=== PATIENT | female | born 1955 | race Caucasian/White ===

== ENCOUNTER 2023-10-31 05:56 | Day surgery (SDC) | payer MEDICARE, SELFPAY ==
--- NOTE | 2023-10-31 | IMM_PTH ---
PATHOLOGY RESULTS PATIENT: RIKKI ACKERMAN [place] [facility] [id number] AGE/SX: 68/F ROOM: RE10/31/[address]: Dr. Digna Hammond MD : 1955 BED: DIS: 10/31/2023 SPEC #: [id number] RECD: 11/03/23 13:16 STATUS: HARSHA REQ #: [id number] KARLENE: 10/31/23 00:[address]: Digna Hammond DEPT: IMMUNOHISTOCHEMISTRY RECD BY: Catalina Chang ENTERED: 11/03/23 13:18 SP TYPE: IMMUNO OTHR DR: Dr. Toribio Moss MD Tissues: Skin of eyelid, NOS Procedures: CK5-6 (add) CK7 (add) KI-67 (add) Vimentin (add) Pankeratin (initial) MELAN-A (add) P40 (add) S-100 (add) PHYSICIAN & INSTITUTION [place] [phone] SPECIMEN INFORMATION: Tissue Source: B - Shave lesion right eye area Clinical Info: Lesions Specimen Number: [id number] CPT code: 48953, 21059 x7 METHODOLOGY: Deparaffinized sections of prefer/formalin-fixed tissue or PAP/DQ stained slides are incubated with monoclonal/polyclonal antibodies/oligonucleotide probes. Localization is made via biotin free immunoperoxidase method. Appropriate controls are performed and reacted as expected. Results on target cell population are indicated in the following table: RESULTS: ANTIBODY / CLONE RESULT Block B AE1-3 (AE1/AE3/PCK26) positive CK7 (OV-TL12/30) negative Vimentin (V9) negative Melan A (A103) negative S-100 (4C4.9) negative CK5-6 (D5 & 1684) positive P40 (BC28) positive Ki-67 (30-9) positive, low These tests were developed and their performance characteristics determined by [facility]. They may not have been cleared or approved by the [place]. Food and Drug Administration. The FDA has determined that such clearance or approval is not necessary. The above immunohistochemical/dualISH markers are ordered and reviewed by the Pathologist. INTERPRETATION: B. Skin lesion, right eye area, shave biopsy: Actinic change with moderate to severe squamous atypia. AM:lanie 11/04/2023
--- NOTE | 2023-10-31 | LES_PTH ---
PATHOLOGY RESULTS PATIENT: RIKKI ACKERMAN LOC: [facility] – [place] U#:[id number] AGE/SX: 68/F ROOM: RE10/31/[address]: Dr. Digna Hammond MD : 1955 BED: DIS: 10/31/2023 SPEC #: [id number] RECD: 10/31/23 08:48 STATUS: HARSHA REAndrew #: [id number] KARLENE: 10/31/23 00:[address]: Digna Hammond DEPT: SURGICAL PATHOLOGY RECD BY: Scott Zuniga ENTERED: 10/31/23 09:32 SP TYPE: Lesion OTHR DR: Dr. Toribio Moss MD Tissues: Skin of forehead Skin of eyelid, NOS Skin of face, NOS Skin of face, NOS Procedures: Surgery Specimen Level IV HEADER OPERATION: Shave lesion left cheek, nose, forehead, right eye area PRE-OP DIAGNOSIS: Lesions left cheek, nose, forehead, right eye area TISSUE SUBMITTED: A - Shave lesion forehead, B - Shave lesion right eye area, C - Shave lesion left cheek, D - Shave lesion nose MICROSCOPIC DIAGNOSIS A. Skin lesion of forehead, shave biopsy: Actinic change with moderate and focal severe squamous atypia, inflamed. Focal ulcer with eschar formation. Parakeratosis and solar elastosis. Fungal organisms consistent with tinea. B. Skin lesion, right eye area, shave biopsy: Actinic keratosis with moderate and focal severe squamous atypia, inflamed. Parakeratosis and solar elastosis. Fungal organisms consistent with tinea. See comment. C. Left cheek skin lesion, shave biopsy: Actinic keratosis with mild and focal moderate squamous atypia, inflamed. Parakeratosis and solar elastosis.. Fungal organisms consistent with tinea. D. Skin lesion of nose, shave biopsy: Acathotic squamoid lesion with mild and focal moderate squamous atypia. . Parakeratosis and solar elastosis. Fungal organisms consistent with tinea. AM:lanie 11/03/2023 COMMENT A-D. The lesions extend to the deep shaved, inked margins. Clinical correlation is necessary. B. Immunohistochemistry ([id number]) supports the above diagnosis. Case has been reviewed in consultation with Dr. Joseph who concurs with the above diagnosis. IDC:SJ MICROSCOPIC DESCRIPTION Slides are reviewed. GROSS DESCRIPTION A - Received in fixative is one container labeled with the patient's name and designated shave lesion forehead. The specimen consists of a shave biopsy of sewell-white skin measuring 0.8 x 0.7 x 0.1 cm. The specimen is inked, serially sectioned and submitted entirely in one cassette. Also present in the container is a minute fragment of sewell soft tissue measuring 0.6 x 0.1 x 0.1 cm. The entire specimen is submitted in cassette 2. B - Received in fixative is one container labeled with the patient's name and designated shave lesion right eye area. The specimen consists of an irregular, disrupted piece of sewell-white skin measuring 1.5 x 0.2 x 0.1 cm. The specimen is inked, serially sectioned and submitted entirely in one cassette. C - Received in fixative is one container labeled with the patient's name and designated shave lesion left cheek. The specimen consists of a shave biopsy of sewell-white skin measuring 0.8 x 0.6 x 0.1 cm. The specimen is inked, serially sectioned and submitted entirely in one cassette. D - Received in fixative is one container labeled with the patient's name and designated shave lesion nose. The specimen consists of a piece of sewell-white skin measuring 0.5 x 0.4 x 0.1 cm. The specimen is inked, bisected and submitted entirely in one cassette. / SJ:rg 10/31/23 TC:0 CPT: 99672 x4
--- OUTSIDE RECORDS SUMMARY | 2023-10-31 06:04 | XMS RPT_ITS | CCD ---
Author Name Unknown Address [address] [place] [address] Organization [facility] Care Team Providers Care Disability Examiner Name Role Phone MAXIMILIANO, EUN Unavailable Unavailable MAXIMILIANO, EUN Unavailable Unavailable MAXIMILIANO, EUN Unavailable Unavailable MAXIMILIANO, EUN Unavailable Unavailable MAXIMILIANO, EUN Unavailable Unavailable MAXIMILIANO, EUN Unavailable Unavailable MAXIMILIANO, EUN Unavailable Unavailable MAXIMILIANO, EUN Unavailable Unavailable MAXIMILIANO, EUN Unavailable Unavailable MAXIMILIANO, EUN Unavailable Unavailable MAXIMILIANO, EUN Unavailable Unavailable MAXIMILIANO, EUN Unavailable Unavailable MAXIMILIANO, EUN Unavailable Unavailable MAXIMILIANO, EUN Unavailable Unavailable MAXIMILIANO, EUN Unavailable Unavailable MAXIMILIANO, EUN Unavailable Unavailable MAXIMILIANO, EUN Unavailable Unavailable MAXIMILIANO, EUN Unavailable Unavailable MAXIMILIANO, EUN Unavailable Unavailable MAXIMILIANO, EUN Unavailable Unavailable MAXIMILIANO, EUN Unavailable Unavailable MAXIMILIANO, EUN Unavailable Unavailable MAXIMILIANO, EUN Unavailable Unavailable MAXIMILIANO, EUN Unavailable Unavailable MAXIMILIANO, EUN Unavailable Unavailable MAXIMILIANO, EUN Unavailable Unavailable MAXIMILIANO, EUN Unavailable Unavailable MAXIMILIANO, EUN Unavailable Unavailable MAXIMILIANO, EUN Unavailable Unavailable MAXIMILIANO, EUN Unavailable Unavailable MAXIMILIANO, EUN Unavailable Unavailable MAXIMILIANO, EUN Unavailable Unavailable MAXIMILIANO, EUN Unavailable Unavailable MAXIMILIANO, EUN Unavailable Unavailable Clari Moss Unavailable Clari Moss Primary Care Provider Clari Moss [facility] Primary Care Provider Clari Moss MD Primary Care Provider [phone] Clari Moss MD Primary Care Provider [phone] Clari Moss MD Primary Care Provider Clari Moss MD Primary Care Provider [phone] SELF, SELF Referring Unavailable CLARI MOSS Primary Care Unavailable JAN MURPHY Attending Unavailable CLARI MOSS Attending Unavailable CLARI MOSS Referring Unavailable CLARI MOSS Primary Care Unavailable CLARI MOSS Attending Unavailable CLARI MOSS Referring Unavailable CLARI MOSS Primary Care Unavailable CLARI MOSS Referring Unavailable CLARI MOSS Attending Unavailable CLARI MOSS Primary Care Unavailable CLARI MOSS Referring Unavailable CLARI MOSS Primary Care Unavailable MIR MELISSA Attending Unavailable CLARI MOSS Primary Care Unavailable ALFRED IBARRA Attending Unavailable ALFRED IBARRA Referring Unavailable CLARI MOSS Primary Care Unavailable ALFRED IBARRA Attending Unavailable ALFRED IBARRA Referring Unavailable CLARI MOSS Primary Care Unavailable AMALFRED BAILON Attending Unavailable TIM IBARRAMO Referring Unavailable CLARI MOSS Referring Unavailable CLARI MOSS Primary Care Unavailable UJDY, MIR Attending Unavailable CLARI MOSS Primary Care Unavailable ALFRED IBARRA Referring Unavailable TIM IBARRAMO Attending Unavailable CLARI MOSS Primary Care Unavailable CLARI MOSS Referring Unavailable CLARI MOSS Attending Unavailable CLARI MOSS Primary Care Unavailable MIR MELISSA Attending Unavailable MIR MELISSA Referring Unavailable CLARI MOSS Primary Care Unavailable MIR MELISSA Attending Unavailable MIR MELISSA Referring Unavailable MIR MELISSA Attending Unavailable CLARI MOSS Referring Unavailable CLARI MOSS Primary Care Unavailable CLARI MOSS Primary Care Unavailable GLADYS DAWSON Attending Unavailable GLADYS DAWSON Referring Unavailable MIR MELISSA Attending Unavailable CLARI MOSS Referring Unavailable CLARI MOSS Primary Care Unavailable CLARI MOSS Primary Care Unavailable CLARI MOSS Attending Unavailable SELF, SELF Referring Unavailable CLARI MOSS Primary Care Unavailable GLADYS DAWSON Attending Unavailable GLADYS DAWSON Referring Unavailable ALFRED IBARRA Attending Unavailable CLARI MOSS Referring Unavailable CLARI MOSS Primary Care Unavailable CLARI MOSS Referring Unavailable ALFRED IBARRA Attending Unavailable CLARI MOSS Primary Care Unavailable SELF, SELF Referring Unavailable CLARI MOSS Attending Unavailable CLARI MOSS Primary Care Unavailable MIR MELISSA Attending Unavailable CLARI MOSS Referring Unavailable CLARI MOSS Primary Care Unavailable CLARI MOSS Attending Unavailable CLARI MOSS Primary Care Unavailable SELF, SELF Referring Unavailable Allergies Allergy Classification Reported Allergen(s) Allergy Type Date of Onset Reaction(s) Facility Latex (6 sources) Latex Substance Allergy 01-20-2017 Rash [facility] Macrolides (antibiotic) (6 sources) Erythromycin Drug Allergy 01-20-2017 Nausea Only [facility] NSAIDs (6 sources) Ibuprofen Drug Allergy 01-20-2017 Nausea Only [facility] Opioid Agonists (6 sources) Codeine Drug Allergy 01-20-2017 Itching [facility] Penicillins (antibiotic) (6 sources) Penicillins Drug Allergy 01-20-2017 [facility] Povidone-Iodine (6 sources) P[facility]idone[facility]ine Drug [facility] codeine Drug Allergy 01-20-2017 Itching [facility] Work Phone: (20 sources) erythromycin Drug Allergy 01-20-2017 Nausea Only [facility] Work Phone: (20 sources) ibuprofen Drug Allergy 01-20-2017 Nausea Only [facility] Work Phone: (20 sources) Latex Propensity to adverse reactions to drug 01-20-2017 [facility] Work Phone: (20 sources) Penicillins Propensity to adverse reactions to drug 01-20-2017 [facility] Work Phone: (20 sources) p[facility] Work Phone: (10 sources) Latex Propensity to adverse reactions to drug 01-20-2017 [facility] (10 sources) Penicillins Propensity to adverse reactions to drug 01-20-2017 [facility] (10 sources) Povidone-Iodine Drug Allergy 01-20-2017 Itching [facility] Medications Current Medications Medication Drug Class(es) Dates Sig (Normalized) Sig (Original) [id number] 200 actuat albuterol 0.09 mg/actuat metered dose inhaler (20 sources) beta2-Adrenergic Agonist Start: 09-17-2023 Albuterol inhaler 2 puff Completed/Discontinued Medications Medication Drug Class(es) Dates Sig (Normalized) Sig (Original) acetaminophen 500 mg oral tablet (8 sources) Start: 08-08-2020 End: 10-17-2020 take 2 tablets by mouth every four hours as needed acetaminophen 325 MG tablet Take 2 tablets by mouth every 4 hours as needed for Mild Pain. 50 tablet 1 08/08/2020 10/17/2020 Discontinued Problems Active Problems Problem Classification Problem Date Documented Date Episodic/Chronic Asthma (20 sources) Reactive airway disease; Translations: [Unspecified asthma, uncomplicated] Onset: 08-06-2023 08-06-2023 Chronic Cataract (1 source) Nuclear senile cataract; Translations: [Nuclear senile cataract of both eyes] Chronic Diabetes mellitus with complications (20 sources) Diabetic cataract of bilateral eyes; Translations: [Type 2 diabetes mellitus with diabetic cataract] Onset: 03-12-2022 Chronic Diabetes mellitus without complication (20 sources) Diabetes mellitus; Translations: [Type 2 diabetes mellitus without complication] 01-20-2017 Chronic Disorders of lipid metabolism (20 sources) Hyperlipidemia; Translations: [Familial hypercholesterolemia] 01-20-2017 Chronic E Codes: Fall (1 source) Fall in home; Translations: [Unspecified fall, initial encounter] Episodic Glaucoma (7 sources) Ocular hypertension; Translations: [Ocular hypertension, bilateral] Onset: 04-23-2023 Chronic Immunizations and screening for infectious disease (3 sources) Viral screening status; Translations: [Encounter for screening for other viral diseases] Onset: 08-06-2023 08-06-2023 Episodic Nutritional deficiencies (5 sources) Vitamin D deficiency; Translations: [Vitamin D deficiency, unspecified] Onset: 08-06-2023 08-06-2023 Chronic Osteoarthritis (20 sources) Osteoarthritis; Translations: [Unspecified osteoarthritis, unspecified site] Onset: 07-17-2020 01-20-2017 Chronic Osteoarthritis (16 sources) Osteoarthritis of left hip joint; Translations: [Primary osteoarthritis of left hip] Onset: 07-17-2020 07-17-2020 Other and unspecified benign neoplasm (2 sources) Benign neoplasm of left choroid; 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] Other injuries and conditions due to external causes (1 source) Injury of right leg; Translations: [Unspecified injury of right lower leg, initial encounter] Episodic Other lower respiratory disease (7 sources) Interstitial lung disease; Translations: [Interstitial pulmonary disease, unspecified] Onset: 08-06-2023 08-06-2023 Chronic Other lower respiratory disease (4 sources) Interstitial pulmonary disease, unspecified; Translations: [Interstitial pulmonary disease, unspecified] Onset: 08-06-2023 Chronic Other lower respiratory disease (1 source) Cough; 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] Episodic Other lower respiratory disease (12 sources) Cough; Translations: [Subacute cough] Onset: 08-06-2023 06-02-2023 Episodic Other lower respiratory disease (2 sources) Wheezing; Translations: [Wheezing] Onset: 08-06-2023 08-06-2023 Episodic Other lower respiratory disease (2 sources) Lesion of lung; Translations: [Other disorders of lung] Onset: 08-06-2023 10-16-2023 Episodic Other lower respiratory disease (2 sources) Restrictive lung disease; Translations: [Other disorders of lung] Onset: 10-16-2023 10-16-2023 Episodic Other lower respiratory disease (2 sources) Other disorders of lung; Translations: [Other disorders of lung] Onset: 10-16-2023 Episodic Other lower respiratory disease (1 source) Wheezing; Translations: [Wheezing] Onset: 08-06-2023 Episodic Other non-epithelial cancer of skin (20 sources) Basal cell carcinoma of skin; Translations: [Basal cell carcinoma of skin, unspecified] 01-20-2017 Episodic Other non-traumatic joint disorders (7 sources) Hip pain; Translations: [Pain in left hip] Episodic Other non-traumatic joint disorders (1 source) Joint pain; Translations: [Pain in prosthetic joint, initial encounter] Episodic Other non-traumatic joint disorders (1 source) Pain in right hip joint; Translations: [Pain in right hip] Episodic Other nutritional; endocrine; and metabolic disorders (20 sources) Morbid obesity; Translations: [Morbid (severe) obesity due to excess calories] Onset: 08-25-2018 08-25-2018 Chronic Other nutritional; endocrine; and metabolic disorders (20 sources) Obese class II; Translations: [Obesity, unspecified] Onset: 08-08-2020 08-09-2020 Chronic Other nutritional; endocrine; and metabolic disorders (20 sources) Body mass index 40+ - severely obese; Translations: [Morbid (severe) obesity due to excess calories] Onset: 08-25-2018 08-25-2018 Chronic Other nutritional; endocrine; and metabolic disorders (11 sources) Obese class II; Translations: [Obesity, Class II, BMI 35-39.9] Onset: 08-08-2020 08-09-2020 Other screening for suspected conditions (not mental disorders or infectious disease) (6 sources) Breast neoplasm screening status; Translations: [Cancer cervix screening status] Episodic Other upper respiratory disease (20 sources) Allergic rhinitis; Translations: [Allergic rhinitis, unspecified] 01-20-2017 Chronic Residual codes; unclassified (8 sources) Obstructive sleep apnea syndrome; Translations: [Obstructive sleep apnea (adult) (pediatric)] Onset: 08-06-2023 08-06-2023 Chronic Residual codes; unclassified (2 sources) Obstructive sleep apnea (adult) (pediatric); Translations: [Obstructive sleep apnea (adult) (pediatric)] Onset: 08-06-2023 Chronic Residual codes; unclassified (2 sources) Postmenopausal state; Translations: [Asymptomatic menopausal state] Episodic Unclassified (1 source) Diabetic cataract of bilateral eyes; Translations: [Diabetic cataract of both eyes] Unclassified (4 sources) History of total replacement of left hip joint; Translations: [Hx of total hip arthroplasty, left] Unclassified (1 source) Patient encounter status; Translations: [Preop testing] Unclassified (2 sources) Subacute cough; Translations: [Subacute cough] Onset: 08-06-2023 Unclassified (1 source) Cough, unspecified; Translations: [Cough, unspecified] Onset: 10-28-2022 Unclassified (2 sources) Diabetic Retinal Exam; Translations: [Diabetic Retinal Exam] Onset: 08-05-2023 Unclassified (1 source) Post covid-19 condition, unspecified; Translations: [Post covid-19 condition, unspecified] Onset: 10-31-2022 Viral infection (2 sources) Herpes zoster without complication; Translations: [Zoster without complications] Episodic Viral infection (2 sources) COVID-19; Translations: [COVID-19] Onset: 08-11-2023 Past or Other Problems Problem Classification Problem Date Documented Date Episodic/Chronic Genitourinary symptoms and ill-defined conditions (1 source) Abnormal urine; Translations: [Urine abnormality] Episodic Other and unspecified benign neoplasm (20 sources) Nevus of choroid; 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] Onset: 07-27-2020 07-27-2020 Episodic Other and unspecified benign neoplasm (4 sources) Benign neoplasm of left choroid; 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] Onset: 04-23-2023 Episodic Other and unspecified benign neoplasm (15 sources) Nevus of choroid of left eye; 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] Onset: 07-27-2020 07-27-2020 Episodic Other and unspecified benign neoplasm (1 source) Benign neoplasm of left choroid; 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] Onset: 04-23-2023 Episodic Other connective tissue disease (20 sources) Disorder of hip; Translations: [Other symptoms and signs involving the musculoskeletal system] Onset: 01-07-2022 Episodic Other lower respiratory disease (2 sources) Chronic cough; Translations: [Chronic cough] Onset: 10-31-2022 Episodic Other non-traumatic joint disorders (2 sources) Pain in left hip; Translations: [Pain in left hip] Onset: 12-04-2017 Episodic Other upper respiratory infections (8 sources) Acute upper respiratory infection; Translations: [Acute upper respiratory infection, unspecified] Onset: 01-20-2023 Episodic Unclassified (2 sources) Subacute cough; Translations: [Subacute cough] Onset: 08-06-2023 Unclassified (1 source) Cough, unspecified; Translations: [Cough, unspecified] Onset: 10-28-2022 Unclassified (1 source) Post covid-19 condition, unspecified; Translations: [Post covid-19 condition, unspecified] Onset: 10-31-2022 Results Test Name Value Interpretation Reference Range Facil ity Vital Signs Date Time Vital Sign Value Performing Clinician Faci lity 10-16-2023 10:41-0500 Body height 162.6 cm Alfred Kumar MD Work Phone: [facility] 10-16-2023 10:41-0500 Body mass index (BMI) [Ratio] 54.65 kg/m2 Alfred Kumar MD Work Phone: [facility] 10-16-2023 10:41-0500 Body weight 144.43 kg Alfred Kumar MD Work Phone: [facility] 10-16-2023 10:41-0500 Diastolic blood pressure 90 mm[Hg] Alfred Kumar MD Work Phone: [facility] 10-16-2023 10:41-0500 Heart rate 101 /min Alfred Kumar MD Work Phone: [facility] 10-16-2023 10:41-0500 Respiratory rate 18 /min Alfred Kumar MD Work Phone: [facility] 10-16-2023 10:41-0500 SaO2% (BldA) [Mass fraction] 97 % Alfred Kumar MD Work Phone: [facility] 10-16-2023 10:41-0500 Systolic blood pressure 130 mm[Hg] Alfred Kumar MD Work Phone: [facility] 09-26-2023 14:23-0500 Body height 162.6 cm Mir Melissa MD Work Phone: [facility] 09-26-2023 14:23-0500 Body mass index (BMI) [Ratio] 54.86 kg/m2 Mir Melissa MD Work Phone: [facility] 09-26-2023 14:23-0500 Body weight 144.97 kg Mir Melissa MD Work Phone: [facility] 09-26-2023 14:23-0500 Diastolic blood pressure 90 mm[Hg] Mir Melissa MD Work Phone: [facility] 09-26-2023 14:23-0500 Heart rate 68 /min Mir Melissa MD Work Phone: [facility] 09-26-2023 14:23-0500 Respiratory rate 16 /min Mir Melissa MD Work Phone: [facility] 09-26-2023 14:23-0500 SaO2% (BldA) [Mass fraction] 96 % Mir Melissa MD Work Phone: [facility] 09-26-2023 14:23-0500 Systolic blood pressure 146 mm[Hg] Mir Melissa MD Work Phone: [facility] 08-06-2023 11:21-0400 Body height 162.6 cm Alfred Kumar MD Work Phone: [facility] 08-06-2023 11:21-0400 Body mass index (BMI) [Ratio] 54.09 kg/m2 Alfred Kumar MD Work Phone: [facility] 08-06-2023 11:21-0400 Body weight 142.93 kg Alfred Kumar MD Work Phone: [facility] 08-06-2023 11:21-0400 Diastolic blood pressure 86 mm[Hg] Alfred Kumar MD Work Phone: [facility] 08-06-2023 11:21-0400 Heart rate 90 /min Aflred Kumar MD Work Phone: [facility] 08-06-2023 11:21-0400 Respiratory rate 18 /min Alfred Kumar MD Work Phone: [facility] 08-06-2023 11:21-0400 SaO2% (BldA) [Mass fraction] 98 % Alfred Kumar MD Work Phone: [facility] 08-06-2023 11:21-0400 Systolic blood pressure 130 mm[Hg] Alfred Kumar MD Work Phone: [facility] [employer] [facility] 06-02-2023 11:31-0400 Body height 162.6 cm Clari Moss MD Work Phone: [facility] [employer] [facility] 06-02-2023 11:31-0400 Body mass index (BMI) [Ratio] 52.39 kg/m2 Clari Moss MD Work Phone: [facility] [employer] [facility] 06-02-2023 11:31-0400 Body temperature 96.91 [degF] Clari Moss MD Work Phone: [employer] [facility] 06-02-2023 11:31-0400 Body weight 138.44 kg Clari Moss MD Work Phone: [facility] [employer] [facility] 06-02-2023 11:31-0400 Diastolic blood pressure 78 mm[Hg] Clari Moss MD Work Phone: [employer] [facility] 06-02-2023 11:31-0400 Heart rate 108 /min Clari Moss MD Work Phone: [employer] [facility] 06-02-2023 11:31-0400 Respiratory rate 16 /min Clari Moss MD Work Phone: [employer] [facility] 06-02-2023 11:31-0400 SaO2% (BldA) [Mass fraction] 97 % Clari Moss MD Work Phone: [employer] [facility] 06-02-2023 11:31-0400 Systolic blood pressure 110 mm[Hg] Clari Moss MD Work Phone: [employer] [facility] 05-23-2023 09:43-0400 Body height 162.6 cm Jan Murphy CNP Work Phone: [employer] [facility] 05-23-2023 09:43-0400 Body mass index (BMI) [Ratio] 52.52 kg/m2 Jan Murphy CNP Work Phone: [employer] [facility] 05-23-2023 09:43-0400 Body temperature 97.2 [degF] Jan Murphy CNP Work Phone: [facility] 05-23-2023 09:43-0400 Body weight 138.8 kg Jan Murphy CNP Work Phone: [facility] 05-23-2023 09:43-0400 Diastolic blood pressure 70 mm[Hg] Jan Murphy CNP Work Phone: [facility] 05-23-2023 09:43-0400 Heart rate 103 /min Jan Murphy [employer] Work Phone: [facility] 05-23-2023 09:43-0400 Respiratory rate 18 /min Jan Murphy [employer] Work Phone: [facility] 05-23-2023 09:43-0400 SaO2% (BldA) [Mass fraction] 96 % Jan Murphy CNP Work Phone: [facility] 05-23-2023 09:43-0400 Systolic blood pressure 152 mm[Hg] Jan Murphy CNP Work Phone: [facility] 05-20-2023 09:28-0400 Body height 162.6 cm Mir Melissa MD Work Phone: [facility] [employer] [facility] 05-20-2023 09:28-0400 Body mass index (BMI) [Ratio] 52.7 kg/m2 Mir Melissa MD Work Phone: [facility] [employer] [facility] 05-20-2023 09:28-0400 Body weight 139.25 kg Mir Melissa MD Work Phone: [facility] 05-20-2023 09:28-0400 Diastolic blood pressure 72 mm[Hg] Mir Melissa MD Work Phone: [facility] [employer] [facility] 05-20-2023 09:28-0400 Heart rate 73 /min Mir Melissa MD Work Phone: [facility] [employer] [facility] 05-20-2023 09:28-0400 Respiratory rate 18 /min Mir Melissa MD Work Phone: [facility] 05-20-2023 09:28-0400 SaO2% (BldA) [Mass fraction] 97 % Mir Melissa MD Work Phone: [employer] 05-20-2023 09:28-0400 Systolic blood pressure 122 mm[Hg] Mir Melissa MD Work Phone: [employer] [facility] 01-20-2023 14:35-0400 Body height 162.6 cm Clari Moss MD Work Phone: [employer] [facility] 01-20-2023 14:35-0400 Body mass index (BMI) [Ratio] 49.09 kg/m2 Clari Moss MD Work Phone: [employer] [facility] 01-20-2023 14:35-0400 Body temperature 97.59 [degF] Clari Moss MD Work Phone: [employer] [facility] 01-20-2023 14:35-0400 Body weight 129.73 kg Clari Moss MD Work Phone: [employer] 01-20-2023 14:35-0400 Diastolic blood pressure 78 mm[Hg] Clari Moss MD Work Phone: [employer] 01-20-2023 14:35-0400 Heart rate 87 /min Clari Moss MD Work Phone: [employer] 01-20-2023 14:35-0400 Respiratory rate 20 /min Clari Moss MD Work Phone: [employer] [facility] 01-20-2023 14:35-0400 SaO2% (BldA) [Mass fraction] 98 % Clari Moss MD Work Phone: [employer] 01-20-2023 14:35-0400 Systolic blood pressure 148 mm[Hg] Clari Moss MD Work Phone: [employer] 12-03-2022 08:56-0500 Body height 162.6 cm Mir Melissa MD Work Phone: [employer] [facility] 12-03-2022 08:56-0500 Body mass index (BMI) [Ratio] 48.51 kg/m2 Mir Melissa MD Work Phone: [employer] 12-03-2022 08:56-0500 Body weight 128.19 kg Mir Melissa MD Work Phone: [employer] 12-03-2022 08:56-0500 Diastolic blood pressure 84 mm[Hg] Mir Melissa MD Work Phone: [employer] 12-03-2022 08:56-0500 Heart rate 100 /min Mir Melissa MD Work Phone: [employer] 12-03-2022 08:56-0500 Respiratory rate 16 /min Mir Melissa MD Work Phone: [employer] 12-03-2022 08:56-0500 Systolic blood pressure 116 mm[Hg] Mir Melissa MD Work Phone: [employer] 10-31-2022 15:45-0500 Body height 162.6 cm Clari Moss MD Work Phone: [employer] 10-31-2022 15:45-0500 Body mass index (BMI) [Ratio] 47.55 kg/m2 Clari Moss MD Work Phone: [employer] 10-31-2022 15:45-0500 Body temperature 98.29 [degF] Clari Moss MD Work Phone: [employer] 10-31-2022 15:45-0500 Body weight 125.65 kg Clari Moss MD Work Phone: [employer] 10-31-2022 15:45-0500 Diastolic blood pressure 78 mm[Hg] Clari Moss MD Work Phone: [employer] 10-31-2022 15:45-0500 Heart rate 100 /min Clari Moss MD Work Phone: [employer] 10-31-2022 15:45-0500 Respiratory rate 16 /min Clari Moss MD Work Phone: [employer] 10-31-2022 15:45-0500 SaO2% (BldA) [Mass fraction] 98 % Clrai Moss MD Work Phone: [employer] 10-31-2022 15:45-0500 Systolic blood pressure 128 mm[Hg] Clari Moss MD Work Phone: [employer] [facility] 10-16-2022 14:32-0500 Body height 162.6 cm Clari Moss MD Work Phone: [employer] [facility] 10-16-2022 14:32-0500 Body mass index (BMI) [Ratio] 46.69 kg/m2 Clari Moss MD Work Phone: [employer] [facility] 10-16-2022 14:32-0500 Body temperature 99.7 [degF] Clari Moss MD Work Phone: [employer] 10-16-2022 14:32-0500 Body weight 123.38 kg Clari Moss MD Work Phone: [employer] [facility] 10-16-2022 14:32-0500 Diastolic blood pressure 78 mm[Hg] Clari Moss MD Work Phone: [employer] [facility] 10-16-2022 14:32-0500 Heart rate 104 /min Clari Moss MD Work Phone: [employer] 10-16-2022 14:32-0500 Respiratory rate 16 /min Clari Moss MD Work Phone: [employer] [facility] 10-16-2022 14:32-0500 SaO2% (BldA) [Mass fraction] 97 % Clari Moss MD Work Phone: [employer] [facility] 10-16-2022 14:32-0500 Systolic blood pressure 142 mm[Hg] Clari Moss MD Work Phone: [employer] 07-05-2022 08:57-0400 Body height 162.6 cm Mir Melissa MD Work Phone: [employer] 07-05-2022 08:57-0400 Body mass index (BMI) [Ratio] 43.02 kg/m2 Mir Melissa MD Work Phone: [employer] 07-05-2022 08:57-0400 Body weight 113.67 kg Mir Melissa MD Work Phone: [employer] [facility] 07-05-2022 08:57-0400 Diastolic blood pressure 78 mm[Hg] Mir Melissa MD Work Phone: [employer] [facility] 07-05-2022 08:57-0400 Heart rate 94 /min Mir Melissa MD Work Phone: [employer] [facility] 07-05-2022 08:57-0400 Respiratory rate 16 /min Mir Melissa MD Work Phone: [employer] [facility] 07-05-2022 08:57-0400 Systolic blood pressure 124 mm[Hg] Mir Melissa MD Work Phone: [facility] [employer] [facility] 03-12-2022 11:25-0400 Body height 162.6 cm Mir Melissa MD Work Phone: [facility] [employer] [facility] 03-12-2022 11:25-0400 Body mass index (BMI) [Ratio] 41.57 kg/m2 Mir Melissa MD Work Phone: [employer] [facility] 03-12-2022 11:25-0400 Body weight 109.86 kg Mir Melissa MD Work Phone: [facility] [employer] [facility] 03-12-2022 11:25-0400 Diastolic blood pressure 91 mm[Hg] Mir Melissa MD Work Phone: [facility] [employer] [facility] 03-12-2022 11:25-0400 Heart rate 94 /min Mir Melissa MD Work Phone: [employer] [facility] 03-12-2022 11:25-0400 Respiratory rate 16 /min Mir Melissa MD Work Phone: [employer] [facility] 03-12-2022 11:25-0400 Systolic blood pressure 141 mm[Hg] Mir Melissa MD Work Phone: [facility] 02-12-2022 09:07-0400 Body height 162.6 cm Mir Melissa MD [facility] 02-12-2022 09:07-0400 Body mass index (BMI) [Ratio] 41.62 kg/m2 Mir Melissa MD Work Phone: [employer] 02-12-2022 09:07-0400 Body weight 110.04 kg Mir Melissa MD Work Phone: [employer] [facility] 02-12-2022 09:07-0400 Diastolic blood pressure 87 mm[Hg] Mir Melissa MD Work Phone: [employer] 02-12-2022 09:07-0400 Heart rate 80 /min Mir Melissa MD Work Phone: [employer] 02-12-2022 09:07-0400 Respiratory rate 17 /min Mir Melissa MD Work Phone: [employer] 02-12-2022 09:07-0400 Systolic blood pressure 141 mm[Hg] Mir Melissa MD Work Phone: [employer] 01-07-2022 14:38-0400 Body height 162.6 cm Clari Moss MD Work Phone: [employer] 01-07-2022 14:38-0400 Body mass index (BMI) [Ratio] 41.71 kg/m2 Clari Moss MD Work Phone: [employer] 01-07-2022 14:38-0400 Body temperature 99 [degF] Clari Moss MD Work Phone: [employer] 01-07-2022 14:38-0400 Body weight 110.22 kg Clari Moss MD Work Phone: [employer] 01-07-2022 14:38-0400 Diastolic blood pressure 68 mm[Hg] Clari Moss MD Work Phone: [employer] 01-07-2022 14:38-0400 Heart rate 88 /min Clari Moss MD Work Phone: [employer] [facility] 01-07-2022 14:38-0400 Respiratory rate 24 /min Clari Moss MD Work Phone: [employer] [facility] 01-07-2022 14:38-0400 SaO2% (BldA) [Mass fraction] 95 % Clari Moss MD Work Phone: [facility] [employer] [facility] 01-07-2022 14:38-0400 Systolic blood pressure 142 mm[Hg] Clari Moss MD Work Phone: [facility] 11-07-2021 08:56-0500 Body height 162.6 cm Ami Hay INVESTMENT PROFESSIONAL-BURLING AND JOINING SUPERVISOR Work Phone: [facility] 11-07-2021 08:56-0500 Body mass index (BMI) [Ratio] 41.2 kg/m2 Ami Hay INVESTMENT PROFESSIONAL-BURLING AND JOINING SUPERVISOR Work Phone: [facility] [employer] [facility] 11-07-2021 08:56-0500 Body weight 108.86 kg Ami Hay INVESTMENT PROFESSIONAL-BURLING AND JOINING SUPERVISOR Work Phone: [facility] [employer] [facility] 11-07-2021 08:56-0500 Diastolic blood pressure 78 mm[Hg] Ami Hay INVESTMENT PROFESSIONAL-BURLING AND JOINING SUPERVISOR Work Phone: [facility] [employer] [facility] 11-07-2021 08:56-0500 Systolic blood pressure 138 mm[Hg] Ami Hay INVESTMENT PROFESSIONAL-BURLING AND JOINING SUPERVISOR Work Phone: [facility] [employer] [facility] 05-15-2021 11:02-0400 Body height 162.6 cm Mir Melissa MD Work Phone: [facility] 05-15-2021 11:02-0400 Body mass index (BMI) [Ratio] 38.12 kg/m2 Mir Melissa MD Work Phone: [facility] [employer] [facility] 05-15-2021 11:02-0400 Body weight 100.79 kg Mir Melissa MD Work Phone: [employer] [facility] 05-15-2021 11:02-0400 Diastolic blood pressure 86 mm[Hg] Mir Melissa MD Work Phone: [facility] 05-15-2021 11:02-0400 Heart rate 90 /min Mir Melissa MD Work Phone: [facility] 05-15-2021 11:02-0400 Systolic blood pressure 166 mm[Hg] Mir Melissa MD Work Phone: [facility] [employer] [facility] 04-11-2021 16:26-0400 Diastolic blood pressure 63 mm[Hg] Clari Moss MD Work Phone: [employer] [facility] 04-11-2021 16:26-0400 Heart rate 97 /min Clari Moss MD Work Phone: [employer] [facility] 04-11-2021 16:26-0400 Respiratory rate 16 /min Clari Moss MD Work Phone: [employer] [facility] 04-11-2021 16:26-0400 SaO2% (BldA) [Mass fraction] 99 % Clari Moss MD Work Phone: [facility] [employer] [facility] 04-11-2021 16:26-0400 Systolic blood pressure 136 mm[Hg] Clari Moss MD Work Phone: [facility] [employer] [facility] 04-11-2021 14:59-0400 Body height 162.6 cm Clari Moss MD Work Phone: [employer] [facility] 04-11-2021 14:59-0400 Body mass index (BMI) [Ratio] 40.68 kg/m2 Clari Moss MD Work Phone: [employer] [facility] 04-11-2021 14:59-0400 Body weight 107.5 kg Clari Moss MD Work Phone: [facility] [employer] [facility] 04-11-2021 14:57-0400 Body temperature 97.9 [degF] Clari Moss MD Work Phone: [employer] [facility] 03-26-2021 15:49-0400 Body height 162.6 cm Clari Moss MD Work Phone: [employer] [facility] 03-26-2021 15:49-0400 Body mass index (BMI) [Ratio] 39.51 kg/m2 Clari Moss MD Work Phone: [employer] [facility] 03-26-2021 15:49-0400 Body temperature 97.39 [degF] Clari Moss MD Work Phone: [facility] 03-26-2021 15:49-0400 Body weight 104.42 kg Clari Moss MD Work Phone: [facility] 03-26-2021 15:49-0400 Diastolic blood pressure 68 mm[Hg] Clari Moss MD Work Phone: [facility] 03-26-2021 15:49-0400 Heart rate 100 /min Clari Moss MD Work Phone: [facility] 03-26-2021 15:49-0400 Respiratory rate 24 /min Clari Moss MD Work Phone: [facility] 03-26-2021 15:49-0400 SaO2% (BldA) [Mass fraction] 97 % Clari Moss MD Work Phone: [facility] 03-26-2021 15:49-0400 Systolic blood pressure 140 mm[Hg] Clari Moss MD Work Phone: [facility] 02-28-2021 14:37-0400 Body height 162.6 cm Sai Hylton MD Work Phone: [facility] 02-28-2021 14:37-0400 Body mass index (BMI) [Ratio] 40.89 kg/m2 Sai Hylton MD Work Phone: [facility] 02-28-2021 14:37-0400 Body temperature 97.7 [degF] Sai Hylton MD Work Phone: [facility] 02-28-2021 14:37-0400 Body weight 108.05 kg Sai Hylton MD Work Phone: [facility] 12-26-2020 08:13-0500 BMI (Body Mass Index) 40.18 kg/m2 [facility] 12-26-2020 08:13-0500 Body weight 106.23 kg [facility] 12-26-2020 08:13-0500 BP Diastolic 96 mm[Hg] [facility] 12-26-2020 08:13-0500 BP Systolic 164 mm[Hg] [facility] 12-26-2020 08:13-0500 Height 162.6 cm [facility] 12-26-2020 08:13-0500 Pulse (Heart Rate) 79 /min [facility] 11-22-2020 15:48-0500 BMI (Body Mass Index) 40.23 kg/m2 [facility] 11-22-2020 15:48-0500 Body Temperature 98.6 [degF] [facility] 11-22-2020 15:48-0500 Body weight 106.32 kg [facility] 11-22-2020 15:48-0500 Height 162.6 cm [facility] 10-18-2020 11:58-0500 BMI (Body Mass Index) 40.17 kg/m2 [facility] 10-18-2020 11:58-0500 Body Temperature 98.2 [degF] [facility] 10-18-2020 11:58-0500 Body weight 106.14 kg [facility] 10-18-2020 11:58-0500 Height 162.6 cm [facility] 10-17-2020 08:55-0500 BMI (Body Mass Index) 40.15 kg/m2 [facility] 10-17-2020 08:55-0500 Body Temperature 69.6 [degF] [facility] 10-17-2020 08:55-0500 Body weight 106.14 kg [facility] 10-17-2020 08:55-0500 BP Diastolic 78 mm[Hg] [facility] 10-17-2020 08:55-0500 BP Systolic 119 mm[Hg] [facility] 10-17-2020 08:55-0500 Height 162.6 cm [facility] 10-17-2020 08:55-0500 Pulse (Heart Rate) 95 /min [facility] 09-27-2020 10:30-0500 BMI (Body Mass Index) 42.23 kg/m2 [facility] 09-27-2020 10:30-0500 Body Temperature 97.11 [degF] [facility] 09-27-2020 10:30-0500 Body weight 111.58 kg [facility] 09-27-2020 10:30-0500 Height 162.6 cm [facility] 08-30-2020 11:39-0500 BMI (Body Mass Index) 42.23 kg/m2 [facility] 08-30-2020 11:39-0500 Body Temperature 97.5 [degF] [facility] 08-30-2020 11:39-0500 Body weight 111.58 kg [facility] 08-30-2020 11:39-0500 Height 162.6 cm [facility] 08-09-2020 16:11-0400 Body Temperature 98.91 [degF] [facility] 08-09-2020 16:11-0400 BP Diastolic 64 mm[Hg] [facility] 08-09-2020 16:11-0400 BP Systolic 125 mm[Hg] [facility] 08-09-2020 16:11-0400 Pulse (Heart Rate) 92 /min [facility] 08-09-2020 16:11-0400 Pulse Oximetry 95 % [facility] 08-09-2020 16:11-0400 Respiratory Rate 18 /min [facility] 08-08-2020 08:39-0400 BMI (Body Mass Index) 39.24 kg/m2 [facility] 08-08-2020 08:39-0400 Body weight 103.7 kg [facility] 08-08-2020 08:39-0400 Height 162.6 cm [facility] 07-17-2020 14:27-0400 BMI (Body Mass Index) 42.23 kg/m2 [facility] 07-17-2020 14:27-0400 Body Temperature 97.7 [degF] [facility] 07-17-2020 14:27-0400 Body weight 111.58 kg [facility] 07-17-2020 14:27-0400 BP Diastolic 64 mm[Hg] [facility] 07-17-2020 14:27-0400 BP Systolic 124 mm[Hg] [facility] 07-17-2020 14:27-0400 Height 162.6 cm [facility] 07-17-2020 14:27-0400 Pulse (Heart Rate) 76 /min [facility] 07-17-2020 14:27-0400 Pulse Oximetry 97 % [facility] 07-17-2020 14:27-0400 Respiratory Rate 16 /min [facility] 07-11-2020 08:43-0400 BMI (Body Mass Index) 41.76 kg/m2 [facility] 07-11-2020 08:43-0400 Body Temperature 98.29 [degF] [facility] 07-11-2020 08:43-0400 Body weight 110.41 kg [facility] 07-11-2020 08:43-0400 BP Diastolic 85 mm[Hg] [facility] 07-11-2020 08:43-0400 BP Systolic 149 mm[Hg] [facility] 07-11-2020 08:43-0400 Height 162.6 cm [facility] 07-11-2020 08:43-0400 Pulse (Heart Rate) 95 /min [facility] 06-27-2020 09:29-0400 BMI (Body Mass Index) 42.05 kg/m2 [facility] 06-27-2020 09:29-0400 Body Temperature 97.81 [degF] [facility] 06-27-2020 09:29-0400 Body weight 111.13 kg [facility] 06-27-2020 09:29-0400 BP Diastolic 72 mm[Hg] [facility] 06-27-2020 09:29-0400 BP Systolic 132 mm[Hg] [facility] 06-27-2020 09:29-0400 Height 162.6 cm [facility] 06-27-2020 09:29-0400 Pulse (Heart Rate) 92 /min [facility] 06-27-2020 09:29-0400 Pulse Oximetry 96 % [facility] 06-27-2020 09:29-0400 Respiratory Rate 16 /min Clari Moss [facility] 06-21-2020 16:41-0400 BMI (Body Mass Index) 42.4 kg/m2 [facility] 06-21-2020 16:41-0400 Body Temperature 97.3 [degF] [facility] 06-21-2020 16:41-0400 Body weight 112.04 kg [facility] 06-21-2020 16:41-0400 Height 162.6 cm [facility] 05-16-2020 08:37-0400 BMI (Body Mass Index) 45.35 kg/m2 [facility] 05-16-2020 08:37-0400 Body Temperature 97.81 [degF] [facility] 05-16-2020 08:37-0400 Body weight 119.84 kg [facility] 05-16-2020 08:37-0400 BP Diastolic 80 mm[Hg] [facility] 05-16-2020 08:37-0400 BP Systolic 125 mm[Hg] [facility] 05-16-2020 08:37-0400 Height 162.6 cm [facility] 05-16-2020 08:37-0400 Pulse (Heart Rate) 82 /min [facility] 05-10-2020 16:22-0400 BMI (Body Mass Index) 45.66 kg/m2 [facility] 05-10-2020 16:22-0400 Body Temperature 96.69 [degF] [facility] 05-10-2020 16:22-0400 Body weight 120.[address] [facility] 05-10-2020 16:22-[address] [facility] 04-04-2020 09:16-0400 BMI (Body Mass Index) 47.92 kg/m2 [facility] 04-04-2020 09:16-0400 Body Temperature 97.7 [degF] [facility] 04-04-2020 09:16-0400 Body weight 126.64 kg [facility] 04-04-2020 09:16-0400 BP Diastolic 87 mm[Hg] [facility] 04-04-2020 09:16-0400 BP Systolic 172 mm[Hg] [facility] 04-04-2020 09:16-0400 Height 162.6 cm [facility] 04-04-2020 09:16-0400 Pulse (Heart Rate) 92 /min [facility] 03-29-2020 10:20-0400 BMI (Body Mass Index) 47.55 kg/m2 [facility] 03-29-2020 10:20-0400 Body Temperature 97.7 [degF] [facility] 03-29-2020 10:20-0400 Body weight 125.[address] [facility] 03-29-2020 10:20-[address] [facility] 02-02-2020 10:18-0400 BMI (Body Mass Index) 46.55 kg/m2 [facility] 02-02-2020 10:18-0400 Body Temperature 96.01 [degF] [facility] 02-02-2020 10:18-0400 Body weight 123.[address] [facility] 02-02-2020 10:18-[address] [facility] 10-05-2019 09:34-0500 BMI (Body Mass Index) 46.69 kg/m2 [facility] 10-05-2019 09:34-0500 Body Temperature 97.7 [degF] [facility] 09:34-0500 Body [facility].38 [facility] 10-05-2019 09:34-0500 BP Diastolic 78 mm[Hg] Cl[facility] 10-05-2019 09:34-0500 BP Systolic 128 mm[Hg] Clari [facility] 10-05-2019 09:34-0500 Height 162.6 cm [facility] 10-05-2019 09:34-0500 Pulse (Heart Rate) 84 /min [facility] 10-05-2019 09:34-0500 Pulse Oximetry 97 % [facility] 10-05-2019 09:34-0500 Respiratory Rate 16 /min [facility] 09-12-2019 08:32-0500 BMI (Body Mass Index) 47.55 kg/m2 [facility] 09-12-2019 08:32-0500 Body Temperature 98.71 [degF] [facility]eta [facility] 09-12-2019 08:32-0500 Body weight 125.65 kg Queta [facility] 09-12-2019 08:32-0500 BP Diastolic 88 mm[Hg] [facility]-12-[facility] 08:32-0500 BP Systolic 169 mm[Hg] [facility] 09-12-2019 08:32-0500 Height 162.6 cm [facility] 09-12-2019 08:32-0500 Pulse (Heart Rate) 101 /min [facility] 09-12-2019 08:32-0500 Pulse Oximetry 95 % [facility] 09-12-2019 08:32-0500 Respiratory Rate 18 /min [facility] Encounter Date Encounter Type Care Provider Facility Start: 10-16-2023 ambulatory CLARI MOSS [facility] Start: 10-16-2023 End: 10-16-2023 Office outpatient visit 25 minutes Alfred Ibarra MD Work Phone: [facility] [place] Procedures Date Procedure Procedure Detail Performing Clinician Start: 09-26-2023 GENERAL PROCEDURE Mir Melissa MD Work Phone: Start: 09-17-2023 Pulmonary stress testing Alfred Ibarra MD Work Phone: Start: 09-17-2023 PFT COMPLETE Alfred Ibarra MD Work Phone: Start: 09-17-2023 Ct thorax w/o contra st material Alfred Ibarra MD Work Phone: Start: 06-02-2023 Radiologic exam ches t 2 views Clari Moss MD Work Phone: Start: 05-20-2023 Continuous glucose monitoring analysis i&r Mir Melissa MD Work Phone: Start: 04-23-2023 Computerized ophthal lizbeth imaging optic nerve Gladys Dawson OD Work Phone: Start: 12-03-2022 Continuous glucose monitoring analysis i&r Mir Melissa MD Work Phone: Start: 07-05-2022 Continuous glucose monitoring analysis i&r Mir Melissa MD Work Phone: Start: 04-09-2022 Fundus photography w/interpretation & report Gladys Dawson OD Work Phone: Start: 03-12-2022 Continuous glucose monitoring analysis i&r Mir Melissa MD Work Phone: Start: 11-15-2021 Dxa bone density eugenio dy 1/> sites axial skel Ami L Hay INVESTMENT PROFESSIONAL-BURLING AND JOINING SUPERVISOR Work Phone: Start: 11-07-2021 Blood occult peroxid ase actv qual feces 1 deter Ami L Hay INVESTMENT PROFESSIONAL-[employer]ING AND JOINING SUPERVISOR Work Phone: Start: 11-07-2021 PAP IG, RFX HPV ASCU Am i L Hay INVESTMENT PROFESSIONAL-[employer]URLING AND JOINING SUPERVISOR Work Phone: Start: 05-15-2021 Continuous glucose monitoring analysis i&r Mir Melissa MD Work Phone: Start: 04-11-2021 End: 04-11-2021 Radex ankle complete minimum 3 views Toshia Hernandez PA-C Work Phone: Start: 03-20-2021 Fundus photography w/interpretation & report Gladys Dawson OD Work Phone: Start: 08-09-2020 Gluc bld gluc mntr d ev cleared fda spec home use [employer] Work Phone: Start: 08-09-2020 Gluc bld gluc mntr d ev cleared fda spec home use [employer] Work Phone: Start: 08-09-2020 Gluc bld gluc mntr d ev cleared fda spec home use [employer] Work Phone: Start: 08-09-2020 Complete blood count with white cell differential, automated Thierno Gutierrez Work Phone: Start: 08-08-2020 Gluc bld gluc mntr d ev cleared fda spec home use Sai Hylton Partender Phone: Start: 08-08-2020 Gluc bld gluc mntr d ev cleared fda spec home use Sai Hylton Work Phone: Start: 08-08-2020 Pelvis X-ray Thierno Gutierrez Work Phone: Start: 08-08-2020 Gluc bld gluc mntr d ev cleared fda spec home use Sai Hylton Work Phone: Start: 08-08-2020 Glucose blood reagent strip Thierno Gutierrez Work Phone: Start: 08-08-2020 End: 08-08-2020 Arthrp acetblr/prox fem prostc agrft/algrft Sai Hylton Work Phone: Start: 08-08-2020 Blood group typing, RH phenotyping Sai Hylton Part[employer] Phone: Start: 08-08-2020 Cultyp nuc acid amp prb cult/isolate ea orgnism Thierno Gutierrez Work Phone: Start: 08-08-2020 NOVEL CORONAVIRUS LA B 1 - NASOPHARYNGEAL Thierno Brenda Work Phone: Start: 07-27-2020 Fundus photography Mayur Daswon Work Phone: Start: 07-13-2020 Culture bacterial quanttative colony count urine Melisa Cano Work Phone: Start: 07-11-2020 Glucose measurement by monitoring device Mir Melissa Work Phone: Start: 09-07-2019 [employer]us [employer] Mayur Dawson Work Phone: Start: 01-12-2019 OPHTHALMOLOGY DIAGNO STIC IMAGING (SCANNED) Gladys Dawson Work Phone: Plan of Treatment Date Care Activity Detail Author Start: 08-11-2024 Lipid panel LIPIDS [facility] Start: 08-10-2024 End: 08-10-2024 Patient encounter procedure 08/10/2024 10:00 AM EDT Office Visit [facility] [place] [address] [place] [address] Gladys Dawson W, OD [address] [place] [address] [facility] [place] Start: 08-05-2024 Glaucoma screening EYE EXAM [facility] Start: 05-16-2024 Lipid panel LIPIDS [facility] Start: 04-28-2024 End: 04-28-2024 Patient encounter procedure 04/28/2024 2:30 PM EDT Office Visit [facility] [place] [address] [place] [address] Gladys Dawson W, OD [address] [place] [address] [facility] [place] Start: 04-23-2024 Glaucoma screening EYE EXAM [facility] Start: 02-10-2024 Hemoglobin A1c measurement HBA1C TEST [facility] Start: 01-23-2024 End: 01-23-2024 Patient encounter procedure 01/23/2024 11:30 AM EDT Office Visit [address] [place] [address] Mir Melissa MD [address] [place] [address] [facility] Start: 01-22-2024 End: 01-22-2024 Patient encounter procedure 01/22/2024 8:40 AM EDT Office Visit [facility] [place] [address] [facility] [address] [place] [address] Alfred Roman MD [address] [place] [address] [facility] [place] Start: 12-10-2023 End: 09-26-2024 CBC,PLATELETS CBC,PLATELETS Lab Routine Type 1 diabetes mellitus with hyperglycemia Expected: 12/10/2023 (Approximate), Expires: 09/26/2024 [facility] Immunizations Immunization Date Immunization Notes Care Provider Fa cility 07-15-2022 influenza virus vaccine, unspecified formulation Gladys Dawson MILI Work Phone: [facility] 07-12-2021 influenza virus vaccine, unspecified formulation Mir Melissa MD Work Phone: [facility] 11-24-2020 SARS-COV-2 (COVID-19 ), Mrna, Lnp-s, Pf, 100 Mcg/ 0.5 Ml Dose MODERNA Mir Melissa [facility] 10-26-2020 SARS-COV-2 (COVID-19 ), Mrna, Lnp-s, Pf, 100 Mcg/ 0.5 Ml Dose [employer] 07-27-2019 influenza virus vaccine, unspecified formulation [facility] 08-03-2009 influenza, seasonal, injectable, preservative free [facility] 08-03-2009 novel [id number], preservative-free, injectable [facility] 08-03-2009 influenza virus vaccine, unspecified formulation Clari Moss [facility] Work Phone: 08-04-2007 influenza virus vaccine, whole virus [facility] 05-19-2007 tetanus toxoid, redu terence diphtheria toxoid, and acellular pertussis vaccine, adsorbed [facility] 08-05-2006 influenza virus vaccine, whole virus [facility] 08-25-2003 influenza virus vaccine, whole virus [facility] 08-12-2002 influenza virus vaccine, whole virus [facility] 08-28-2001 influenza virus vaccine, whole virus [facility] 09-17-2000 influenza virus vaccine, whole virus [facility] 08-20-1999 influenza virus vaccine, whole virus [facility] 08-18-1998 influenza virus vaccine, whole virus [facility] 08-22-1997 influenza virus vaccine, whole virus [facility] 09-02-1995 influenza virus vaccine, whole virus [facility] 07-05-1993 hepatitis B vaccine, adult dosage Alfred Kumar MD Work Phone: [facility] 07-05-1993 hepatitis B vaccine, pediatric or pediatric/adolescent dosage [facility] 11-29-1992 hepatitis B vaccine, adult dosage Alfred Kumar MD Work Phone: [facility] 11-29-1992 hepatitis B vaccine, pediatric or pediatric/adolescent dosage Clari [facility] 06-22-1992 hepatitis B vaccine, adult dosage Alfred Kumar MD Work Phone: [facility] 06-22-1992 hepatitis B vaccine, pediatric or pediatric/adolescent dosage Clari [facility] 05-16-1992 hepatitis B vaccine, adult dosage Alfred Kumar MD Work Phone: [facility] 05-16-1992 hepatitis B vaccine, pediatric or pediatric/adolescent dosage [facility] Payers Date Payer Category Payer Medicare [id number] 2022 Medicare [id number] 2021 Unknown [id number] 1.2.8 [id number] 2016 Unknown [id number] 1957 Unknown [id number] 2.16.8 40.1.150837.3.579.2.983 1957 Unknown [id number] 2.16.8 40.1.230092.3.579.2.983 1957 Unknown [id number] 2.16.8 40.1.985553.3.579.2.983 1957 Unknown [id number] 2.16.8 40.1.593739.3.579.2.983 1957 Unknown [id number] 2.16.8 40.1.859164.3.579.2.983 1957 Unknown [id number] 2.16.8 40.1.013643.3.579.2.983 1957 Unknown [id number] 2.16.8 40.1.342884.3.579.2.983 1957 Unknown [id number] 2.16.8 40.1.585174.3.579.2.983 1957 Unknown [id number] 2.16.8 40.1.828017.3.579.2.983 1957 Unknown [id number] 2.16.8 40.1.024731.3.579.2.983 1957 Unknown [id number] 2.16.8 40.1.637565.3.579.2.983 1957 Unknown [id number] 2.16.8 40.1.724303.3.579.2.983 1957 Unknown [id number] 2.16.8 40.1.681671.3.579.2.983 1957 Unknown [id number] 2.16.8 40.1.423019.3.579.2.983 1957 Unknown [id number] 2.16.8 40.1.130048.3.579.2.983 1957 Unknown [id number] 2.16.8 40.1.913405.3.579.2.983 1957 Unknown [id number] 2.16.8 40.1.601716.3.579.2.983 1957 Unknown [id number] 2.16.8 40.1.477573.3.579.2.983 1957 Unknown [id number] 2.16.8 40.1.112880.3.579.2.983 1957 Unknown [id number] 2.16.8 40.1.724944.3.579.2.983 1957 Unknown [id number] 2.16.8 40.1.535109.3.579.2.983 1957 Unknown [id number] 2.16.8 40.1.094224.3.579.2.983 1957 Unknown [id number] 2.16.8 40.1.247407.3.579.2.983 Social History Date Type Detail Facility Start: 08-25-2018 End: 12-03-2022 Tobacco smoking status NHIS Never smoker [facility] Work Phone: Start: 1955 Sex Assigned At Not on file [facility] Work Phone: Start: 09-14-2018 End: 10-16-2023 Alcohol intake Current non-drinker of alcohol (finding) [employer] Start: 03-29-2022 End: 04-08-2022 Exposure to SARS-CoV-2 (event) Not sure [employer] Start: 04-04-2020 End: 12-03-2022 Tobacco use and exposure Never used [employer] Start: 09-14-2018 End: 08-06-2023 Alcohol intake No [employer] Start: 02-12-2023 End: 08-06-2023 History of Social function [employer] Gender identity Identifies as fe male gender (finding) [employer] Medical Equipment Procedure Code Equipment Code Equipment Origin al Text Equipment Identifier Dates Accu-Chek Guide with testing once daily and prn, test strips(90 days) and lancets (90 days) and supplies. [id number] Start: 02-10-2019 End: 06-30-2019 Accu-Chek Guide with testing once daily and prn, test strips(90 days) and lancets (90 days) and supplies. [id number] Start: 06-30-2019 TESTING ONCE VITO LY AND NEEDED [id number] Start: 02-21-2020 TESTING ONCE VITO LY AND NEEDED [id number] Start: 04-17-2020 End: 09-29-2020 [place] Altrx Polyethlene Acetabular Liner Neutral 32mm Id 50mm Od [id number] Start: 08-08-2020 [place] Griptio n Acetabular Shell Sector [id number] Start: 08-08-2020 Femoral Stem Taper Actis Duofix Hip Prostesis Cementless [id number] Start: 08-08-2020 Biolox Delta Cer amic Femoral Head [id number] Start: 08-08-2020 Suture [place] Biocomposite Swivelock C Closed Eyelet With Fiberwire #2 [id number] Start: 08-08-2020 Artelon Tissue Reinforcement [id number] Start: 08-08-2020 Used to test blo od sugars 4 times daily [id number] Start: 09-29-2020 End: 07-05-2022 Used to test blo od sugars 4 times daily [id number] Start: 07-05-2022 Goals Date Patient Goal Desired Activity /State Personal health goal Clinical Notes 02-28-2021 to 10-16-2023 Alfred Kumar MD - 10/16/2023 10:40 AM ESTAbigail Marvin - 10/16/2023 10:40 AM ESTAssessment & Plan Note - Alfred Kumar MD - 10/16/2023 10:13 AM ESTPatient InstructionsAttachments Note Date & Type Note Facility 10-16-2023 History of Presen t illness Narrative Patient is a 68 y.o. female who came to be evaluated and managed for Cough Asthma and Cough . ICD-10-CM 1. Reactive airway disease without complication, unspecified asthma severity, unspecified whether persistent J45.909 2. 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 Restrictive lung disease J98.4 4. SHANI on CPAP G47.33 5. Subacute cough R05.2 6. Asthma, cough variant J45.991 Problem List Items Addressed This Visit Asthma, cough variant See under RAD SHANI on CPAP Given CPAP per Dr. Navarro yrs ago. Pulmonary scarring Chest radiograph w/ some increased lung markings; possible element of Interstitial lung disease ILD; likely mild focal postinflammatory scarring - 09/17/2023 CT chest without contrast reviewed: No acute lung findings. Mild, minimal bilateral, peripheral lung scarring BLL>LLL. No significant generalized lung scarring or inflammation (NO diffuse ILD, GGOs, pulmonary fibrosis UIP). Mild subtle central bronchial airway thickening or inflammation. Old Left rib fracture. - Need to do additional labs blood work for lung scarring; As Noted --- close follow-up CT Chest in 3 months to monitor scarring; 12/18/23 - 09/17/2023 PFT: - Spirometry - MILD RESTRICTION, FEV1/FVC 82%, FEV1 2.00L 83% predicted, FVC 2.44L 77% predicted - Significant increase/response to bronchodilator: NO response during this testing. - Lung Volume - MILD RESTRICTION (probably extra parenchymal cause; e.g., body habitus, etc.), TLC 3.47L 72% predicted, RV 0.98L 52% predicted. - Diffusing Capacity: MILDLY REDUCED DLCO 77% predicted, DL/VA 114% (which normalizes when adjusted for lung volume, suggesting extra parenchymal cause probably; e.g., body habitus, etc.). Results do not exclude asthma. - 09/30/2023 ILD LABS: COLEEN, SSA, SSB, SCL70, ANCAs, MPO, PR3, CCP, AUTUMN, CK - Negative, Normal - 09/30/2023 LABS: RF Positive, just slightly Increased. ; nonspecific. CCP Neg. - 09/30/2023 LABS: ESR, CRP - Normal. - monitor chest imaging, PFT, 6mwt prn, as indic - further evaluation, management pending results, clinical course. Reactive airway disease without complication - Primary - Nonsmoker; history of subacute cough several weeks, allergic rhinitis, as per records; was on albuterol inhaler, benzonatate, montelukast recently as per PCP, prev. - not on ACEI - not on GERD txs - 06/02/23 PCP ffup Notes Reviewed: subacute cough 3 weeks, moist cough; note of wheezing BLL on exam. CXR ordered - nonacute. Given albuterol, steroid Medrol, Tessalon perles. - may have element of RAD, cough-variant Asthma - 09/17/2023 PFT: - Spirometry - MILD RESTRICTION, FEV1/FVC 82%, FEV1 2.00L 83% predicted, FVC 2.44L 77% predicted - Significant increase/response to bronchodilator: NO response during this testing. - Lung Volume - MILD RESTRICTION (probably extra parenchymal cause; e.g., body habitus, etc.), TLC 3.47L 72% predicted, RV 0.98L 52% predicted. - Diffusing Capacity: MILDLY REDUCED DLCO 77% predicted, DL/VA 114% (which normalizes when adjusted for lung volume, suggesting extra parenchymal cause probably; e.g., body habitus, etc.). Results do not exclude asthma. - 08/11/2023 Alpha 1 Antitrypsin enzyme level 151 mg/dL Normal. - 08/11/2023 IgE antibody 45 Normal. - 08/11/2023 Mold, Mini-Panel Allergens (Allergy tests): Negative. - 08/11/2023 CBC Satisfactory, EOS 3% or 195 approx. - 08/11/2023 Vitamin D Normal. - Severity: mild - was not using, needing maint inhalers prev. Consider ICS/LABA, triple tx Trelegy or other inhaler regimen, if feasible; cont. albuterol as needed; use spacer - may also use duonebs; budesonide+formoterol nebs alternatively - patient benefits from nebulizer treatments - Inhaler technique teaching done/reviewed prev.; rinse mouth after inhaler use especially after inhaled steroids - Montelukast - consider Allergy testing, check Eosinophils, IgE prn, as indic; As Noted - Consider other controller meds, Biologics subsequently, if indicated - Avoid/control triggers; environmental control prn - control GERD as indicated - Smoking cessation reinforced: nonsmoker - advised OTC Calcium+Vit D, lifestyle recs for osteoporosis prevention, especially if on frequent or long-term systemic steroids (osteoporosis screening/management as per PCP prn, as indic) - monitor PFT, as indicated. - Consider Methacholine Challenge Test, if indicated - consider Peak Flow monitoring, Asthma Action Plan subseq., if necessary - ffup imaging as needed, Chest radiograph as indicated (CT Chest if indicated) - Pulmonary rehab program: as indic., if feasible; rec to stay active (PFT, LVEF may not qualify) - Influenza, pneumococcal, COVID19 vaccines recommended, updated Restrictive lung disease May develop RLD - mild RLD extra-parenchymal on PFT - monitor imaging, PFT as indic - rec wt loss, stay active (consider Bariatric clinic) - 09/17/2023 PFT: - Spirometry - MILD RESTRICTION, FEV1/FVC 82%, FEV1 2.00L 83% predicted, FVC 2.44L 77% predicted - Significant increase/response to bronchodilator: NO response during this testing. - Lung Volume - MILD RESTRICTION (probably extra parenchymal cause; e.g., body habitus, etc.), TLC 3.47L 72% predicted, RV 0.98L 52% predicted. - Diffusing Capacity: MILDLY REDUCED DLCO 77% predicted, DL/VA 114% (which normalizes when adjusted for lung volume, suggesting extra parenchymal cause probably; e.g., body habitus, etc.). Results do not exclude asthma. Subacute cough - Nonsmoker; history of subacute cough several weeks, allergic rhinitis, as per records; was on albuterol inhaler, benzonatate, montelukast recently as per PCP, prev. - post-viral cough? - not on ACEI - on GERD txs PPI - 06/02/23 PCP ffup Notes Reviewed: subacute cough 3 weeks, moist cough; note of wheezing BLL on exam. CXR ordered - nonacute. Given albuterol, steroid Medrol, Tessalon perles. - Subacute Cough as described - Upper Airway Cough Syndrome (UACS) aka postnasal drip? - GERD? - underlying lung disease: RAD, Cough-variant Asthma, - antitussives prn (e.g., OTC Dextromethorphan, Codeine, Benzonatate) - consider Gabapentin, Pregabalin later for refractory cough - UACS?: nasal steroids, antihistamines prn (Flonase, Nasocort, etc) - may try 1st generation antihistamines prn (e.g., chlorpheniramine, brompheniramine, clemastine; or combination antihistamine-decongestant brompheniramine-pseudoephedrine) may be more helpful in terms of cough/anticholinergic effect (but watch out for sedation and other side-effects) - consider Allergy testing; referral to [facility], ENT, as indicated - GERD: on PPI; lifestyle modifications (e.g., avoidance of reflux-inducing foods, very acidic beverages, don't lie down for 3 hours after meals, elevation of head of bed at least 3-4 inches) - NAEB: inhaled steroids HPI 10/16/23: not in ae, on albuterol prn.wt, CT Reviewed. 08/06/23 Background history - Nonsmoker; history of subacute cough several weeks, allergic rhinitis, as per records; was on albuterol inhaler, benzonatate, montelukast recently as per PCP, prev. - not on ACEI - not on GERD txs - 06/02/23 PCP ffup Notes Reviewed: subacute cough 3 weeks, moist cough; note of wheezing BLL on exam. CXR ordered - nonacute. Given albuterol, steroid Medrol, Tessalon perles. Current Outpatient Medications: Atorvastatin 10 MG tablet, Take 1 tablet by mouth daily., Disp: 90 tablet, Rfl: 1 benzonatate 100 MG capsule, Take 1 capsule by mouth 3 times daily as needed for Cough., Disp: 30 capsule, Rfl: 0 Blood Glucose Monitoring Suppl (ACCU-CHEK COMPACT CARE KIT) Kit, 1 kit by Unknown route daily., Disp: 1 kit, Rfl: 0 Cholecalciferol (VITAMIN D3 PO), Take 1 capsule by mouth daily., Disp: , Rfl: Dexcom G6 [employer] Device, For use with Dexcom G6 system. Use to check blood sugar four times daily, Disp: 1 Each, Rfl: 0 Dexcom G6 Sensor Misc, 1 Device by Unknown route every 10 days., Disp: 9 Each, Rfl: 1 Dexcom G6 Transmitter Misc, For use with Dexcom G6 system. Use to check blood sugar four times daily, Disp: 1 Each, Rfl: 1 DISABILITY PLACARD, Rx for handicap placard. Pt is unable to ambulate 200 yards without assistance. Disability is permanent, Disp: 1 Each, Rfl: 0 Glucagon (Baqsimi Two Pack) 3 MG/DOSE Powder, 1 spray by Nasal route as needed (severe hypoglycemia)., Disp: 2 Each, Rfl: 1 glucose blood test strips (Accu-Chek Guide) Strip strip, Used to test blood sugars 4 times daily, Disp: 300 strip, Rfl: 1 Insulin Aspart (NovoLOG) 100 UNIT/ML injection, For use of the insulin pump, use less than 150 units per day, Disp: 120 mL, Rfl: 3 metFORMIN-XR 500 MG Tab SR 24 HR, Take 2 tablets by mouth 2 times daily., Disp: 360 tablet, Rfl: 3 Multiple Vitamins-Minerals (MULTIVITAMIN ADULT PO), take by mouth daily.., Disp: , Rfl: [place]-3 Fatty Acids (FISH OIL) 1000 MG Cap, Take 1 capsule by mouth at bedtime., Disp: , Rfl: Semaglutide,0.25 or 0.5MG/DOS, (Ozempic, 0.25 or 0.5 MG/DOSE,) 2 MG/3ML Solution Pen-injector, Inject 0.5 mg under the skin once a week., Disp: 6 mL, Rfl: 3 SPACER FOR INHALER PRESCRIPTION, Use with inhaler as directed, Disp: 1 Each, Rfl: 0 Timolol maleate 0.5 % Solution ophthalmic solution, Place 1 drop in both eyes daily. Generic. 90 day supply., Disp: 10 mL, Rfl: 3 Albuterol 108 (90 Base) MCG/ACT Aero Soln inhaler, Inhale 2 puffs every 4 hours as needed for Wheezing., Disp: 18 g, Rfl: 3 Montelukast 10 MG tablet, Take 1 tablet by mouth daily., Disp: 30 tablet, Rfl: 0 promethazine-dextromethorphan 6.25-15 MG/5ML Syrup, Take 5 mL by mouth every 8 hours as needed for Cough., Disp: 240 mL, Rfl: 0 Past Medical History: Diagnosis Date Allergic rhinitis Arthritis Basal cell carcinoma back and face Cervical dysphagia 2006 Diabetes mellitus Type 2 Diabetic eye exam 09/14/2018 no retinopathy noted Hamstring tendonitis at origin 03/03/2018 Hyperlipidemia Left hip pain 09/2017 SHANI (obstructive sleep apnea) cpap Osteoarthritis Past Surgical History: Procedure Laterality Date ARTHROPLASTY HIP TOTAL Left 08/08/2020 Laterality: Left; Surgeon: Sai Hylton MD; Location: [facility] EXCISION SKIN LESION 06/15/2015 Right orthodox 1.5cm EXCISION SKIN LESION 06/15/2015 Forehead 2cm COLPOSCOPY 2007 LEEPS EXCISION SKIN LESION 2005 Basal Cell Carcinoma Left posterior shoulder LAPAROTOMY EXPLORATORY 1979 COLONOSCOPY DIAGNOSTIC Social History Tobacco Use Smoking status: Never Smokeless tobacco: Never Substance Use Topics Alcohol use: No Family History Problem Relation Age of Onset Diabetes Mother Arthritis - Osteo Mother Pacemaker Mother Arrhythmia Mother a-fib Dementia Mother Breast Cancer Mother Alzheimer's Mother Colorectal Polyps Father Diabetes Father Prostate Cancer Father Stroke Maternal Grandmother Cancer Paternal Grandfather stomch Allergies Allergen Reactions Codeine Itching Erythromycin Nausea Only Ibuprofen Nausea Only Latex Rash Penicillins Hives Povidone Iodine Itching Review of Systems Do you smoke?- NO Oxygen use __ NO __ patient is benefiting from oxygen use. Do you have a CPAP- YES [facility] company- [employer] Most recent CT - 09/17/23 Most recent PFT- 09/17/23 Has your breathing changed?- Worse more SOB Dyspnea upon exertion- YES Dyspnea at rest- NO Cough- productive- NO Have you had the Covid 19 vaccine- YES Do you need a Medication refill? Pt presents for review of Cough, Asthma Pt has NO maintenance inhaler Pt has rescue inhaler- Albuterol Patient presents for 8 week follow up and review of CT, 6MWT, PFT. Patient has no Maint inhaler Vitals: 10/16/23 1041 BP: 130/90 Pulse: 101 Resp: 18 SpO2: 97% Weight: (!) 144.4 kg (318 lb 6.4 oz) Height: 1.626 m (5' 4 ) Vital Signs Reviewed as noted. Physical Exam Vitals and nursing note reviewed. Constitutional: General: She is not in acute distress. HENT: Head: Normocephalic and atraumatic. Right Ear: External ear normal. Left Ear: External ear normal. Nose: No congestion or rhinorrhea. Mouth/Throat: Mouth: Mucous membranes are moist. Pharynx: Oropharynx is clear. No oropharyngeal exudate or posterior oropharyngeal erythema. Eyes: General: No scleral icterus. Neck: Vascular: No JVD. Trachea: No tracheal deviation. Cardiovascular: Rate and Rhythm: Regular rhythm. Heart sounds: Normal heart sounds. Pulmonary: Effort: Pulmonary effort is normal. No respiratory distress. Breath sounds: No stridor. No wheezing, rhonchi or rales. Chest: Chest wall: No tenderness. Genitourinary: Comments: Deferred Musculoskeletal: Cervical back: Neck supple. Lymphadenopathy: Cervical: No cervical adenopathy. Skin: General: Skin is warm and dry. Coloration: Skin is not jaundiced. Neurological: Mental Status: She is alert and oriented to person, place, and time. Psychiatric: Mood and Affect: Mood normal. Behavior: Behavior normal. I personally reviewed selected chart notes, results, interpreted tests, imaging today before seeing the pt; reviewed and discussed w/ pt, questions answered - 09/17/2023 PFT: - Spirometry - MILD RESTRICTION, FEV1/FVC 82%, FEV1 2.00L 83% predicted, FVC 2.44L 77% predicted - Significant increase/response to bronchodilator: NO response during this testing. - Lung Volume - MILD RESTRICTION (probably extra parenchymal cause; e.g., body habitus, etc.), TLC 3.47L 72% predicted, RV 0.98L 52% predicted. - Diffusing Capacity: MILDLY REDUCED DLCO 77% predicted, DL/VA 114% (which normalizes when adjusted for lung volume, suggesting extra parenchymal cause probably; e.g., body habitus, etc.). Results do not exclude asthma. - 08/11/2023 Alpha 1 Antitrypsin enzyme level 151 mg/dL Normal. - 08/11/2023 IgE antibody 45 Normal. - 08/11/2023 Mold, Mini-Panel Allergens (Allergy tests): Negative. - 08/11/2023 CBC Satisfactory, EOS 3% or 195 approx. - 08/11/2023 Vitamin D Normal. - 09/30/2023 ILD LABS: COLEEN, SSA, SSB, SCL70, ANCAs, MPO, PR3, CCP, AUTUMN, CK - Negative, Normal - 09/30/2023 LABS: RF Positive, just slightly Increased. ; nonspecific. CCP Neg. - 09/30/2023 LABS: ESR, CRP - Normal. - 09/17/2023 6MWT: on Room Air. Dx: dyspnea - pt. walked for 5 minutes, for a distance of 400 ft. - Baseline SpO2 at rest on room air: 96%. - Significant oxygen desaturation while walking: MILD; lowest spO2 90% at 5 min; post-test spO2 96%. - Dyspnea: highest Mod. Jonathan Dyspnea Scale Score: 5/10. IMPRESSION: Exercise limitation: YES. Required or Qualified for Oxygen Supplementation: NO (LOWEST SPO2 90%). - 09/17/2023 CT chest without contrast reviewed: No acute lung findings. Mild, minimal bilateral, peripheral lung scarring BLL>LLL. No significant generalized lung scarring or inflammation (NO diffuse ILD, GGOs, pulmonary fibrosis UIP). Mild subtle central bronchial airway thickening or inflammation. Old Left rib fracture. - Need to do additional labs blood work for lung scarring; ordered (no fasting, no appointment needed) --- close follow-up CT Chest in 3 months to monitor scarring; 12/18/23 - 06/02/23 CXR: nonacute; some incr lung bronchial markings. Immunization Administrations [id number] COVID-19 monovalent vaccine (Moderna), 12yr+, 100mcg/0.5mL 10/26/2020 (65 y.o.) 11/24/2020 (65 y.o.) [id number] COVID-19 monovalent vaccine, mRNA, Moderna, 50 mcg/0.25 mL booster 08/14/2021 (66 y.o.) Hepatitis B Vaccine 05/16/1992 (36 y.o.) 06/22/1992 (37 y.o.) 11/29/1992 (37 y.o.) 07/05/1993 (38 y.o.) Influenza Vaccine 09/02/1995 (40 y.o.) 08/22/1997 (42 y.o.) 08/18/1998 (43 y.o.) 08/20/1999 (44 y.o.) 09/17/2000 (45 y.o.) 08/28/2001 (46 y.o.) 08/12/2002 (47 y.o.) 08/25/2003 (48 y.o.) 08/05/2006 (51 y.o.) 08/04/2007 (52 y.o.) Influenza Vaccine 0.25ml 08/03/2009 (54 y.o.) Novel [id number] Vaccine, Preservative-Free 08/03/2009 (54 y.o.) Tdap Vaccine 05/19/2007 (51 y.o.) Return in about 3 months (around 01/15/2024). 3-6 mos; CT 11/28/23 FOLLOW-UP Patient was advised to call with any questions or concerns. If symptoms worsen or fail to improve patient was advised to call for follow up in our office and/or PCP, or go to the Emergency Dept. Benefits, Risks, Contraindications, and Complications of recommended treatments were explained (and to call if prescriptions are not feasible); and the patient stated understanding and agreement to proceed with plan. 10/16/2023: I spent more than 30 mins: reviewed selected chart notes, results, interpreted tests, imaging today before seeing the pt; interviewing and examining pt; reviewed and discussed w/ pt, questions answered; counselling/educating pt/family/caregiver; ordering meds/tests as appropriate; documenting clinical information in the chart. Some Elements copied from previous notes. I have updated where appropriate, and all reflect current medical decision making from today's encounter. Note: This dictation was generated using Dragon voice recognition software. Please excuse any typographical, grammatical or spelling errors that may have occurred using the system Alfred Ibarra MD, MPH, [facility] Pulmonary/Critical Care Medicine [facility] 10/16/2023 Do you smoke?- NO Oxygen use __ NO __ patient is benefiting from oxygen use. Do you have a CPAP- YES DME company- [employer] Most recent CT - 09/17/23 Most recent PFT- 09/17/23 Has your breathing changed?- Worse more SOB Dyspnea upon exertion- YES Dyspnea at rest- NO Cough- productive- NO Have you had the Covid 19 vaccine- YES Do you need a Medication refill? Pt presents for review of Cough, Asthma Pt has NO maintenance inhaler Pt has rescue inhaler- Albuterol Patient presents for 8 week follow up and review of CT, 6MWT, PFT. Patient has no Maint inhaler documented in this encounter [facility] 10-16-2023 Evaluation + Plan note Associated Problem(s): Asthma, cough variant See under RAD [facility] 10-16-2023 Miscellaneous Notes Associate d Problem(s): Asthma, cough variant See under RAD Associated Problem(s): Subacute cough - Nonsmoker; history of subacute cough several weeks, allergic rhinitis, as per records; was on albuterol inhaler, benzonatate, montelukast recently as per PCP, prev. - post-viral cough? - not on ACEI - on GERD txs PPI - 06/02/23 PCP ffup Notes Reviewed: subacute cough 3 weeks, moist cough; note of wheezing BLL on exam. CXR ordered - nonacute. Given albuterol, steroid Medrol, Tessalon perles. - Subacute Cough as described - Upper Airway Cough Syndrome (UACS) aka postnasal drip? - GERD? - underlying lung disease: RAD, Cough-variant Asthma, - antitussives prn (e.g., OTC Dextromethorphan, Codeine, Benzonatate) - consider Gabapentin, Pregabalin later for refractory cough - UACS?: nasal steroids, antihistamines prn (Flonase, Nasocort, etc) - may try 1st generation antihistamines prn (e.g., chlorpheniramine, brompheniramine, clemastine; or combination antihistamine-decongestant brompheniramine-pseudoephedrine) may be more helpful in terms of cough/anticholinergic effect (but watch out for sedation and other side-effects) - consider Allergy testing; referral to [facility], ENT, as indicated - GERD: on PPI; lifestyle modifications (e.g., avoidance of reflux-inducing foods, very acidic beverages, don't lie down for 3 hours after meals, elevation of head of bed at least 3-4 inches) - NAEB: inhaled steroids Associated Problem(s): SHANI on CPAP Given CPAP per Dr. Navarro yrs ago. Associated Problem(s): Restrictive lung disease May develop RLD - mild RLD extra-parenchymal on PFT - monitor imaging, PFT as indic - rec wt loss, stay active (consider Bariatric clinic) - 09/17/2023 PFT: - Spirometry - MILD RESTRICTION, FEV1/FVC 82%, FEV1 2.00L 83% predicted, FVC 2.44L 77% predicted - Significant increase/response to bronchodilator: NO response during this testing. - Lung Volume - MILD RESTRICTION (probably extra parenchymal cause; e.g., body habitus, etc.), TLC 3.47L 72% predicted, RV 0.98L 52% predicted. - Diffusing Capacity: MILDLY REDUCED DLCO 77% predicted, DL/VA 114% (which normalizes when adjusted for lung volume, suggesting extra parenchymal cause probably; e.g., body habitus, etc.). Results do not exclude asthma. Associated Problem(s): Reactive airway disease without complication - Nonsmoker; history of subacute cough several weeks, allergic rhinitis, as per records; was on albuterol inhaler, benzonatate, montelukast recently as per PCP, prev. - not on ACEI - not on GERD txs - 06/02/23 PCP ffup Notes Reviewed: subacute cough 3 weeks, moist cough; note of wheezing BLL on exam. CXR ordered - nonacute. Given albuterol, steroid Medrol, Tessalon perles. - may have element of RAD, cough-variant Asthma - 09/17/2023 PFT: - Spirometry - MILD RESTRICTION, FEV1/FVC 82%, FEV1 2.00L 83% predicted, FVC 2.44L 77% predicted - Significant increase/response to bronchodilator: NO response during this testing. - Lung Volume - MILD RESTRICTION (probably extra parenchymal cause; e.g., body habitus, etc.), TLC 3.47L 72% predicted, RV 0.98L 52% predicted. - Diffusing Capacity: MILDLY REDUCED DLCO 77% predicted, DL/VA 114% (which normalizes when adjusted for lung volume, suggesting extra parenchymal cause probably; e.g., body habitus, etc.). Results do not exclude asthma. - 08/11/2023 Alpha 1 Antitrypsin enzyme level 151 mg/dL Normal. - 08/11/2023 IgE antibody 45 Normal. - 08/11/2023 Mold, Mini-Panel Allergens (Allergy tests): Negative. - 08/11/2023 CBC Satisfactory, EOS 3% or 195 approx. - 08/11/2023 Vitamin D Normal. - Severity: mild - was not using, needing maint inhalers prev. Consider ICS/LABA, triple tx Trelegy or other inhaler regimen, if feasible; cont. albuterol as needed; use spacer - may also use duonebs; budesonide+formoterol nebs alternatively - patient benefits from nebulizer treatments - Inhaler technique teaching done/reviewed prev.; rinse mouth after inhaler use especially after inhaled steroids - Montelukast - consider Allergy testing, check Eosinophils, IgE prn, as indic; As Noted - Consider other controller meds, Biologics subsequently, if indicated - Avoid/control triggers; environmental control prn - control GERD as indicated - Smoking cessation reinforced: nonsmoker - advised OTC Calcium+Vit D, lifestyle recs for osteoporosis prevention, especially if on frequent or long-term systemic steroids (osteoporosis screening/management as per PCP prn, as indic) - monitor PFT, as indicated. - Consider Methacholine Challenge Test, if indicated - consider Peak Flow monitoring, Asthma Action Plan subseq., if necessary - ffup imaging as needed, Chest radiograph as indicated (CT Chest if indicated) - Pulmonary rehab program: as indic., if feasible; rec to stay active (PFT, LVEF may not qualify) - Influenza, pneumococcal, COVID19 vaccines recommended, updated Associated Problem(s): Pulmonary scarring Chest radiograph w/ some increased lung markings; possible element of Interstitial lung disease ILD; likely mild focal postinflammatory scarring - 09/17/2023 CT chest without contrast reviewed: No acute lung findings. Mild, minimal bilateral, peripheral lung scarring BLL>LLL. No significant generalized lung scarring or inflammation (NO diffuse ILD, GGOs, pulmonary fibrosis UIP). Mild subtle central bronchial airway thickening or inflammation. Old Left rib fracture. - Need to do additional labs blood work for lung scarring; As Noted --- close follow-up CT Chest in 3 months to monitor scarring; 12/18/23 - 09/17/2023 PFT: - Spirometry - MILD RESTRICTION, FEV1/FVC 82%, FEV1 2.00L 83% predicted, FVC 2.44L 77% predicted - Significant increase/response to bronchodilator: NO response during this testing. - Lung Volume - MILD RESTRICTION (probably extra parenchymal cause; e.g., body habitus, etc.), TLC 3.47L 72% predicted, RV 0.98L 52% predicted. - Diffusing Capacity: MILDLY REDUCED DLCO 77% predicted, DL/VA 114% (which normalizes when adjusted for lung volume, suggesting extra parenchymal cause probably; e.g., body habitus, etc.). Results do not exclude asthma. - 09/30/2023 ILD LABS: COLEEN, SSA, SSB, SCL70, ANCAs, MPO, PR3, CCP, AUTUMN, CK - Negative, Normal - 09/30/2023 LABS: RF Positive, just slightly Increased. ; nonspecific. CCP Neg. - 09/30/2023 LABS: ESR, CRP - Normal. - monitor chest imaging, PFT, 6mwt prn, as indic - further evaluation, management pending results, clinical course. documented in this encounter [facility] 10-16-2023 Evaluation + Plan note Associated Problem(s): Subacute cough - Nonsmoker; history of subacute cough several weeks, allergic rhinitis, as per records; was on albuterol inhaler, benzonatate, montelukast recently as per PCP, prev. - post-viral cough? - not on ACEI - on GERD txs PPI - 06/02/23 PCP ffup Notes Reviewed: subacute cough 3 weeks, moist cough; note of wheezing BLL on exam. CXR ordered - nonacute. Given albuterol, steroid Medrol, Tessalon perles. - Subacute Cough as described - Upper Airway Cough Syndrome (UACS) aka postnasal drip? - GERD? - underlying lung disease: RAD, Cough-variant Asthma, - antitussives prn (e.g., OTC Dextromethorphan, Codeine, Benzonatate) - consider Gabapentin, Pregabalin later for refractory cough - UACS?: nasal steroids, antihistamines prn (Flonase, Nasocort, etc) - may try 1st generation antihistamines prn (e.g., chlorpheniramine, brompheniramine, clemastine; or combination antihistamine-decongestant brompheniramine-pseudoephedrine) may be more helpful in terms of cough/anticholinergic effect (but watch out for sedation and other side-effects) - consider Allergy testing; referral to [facility], ENT, as indicated - GERD: on PPI; lifestyle modifications (e.g., avoidance of reflux-inducing foods, very acidic beverages, don't lie down for 3 hours after meals, elevation of head of bed at least 3-4 inches) - NAEB: inhaled steroids [facility] 10-16-2023 Evaluation + Plan note Associated Problem(s): SHANI on CPAP Given CPAP per Dr. Navarro yrs ago. [facility] 10-16-2023 Evaluation + Plan note Associated Problem(s): Restrictive lung disease May develop RLD - mild RLD extra-parenchymal on PFT - monitor imaging, PFT as indic - rec wt loss, stay active (consider Bariatric clinic) - 09/17/2023 PFT: - Spirometry - MILD RESTRICTION, FEV1/FVC 82%, FEV1 2.00L 83% predicted, FVC 2.44L 77% predicted - Significant increase/response to bronchodilator: NO response during this testing. - Lung Volume - MILD RESTRICTION (probably extra parenchymal cause; e.g., body habitus, etc.), TLC 3.47L 72% predicted, RV 0.98L 52% predicted. - Diffusing Capacity: MILDLY REDUCED DLCO 77% predicted, DL/VA 114% (which normalizes when adjusted for lung volume, suggesting extra parenchymal cause probably; e.g., body habitus, etc.). Results do not exclude asthma. [facility] 10-16-2023 Evaluation + Plan note Associated Problem(s): Reactive airway disease without complication - Nonsmoker; history of subacute cough several weeks, allergic rhinitis, as per records; was on albuterol inhaler, benzonatate, montelukast recently as per PCP, prev. - not on ACEI - not on GERD txs - 06/02/23 PCP ffup Notes Reviewed: subacute cough 3 weeks, moist cough; note of wheezing BLL on exam. CXR ordered - nonacute. Given albuterol, steroid Medrol, Tessalon perles. - may have element of RAD, cough-variant Asthma - 09/17/2023 PFT: - Spirometry - MILD RESTRICTION, FEV1/FVC 82%, FEV1 2.00L 83% predicted, FVC 2.44L 77% predicted - Significant increase/response to bronchodilator: NO response during this testing. - Lung Volume - MILD RESTRICTION (probably extra parenchymal cause; e.g., body habitus, etc.), TLC 3.47L 72% predicted, RV 0.98L 52% predicted. - Diffusing Capacity: MILDLY REDUCED DLCO 77% predicted, DL/VA 114% (which normalizes when adjusted for lung volume, suggesting extra parenchymal cause probably; e.g., body habitus, etc.). Results do not exclude asthma. - 08/11/2023 Alpha 1 Antitrypsin enzyme level 151 mg/dL Normal. - 08/11/2023 IgE antibody 45 Normal. - 08/11/2023 Mold, Mini-Panel Allergens (Allergy tests): Negative. - 08/11/2023 CBC Satisfactory, EOS 3% or 195 approx. - 08/11/2023 Vitamin D Normal. - Severity: mild - was not using, needing maint inhalers prev. Consider ICS/LABA, triple tx Trelegy or other inhaler regimen, if feasible; cont. albuterol as needed; use spacer - may also use duonebs; budesonide+formoterol nebs alternatively - patient benefits from nebulizer treatments - Inhaler technique teaching done/reviewed prev.; rinse mouth after inhaler use especially after inhaled steroids - Montelukast - consider Allergy testing, check Eosinophils, IgE prn, as indic; As Noted - Consider other controller meds, Biologics subsequently, if indicated - Avoid/control triggers; environmental control prn - control GERD as indicated - Smoking cessation reinforced: nonsmoker - advised OTC Calcium+Vit D, lifestyle recs for osteoporosis prevention, especially if on frequent or long-term systemic steroids (osteoporosis screening/management as per PCP prn, as indic) - monitor PFT, as indicated. - Consider Methacholine Challenge Test, if indicated - consider Peak Flow monitoring, Asthma Action Plan subseq., if necessary - ffup imaging as needed, Chest radiograph as indicated (CT Chest if indicated) - Pulmonary rehab program: as indic., if feasible; rec to stay active (PFT, LVEF may not qualify) - Influenza, pneumococcal, COVID19 vaccines recommended, updated [facility] 10-16-2023 Evaluation + Plan note Associated Problem(s): Pulmonary scarring Chest radiograph w/ some increased lung markings; possible element of Interstitial lung disease ILD; likely mild focal postinflammatory scarring - 09/17/2023 CT chest without contrast reviewed: No acute lung findings. Mild, minimal bilateral, peripheral lung scarring BLL>LLL. No significant generalized lung scarring or inflammation (NO diffuse ILD, GGOs, pulmonary fibrosis UIP). Mild subtle central bronchial airway thickening or inflammation. Old Left rib fracture. - Need to do additional labs blood work for lung scarring; As Noted --- close follow-up CT Chest in 3 months to monitor scarring; 12/18/23 - 09/17/2023 PFT: - Spirometry - MILD RESTRICTION, FEV1/FVC 82%, FEV1 2.00L 83% predicted, FVC 2.44L 77% predicted - Significant increase/response to bronchodilator: NO response during this testing. - Lung Volume - MILD RESTRICTION (probably extra parenchymal cause; e.g., body habitus, etc.), TLC 3.47L 72% predicted, RV 0.98L 52% predicted. - Diffusing Capacity: MILDLY REDUCED DLCO 77% predicted, DL/VA 114% (which normalizes when adjusted for lung volume, suggesting extra parenchymal cause probably; e.g., body habitus, etc.). Results do not exclude asthma. - 09/30/2023 ILD LABS: COLEEN, SSA, SSB, SCL70, ANCAs, MPO, PR3, CCP, AUTUMN, CK - Negative, Normal - 09/30/2023 LABS: RF Positive, just slightly Increased. ; nonspecific. CCP Neg. - 09/30/2023 LABS: ESR, CRP - Normal. - monitor chest imaging, PFT, 6mwt prn, as indic - further evaluation, management pending results, clinical course. [facility] 09-26-2023 History of Presen t illness Narrative Nurse Note: Review of Systems Constitutional: Negative for fatigue and unexpected weight change. Eyes: Negative for visual disturbance. Respiratory: Positive for shortness of breath (getting worse). Gastrointestinal: Negative for constipation, diarrhea, nausea and vomiting. Endocrine: Negative for polydipsia and polyuria. Neurological: Negative for numbness. Psychiatric/Behavioral: Negative for sleep disturbance. Nursing Assessment: Physical Exam Who History of Present Illness Type 1 diabetes: This is a follow-up visit to the office. She had hip surgery in July 2020, at the time she had a hemoglobin A1c of 12%. Due to declining C-peptide levels, she was re-diagnosed with type 1 diabetes, Jardiance and Tresiba were discontinued, she is now on a T Slim/DexCom hybrid insulin pump, NovoLog insulin. Basal rate = 1.700, carb ratio = 1:5, sensitivity factor = 1:12. She is in control IQ 97% of the time. She is 47% time in range, up from 13% time in target range last visit. S she has restarted Ozempic, tolerating approximately 0.3 mg weekly. She is self titrating slowly. Recently seen by pulmonology, no longer taking steroids post COVID but diagnosed with lung scarring . She denies neuropathic discomfort of the lower extremity. Has regular follow-up with optometry (Dr. Dawson), no retinopathy. Hyperlipidemia: Baseline LDL = 120 -- 110 mg/dL, was 107 mg/dL in November 2019. We started atorvastatin 10 mg daily, LDL = 62 mg/dL, no myalgias. Review of Systems Nurse Note: Review of Systems Constitutional: Negative for fatigue and unexpected weight change. Eyes: Negative for visual disturbance. Respiratory: Positive for shortness of breath (getting worse). Gastrointestinal: Negative for constipation, diarrhea, nausea and vomiting. Endocrine: Negative for polydipsia and polyuria. Neurological: Negative for numbness. Psychiatric/Behavioral: Negative for sleep disturbance. Nursing Assessment: Physical Exam Vitals: Blood pressure 146/90, pulse 68, resp. rate 16, height 1.626 m (5' 4 ), weight (!) 145 kg (319 lb 9.6 oz), last menstrual period 10/20/1996, SpO2 96 %. Physical Exam Constitutional: General: She is not in acute distress. Appearance: She is not diaphoretic. HENT: Head: Normocephalic. Cardiovascular: Rate and Rhythm: Normal rate and regular rhythm. Pulmonary: Effort: Pulmonary effort is normal. No respiratory distress. Skin: General: Skin is warm and dry. Neurological: Mental Status: She is alert and oriented to person, place, and time. Psychiatric: Judgment: Judgment normal. Foot exam: +1 dorsalis pedis pulses bilaterally, good foot care, no callus/ulceration Neurological Exam Mental Status Alert. Oriented to person, place, and time. Assessment and Plan Type 1 diabetes: Significant improvement in glycemic control after last pump adjustment, stopping steroids, and restarting Ozempic. We discussed her pulmonary issues, she does have regular follow up with pulmonology now. Still with hypoglycemia after carb intake, and there are multiple missed boluses. Discussed remembering to bolus all carb intake. We will decrease carb ratio to 1:4. Discussed continued slow titration of Ozempic as tolerated. Otherwise follow up in 3 months. Hyperlipidemia: excellent response to atorvastatin, continue 10 mg daily. documented in this encounter [facility] 09-26-2023 Procedure note Associated Ord er(s): GENERAL PROCEDURE CGM download shows 31% of blood sugars at target, 47% high, 22% very high. Improved glycemic control. For less hyperglycemic spikes, but multiple missed boluses. Based on CGM download, still requires more insulin per carb, we will decrease carb ratio. Activity mode was set on the pump, have disabled activity mode to put pump back and standard function. We will continue same basal rate and sensitivity factor. Discussed carb counting skills. [facility] 09-26-2023 Procedure note Associated Ord er(s): GENERAL PROCEDURE CGM download shows 31% of blood sugars at target, 47% high, 22% very high. Improved glycemic control. For less hyperglycemic spikes, but multiple missed boluses. Based on CGM download, still requires more insulin per carb, we will decrease carb ratio. Activity mode was set on the pump, have disabled activity mode to put pump back and standard function. We will continue same basal rate and sensitivity factor. Discussed carb counting skills. documented in this encounter [facility] 09-17-2023 Procedure note Associated Ord er(s): EXERCISE-6 MIN. WALK - 09/17/2023 6MWT: on Room Air. Dx: dyspnea - pt. walked for 5 minutes, for a distance of 400 ft. - Baseline SpO2 at rest on room air: 96%. - Significant oxygen desaturation while walking: MILD; lowest spO2 90% at 5 min; post-test spO2 96%. - Dyspnea: highest Mod. Jonathan Dyspnea Scale Score: 5/10. IMPRESSION: Exercise limitation: YES. Required or Qualified for Oxygen Supplementation: NO (LOWEST SPO2 90%). [facility] 09-17-2023 Procedure note Associated Ord er(s): EXERCISE-6 MIN. WALK - 09/17/2023 6MWT: on Room Air. Dx: dyspnea - pt. walked for 5 minutes, for a distance of 400 ft. - Baseline SpO2 at rest on room air: 96%. - Significant oxygen desaturation while walking: MILD; lowest spO2 90% at 5 min; post-test spO2 96%. - Dyspnea: highest Mod. Jonathan Dyspnea Scale Score: 5/10. IMPRESSION: Exercise limitation: YES. Required or Qualified for Oxygen Supplementation: NO (LOWEST SPO2 90%). documented in this encounter [facility] 09-17-2023 Procedure note Associated Ord er(s): PFT COMPLETE 09/17/2023 Melodie Ackerman is a 68 y.o. female, Date of :1955. Dx: asthma. Ht 64 in, Wt 315 lbs. Smoker: no. Medications not listed. Pt efforts: good. Data appear acceptable and reproducible. Albuterol given for postbronchodilator spirometry. Procedure: Pulmonary Function Test Complete PFT including spirometry, spirometry with bronchodilator response, lung volumes, Diffusion capacity and Flow Volume Loop were performed during this session. Impression: - 09/17/2023 PFT: - Spirometry - MILD RESTRICTION, FEV1/FVC 82%, FEV1 2.00L 83% predicted, FVC 2.44L 77% predicted - Significant increase/response to bronchodilator: NO response during this testing. - Lung Volume - MILD RESTRICTION (probably extra parenchymal cause; e.g., body habitus, etc.), TLC 3.47L 72% predicted, RV 0.98L 52% predicted. - Diffusing Capacity: MILDLY REDUCED DLCO 77% predicted, DL/VA 114% (which normalizes when adjusted for lung volume, suggesting extra parenchymal cause probably; e.g., body habitus, etc.). Results do not exclude asthma. Please correlate clinically. SEE SCANNED PFT RESULTS FOR DETAILS. (The above report was entered in part using [employer] voice recognition medical dictation software. Although I have reviewed this report for accuracy, certain words and phrases may not be entered as intended. Please excuse typographical and grammatical errors.) [facility] 09-17-2023 Procedure note Associated Ord er(s): PFT COMPLETE 09/17/2023 Melodie Ackerman is a 68 y.o. female, Date of :1955. Dx: asthma. Ht 64 in, Wt 315 lbs. Smoker: no. Medications not listed. Pt efforts: good. Data appear acceptable and reproducible. Albuterol given for postbronchodilator spirometry. Procedure: Pulmonary Function Test Complete PFT including spirometry, spirometry with bronchodilator response, lung volumes, Diffusion capacity and Flow Volume Loop were performed during this session. Impression: - 09/17/2023 PFT: - Spirometry - MILD RESTRICTION, FEV1/FVC 82%, FEV1 2.00L 83% predicted, FVC 2.44L 77% predicted - Significant increase/response to bronchodilator: NO response during this testing. - Lung Volume - MILD RESTRICTION (probably extra parenchymal cause; e.g., body habitus, etc.), TLC 3.47L 72% predicted, RV 0.98L 52% predicted. - Diffusing Capacity: MILDLY REDUCED DLCO 77% predicted, DL/VA 114% (which normalizes when adjusted for lung volume, suggesting extra parenchymal cause probably; e.g., body habitus, etc.). Results do not exclude asthma. Please correlate clinically. SEE SCANNED PFT RESULTS FOR DETAILS. (The above report was entered in part using [employer] recognition medical dictation software. Although I have reviewed this report for accuracy, certain words and phrases may not be entered as intended. Please excuse typographical and grammatical errors.) [facility] Miscellaneous Notes Formattin g of this note might be different from the original. - 09/17/2023 CT chest without contrast reviewed: No acute lung findings. Mild, minimal bilateral, peripheral lung scarring BLL>LLL. No significant generalized lung scarring or inflammation (NO diffuse ILD, GGOs, pulmonary fibrosis UIP). Mild subtle central bronchial airway thickening or inflammation. Old Left rib fracture. - Need to do additional labs blood work for lung scarring; ordered (no fasting, no appointment needed) --- close follow-up CT Chest in 3 months to monitor scarring; 12/18/23 Will discuss details further during follow-up visit. Staff: please inform patient. Thanks. [facility] Progress note Formatting of t his note might be different from the original. - 09/17/2023 CT chest without contrast reviewed: No acute lung findings. Mild, minimal bilateral, peripheral lung scarring BLL>LLL. No significant generalized lung scarring or inflammation (NO diffuse ILD, GGOs, pulmonary fibrosis UIP). Mild subtle central bronchial airway thickening or inflammation. Old Left rib fracture. - Need to do additional labs blood work for lung scarring; ordered (no fasting, no appointment needed) --- close follow-up CT Chest in 3 months to monitor scarring; 12/18/23 Will discuss details further during follow-up visit. Staff: please inform patient. Thanks. [facility] 08-06-2023 Evaluation + Plan note Associated Problem(s): SHANI on CPAP Given CPAP per Dr. Navarro yrs ago. [facility] 08-06-2023 Miscellaneous Notes Associate d Problem(s): SHANI on CPAP Given CPAP per Dr. Navarro yrs ago. Associated Problem(s): Reactive airway disease without complication - Nonsmoker; history of subacute cough several weeks, allergic rhinitis, as per records; was on albuterol inhaler, benzonatate, montelukast recently as per PCP, prev. - not on ACEI - not on GERD txs - 06/02/23 PCP ffup Notes Reviewed: subacute cough 3 weeks, moist cough; note of wheezing BLL on exam. CXR ordered - nonacute. Given albuterol, steroid Medrol, Tessalon perles. - may have element of RAD, cough-variant Asthma - Severity: mild-mod - Consider ICS/LABA, triple tx Trelegy or other inhaler regimen, if feasible; cont. albuterol as needed; use spacer - may also use duonebs; budesonide+formoterol nebs alternatively - patient benefits from nebulizer treatments - Inhaler technique teaching done/reviewed prev.; rinse mouth after inhaler use especially after inhaled steroids - Montelukast - consider Allergy testing, check Eosinophils, IgE prn, as indic - Consider other controller meds, Biologics subsequently, if indicated - Avoid/control triggers; environmental control prn - control GERD as indicated - Smoking cessation reinforced: nonsmoker - advised OTC Calcium+Vit D, lifestyle recs for osteoporosis prevention, especially if on frequent or long-term systemic steroids (osteoporosis screening/management as per PCP prn, as indic) - monitor PFT, as indicated. - Consider Methacholine Challenge Test, if indicated - consider Peak Flow monitoring, Asthma Action Plan subseq., if necessary - ffup imaging as needed, Chest radiograph as indicated (CT Chest if indicated) - Pulmonary rehab program: as indic., if feasible; rec to stay active - Influenza, pneumococcal, COVID19 vaccines recommended, updated Associated Problem(s): Asthma, cough variant See under RAD Associated Problem(s): Interstitial lung disease Chest radiograph w/ some increased lung markings; possible element of Interstitial lung disease ILD - CT Chest - monitor chest imaging, PFT, 6mwt prn, as indic - further evaluation, management pending results, clinical course. Associated Problem(s): Subacute cough - Nonsmoker; history of subacute cough several weeks, allergic rhinitis, as per records; was on albuterol inhaler, benzonatate, montelukast recently as per PCP, prev. - post-viral cough? - not on ACEI - on GERD txs PPI - 06/02/23 PCP ffup Notes Reviewed: subacute cough 3 weeks, moist cough; note of wheezing BLL on exam. CXR ordered - nonacute. Given albuterol, steroid Medrol, Tessalon perles. - Subacute Cough as described - Upper Airway Cough Syndrome (UACS) aka postnasal drip? - GERD? - underlying lung disease: RAD, Cough-variant Asthma, Bronchiectasis, Non-asthmatic Eosinophilic Bronchitis (NAEB), ILD? - antitussives prn (e.g., OTC Dextromethorphan, Codeine, Benzonatate) - consider Gabapentin, Pregabalin later for refractory cough - UACS?: nasal steroids, antihistamines prn (Flonase, Nasocort, etc) - may try 1st generation antihistamines prn (e.g., chlorpheniramine, brompheniramine, clemastine; or combination antihistamine-decongestant brompheniramine-pseudoephedrine) may be more helpful in terms of cough/anticholinergic effect (but watch out for sedation and other side-effects) - consider Allergy testing; referral to [facility], ENT, as indicated - GERD: on PPI; lifestyle modifications (e.g., avoidance of reflux-inducing foods, very acidic beverages, don't lie down for 3 hours after meals, elevation of head of bed at least 3-4 inches) - NAEB: inhaled steroids - consider Bronchoscopy later, if indicated documented in this encounter [facility] 08-06-2023 History of Presen t illness Narrative Patient is a 68 y.o. female who came to be evaluated and managed for Cough Asthma and Cough . ICD-10-CM 1. Subacute cough R05.2 EXERCISE-6 MIN. WALK PFT COMPLETE ALPHA 1 ANTITRYPSIN CBC, EDIF, PLATELET IMMUNOGLOBULIN IGE ALLERGEN PROFILE, MOLD MINI-PANEL ALLERGEN PROFILE Albuterol 108 (90 Base) MCG/ACT Aero Soln inhaler 2. Reactive airway disease without complication, unspecified asthma severity, unspecified whether persistent J45.909 EXERCISE-6 MIN. WALK PFT COMPLETE ALPHA 1 ANTITRYPSIN CBC, EDIF, PLATELET IMMUNOGLOBULIN IGE ALLERGEN PROFILE, MOLD MINI-PANEL ALLERGEN PROFILE SPACER FOR INHALER PRESCRIPTION 3. Asthma, cough variant J45.991 EXERCISE-6 MIN. WALK PFT COMPLETE ALPHA 1 ANTITRYPSIN CBC, EDIF, PLATELET IMMUNOGLOBULIN IGE ALLERGEN PROFILE, MOLD MINI-PANEL ALLERGEN PROFILE SPACER FOR INHALER PRESCRIPTION 4. Interstitial lung disease J84.9 CT CHEST WITHOUT CONTRAST 5. Screening for viral disease Z11.59 NOVEL CORONAVIRUS LAB 1 - NASOPHARYNGEAL 6. Vitamin D deficiency E55.9 VITAMIN D (25-HYDROXY,TOTAL) 7. Wheezing R06.2 Albuterol 108 (90 Base) MCG/ACT Aero Soln inhaler 8. SHANI on CPAP G47.33 Problem List Items Addressed This Visit Asthma, cough variant See under RAD Relevant Medications SPACER FOR INHALER PRESCRIPTION Other Relevant Orders EXERCISE-6 MIN. WALK PFT COMPLETE ALPHA 1 ANTITRYPSIN CBC, EDIF, PLATELET IMMUNOGLOBULIN IGE ALLERGEN PROFILE, MOLD MINI-PANEL ALLERGEN PROFILE Reactive airway disease without complication - Nonsmoker; history of subacute cough several weeks, allergic rhinitis, as per records; was on albuterol inhaler, benzonatate, montelukast recently as per PCP, prev. - not on ACEI - not on GERD txs - 06/02/23 PCP ffup Notes Reviewed: subacute cough 3 weeks, moist cough; note of wheezing BLL on exam. CXR ordered - nonacute. Given albuterol, steroid Medrol, Tessalon perles. - may have element of RAD, cough-variant Asthma - Severity: mild-mod - Consider ICS/LABA, triple tx Trelegy or other inhaler regimen, if feasible; cont. albuterol as needed; use spacer - may also use duonebs; budesonide+formoterol nebs alternatively - patient benefits from nebulizer treatments - Inhaler technique teaching done/reviewed prev.; rinse mouth after inhaler use especially after inhaled steroids - Montelukast - consider Allergy testing, check Eosinophils, IgE prn, as indic - Consider other controller meds, Biologics subsequently, if indicated - Avoid/control triggers; environmental control prn - control GERD as indicated - Smoking cessation reinforced: nonsmoker - advised OTC Calcium+Vit D, lifestyle recs for osteoporosis prevention, especially if on frequent or long-term systemic steroids (osteoporosis screening/management as per PCP prn, as indic) - monitor PFT, as indicated. - Consider Methacholine Challenge Test, if indicated - consider Peak Flow monitoring, Asthma Action Plan subseq., if necessary - ffup imaging as needed, Chest radiograph as indicated (CT Chest if indicated) - Pulmonary rehab program: as indic., if feasible; rec to stay active - Influenza, pneumococcal, COVID19 vaccines recommended, updated Relevant Medications SPACER FOR INHALER PRESCRIPTION Other Relevant Orders EXERCISE-6 MIN. WALK PFT COMPLETE ALPHA 1 ANTITRYPSIN CBC, EDIF, PLATELET IMMUNOGLOBULIN IGE ALLERGEN PROFILE, MOLD MINI-PANEL ALLERGEN PROFILE Subacute cough - Primary - Nonsmoker; history of subacute cough several weeks, allergic rhinitis, as per records; was on albuterol inhaler, benzonatate, montelukast recently as per PCP, prev. - post-viral cough? - not on ACEI - on GERD txs PPI - 06/02/23 PCP ffup Notes Reviewed: subacute cough 3 weeks, moist cough; note of wheezing BLL on exam. CXR ordered - nonacute. Given albuterol, steroid Medrol, Tessalon perles. - Subacute Cough as described - Upper Airway Cough Syndrome (UACS) aka postnasal drip? - GERD? - underlying lung disease: RAD, Cough-variant Asthma, Bronchiectasis, Non-asthmatic Eosinophilic Bronchitis (NAEB), ILD? - antitussives prn (e.g., OTC Dextromethorphan, Codeine, Benzonatate) - consider Gabapentin, Pregabalin later for refractory cough - UACS?: nasal steroids, antihistamines prn (Flonase, Nasocort, etc) - may try 1st generation antihistamines prn (e.g., chlorpheniramine, brompheniramine, clemastine; or combination antihistamine-decongestant brompheniramine-pseudoephedrine) may be more helpful in terms of cough/anticholinergic effect (but watch out for sedation and other side-effects) - consider Allergy testing; referral to [facility], ENT, as indicated - GERD: on PPI; lifestyle modifications (e.g., avoidance of reflux-inducing foods, very acidic beverages, don't lie down for 3 hours after meals, elevation of head of bed at least 3-4 inches) - NAEB: inhaled steroids - consider Bronchoscopy later, if indicated Relevant Medications Albuterol 108 (90 Base) MCG/ACT Aero Soln inhaler Other Relevant Orders EXERCISE-6 MIN. WALK PFT COMPLETE ALPHA 1 ANTITRYPSIN CBC, EDIF, PLATELET IMMUNOGLOBULIN IGE ALLERGEN PROFILE, MOLD MINI-PANEL ALLERGEN PROFILE Interstitial lung disease Chest radiograph w/ some increased lung markings; possible element of Interstitial lung disease ILD - CT Chest - monitor chest imaging, PFT, 6mwt prn, as indic - further evaluation, management pending results, clinical course. Relevant Orders CT CHEST WITHOUT CONTRAST SHANI on CPAP Given CPAP per Dr. Navarro yrs ago. Other Visit Diagnoses Screening for viral disease Relevant Orders NOVEL CORONAVIRUS LAB 1 - NASOPHARYNGEAL Vitamin D deficiency Relevant Orders VITAMIN D (25-HYDROXY,TOTAL) Wheezing Relevant Medications Albuterol 108 (90 Base) MCG/ACT Aero Soln inhaler HPI 08/06/23 Background history - Nonsmoker; history of subacute cough several weeks, allergic rhinitis, as per records; was on albuterol inhaler, benzonatate, montelukast recently as per PCP, prev. - not on ACEI - not on GERD txs - 06/02/23 PCP ffup Notes Reviewed: subacute cough 3 weeks, moist cough; note of wheezing BLL on exam. CXR ordered - nonacute. Given albuterol, steroid Medrol, Tessalon perles. Current Outpatient Medications: Albuterol 108 (90 Base) MCG/ACT Aero Soln inhaler, Inhale 2 puffs every 4 hours as needed for Wheezing., Disp: 18 g, Rfl: 3 Atorvastatin 10 MG tablet, Take 1 tablet by mouth daily., Disp: 90 tablet, Rfl: 1 benzonatate 100 MG capsule, Take 1 capsule by mouth 3 times daily as needed for Cough., Disp: 30 capsule, Rfl: 0 Blood Glucose Monitoring Suppl (ACCU-CHEK COMPACT CARE KIT) Kit, 1 kit by Unknown route daily., Disp: 1 kit, Rfl: 0 Cholecalciferol (VITAMIN D3 PO), Take 1 capsule by mouth daily., Disp: , Rfl: Dexcom G6 Professor Of Sport Management Device, For use with Dexcom G6 system. Use to check blood sugar four times daily, Disp: 1 Each, Rfl: 0 Dexcom G6 Sensor Misc, 1 Device by Unknown route every 10 days., Disp: 9 Each, Rfl: 1 Dexcom G6 Transmitter Misc, For use with Dexcom G6 system. Use to check blood sugar four times daily, Disp: 1 Each, Rfl: 1 DISABILITY PLACARD, Rx for handicap placard. Pt is unable to ambulate 200 yards without assistance. Disability is permanent, Disp: 1 Each, Rfl: 0 Glucagon (Baqsimi Two Pack) 3 MG/DOSE Powder, 1 spray by Nasal route as needed (severe hypoglycemia)., Disp: 2 Each, Rfl: 1 glucose blood test strips (Accu-Chek Guide) Strip strip, Used to test blood sugars 4 times daily, Disp: 300 strip, Rfl: 1 Insulin Aspart (NovoLOG) 100 UNIT/ML injection, For use of the insulin pump, use less than 150 units per day, Disp: 120 mL, Rfl: 3 metFORMIN-XR 500 MG Tab SR 24 HR, Take 2 tablets by mouth 2 times daily., Disp: 360 tablet, Rfl: 3 methylPREDNIsolone 4 MG Tab Therapy Pack tablet, follow package directions, Disp: 21 tablet, Rfl: 0 Multiple Vitamins-Minerals (MULTIVITAMIN ADULT PO), take by mouth daily.., Disp: , Rfl: [place]-3 Fatty Acids (FISH OIL) 1000 MG Cap, Take 1 capsule by mouth at bedtime., Disp: , Rfl: Semaglutide, 1 MG/DOSE, (Ozempic, 1 MG/DOSE,) 2 MG/1.5ML Solution Pen-injector, Inject 1 mg under the skin once a week., Disp: 6 mL, Rfl: 3 Timolol maleate 0.5 % Solution ophthalmic solution, Place 1 drop in both eyes daily. Generic. 90 day supply., Disp: 10 mL, Rfl: 3 Montelukast 10 MG tablet, Take 1 tablet by mouth daily., Disp: 30 tablet, Rfl: 0 SPACER FOR INHALER PRESCRIPTION, Use with inhaler as directed, Disp: 1 Each, Rfl: 0 Past Medical History: Diagnosis Date Allergic rhinitis Arthritis Basal cell carcinoma back and face Cervical dysphagia 2006 Diabetes mellitus Type 2 Diabetic eye exam 09/14/2018 no retinopathy noted Hamstring tendonitis at origin 03/03/2018 Hyperlipidemia Left hip pain 09/2017 SHANI (obstructive sleep apnea) cpap Osteoarthritis Past Surgical History: Procedure Laterality Date ARTHROPLASTY HIP TOTAL Left 08/08/2020 Laterality: Left; Surgeon: Sai Hylton MD; Location: [facility] EXCISION SKIN LESION 06/15/2015 Right orthodox 1.5cm EXCISION SKIN LESION 06/15/2015 Forehead 2cm COLPOSCOPY 2007 LEEPS EXCISION SKIN LESION 2005 Basal Cell Carcinoma Left posterior shoulder LAPAROTOMY EXPLORATORY 1979 COLONOSCOPY DIAGNOSTIC Social History Tobacco Use Smoking status: Never Smokeless tobacco: Never Substance Use Topics Alcohol use: No Family History Problem Relation Age of Onset Diabetes Mother Arthritis - Osteo Mother Pacemaker Mother Arrhythmia Mother a-fib Dementia Mother Breast Cancer Mother Alzheimer's Mother Colorectal Polyps Father Diabetes Father Prostate Cancer Father Stroke Maternal Grandmother Cancer Paternal Grandfather stomch Allergies Allergen Reactions Codeine Itching Erythromycin Nausea Only Ibuprofen Nausea Only Latex Rash Penicillins Hives Povidone Iodine Itching Review of Systems Do you smoke?- NO Oxygen use __NO__ patient is benefiting from oxygen use. Do you have a CPAP- YES DME company- [employer] Most recent CT - NA Most recent PFT- NA Has your breathing changed?- NO Dyspnea upon exertion- YES Dyspnea at rest- NO Cough- productive- YES in the mornings Have you had the Covid 19 vaccine- YES Do you need a Medication refill? Rescue Pt presents for review of Cough, RAD, ILD Pt has NO maintenance inhaler Pt has rescue inhaler- Albuterol New patient presents for a referral for subacute cough, Patient had xray of chest 06/02/23. Patient states she had a cough for 6 weeks and has some SOB with exertion. Vitals: 08/06/23 1121 BP: 130/86 Pulse: 90 Resp: 18 SpO2: 98% Weight: (!) 142.9 kg (315 lb 1.6 oz) Height: 1.626 m (5' 4 ) Vital Signs Reviewed as noted. Physical Exam Vitals and nursing note reviewed. Constitutional: General: She is not in acute distress. HENT: Head: Normocephalic and atraumatic. Right Ear: External ear normal. Left Ear: External ear normal. Nose: No congestion or rhinorrhea. Mouth/Throat: Mouth: Mucous membranes are moist. Pharynx: Oropharynx is clear. No oropharyngeal exudate or posterior oropharyngeal erythema. Eyes: General: No scleral icterus. Neck: Vascular: No JVD. Trachea: No tracheal deviation. Cardiovascular: Rate and Rhythm: Regular rhythm. Heart sounds: Normal heart sounds. Pulmonary: Effort: Pulmonary effort is normal. No respiratory distress. Breath sounds: No stridor. No wheezing, rhonchi or rales. Chest: Chest wall: No tenderness. Genitourinary: Comments: Deferred Musculoskeletal: Cervical back: Neck supple. Lymphadenopathy: Cervical: No cervical adenopathy. Skin: General: Skin is warm and dry. Coloration: Skin is not jaundiced. Neurological: Mental Status: She is alert and oriented to person, place, and time. Psychiatric: Mood and Affect: Mood normal. Behavior: Behavior normal. I personally reviewed selected chart notes, results, interpreted tests, imaging today before seeing the pt; reviewed and discussed w/ pt, questions answered - 06/02/23 CXR: nonacute; some incr lung bronchial markings. Immunization Administrations [id number] COVID-19 monovalent vaccine (Moderna), 12yr+, 100mcg/0.5mL 10/26/2020 (65 y.o.) 11/24/2020 (65 y.o.) [id number] COVID-19 monovalent vaccine, mRNA, Moderna, 50 mcg/0.25 mL booster 08/14/2021 (66 y.o.) Hepatitis B Vaccine 05/16/1992 (36 y.o.) 06/22/1992 (37 y.o.) 11/29/1992 (37 y.o.) 07/05/1993 (38 y.o.) Influenza Vaccine 09/02/1995 (40 y.o.) 08/22/1997 (42 y.o.) 08/18/1998 (43 y.o.) 08/20/1999 (44 y.o.) 09/17/2000 (45 y.o.) 08/28/2001 (46 y.o.) 08/12/2002 (47 y.o.) 08/25/2003 (48 y.o.) 08/05/2006 (51 y.o.) 08/04/2007 (52 y.o.) Influenza Vaccine 0.25ml 08/03/2009 (54 y.o.) Novel [id number] Vaccine, Preservative-Free 08/03/2009 (54 y.o.) Tdap Vaccine 05/19/2007 (51 y.o.) Return in about 8 weeks (around 10/01/2023). FOLLOW-UP Patient was advised to call with any questions or concerns. If symptoms worsen or fail to improve patient was advised to call for follow up in our office and/or PCP, or go to the Emergency Dept. Benefits, Risks, Contraindications, and Complications of recommended treatments were explained (and to call if prescriptions are not feasible); and the patient stated understanding and agreement to proceed with plan. 08/06/2023: I spent more than 45 mins: reviewed selected chart notes, results, interpreted tests, imaging today before seeing the pt; interviewing and examining pt; reviewed and discussed w/ pt, questions answered; counselling/educating pt/family/caregiver; ordering meds/tests as appropriate; documenting clinical information in the chart. Some Elements copied from previous notes. I have updated where appropriate, and all reflect current medical decision making from today's encounter. Note: This dictation was generated using [employer] voice recognition software. Please excuse any typographical, grammatical or spelling errors that may have occurred using the system Alfred Ibarra MD, MPH, [facility] Pulmonary/Critical Care Medicine [facility] 08/06/2023 Do you smoke?- NO Oxygen use __NO__ patient is benefiting from oxygen use. Do you have a CPAP- YES DME company- [employer] Most recent CT - NA Most recent PFT- NA Has your breathing changed?- NO Dyspnea upon exertion- YES Dyspnea at rest- NO Cough- productive- YES in the mornings Have you had the Covid 19 vaccine- YES Do you need a Medication refill? Rescue Pt presents for review of Cough, RAD, ILD Pt has NO maintenance inhaler Pt has rescue inhaler- Albuterol New patient presents for a referral for subacute cough, Patient had xray of chest 06/02/23. Patient states she had a cough for 6 weeks and has some SOB with exertion. documented in this encounter [facility] 08-06-2023 Evaluation + Plan note Associated Problem(s): Reactive airway disease without complication - Nonsmoker; history of subacute cough several weeks, allergic rhinitis, as per records; was on albuterol inhaler, benzonatate, montelukast recently as per PCP, prev. - not on ACEI - not on GERD txs - 06/02/23 PCP ffup Notes Reviewed: subacute cough 3 weeks, moist cough; note of wheezing BLL on exam. CXR ordered - nonacute. Given albuterol, steroid Medrol, Tessalon perles. - may have element of RAD, cough-variant Asthma - Severity: mild-mod - Consider ICS/LABA, triple tx Trelegy or other inhaler regimen, if feasible; cont. albuterol as needed; use spacer - may also use duonebs; budesonide+formoterol nebs alternatively - patient benefits from nebulizer treatments - Inhaler technique teaching done/reviewed prev.; rinse mouth after inhaler use especially after inhaled steroids - Montelukast - consider Allergy testing, check Eosinophils, IgE prn, as indic - Consider other controller meds, Biologics subsequently, if indicated - Avoid/control triggers; environmental control prn - control GERD as indicated - Smoking cessation reinforced: nonsmoker - advised OTC Calcium+Vit D, lifestyle recs for osteoporosis prevention, especially if on frequent or long-term systemic steroids (osteoporosis screening/management as per PCP prn, as indic) - monitor PFT, as indicated. - Consider Methacholine Challenge Test, if indicated - consider Peak Flow monitoring, Asthma Action Plan subseq., if necessary - ffup imaging as needed, Chest radiograph as indicated (CT Chest if indicated) - Pulmonary rehab program: as indic., if feasible; rec to stay active - Influenza, pneumococcal, COVID19 vaccines recommended, updated [employer] [facility] [employer] [facility] 08-06-2023 Evaluation + Plan note Associated Problem(s): Asthma, cough variant See under RAD [employer] [facility] 08-06-2023 Evaluation + Plan note Associated Problem(s): Interstitial lung disease Chest radiograph w/ some increased lung markings; possible element of Interstitial lung disease ILD - CT Chest - monitor chest imaging, PFT, 6mwt prn, as indic - further evaluation, management pending results, clinical course. [employer] [facility] 08-06-2023 Evaluation + Plan note Associated Problem(s): Subacute cough - Nonsmoker; history of subacute cough several weeks, allergic rhinitis, as per records; was on albuterol inhaler, benzonatate, montelukast recently as per PCP, prev. - post-viral cough? - not on ACEI - on GERD txs PPI - 06/02/23 PCP ffup Notes Reviewed: subacute cough 3 weeks, moist cough; note of wheezing BLL on exam. CXR ordered - nonacute. Given albuterol, steroid Medrol, Tessalon perles. - Subacute Cough as described - Upper Airway Cough Syndrome (UACS) aka postnasal drip? - GERD? - underlying lung disease: RAD, Cough-variant Asthma, Bronchiectasis, Non-asthmatic Eosinophilic Bronchitis (NAEB), ILD? - antitussives prn (e.g., OTC Dextromethorphan, Codeine, Benzonatate) - consider Gabapentin, Pregabalin later for refractory cough - UACS?: nasal steroids, antihistamines prn (Flonase, Nasocort, etc) - may try 1st generation antihistamines prn (e.g., chlorpheniramine, brompheniramine, clemastine; or combination antihistamine-decongestant brompheniramine-pseudoephedrine) may be more helpful in terms of cough/anticholinergic effect (but watch out for sedation and other side-effects) - consider Allergy testing; referral to [facility], ENT, as indicated - GERD: on PPI; lifestyle modifications (e.g., avoidance of reflux-inducing foods, very acidic beverages, don't lie down for 3 hours after meals, elevation of head of bed at least 3-4 inches) - NAEB: inhaled steroids - consider Bronchoscopy later, if indicated [facility] 06-02-2023 History of Presen t illness Narrative Nurse Note: Review of Systems Constitutional: Negative for appetite change, fatigue and fever. HENT: Negative for congestion, dental problem, hearing loss, nosebleeds, postnasal drip, rhinorrhea, sinus pressure, sinus pain, sore throat, tinnitus and voice change. Eyes: Negative for pain, discharge, redness and visual disturbance. Respiratory: Positive for cough. Negative for choking, shortness of breath and wheezing. Cardiovascular: Negative for chest pain and palpitations. Gastrointestinal: Negative for abdominal pain, constipation, diarrhea, nausea and vomiting. Endocrine: Negative for cold intolerance, heat intolerance and polyuria. Genitourinary: Negative for dysuria and enuresis. Musculoskeletal: Negative for arthralgias, back pain, joint swelling, myalgias and neck pain. Skin: Negative for color change and rash. Neurological: Negative for dizziness, tremors, syncope, weakness, numbness and headaches. Hematological: Does not bruise/bleed easily. Psychiatric/Behavioral: Negative for confusion, dysphoric mood, self-injury, sleep disturbance and suicidal ideas. The patient is not nervous/anxious. Nursing Assessment: Physical Exam Chief Complaint: Chief Complaint Patient presents with Cough Patient states she has had a cough for a few weeks now and it is not getting any better History of Present Illness Else Zach Ackerman is a 67 y.o. female who comes in with 3 week(s) history the following complaint(s): Cough. Nasal Congestion: mild Fever: none Cough: moderate moist cough Swollen Lymph Nodes: none Ear Pain: none Nausea: No Vomiting: No Diarrhea: No Rash: none No eye pain/redness/discharge Notable contacts or exposures: none Has taken OTC medications. suzanne huang Current Medications Current Outpatient Medications Medication Sig Dispense Refill ASPIRIN EC [address] Take 1 table twice a day for 30days. This medication is for blood clot prevention. (Patient taking differently: Take 1 tablet by mouth daily.) 60 tablet 0 Atorvastatin 10 MG tablet Take 1 tablet by mouth daily. 90 tablet 1 benzonatate 100 MG capsule Take 1 capsule by mouth 3 times daily as needed for Cough. 30 capsule 0 Blood Glucose Monitoring Suppl (ACCU-CHEK COMPACT CARE KIT) Kit 1 kit by Unknown route daily. 1 kit 0 Cholecalciferol (VITAMIN D3 PO) Take 1 capsule by mouth daily. Dexcom G6 Professor Of Sport Management Device For use with Dexcom G6 system. Use to check blood sugar four times daily 1 Each 0 Dexcom G6 Sensor Misc 1 Device by Unknown route every 10 days. 9 Each 1 Dexcom G6 Transmitter Misc For use with Dexcom G6 system. Use to check blood sugar four times daily 1 Each 1 DISABILITY PLACARD Rx for handicap placard. Pt is unable to ambulate 200 yards without assistance. Disability is permanent 1 Each 0 Glucagon (Baqsimi Two Pack) 3 MG/DOSE Powder 1 spray by Nasal route as needed (severe hypoglycemia). 2 Each 1 glucose blood test strips (Accu-Chek Guide) Strip strip Used to test blood sugars 4 times daily 300 strip 1 Insulin Aspart (NovoLOG) 100 UNIT/ML injection For use of the insulin pump, use less than 150 units per day 120 mL 3 metFORMIN-XR 500 MG Tab SR 24 HR Take 2 tablets by mouth 2 times daily. 360 tablet 3 Multiple Vitamins-Minerals (MULTIVITAMIN ADULT PO) take by mouth daily.. [place]-3 Fatty Acids (FISH OIL) 1000 MG Cap Take 1 capsule by mouth at bedtime. Semaglutide, 1 MG/DOSE, (Ozempic, 1 MG/DOSE,) 2 MG/1.5ML Solution Pen-injector Inject 1 mg under the skin once a week. 6 mL 3 Timolol maleate 0.5 % Solution ophthalmic solution Place 1 drop in both eyes daily. Generic. 90 day supply. 10 mL 3 Albuterol 108 (90 Base) MCG/ACT Aero Soln inhaler Inhale 2 puffs every 4 hours as needed for Wheezing for up to 7 days. (Patient not taking: Reported on 06/02/2023) 8 g 0 doxycycline hyclate 100 MG capsule Take 1 capsule by mouth 2 times daily for 10 days. (Patient not taking: Reported on 06/02/2023) 20 capsule 0 No current facility-administered medications for this visit. Allergies She is allergic to codeine, erythromycin, ibuprofen, latex, penicillins, and povidone iodine. Review of Systems Constitutional: Negative for appetite change, fatigue and fever. HENT: Negative for congestion, dental problem, hearing loss, nosebleeds, postnasal drip, rhinorrhea, sinus pressure, sinus pain, sore throat, tinnitus and voice change. Eyes: Negative for pain, discharge, redness and visual disturbance. Respiratory: Positive for cough. Negative for choking, shortness of breath and wheezing. Cardiovascular: Negative for chest pain and palpitations. Gastrointestinal: Negative for abdominal pain, constipation, diarrhea, nausea and vomiting. Endocrine: Negative for cold intolerance, heat intolerance and polyuria. Genitourinary: Negative for dysuria and enuresis. Musculoskeletal: Negative for arthralgias, back pain, joint swelling, myalgias and neck pain. Skin: Negative for color change and rash. Neurological: Negative for dizziness, tremors, syncope, weakness, numbness and headaches. Hematological: Does not bruise/bleed easily. Psychiatric/Behavioral: Negative for confusion, dysphoric mood, self-injury, sleep disturbance and suicidal ideas. The patient is not nervous/anxious. Physical Exam Blood pressure 110/78, pulse 108, temperature 96.9 F (36.1 C), temperature source Temporal, resp. rate 16, height 1.626 m (5' 4 ), weight (!) 138.4 kg (305 lb 3.2 oz), last menstrual period 10/20/1996, SpO2 97 %., Body mass index is 52.39 kg/m . Physical Exam Constitutional: General: She is not in acute distress. Appearance: She is well-developed. HENT: Mouth/Throat: Pharynx: No oropharyngeal exudate. Neck: Thyroid: No thyromegaly. Vascular: No JVD. Trachea: No tracheal deviation. Cardiovascular: Rate and Rhythm: Normal rate and regular rhythm. Heart sounds: No murmur heard. Pulmonary: Effort: No respiratory distress. Breath sounds: No stridor. Examination of the right-lower field reveals decreased breath sounds. Examination of the left-lower field reveals decreased breath sounds. Decreased breath sounds, wheezing and rales present. Chest: Chest wall: No tenderness. Abdominal: General: There is no distension. Palpations: There is no mass. Tenderness: There is no abdominal tenderness. There is no guarding or rebound. Skin: Coloration: Skin is not pale. Findings: No erythema or rash. Assessment/Plan 1. Subacute cough - XR CHEST PA AND LATERAL; Future - will Rx albuterol and steroid if no pneumonia. If pneumonia will Rx albuterol and levaquin. Follow up if symptoms worsen or fails to improve over time. The risk and benefits of therapy were discussed with the patient. Alarm symptoms were discussed, along with reasons for contacting the office or going to the ER. Questions were answered for the patient. Follow up if symptoms worsen or fails to improve over time. documented in this encounter [facility] 05-23-2023 History of Presen t illness Narrative HPI Melodie Ackerman female 1955 presents to the [facility] with Chief Complaint Patient presents with Sinus Congestion Patient c/o sinus pressure and nasal drainage. Patient was informed to come to our office per PCP. Patient presents with complaints of sinus pressure congestion headache and a cough. She has had symptoms for 3 days. She denies a fever. She feels she needs antibiotics because she frequently gets bronchitis. She is a poorly-controlled diabetic. She points to her maxillary sinuses as source of her discomfort. She is in no apparent distress with unremarkable vital signs. History Allergies Allergen Reactions Codeine Itching Erythromycin Nausea Only Ibuprofen Nausea Only Latex Rash Penicillins Hives Povidone Iodine Itching Current Outpatient Medications Medication Sig ASPIRIN EC [address] Take 1 table twice a day for 30days. This medication is for blood clot prevention. (Patient taking differently: Take 1 tablet by mouth daily.) Atorvastatin 10 MG tablet Take 1 tablet by mouth daily. benzonatate 100 MG capsule Take 1 capsule by mouth 3 times daily as needed for Cough. Blood Glucose Monitoring Suppl (ACCU-CHEK COMPACT CARE KIT) Kit 1 kit by Unknown route daily. Cholecalciferol (VITAMIN D3 PO) Take 1 capsule by mouth daily. Dexcom G6 Professor Of Sport Management Device For use with Dexcom G6 system. Use to check blood sugar four times daily Dexcom G6 Sensor Misc 1 Device by Unknown route every 10 days. Dexcom G6 Transmitter Misc For use with Dexcom G6 system. Use to check blood sugar four times daily DISABILITY PLACARD Rx for handicap placard. Pt is unable to ambulate 200 yards without assistance. Disability is permanent doxycycline hyclate 100 MG capsule Take 1 capsule by mouth 2 times daily for 10 days. Glucagon (Baqsimi Two Pack) 3 MG/DOSE Powder 1 spray by Nasal route as needed (severe hypoglycemia). glucose blood test strips (Accu-Chek Guide) Strip strip Used to test blood sugars 4 times daily Insulin Aspart (NovoLOG) 100 UNIT/ML injection For use of the insulin pump, use less than 150 units per day metFORMIN-XR 500 MG Tab SR 24 HR Take 2 tablets by mouth 2 times daily. Multiple Vitamins-Minerals (MULTIVITAMIN ADULT PO) take by mouth daily.. [place]-3 Fatty Acids (FISH OIL) 1000 MG Cap Take 1 capsule by mouth at bedtime. Semaglutide, 1 MG/DOSE, (Ozempic, 1 MG/DOSE,) 2 MG/1.5ML Solution Pen-injector Inject 1 mg under the skin once a week. Timolol maleate 0.5 % Solution ophthalmic solution Place 1 drop in both eyes daily. Generic. 90 day supply. Family History Problem Relation Age of Onset Diabetes Mother Arthritis - Osteo Mother Pacemaker Mother Arrhythmia Mother a-fib Dementia Mother Breast Cancer Mother Alzheimer's Mother Colorectal Polyps Father Diabetes Father Prostate Cancer Father Stroke Maternal Grandmother Cancer Paternal Grandfather stomch Past Medical History: Diagnosis Date Allergic rhinitis Arthritis Basal cell carcinoma back and face Cervical dysphagia 2006 Diabetes mellitus Type 2 Diabetic eye exam 09/14/2018 no retinopathy noted Hamstring tendonitis at origin 03/03/2018 Hyperlipidemia Left hip pain 09/2017 SHANI (obstructive sleep apnea) cpap Osteoarthritis Past Surgical History: Procedure Laterality Date ARTHROPLASTY HIP TOTAL Left 08/08/2020 Laterality: Left; Surgeon: Sai Hylton MD; Location: [facility] EXCISION SKIN LESION 06/15/2015 Right orthodox 1.5cm EXCISION SKIN LESION 06/15/2015 Forehead 2cm COLPOSCOPY 2006 LEEPS EXCISION SKIN LESION 2004 Basal Cell Carcinoma Left posterior shoulder LAPAROTOMY EXPLORATORY 1979 COLONOSCOPY DIAGNOSTIC Social History Socioeconomic History Marital status: Spouse name: Not on file Number of children: 2 Years of education: college Highest education level: Not on file Occupational History Occupation: Nurse Employer: [employer] Tobacco Use Smoking status: Never Smokeless tobacco: Never Vaping Use Vaping Use: Never used Substance and Sexual Activity Alcohol use: No Drug use: No Sexual activity: Not Currently Partners: Male control/protection: Menopause Other Topics Concern Service No Blood Transfusions Not Asked Caffeine Concern No Comment: drinks 1-2 cups coffee daily Occupational Exposure Not Asked Hobby Hazards Not Asked Sleep Concern No Stress Concern No Weight Concern Not Asked Special Diet Not Asked Back Care Not Asked Exercise No Bike Helmet Not Asked Seat Belt Yes Domestic Violence No Social History Narrative Not on file Social Determinants of Health Financial Resource Strain: Not on file Food Insecurity: Not on file Transportation Needs: Not on file Physical Activity: Not on file Stress: Not on file Social Connections: Not on file Intimate Partner Violence: Not on file Housing Stability: Not on file ROS Review of Systems Constitutional: Negative. HENT: Positive for congestion and sinus pressure. Eyes: Negative. Negative for discharge. Respiratory: Positive for cough. Negative for apnea. Cardiovascular: Negative. Negative for chest pain. Gastrointestinal: Negative. Negative for abdominal distention. Musculoskeletal: Negative. Negative for gait problem. Skin: Negative. Negative for color change. Neurological: Negative. Negative for facial asymmetry. Psychiatric/Behavioral: Negative. Negative for agitation. All other systems reviewed and are negative. PHYSICAL EXAM Visit Vitals LMP 10/20/1996 (Within Years) Physical Exam Vitals and nursing note reviewed. Constitutional: Appearance: Normal appearance. She is not ill-appearing. HENT: Head: Normocephalic. Right Ear: External ear normal. Left Ear: External ear normal. Nose: Nose normal. Mouth/Throat: Mouth: Mucous membranes are moist. Eyes: Pupils: Pupils are equal, round, and reactive to light. Cardiovascular: Rate and Rhythm: Normal rate. Pulmonary: Effort: Pulmonary effort is normal. Abdominal: General: There is no distension. Musculoskeletal: General: Normal range of motion. Cervical back: Normal range of motion. Skin: General: Skin is warm and dry. Capillary Refill: Capillary refill takes less than 2 seconds. Neurological: General: No focal deficit present. Mental Status: She is alert. Psychiatric: Behavior: Behavior normal. RESULTS No results found for this or any previous visit (from the past 1 hour(s)). ASSESSMENT/PLAN 1. Acute non-recurrent maxillary sinusitis Orders Placed This Encounter doxycycline hyclate 100 MG capsule I explained the patient that antibiotics are not indicated for bronchitis let alone prophylactically. I feel this sinus infection will subside. I will send her home with oral antibiotics with instructions to take if her symptoms persist or increase in severity after 10 days. She is instructed to continue using [id number] products and increase her fluid intake. Patient was provided educational discharge instructions. If symptoms worsen patient was advised to follow up in our office, primary care provider or the Emergency Dept. Benefits, Risks, Contraindications, and Complications of recommended treatments were explained. The patient understands and agrees to proceed with plan. Jan Murphy CNP 05/23/2023 documented in this encounter [facility] 05-23-2023 Instructions Jan Murphy CNP - 05/23/2023 9:35 AM EDT I would not use the antibiotics unless your symptoms persist for 10 days. These generally subsided after the peak on day 2 or 3. I do not want to unnecessarily expose you to antibiotics especially with your diabetes. The following attachments cannot be sent through Care Everywhere.Sinusitis: Acute (Mexican)documented in this encounter [facility] 05-20-2023 History of Presen t illness Narrative Nurse Note: Review of Systems Constitutional: Positive for unexpected weight change. Negative for fatigue. Eyes: Negative. Negative for visual disturbance. Respiratory: Negative. Negative for shortness of breath. Gastrointestinal: Negative. Negative for constipation, diarrhea, nausea and vomiting. Endocrine: Negative. Negative for polydipsia and polyuria. Neurological: Negative. Negative for numbness. Psychiatric/Behavioral: Negative. Negative for sleep disturbance. Nursing Assessment: Physical Exam History of Present Illness Type 1 diabetes: This is a follow-up visit to the office. She had hip surgery in July 2020, at the time she had a hemoglobin A1c of 12%. Due to declining C-peptide levels, she was re-diagnosed with type 1 diabetes, Jardiance and Tresiba were discontinued, she is now on a T Slim/DexCom hybrid insulin pump, NovoLog insulin. Basal rate = 1.700, carb ratio = 1:8, sensitivity factor = 1:20. She is in control IQ 97% of the time. She is 13% time in target range. She was previously taking Ozempic without adverse reaction, but discontinued a couple of months ago because of concerns about potential adverse reactions. Since discontinuing Ozempic, she has seen her blood sugars increase significantly. She denies neuropathic discomfort of the lower extremity. Has regular follow-up with optometry (Dr. Dawson), no retinopathy. Hyperlipidemia: Baseline LDL = 120 -- 110 mg/dL, was 107 mg/dL in November 2019. We started atorvastatin 10 mg daily, LDL = 62 mg/dL, no myalgias. she is complaining of some leg cramps at night. She discontinued atorvastatin after leg cramps. Current LDL of 76. Review of Systems Nurse Note: Review of Systems Constitutional: Positive for unexpected weight change. Negative for fatigue. Eyes: Negative. Negative for visual disturbance. Respiratory: Negative. Negative for shortness of breath. Gastrointestinal: Negative. Negative for constipation, diarrhea, nausea and vomiting. Endocrine: Negative. Negative for polydipsia and polyuria. Neurological: Negative. Negative for numbness. Psychiatric/Behavioral: Negative. Negative for sleep disturbance. Nursing Assessment: Physical Exam Vitals: Blood pressure 122/72, pulse 73, resp. rate 18, height 1.626 m (5' 4 ), weight (!) 139.3 kg (307 lb), last menstrual period 10/20/1996, SpO2 97 %. Physical Exam Constitutional: General: She is not in acute distress. Appearance: She is not diaphoretic. HENT: Head: Normocephalic. Cardiovascular: Rate and Rhythm: Normal rate and regular rhythm. Pulmonary: Effort: Pulmonary effort is normal. No respiratory distress. Skin: General: Skin is warm and dry. Neurological: Mental Status: She is alert and oriented to person, place, and time. Psychiatric: Judgment: Judgment normal. Foot exam: +1 dorsalis pedis pulses bilaterally, good foot care, no callus/ulceration Neurological Exam Mental Status Alert. Oriented to person, place, and time. Assessment and Plan Type 1 diabetes: We discussed Ozempic, she is agreeable to restart the agent as she was not having adverse reactions that the 0.5 mg dose. She tolerate 0.0 mg dose due to heartburn. We discussed the use of Ozempic may help negate some of the insulin associated weight gain, may help with satiety, and may also smooth out some of the rough edges on her pump download. Hyperlipidemia: excellent response to atorvastatin, continue 10 mg daily. documented in this encounter [facility] 05-20-2023 Procedure note Associated Ord er(s): [place] CONTINUOUS GLUCOSE MONITORING ANALYSIS I&R CGM download shows 13% of blood sugars at target, 87% high. Carb ratio inadequate. Based on CGM download, it appears she discontinue GLP 1 agonist therapy. We discussed options of restarting GLP 1, or reprogrammed in the insulin pump. After discussion, she agrees to restart GLP 1. [facility] 05-20-2023 Procedure note Associated Ord er(s): MO CONTINUOUS GLUCOSE MONITORING ANALYSIS I&R CGM download shows 13% of blood sugars at target, 87% high. Carb ratio inadequate. Based on CGM download, it appears she discontinue GLP 1 agonist therapy. We discussed options of restarting GLP 1, or reprogrammed in the insulin pump. After discussion, she agrees to restart GLP 1. documented in this encounter [facility] 04-23-2023 Note Procedure date: 2022. Right Eye Quality was good. Inferior thickness was normal. Superior thickness was normal. Nasal thickness was normal. Temporal thickness was normal. Interval change is same. Recommendation for management is to observe. Left Eye Quality was good. Inferior thickness was normal. Superior thickness was normal. Nasal thickness was normal. Temporal thickness was normal. Interval change is same. Recommendation for management is to observe. [facility] 04-23-2023 History of Presen t illness Narrative REASON FOR VISIT Chief Complaint Diabetic Retinal Exam; Glaucoma HISTORY OF PRESENT ILLNESS HPI Glaucoma In both eyes. Side effects of treatment include none. Treatment compliance is always. Comments IDDM, managed by Dr Melissa Most recent HbA1c = 9.5% Hx of non-proliferative retinopathy OU Choroidal nevus OS. Sees Dr Timmons (retina) annually in January/February. Narrow angles. Non-ocludable Good complioance with Timolol 0.5% every day OU No visual complaints from patient.No eye discomfort Last edited by Gladys Dawson, OD on 04/25/2023 10:50 AM. Allergies, medications & history reviewed & updated by Gladys Dawson, OD Assessment: 1) IDDM Diabetes with mild non-proliferative retinopathy OU - degree of MA's has remained the same [id number]. No macular involvement 2) Cataract OU- Non-surgical. No ADL impact. However, moderately narrow angles. Non-ocludable at this time 3) Ocular hypertension-- well controlled with Timolol 0.5% every day OU. 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 Also sees Dr Timmons yearly (retina). Plan: 1) Continue Dr Timmons for choroidal nevus yearly comparison/ monitoring (He sees yearly in January) 2) Continue Timolol 0.5% QAM OU-- [facility] [facility] [place] [facility]) Dr Dawson dilation, OCT, IOP testing. Dr Timmons will check nevus and retinopathy & will stagger visits between both eye providers. Sooner if having problems or changes. documented in this encounter [facility] 01-20-2023 History of Presen t illness Narrative Nurse Note: Review of Systems Constitutional: Negative for chills, fatigue and fever. HENT: Positive for congestion, postnasal drip, sinus pressure, sinus pain, sneezing and sore throat. Negative for ear pain, facial swelling, hearing loss, rhinorrhea and trouble swallowing. Respiratory: Positive for cough. Negative for chest tightness, shortness of breath and wheezing. Cardiovascular: Negative for chest pain. Gastrointestinal: Negative for abdominal pain, diarrhea, nausea and vomiting. Genitourinary: Negative for dysuria. Musculoskeletal: Positive for myalgias. Negative for arthralgias. Skin: Negative for rash. Neurological: Positive for headaches. Nursing Assessment: Physical Exam Patient is here for a sick visit. Patient started to feel ill yesterday. Patient has taken tylenol and robitussin with mild relief. Chief Complaint: Chief Complaint Patient presents with Chest Congestion History of Present Illness Else Zach Ackerman is a 67 y.o. female who comes in with 2 day(s) history the following complaint(s): cough Nasal Congestion: moderate Fever: none Cough: moderate moist cough Sore throat: moderate Swollen Lymph Nodes: none Ear Pain: none Nausea: No Vomiting: No Diarrhea: No Rash: none No eye pain/redness/discharge Notable contacts or exposures: Has taken OTC medications. Tylenol and robitussin Current Medications Current Outpatient Medications Medication Sig Dispense Refill ASPIRIN EC [address] Take 1 table twice a day for 30days. This medication is for blood clot prevention. (Patient taking differently: Take 1 tablet by mouth daily.) 60 tablet 0 atorvastatin 10 MG tablet Take 1 tablet by mouth daily. 90 tablet 1 Blood Glucose Monitoring Suppl (ACCU-CHEK COMPACT CARE KIT) Kit 1 kit by Unknown route daily. 1 kit 0 Cholecalciferol (VITAMIN D3 PO) Take 1 capsule by mouth daily. Dexcom G6 Professor Of Sport Management Device For use with Dexcom G6 system. Use to check blood sugar four times daily 1 Each 0 Dexcom G6 Sensor Misc 1 Device by Unknown route every 10 days. 9 Each 1 Dexcom G6 Transmitter Misc For use with Dexcom G6 system. Use to check blood sugar four times daily 1 Each 1 DISABILITY PLACARD Rx for handicap placard. Pt is unable to ambulate 200 yards without assistance. Disability is permanent 1 Each 0 Glucagon (Baqsimi Two Pack) 3 MG/DOSE Powder 1 spray by Nasal route as needed (severe hypoglycemia). 2 Each 1 glucose blood test strips (Accu-Chek Guide) Strip strip Used to test blood sugars 4 times daily 300 strip 1 Insulin Aspart (NovoLOG) 100 UNIT/ML injection For use of the insulin pump, use less than 150 units per day 120 mL 3 metFORMIN-XR 500 MG Tab SR 24 HR Take 2 tablets by mouth 2 times daily. 360 tablet 3 Multiple Vitamins-Minerals (MULTIVITAMIN ADULT PO) take by mouth daily.. [place]-3 Fatty Acids (FISH OIL) 1000 MG Cap Take 1 capsule by mouth at bedtime. Semaglutide, 1 MG/DOSE, (Ozempic, 1 MG/DOSE,) 2 MG/1.5ML Solution Pen-injector Inject 1 mg under the skin once a week. 6 mL 3 timolol maleate 0.5 % Solution ophthalmic solution Place 1 drop in both eyes daily. 10 mL 1 Albuterol 108 (90 Base) MCG/ACT Aero Soln inhaler Inhale 2 puffs every 6 hours as needed for Shortness of Breath or Cough. (Patient not taking: Reported on 01/20/2023) 18 g 0 benzonatate 100 MG capsule Take 1 capsule by mouth 3 times daily as needed for Cough. (Patient not taking: Reported on 01/20/2023) 30 capsule 0 No current facility-administered medications for this visit. Allergies She is allergic to codeine, erythromycin, ibuprofen, latex, penicillins, and povidone iodine. Review of Systems Constitutional: Negative for chills, fatigue and fever. HENT: Positive for congestion, postnasal drip, sinus pressure, sinus pain, sneezing and sore throat. Negative for ear pain, facial swelling, hearing loss, rhinorrhea and trouble swallowing. Respiratory: Positive for cough. Negative for chest tightness, shortness of breath and wheezing. Cardiovascular: Negative for chest pain. Gastrointestinal: Negative for abdominal pain, diarrhea, nausea and vomiting. Genitourinary: Negative for dysuria. Musculoskeletal: Positive for myalgias. Negative for arthralgias. Skin: Negative for rash. Neurological: Positive for headaches. Physical Exam Blood pressure 148/78, pulse 87, temperature 97.6 F (36.4 C), temperature source Temporal, resp. rate 20, height 1.626 m (5' 4 ), weight 129.7 kg (286 lb), last menstrual period 10/20/1996, SpO2 98 %., Body mass index is 49.09 kg/m . Physical Exam Constitutional: General: She is not in acute distress. Appearance: She is not diaphoretic. HENT: Right Ear: Tympanic membrane, ear canal and external ear normal. Left Ear: Tympanic membrane, ear canal and external ear normal. Nose: Laceration, mucosal edema and rhinorrhea present. Right Sinus: Maxillary sinus tenderness present. Left Sinus: Maxillary sinus tenderness present. Mouth/Throat: Pharynx: Posterior oropharyngeal erythema present. No oropharyngeal exudate. Tonsils: No tonsillar abscesses. Eyes: General: Right eye: No discharge. Left eye: No discharge. Neck: Thyroid: No thyromegaly. Vascular: No JVD. Trachea: No tracheal deviation. Cardiovascular: Rate and Rhythm: Normal rate. Heart sounds: Normal heart sounds. No murmur heard. Pulmonary: Effort: Pulmonary effort is normal. No respiratory distress. Breath sounds: Normal breath sounds. No wheezing or rales. Abdominal: General: There is no distension. Tenderness: There is no abdominal tenderness. There is no rebound. Lymphadenopathy: Cervical: Cervical adenopathy present. Skin: General: Skin is warm. Findings: No rash. Assessment/Plan 1. Acute upper respiratory infection - doxycycline hyclate 100 MG capsule; Take 1 capsule by mouth 2 times daily for 10 days. Dispense: 20 capsule; Refill: 0 Follow up if symptoms worsen or fails to improve over time. The risk and benefits of therapy were discussed with the patient. Alarm symptoms were discussed, along with reasons for contacting the office or going to the ER. Questions were answered for the patient. Follow up if symptoms worsen or fails to improve over time. documented in this encounter [facility] 12-03-2022 History of Presen t illness Narrative Nurse Note: Review of Systems Constitutional: Positive for unexpected weight change (gained weight). Negative for fatigue. Eyes: Negative for visual disturbance. Respiratory: Negative for shortness of breath. Gastrointestinal: Negative for constipation, diarrhea, nausea and vomiting. Endocrine: Negative for polydipsia and polyuria. Neurological: Negative for numbness. Psychiatric/Behavioral: Negative for sleep disturbance. Nursing Assessment: Physical Exam History of Present Illness Type 1 diabetes: This is a follow-up visit to the office. She had hip surgery in July 2020, at the time she had a hemoglobin A1c of 12%. We have been working with her, last hemoglobin A1c of 8.7%, up from 8.1%, up from 7.6%. Due to declining C-peptide levels, she was re-diagnosed with type 1 diabetes, Jardiance and Tresiba were discontinued, she is now on a T Slim/DexCom hybrid insulin pump, NovoLog insulin. Basal rate = 1.700, carb ratio = 1:10, sensitivity factor = 1:30. She is in control IQ 98% of the time. She is adapting to the pump.She is remembering to bolus appropriately. She is learning carb counting. She is having some technical difficulties with the pump, but overall improving rapidly. she continues with Ozempic and metformin as adjunctive. She denies neuropathic discomfort of the lower extremity. Has regular follow-up with optometry (Dr. Dawson), no retinopathy. Hyperlipidemia: Baseline LDL = 120 -- 110 mg/dL, was 107 mg/dL in November 2019. We started atorvastatin 10 mg daily, LDL = 62 mg/dL, no myalgias. she is complaining of some leg cramps at night. Review of Systems Nurse Note: Review of Systems Constitutional: Positive for unexpected weight change (gained weight). Negative for fatigue. Eyes: Negative for visual disturbance. Respiratory: Negative for shortness of breath. Gastrointestinal: Negative for constipation, diarrhea, nausea and vomiting. Endocrine: Negative for polydipsia and polyuria. Neurological: Negative for numbness. Psychiatric/Behavioral: Negative for sleep disturbance. Nursing Assessment: Physical Exam Vitals: Blood pressure 116/84, pulse 100, resp. rate 16, height 1.626 m (5' 4 ), weight 128.2 kg (282 lb 9.6 oz), last menstrual period 10/20/1996. Physical Exam Constitutional: General: She is not in acute distress. Appearance: She is not diaphoretic. HENT: Head: Normocephalic. Cardiovascular: Rate and Rhythm: Normal rate and regular rhythm. Pulmonary: Effort: Pulmonary effort is normal. No respiratory distress. Skin: General: Skin is warm and dry. Neurological: Mental Status: She is alert and oriented to person, place, and time. Psychiatric: Judgment: Judgment normal. Foot exam: +1 dorsalis pedis pulses bilaterally, good foot care, no callus/ulceration Neurological Exam Mental Status Alert. Oriented to person, place, and time. Assessment and Plan Type 1 diabetes: So far, doing quite well insulin pump. We will decrease carb ratio to 1:7, decrease sensitivity factor to 1:20. Next available follow-up to reassess settings. Carb counting skills appear good. Hyperlipidemia: excellent response to atorvastatin, continue 10 mg daily. documented in this encounter [facility] 12-03-2022 Procedure note Associated Ord er(s): [place] CONTINUOUS GLUCOSE MONITORING ANALYSIS I&R CGM download shows she is in control IQ 98% of the time, 25% of blood sugars at target, 75% high. Sensitivity factor and carb ratio appear ineffective. Based on CGM download, we will decrease sensitivity factor and carb ratio. We went over her carb counting skills, they appear to be accurate. [facility] 12-03-2022 Procedure note Associated Ord er(s): MO CONTINUOUS GLUCOSE MONITORING ANALYSIS I&R CGM download shows she is in control IQ 98% of the time, 25% of blood sugars at target, 75% high. Sensitivity factor and carb ratio appear ineffective. Based on CGM download, we will decrease sensitivity factor and carb ratio. We went over her carb counting skills, they appear to be accurate. documented in this encounter [facility] 10-31-2022 History of Presen t illness Narrative Nurse Note: Review of Systems Constitutional: Positive for fatigue. Negative for appetite change and fever. HENT: Negative for congestion, dental problem, hearing loss, nosebleeds, postnasal drip, rhinorrhea, sinus pressure, sinus pain, sore throat, tinnitus and voice change. Eyes: Negative for pain, discharge, redness and visual disturbance. Respiratory: Positive for cough and shortness of breath. Negative for wheezing. Cardiovascular: Negative for chest pain and palpitations. Gastrointestinal: Negative for abdominal pain, constipation, diarrhea, nausea and vomiting. Endocrine: Negative for cold intolerance, heat intolerance and polyuria. Genitourinary: Negative for dysuria and enuresis. Musculoskeletal: Negative for arthralgias, back pain, joint swelling, myalgias and neck pain. Skin: Positive for rash. Negative for color change. Neurological: Negative for dizziness, tremors, syncope, weakness, numbness and headaches. Hematological: Does not bruise/bleed easily. Psychiatric/Behavioral: Negative for confusion, dysphoric mood, self-injury, sleep disturbance and suicidal ideas. The patient is not nervous/anxious. Nursing Assessment: Physical Exam Chief Complaint: Chief Complaint Patient presents with Cough Pt here for follow up on cough. Pt states tessalon perles help, but only temporarily. Pt states still SOB. Pt have fatigue. Pt did retest on Covid test and was negative. Shingles Pt here for follow up on shingles, states they still burn a little but are improving. History of Present Illness Else Zach Ackerman is a 67 y.o. female who comes in with 1 month(s) history the following complaint(s): Coughing and burning. Nasal Congestion: minimal Fever: none Cough: continued non productive cough Swollen Lymph Nodes: none Ear Pain: none Nausea: No Vomiting: No Diarrhea: No Rash: none No eye pain/redness/discharge Notable contacts or exposures: none Has taken OTC medications. Suzanne huang Current Medications Current Outpatient Medications Medication Sig Dispense Refill ASPIRIN EC [address] Take 1 table twice a day for 30days. This medication is for blood clot prevention. (Patient taking differently: Take 1 tablet by mouth daily.) 60 tablet 0 atorvastatin 10 MG tablet Take 1 tablet by mouth daily. 90 tablet 1 benzonatate 100 MG capsule Take 1 capsule by mouth 3 times daily as needed for Cough. 30 capsule 0 Cholecalciferol (VITAMIN D3 PO) Take 1 capsule by mouth daily. Dexcom G6 Sensor Misc 1 Device by Unknown route every 10 days. 9 Each 1 Dexcom G6 Transmitter Misc For use with Dexcom G6 system. Use to check blood sugar four times daily 1 Each 1 Gabapentin 300 MG capsule Take 1 capsule by mouth at bedtime. 30 capsule 0 Insulin Aspart (NovoLOG) 100 UNIT/ML injection For use of the insulin pump, use less than 150 units per day 120 mL 3 metFORMIN-XR 500 MG Tab SR 24 HR Take 2 tablets by mouth 2 times daily. 360 tablet 3 Multiple Vitamins-Minerals (MULTIVITAMIN ADULT PO) take by mouth daily.. [place]-3 Fatty Acids (FISH OIL) 1000 MG Cap Take 1 capsule by mouth at bedtime. Semaglutide, 1 MG/DOSE, (Ozempic, 1 MG/DOSE,) 2 MG/1.5ML Solution Pen-injector Inject 1 mg under the skin once a week. (Patient taking differently: Inject 1 mg under the skin once a week. 0.5mg) 6 mL 3 timolol maleate 0.5 % Solution ophthalmic solution Place 1 drop in both eyes daily. 10 mL 1 Blood Glucose Monitoring Suppl (ACCU-CHEK COMPACT CARE KIT) Kit 1 kit by Unknown route daily. 1 kit 0 Dexcom G6 [employer] Device For use with Dexcom G6 system. Use to check blood sugar four times daily 1 Each 0 DISABILITY PLACARD Rx for handicap placard. Pt is unable to ambulate 200 yards without assistance. Disability is permanent 1 Each 0 Glucagon (Baqsimi Two Pack) 3 MG/DOSE Powder 1 spray by Nasal route as needed (severe hypoglycemia). 2 Each 1 glucose blood test strips (Accu-Chek Guide) Strip strip Used to test blood sugars 4 times daily 300 strip 1 No current facility-administered medications for this visit. Allergies She is allergic to codeine, erythromycin, ibuprofen, latex, penicillins, and povidone iodine. Review of Systems Constitutional: Positive for fatigue. Negative for appetite change and fever. HENT: Negative for congestion, dental problem, hearing loss, nosebleeds, postnasal drip, rhinorrhea, sinus pressure, sinus pain, sore throat, tinnitus and voice change. Eyes: Negative for pain, discharge, redness and visual disturbance. Respiratory: Positive for cough and shortness of breath. Negative for wheezing. Cardiovascular: Negative for chest pain and palpitations. Gastrointestinal: Negative for abdominal pain, constipation, diarrhea, nausea and vomiting. Endocrine: Negative for cold intolerance, heat intolerance and polyuria. Genitourinary: Negative for dysuria and enuresis. Musculoskeletal: Negative for arthralgias, back pain, joint swelling, myalgias and neck pain. Skin: Positive for rash. Negative for color change. Neurological: Negative for dizziness, tremors, syncope, weakness, numbness and headaches. Hematological: Does not bruise/bleed easily. Psychiatric/Behavioral: Negative for confusion, dysphoric mood, self-injury, sleep disturbance and suicidal ideas. The patient is not nervous/anxious. Physical Exam Blood pressure 128/78, pulse 100, temperature 98.3 F (36.8 C), temperature source Temporal, resp. rate 16, height 1.626 m (5' 4 ), weight 125.6 kg (277 lb), last menstrual period 10/20/1996, SpO2 98 %., Body mass index is 47.55 kg/m . Physical Exam Constitutional: General: She is not in acute distress. Appearance: She is well-developed and well-nourished. HENT: Mouth/Throat: Pharynx: No oropharyngeal exudate. Neck: Thyroid: No thyromegaly. Vascular: No JVD. Trachea: No tracheal deviation. Cardiovascular: Rate and Rhythm: Normal rate and regular rhythm. Heart sounds: No murmur heard. Pulmonary: Effort: No respiratory distress. Breath sounds: No stridor. Wheezing present. No rales. Chest: Chest wall: No tenderness. Abdominal: General: There is no distension. Palpations: There is no mass. Tenderness: There is no abdominal tenderness. There is no guarding or rebound. Skin: Coloration: Skin is not pale. Findings: No erythema or rash. Assessment/Plan 1. Post-COVID chronic cough - Albuterol 108 (90 Base) MCG/ACT Aero Soln inhaler; Inhale 2 puffs every 6 hours as needed for Shortness of Breath or Cough. Dispense: 18 g; Refill: 0 - benzonatate 100 MG capsule; Take 1 capsule by mouth 3 times daily as needed for Cough. Dispense: 30 capsule; Refill: 0 Follow up if symptoms worsen or fails to improve over time. The risk and benefits of therapy were discussed with the patient. Alarm symptoms were discussed, along with reasons for contacting the office or going to the ER. Questions were answered for the patient. Follow up if symptoms worsen or fails to improve over time. documented in this encounter [facility] 10-16-2022 History of Presen t illness Narrative Nurse Note: Review of Systems Constitutional: Positive for fatigue. Negative for appetite change and fever. HENT: Positive for congestion. Negative for dental problem, hearing loss, nosebleeds, postnasal drip, rhinorrhea, sinus pressure, sinus pain, sore throat, tinnitus and voice change. Eyes: Negative for pain, discharge, redness and visual disturbance. Respiratory: Positive for cough and shortness of breath. Negative for wheezing. Cardiovascular: Negative for chest pain and palpitations. Gastrointestinal: Negative for abdominal pain, constipation, diarrhea, nausea and vomiting. Endocrine: Negative for cold intolerance, heat intolerance and polyuria. Genitourinary: Negative for dysuria and enuresis. Musculoskeletal: Negative for arthralgias, back pain, joint swelling, myalgias and neck pain. Skin: Positive for rash. Negative for color change. Neurological: Positive for headaches. Negative for dizziness, tremors, syncope, weakness and numbness. Hematological: Does not bruise/bleed easily. Psychiatric/Behavioral: Negative for confusion, dysphoric mood, self-injury, sleep disturbance and suicidal ideas. The patient is not nervous/anxious. Nursing Assessment: Physical Exam Chief Complaint: Chief Complaint Patient presents with Cough Pt here for c/o coughing, SOB, headache, nasal congestion, body aches X 3 days. Pt had negative Covid test 3 days ago. Pt states at 15 minutes Covid test showed negative, but at 30 minutes it showed positive. Rash Pt states rash started 3 days ago on right leg. Pt states at first she states it hurt like a pulled muscle. Pt states it itches and osorio. History of Present Illness Else Zach Ackerman is a 67 y.o. female who comes in with 3 day(s) history the following complaint(s): Cough, shortness of breath, nasal congestion and body aches. Covid negative 3 days ago at 15 min but positive at 30 minutes. She also on that day has vesicular lesions on the left thigh which are tingling and slightly burning. Nasal Congestion: mild Fever: subjective Cough: moderate moist cough Swollen Lymph Nodes: none Ear Pain: none Nausea: No Vomiting: No Diarrhea: No Rash: yes on the leg No eye pain/redness/discharge Notable contacts or exposures: was sick 3 days prior to her onset of symptoms Has taken OTC medications. tylenol Current Medications Current Outpatient Medications Medication Sig Dispense Refill ASPIRIN EC [address] Take 1 table twice a day for 30days. This medication is for blood clot prevention. (Patient taking differently: Take 325 mg by mouth daily.) 60 tablet 0 atorvastatin 10 MG tablet Take 1 tablet by mouth daily. 90 tablet 1 Cholecalciferol (VITAMIN D3 PO) Take 1 capsule by mouth daily. Dexcom G6 Sensor Misc 1 Device by Unknown route every 10 days. 9 Each 1 Dexcom G6 Transmitter Misc For use with Dexcom G6 system. Use to check blood sugar four times daily 1 Each 1 Insulin Aspart (NovoLOG) 100 UNIT/ML injection For use of the insulin pump, use less than 150 units per day 120 mL 3 metFORMIN-XR 500 MG Tab SR 24 HR Take 2 tablets by mouth 2 times daily. 360 tablet 3 Multiple Vitamins-Minerals (MULTIVITAMIN ADULT PO) take by mouth daily.. [place]-3 Fatty Acids (FISH OIL) 1000 MG Cap take 1,000 mg by mouth at bedtime.. Semaglutide, 1 MG/DOSE, (Ozempic, 1 MG/DOSE,) 2 MG/1.5ML Solution Pen-injector Inject 1 mg under the skin once a week. (Patient taking differently: Inject 1 mg under the skin once a week. 0.5mg) 6 mL 3 timolol maleate 0.5 % Solution ophthalmic solution Place 1 drop in both eyes daily. 10 mL 1 Blood Glucose Monitoring Suppl (ACCU-CHEK COMPACT CARE KIT) Kit 1 kit by Unknown route daily. 1 kit 0 Dexcom G6 [employer] Device For use with Dexcom G6 system. Use to check blood sugar four times daily 1 Each 0 DISABILITY PLACARD Rx for handicap placard. Pt is unable to ambulate 200 yards without assistance. Disability is permanent 1 Each 0 Glucagon (Baqsimi Two Pack) 3 MG/DOSE Powder 1 spray by Nasal route as needed (severe hypoglycemia). 2 Each 1 glucose blood test strips (Accu-Chek Guide) Strip strip Used to test blood sugars 4 times daily 300 strip 1 No current facility-administered medications for this visit. Allergies She is allergic to codeine, erythromycin, ibuprofen, latex, penicillins, and povidone iodine. Review of Systems Constitutional: Positive for fatigue. Negative for appetite change and fever. HENT: Positive for congestion. Negative for dental problem, hearing loss, nosebleeds, postnasal drip, rhinorrhea, sinus pressure, sinus pain, sore throat, tinnitus and voice change. Eyes: Negative for pain, discharge, redness and visual disturbance. Respiratory: Positive for cough and shortness of breath. Negative for wheezing. Cardiovascular: Negative for chest pain and palpitations. Gastrointestinal: Negative for abdominal pain, constipation, diarrhea, nausea and vomiting. Endocrine: Negative for cold intolerance, heat intolerance and polyuria. Genitourinary: Negative for dysuria and enuresis. Musculoskeletal: Negative for arthralgias, back pain, joint swelling, myalgias and neck pain. Skin: Positive for rash. Negative for color change. Neurological: Positive for headaches. Negative for dizziness, tremors, syncope, weakness and numbness. Hematological: Does not bruise/bleed easily. Psychiatric/Behavioral: Negative for confusion, dysphoric mood, self-injury, sleep disturbance and suicidal ideas. The patient is not nervous/anxious. Physical Exam Blood pressure 142/78, pulse 104, temperature 99.7 F (37.6 C), temperature source Temporal, resp. rate 16, height 1.626 m (5' 4 ), weight 123.4 kg (272 lb), last menstrual period 10/20/1996, SpO2 97 %., Body mass index is 46.69 kg/m . Physical Exam Constitutional: General: She is not in acute distress. Appearance: She is not diaphoretic. HENT: Right Ear: Tympanic membrane, ear canal and external ear normal. Left Ear: Tympanic membrane, ear canal and external ear normal. Nose: Laceration, mucosal edema and rhinorrhea present. No sinus tenderness. Right Sinus: Maxillary sinus tenderness present. Left Sinus: Maxillary sinus tenderness present. Mouth/Throat: Pharynx: Posterior oropharyngeal erythema present. No oropharyngeal exudate or posterior oropharyngeal edema. Tonsils: No tonsillar abscesses. Eyes: General: Right eye: No discharge. Left eye: No discharge. Neck: Thyroid: No thyromegaly. Vascular: No JVD. Trachea: No tracheal deviation. Cardiovascular: Rate and Rhythm: Normal rate. Heart sounds: Normal heart sounds. No murmur heard. Pulmonary: Effort: Pulmonary effort is normal. No respiratory distress. Breath sounds: Normal breath sounds. No wheezing or rales. Abdominal: General: There is no distension. Tenderness: There is no abdominal tenderness. There is no rebound. Lymphadenopathy: Cervical: Cervical adenopathy present. Skin: General: Skin is warm. Findings: Rash present. Comments: There are numerous erythematous vesicular lesions on an erythematous macular base brannon the Right L4 dermatome. They are in a dermatomal pattern. There is no secondary excoriation. There is no surrounding skin changes. Assessment/Plan 1. Herpes zoster without complication - Valacyclovir (Valtrex) 1 g tablet; Take 1 tablet by mouth 2 times daily for 5 days. Dispense: 10 tablet; Refill: 0 2. COVID-19 - nirmatrelvir-ritonavir (PAXLOVID) 300 MG & 100MG PO co-packaged tablets; Take three tablets (2 x nirmatrelvir 150 mg plus 1 x ritonavir 100 mg) twice daily for 5 days. Dispense: 30 tablet; Refill: 0 Follow up if symptoms worsen or fails to improve over time. The risk and benefits of therapy were discussed with the patient. Alarm symptoms were discussed, along with reasons for contacting the office or going to the ER. Questions were answered for the patient. Follow up if symptoms worsen or fails to improve over time. documented in this encounter [facility] 07-05-2022 History of Presen t illness Narrative Nurse Note: Review of Systems Constitutional: Negative for fatigue and unexpected weight change. Eyes: Negative for visual disturbance. Respiratory: Negative for cough and shortness of breath. Cardiovascular: Negative for chest pain and leg swelling. Gastrointestinal: Positive for nausea (once in a long time). Negative for constipation, diarrhea and vomiting. Endocrine: Negative for polydipsia and polyuria. Skin: Negative for rash. Neurological: Negative for numbness. Psychiatric/Behavioral: Negative for sleep disturbance. Pt has seen early childhood special educator 05/16/2020 Nursing Assessment: Physical Exam History of Present Illness Type 1 diabetes: This is a follow-up visit to the office. She had hip surgery in July 2020, at the time she had a hemoglobin A1c of 12%. We have been working with her, currently hemoglobin A1c of 8.7%, up from 8.1%, up from 7.6%. Due to declining C-peptide levels, she was re-diagnosed with type 1 diabetes, Jardiance and Tresiba were discontinued, she is now on a T Slim/DexCom hybrid insulin pump, NovoLog insulin. Basal rate = 1.700, carb ratio = 1:10, sensitivity factor = 1:30. She is in control IQ 41% of the time. She is adapting to the pump. Hemoglobin A1c has improved from 8.7% down to 7.6% after one month on the pump. Hypoglycemia. She is remembering to bolus appropriately. She is learning carb counting. She is having some technical difficulties with the pump, but overall improving rapidly. she continues with Ozempic and metformin as adjunctive. She has met with a religious educator and had a productive visit. She denies neuropathic discomfort of the lower extremity. Has regular follow-up with optometry (Dr. Walker), no retinopathy. Hyperlipidemia: Baseline LDL = 120 -- 110 mg/dL, was 107 mg/dL in November 2019. We started atorvastatin 10 mg daily, LDL = 62 mg/dL, no myalgias. Review of Systems Nurse Note: Review of Systems Constitutional: Negative for fatigue and unexpected weight change. Eyes: Negative for visual disturbance. Respiratory: Negative for cough and shortness of breath. Cardiovascular: Negative for chest pain and leg swelling. Gastrointestinal: Positive for nausea (once in a long time). Negative for constipation, diarrhea and vomiting. Endocrine: Negative for polydipsia and polyuria. Skin: Negative for rash. Neurological: Negative for numbness. Psychiatric/Behavioral: Negative for sleep disturbance. Pt has seen early childhood special educator 05/16/2020 Nursing Assessment: Physical Exam Vitals: Blood pressure 124/78, pulse 94, resp. rate 16, height 1.626 m (5' 4 ), weight 113.7 kg (250 lb 9.6 oz), last menstrual period 10/20/1996. Physical Exam Constitutional: General: She is not in acute distress. Appearance: She is not diaphoretic. HENT: Head: Normocephalic. Cardiovascular: Rate and Rhythm: Normal rate and regular rhythm. Pulmonary: Effort: Pulmonary effort is normal. No respiratory distress. Skin: General: Skin is warm and dry. Neurological: Mental Status: She is alert and oriented to person, place, and time. Psychiatric: Judgment: Judgment normal. Foot exam: +1 dorsalis pedis pulses bilaterally, good foot care, no callus/ulceration Neurological Exam Mental Status Alert. Oriented to person, place, and time. Assessment and Plan Type 1 diabetes: So far, doing quite well insulin pump. She is remembering to bolus appropriately. Carb counting skills looked good, and are improving. Sensitivity factor works. We discussed the activity setting on the pump, and showed her how to restart control IQ settings. May continue Ozempic and metformin is attempted therapy. 1 month follow-up offered, patient states she is comfortable follow-up in 3 months. She agrees to contact us if there is any concerns or issues. She does have nasal glucagon available at home. Hyperlipidemia: excellent response to atorvastatin, continue 10 mg daily. documented in this encounter [facility] 07-05-2022 Procedure note Associated Ord er(s): [place] CONTINUOUS GLUCOSE MONITORING ANALYSIS I&R CGM download shows she is in control IQ 41% of the time, 59% of blood sugars at target, 41% high. She is uncomfortable with blood sugars below 120 mg/dL, so the activity setting is set on the pump at all times. She is remembering to bolus appropriately for carb intake. Correction factor works the majority of the time. No significant hypoglycemia. Based on CGM download, doing well with the settings, would continue same. [facility] 07-05-2022 Procedure note Associated Ord er(s): MO CONTINUOUS GLUCOSE MONITORING ANALYSIS I&R CGM download shows she is in control IQ 41% of the time, 59% of blood sugars at target, 41% high. She is uncomfortable with blood sugars below 120 mg/dL, so the activity setting is set on the pump at all times. She is remembering to bolus appropriately for carb intake. Correction factor works the majority of the time. No significant hypoglycemia. Based on CGM download, doing well with the settings, would continue same. documented in this encounter [facility] 04-09-2022 Note Procedure date: 04/09. Right Eye Clear. Disc findings include normal observations. Vessel findings include normal. Macula findings include normal observations. Dot/Blot Hemorrhages. Interval change is same. Recommendation for management is to observe. Left Eye Clear. Disc findings include normal observations. Vessel findings include normal. Macula findings include normal observations. Dot/Blot Hemorrhages, Nevus. Interval change is same. Recommendation for management is to observe. [facility] 04-09-2022 History of Presen t illness Narrative REASON FOR VISIT Chief Complaint Diabetic Retinal Exam HISTORY OF PRESENT ILLNESS HPI IDDM, managed by Dr Melissa Most recent HbA1c = 7.8% No visual complaints from patient No eye discomfort Hx of non-proliferative retinopathy OU Choroidal nevus OS. Sees Dr Timmons (retina) annually in winter. narrow angles. Non-ocludable Last edited by Gladys Dawson, OD on 04/09/2022 9:37 PM. (History) Allergies, medications & history reviewed & updated by Gladys Dawson, MILI Assessment: 1) IDDM Diabetes with mild non-proliferative retinopathy OU - poorly-controlled by patient's own admission - degree of MA's has remained the same as last year. No macular involvement 2) Cataract OU- Non-surgical. No ADL impact. However, moderately narrow angles. Non-ocludable at this time 3) Ocular hypertension-- well controlled with Timolol 0.5% every day OU. 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 Dr Timmons will check nevus and retinopathy & will stagger visits between both eye providers. Sooner if having problems or changes. documented in this encounter [facility] 03-12-2022 History of Presen t illness Narrative Nurse Note: Review of Systems Constitutional: Negative for fatigue and unexpected weight change. Eyes: Negative for visual disturbance. Respiratory: Positive for cough. Negative for shortness of breath. Cardiovascular: Negative for chest pain and leg swelling. Gastrointestinal: Negative for constipation, diarrhea, nausea and vomiting. Endocrine: Negative for polydipsia and polyuria. Skin: Negative for rash. Neurological: Negative for numbness. Psychiatric/Behavioral: Negative for sleep disturbance. Last saw early childhood special educator 05/16/2020 Nursing Assessment: Physical Exam History of Present Illness Type 1 diabetes: This is a follow-up visit to the office. She had hip surgery in July 2020, at the time she had a hemoglobin A1c of 12%. We have been working with her, currently hemoglobin A1c of 8.7%, up from 8.1%, up from 7.6%. Currently taking metformin extended release 1000 g twice a day, Ozempic 1.0 mg weekly, Jardiance 25 mg daily, and Tresiba 50 units at night. She has met with a religious educator and had a productive visit. She denies neuropathic discomfort of the lower extremity. Has regular follow-up with optometry (Dr. Dawson), no retinopathy. She has a DexCom at home, And is recently been trained how to use it, and is learning a lot from it. We sent her for blood work in spring which came back for follow C-peptide at 0.44 with concurrent blood glucose of 138 mg/dL and normal renal function.. Hyperlipidemia: Baseline LDL = 120 -- 110 mg/dL, was 107 mg/dL in November 2019. We started atorvastatin 10 mg daily, LDL = 72 mg/dL, no myalgias. Review of Systems Nurse Note: Review of Systems Constitutional: Negative for fatigue and unexpected weight change. Eyes: Negative for visual disturbance. Respiratory: Positive for cough. Negative for shortness of breath. Cardiovascular: Negative for chest pain and leg swelling. Gastrointestinal: Negative for constipation, diarrhea, nausea and vomiting. Endocrine: Negative for polydipsia and polyuria. Skin: Negative for rash. Neurological: Negative for numbness. Psychiatric/Behavioral: Negative for sleep disturbance. Last saw early childhood special educator 05/16/2020 Nursing Assessment: Physical Exam Vitals: Blood pressure (!) 141/91, pulse 94, resp. rate 16, height 1.626 m (5' 4 ), weight 109.9 kg (242 lb 3.2 oz), last menstrual period 10/20/1996. Physical Exam Constitutional: General: She is not in acute distress. Appearance: She is not diaphoretic. HENT: Head: Normocephalic. Cardiovascular: Rate and Rhythm: Normal rate and regular rhythm. Pulmonary: Effort: Pulmonary effort is normal. No respiratory distress. Skin: General: Skin is warm and dry. Neurological: Mental Status: She is alert and oriented to person, place, and time. Psychiatric: Judgment: Judgment normal. Foot exam: +1 dorsalis pedis pulses bilaterally, good foot care, no callus/ulceration Neurological Exam Mental Status Alert. Oriented to person, place, and time. Assessment and Plan Type 2 diabetes: Based on her low C-peptide level, we will change diagnosis to type 1 diabetes. We discussed her experience with the lito calle. We will add a prandial insulin, NovoLog 5 units per carb on the plate. As she has an ultra low carb diet, she will likely be taking less than 10 units of NovoLog per meal. She is interested in an insulin pump therapy, we will recheck out to [facility]. We will continue Ozempic 1.0 mg weekly , Jardiance 25 mg in the morning , and Tresiba 50 units daily. Discussed starting to look at carbs on nutrition labels. Next available follow-up with logbook. Hyperlipidemia: excellent response to atorvastatin, continue 10 mg daily. documented in this encounter [facility] 03-12-2022 Procedure note Associated Ord er(s): MO CONTINUOUS GLUCOSE MONITORING ANALYSIS I&R CGM download demonstrates 38% and blood sugars at target, 35% high, 27% very high. Overnight blood sugars with reasonable, there is progressive hyperglycemia throughout the day, even with minimal carb intake. This is congruent with her low C-peptide level and transition from a type 2 diabetes closer to a type 1 diabetes. Based on this, we will be adding prandial insulin. [facility] 03-12-2022 Procedure note Associated Ord er(s): MO CONTINUOUS GLUCOSE MONITORING ANALYSIS I&R CGM download demonstrates 38% and blood sugars at target, 35% high, 27% very high. Overnight blood sugars with reasonable, there is progressive hyperglycemia throughout the day, even with minimal carb intake. This is congruent with her low C-peptide level and transition from a type 2 diabetes closer to a type 1 diabetes. Based on this, we will be adding prandial insulin. documented in this encounter [facility] 02-12-2022 History of Presen t illness Narrative Nurse Note: Review of Systems Constitutional: Negative for fatigue and unexpected weight change. Eyes: Negative for visual disturbance. Respiratory: Negative for cough and shortness of breath. Cardiovascular: Negative for chest pain and leg swelling. Gastrointestinal: Negative for constipation, diarrhea, nausea and vomiting. Endocrine: Negative for polydipsia and polyuria. Skin: Negative for rash. Neurological: Negative for numbness. Psychiatric/Behavioral: Negative for sleep disturbance. Patient has seen early childhood special educator Megan Roberts, last appointment on 05/16/20 Nursing Assessment: Physical Exam Today's visit canceled, no sugars to review. Patient receiving DexCom training today, we will follow-up next available for DexCom data. C-peptide noted to be low, broached the subject of insulin pump therapy, patient is interested that works with the [employer] calm. She is interested in hybrid insulin pump. documented in this encounter [facility] 01-07-2022 History of Presen t illness Narrative Nurse Note: Review of Systems Constitutional: Negative for chills, fatigue and fever. HENT: Negative for congestion, ear pain, facial swelling, hearing loss, postnasal drip, rhinorrhea, sinus pressure, sinus pain, sneezing, sore throat and trouble swallowing. Respiratory: Negative for cough, chest tightness, shortness of breath and wheezing. Cardiovascular: Negative for chest pain. Gastrointestinal: Negative for abdominal pain, diarrhea, nausea and vomiting. Genitourinary: Negative for dysuria. Musculoskeletal: Positive for gait problem. Negative for arthralgias and myalgias. Skin: Negative for rash. Nursing Assessment: Physical Exam Chief Complaint Patient presents with Other Pt. Is here for renewal of joey re: balance and walking problems. History of Present Illness: Melodie Ackerman is a 66 y.o. female who comes in with complaints of Lt hip weakness From the left hip arthroplasty which was in 07/2020. Has seen a orthopaedic surgeon in [place] who was talking about a gluteus amy transfer. Decided to not do surgery. It has not been getting worse. There is continued weakness. There is not tingling. Trauma/Injury: none, might have had tear of the muscle was seen in [place] for a second opinion. Previous similar pain: none Radiation to : none Bladder or Bowel Incontinence/Difficulty: none Tingling, sensory change, focal weakness: none Abdominal Pain: none Dysuria, urgency, frequency, hematuria, flank pain: none Therapies tried so far: none Current Medications Current Outpatient Medications Medication Sig Dispense Refill ASPIRIN EC [address] Take 1 table twice a day for 30days. This medication is for blood clot prevention. (Patient taking differently: Take 325 mg by mouth daily.) 60 tablet 0 atorvastatin 10 MG tablet Take 1 tablet by mouth daily. 90 tablet 1 Blood Glucose Monitoring Suppl (ACCU-CHEK COMPACT CARE KIT) Kit 1 kit by Unknown route daily. 1 kit 0 DISABILITY PLACARD Rx for handicap placard. Pt is unable to ambulate 200 yards without assistance. Disability is for 1 year 1 Each 0 Empagliflozin 25 MG tablet Take 1 tablet by mouth every morning before breakfast. 90 tablet 1 glucose blood test strips (Accu-Chek Guide) Strip strip Used to test blood sugars 4 times daily 100 strip 1 Insulin Degludec (Tresiba FlexTouch) 200 UNIT/ML Solution Pen-injector injection Inject 50 Units under the skin daily every morning. 36 mL 3 metFORMIN-XR 500 MG Tab SR 24 HR Take 2 tablets by mouth 2 times daily. 360 tablet 3 Multiple Vitamins-Minerals (MULTIVITAMIN ADULT PO) take by mouth daily.. [place]-3 Fatty Acids (FISH OIL) 1000 MG Cap take 1,000 mg by mouth at bedtime.. Semaglutide, 1 MG/DOSE, (Ozempic, 1 MG/DOSE,) 2 MG/1.5ML Solution Pen-injector Inject 1 mg under the skin once a week. 6 mL 3 timolol maleate 0.5 % Solution ophthalmic solution Place 1 drop in both eyes daily. 10 mL 1 Dexcom G6 [employer] Device For use with Dexcom G6 system. Use to check blood sugar four times daily (Patient not taking: Reported on 01/07/2022) 1 Device 0 Dexcom G6 Sensor Misc 1 Device by Unknown route every 10 days. (Patient not taking: No sig reported) 9 Each 1 Dexcom G6 Transmitter [facility] For use with Dexcom G6 system. Use to check blood sugar four times daily (Patient not taking: No sig reported) 1 Each 1 fluconazole 150 MG tablet Take 1 tablet by mouth as needed. prn (Patient not taking: No sig reported) 1 tablet 1 No current facility-administered medications for this visit. Allergies She is allergic to codeine, erythromycin, ibuprofen, latex, penicillins, and povidone iodine. Review of Systems Constitutional: No fever, no chills, no significant weight loss, no fatigue. Cardiovascular: No chest pain, no dyspnea on exertion, no palpitations Respiratory: No cough, no shortness of breath, no wheezing Gastrointestinal: No heartburn, no nausea, no vomiting, no diarrhea, No constipation Musculoskeletal: No myalgias, no joint pain Neurological: No dizziness, no abnormal coordination. She denies any other acute concerns Physical Exam: BP 142/68 (BP Location: Left arm, BP Position: Sitting) Pulse 88 Temp 99 F (37.2 C) (Temporal) Resp 24 Ht 1.626 m (5' 4 ) Wt 110.2 kg (243 lb) SpO2 95% BMI 41.71 kg/m Smoking Status Never Smoker Physical Exam Constitutional: General: She is not in acute distress. Appearance: She is obese. She is not ill-appearing. Neurological: Mental Status: She is alert. Assessment/Plan: 1. Weakness of left hip - DISABILITY PLACARD; Rx for handicap placard. Pt is unable to ambulate 200 yards without assistance. Disability is permanent Dispense: 1 Each; Refill: 0 Her history of symptoms and findings on exam are most consistent with a torn muscular etiology. I discussed supportive care with the patient, including regular stretching and movement. I discussed the role of NSAIDS. Regular use over the next few days to a week should provide a good amount or relief, with a shift to prn use only after the first week. Heat can also be beneficial, in the form of a heating pad, hot shower or bathtub/hot tub use. I have asked the patient to be on the alert for new or increasing symptoms such as worsening pain, new numbness/tingling/radiation of pain, etc and to call directly if such should occur. The patient indicates understanding of these issues and agrees with the plan. documented in this encounter [facility] 11-07-2021 History of Presen t illness Narrative History of Present Illness Patient presents to office to re-establish care/annual. Natural menopause. Denies PMB. Denies family hx of breast ca. Tori-04/21/18, benign. Colonoscopy->5yrs, benign. DEXA--years ago, normal. Denies F/C/N/V/SOB/CP at this time. I have reviewed and updated the following portions of this chart as required. Allergies Allergen Reactions Codeine Itching Erythromycin Nausea Only Ibuprofen Nausea Only Latex Rash Penicillins Hives Povidone Iodine Itching Past Medical History: Diagnosis Date Allergic rhinitis Arthritis Basal cell carcinoma back and face Cervical dysphagia 2006 Diabetes mellitus Type 2 Diabetic eye exam 09/14/2018 no retinopathy noted Hamstring tendonitis at origin 03/03/2018 Hyperlipidemia Left hip pain 09/2017 SHANI (obstructive sleep apnea) cpap Osteoarthritis Past Surgical History: Procedure Laterality Date ARTHROPLASTY HIP TOTAL Left 08/08/2020 Laterality: Left; Surgeon: Sai Hylton MD; Location: [facility] OR EXCISION SKIN LESION 06/15/2015 Right orthodox 1.5cm EXCISION SKIN LESION 06/15/2015 Forehead 2cm COLPOSCOPY 2007 LEEPS EXCISION SKIN LESION 2005 Basal Cell Carcinoma Left posterior shoulder LAPAROTOMY EXPLORATORY 1979 COLONOSCOPY DIAGNOSTIC Family History Problem Relation Age of Onset Diabetes Mother Arthritis - Osteo Mother Pacemaker Mother Arrhythmia Mother a-fib Dementia Mother Breast Cancer Mother Colorectal Polyps Father Diabetes Father Prostate Cancer Father Cancer Paternal Grandfather stomch Stroke Maternal Grandmother Social History Socioeconomic History Marital status: Spouse name: Not on file Number of children: 2 Years of education: college Highest education level: Not on file Occupational History Occupation: Nurse Employer: [employer] Tobacco Use Smoking status: Never Smoker Smokeless tobacco: Never Used Vaping Use Vaping Use: Never used Substance and Sexual Activity Alcohol use: No Drug use: No Sexual activity: Not Currently Partners: Male control/protection: Menopause Other Topics Concern Service No Blood Transfusions Not Asked Caffeine Concern No Comment: drinks 1-2 cups coffee daily Occupational Exposure Not Asked Hobby Hazards Not Asked Sleep Concern No Stress Concern No Weight Concern Not Asked Special Diet Not Asked Back Care Not Asked Exercise No Bike Helmet Not Asked Seat Belt Yes Domestic Violence No Social History Narrative Not on file Social Determinants of Health Financial Resource Strain: Not on file Food Insecurity: Not on file Transportation Needs: Not on file Physical Activity: Not on file Stress: Not on file Social Connections: Not on file Intimate Partner Violence: Not on file Housing Stability: Not on file OB History Para Term AB Living 2 2 2 2 SAB IAB Ectopic Molar Multiple Live Births 2 # Outcome Date GA Lbr Mejia/2nd Weight Sex Delivery Anes PTL Lv 2 Term 09/15/94 10 lb 2 oz (4.593 kg) M Vag-Spont ESTHER 1 Term 1987 40w0d 9 lb 5 oz (4.224 kg) M Vag-Spont ESTHER Review of Systems Constitutional: Negative for chills, diaphoresis, fatigue and fever. Eyes: Negative for discharge and redness. Respiratory: Negative for cough and shortness of breath. Cardiovascular: Negative for chest pain and leg swelling. Gastrointestinal: Negative for abdominal pain, constipation, diarrhea, nausea and vomiting. Endocrine: Negative for cold intolerance and heat intolerance. Genitourinary: Negative for menstrual problem, pelvic pain, vaginal bleeding, vaginal discharge and vaginal pain. Musculoskeletal: Negative for neck stiffness. Skin: Negative for color change and pallor. Allergic/Immunologic: Negative for environmental allergies and food allergies. Neurological: Negative for dizziness and light-headedness. Hematological: Does not bruise/bleed easily. Psychiatric/Behavioral: Negative for behavioral problems and confusion. Vitals: Blood pressure 138/78, height 5' 4 (1.626 m), weight 240 lb (108.9 kg), last menstrual period 10/20/1996. Physical Exam Vitals and nursing note reviewed. Constitutional: General: She is not in acute distress. Appearance: Normal appearance. She is obese. She is not ill-appearing. HENT: Head: Normocephalic and atraumatic. Eyes: General: Right eye: No discharge. Left eye: No discharge. Neck: Thyroid: No thyromegaly. Vascular: No JVD. Cardiovascular: Rate and Rhythm: Normal rate and regular rhythm. Heart sounds: Normal heart sounds. Pulmonary: Effort: Pulmonary effort is normal. Breath sounds: Normal breath sounds. Chest: Breasts: Right: No mass, nipple discharge or tenderness. Left: No mass, nipple discharge or tenderness. Abdominal: General: Bowel sounds are normal. Palpations: There is no mass. Tenderness: There is no abdominal tenderness. Genitourinary: General: Normal vulva. Labia: Right: No rash or tenderness. Left: No rash or tenderness. Vagina: Normal. No vaginal discharge. Cervix: No cervical motion tenderness or discharge. Uterus: Normal. Adnexa: Right: No mass, tenderness or fullness. Left: No mass, tenderness or fullness. Rectum: Normal. Guaiac result negative. Comments: Large mons pubis Obesity limits accuracy of exam Musculoskeletal: General: Normal range of motion. Lymphadenopathy: Cervical: No cervical adenopathy. Skin: General: Skin is warm and dry. Neurological: Mental Status: She is alert and oriented to person, place, and time. Psychiatric: Mood and Affect: Mood normal. Speech: Speech normal. Behavior: Behavior normal. Judgment: Judgment normal. Neurological Exam Mental Status Alert. Speech is normal. Assessment and Plan 1. Encounter for gynecological examination without abnormal finding 2. Screening for cervical cancer Pap performed - [facility], LIQUID BASED 3. Encounter for screening mammogram for malignant neoplasm of breast Tori will be ordered, patient to schedule. CBE performed without abnormalities noted. - MAMMO SCREENING WITH TAMMY BILATERAL; Future 4. Screening for colon cancer Neg fecal occult blood. Patient is due for colonoscopy. Declines referral at this time--she wants to contact Dr. Weaver's office herself. - POCT OCCULT BLOOD STOOL 5. Screening for osteoporosis Will order DEXA for further evaluation of bone density at this time. 6. Post-menopausal Same as above Return in about 1 year (around 11/07/2022) for annual please. Thank you. . documented in this encounter [facility] 05-15-2021 History of Presen t illness Narrative History of Present Illness Diabetes Type 2 diabetes: This is a follow-up visit to the office. She had hip surgery in July 2020, at the time she had a hemoglobin A1c of 12%. We have been working with her, currently hemoglobin A1c of 7.3%. She has lost a lot of mobility, currently dealing with a gluteal tear and considering going to a tertiary center for repair. Currently taking metformin extended release 1000 g twice a day, Ozempic 1.0 mg weekly, Jardiance 25 mg daily, and Tresiba 50 units at night. She has met with a religious educator and had a productive visit. She denies neuropathic discomfort of the lower extremity. Has regular follow-up with optometry (Dr. Dawson), no retinopathy. She is having postprandial hyperglycemia after minimal carb intake. Hyperlipidemia: Baseline LDL = 120 -- 110 mg/dL, was 107 mg/dL in November 2019. We started atorvastatin 10 mg daily, LDL improved 62 mg/dL, no myalgias. Review of Systems Nurse Note: Review of Systems Constitutional: Negative for fatigue and unexpected weight change. Eyes: Negative for visual disturbance. Respiratory: Negative for cough and shortness of breath. Cardiovascular: Negative for chest pain and leg swelling. Gastrointestinal: Negative for constipation, diarrhea, nausea and vomiting. Endocrine: Negative for polydipsia and polyuria. Skin: Negative for rash. Neurological: Negative for numbness. Psychiatric/Behavioral: Negative for sleep disturbance. Patient last seen early childhood special educator 05/16/2020 Nursing Assessment: Physical Exam Vitals: Blood pressure 166/86, pulse 90, height 1.626 m (5' 4.02 ), weight 100.8 kg (222 lb 3.2 oz), last menstrual period 10/20/1996. Physical Exam Constitutional: General: She is not in acute distress. Appearance: She is not diaphoretic. HENT: Head: Normocephalic. Neck: Trachea: No tracheal deviation. Cardiovascular: Rate and Rhythm: Normal rate and regular rhythm. Heart sounds: Normal heart sounds. No murmur heard. Pulmonary: Effort: No respiratory distress. Breath sounds: No wheezing. Skin: General: Skin is warm and dry. Neurological: Mental Status: She is alert and oriented to person, place, and time. Psychiatric: Judgment: Judgment normal. Foot exam: +1 dorsalis pedis pulses bilaterally, good foot care, no callus/ulceration Neurological Exam Mental Status Alert. Assessment and Plan Type 2 diabetes: We will continue Ozempic 1.0 mg weekly , Jardiance 25 mg in the morning , and Tresiba 50 units daily. We discussed her postprandial hyperglycemia, she states that she has been lax with corncob, watermelon, and cherries during the summer, and she will clean up her diet. We discussed the limitations of physical activity due to her loss of mobility/balance and her ongoing physical therapy . Follow-up in 3 months. Hyperlipidemia: excellent response to atorvastatin, continue 10 mg daily. Nurse Note: Review of Systems Constitutional: Negative for fatigue and unexpected weight change. Eyes: Negative for visual disturbance. Respiratory: Negative for cough and shortness of breath. Cardiovascular: Negative for chest pain and leg swelling. Gastrointestinal: Negative for constipation, diarrhea, nausea and vomiting. Endocrine: Negative for polydipsia and polyuria. Skin: Negative for rash. Neurological: Negative for numbness. Psychiatric/Behavioral: Negative for sleep disturbance. Patient last seen early childhood special educator 05/16/2020 Nursing Assessment: Physical Exam documented in this encounter [facility] 05-15-2021 Miscellaneous Notes Addended by: MIR MELISSA on: 05/15/2021 11:59 AM Modules accepted: Orders documented in this encounter [facility] 05-15-2021 Procedure note Associated Order(s): MO CONTINUOUS GLUCOSE MONITORING ANALYSIS I&R CGM download shows she is 52% within target range, 31% high, 16% very high, 1% low, 1% very low. Overnight timeframe looks excellence, there is often postprandial hyperglycemia, patient states that she has been having fruit during the summer. We discussed decreasing carb content of diet to which she readily agrees. Based on CGM download, we will continue same regimen, discussed decreasing dietary carbs. documented in this encounter [facility] 04-11-2021 Emergency department Note Disc requested from radiology Penelope Hernandez [facility] side Pt states twisted R ankle this morning and fell. C/o pain from R hip to ankle documented in this encounter [facility] 04-11-2021 Hospital Discharg e instructions Hernandez, Toshia Mart PA-C - 04/11/2021 Use a walker instead of your cane for stability while healing. Use tylenol and Ultram for pain. Ice, elevate, and rest your leg. Follow up with orthopedics as discussed. documented in this encounter [facility] 03-26-2021 History of Presen t illness Narrative Chief Complaint Patient presents with Hip Pain Pt. is here with c/o right hip pain for approx. two months. Pt. states her right foot turns out. Pt. states she would like to discuss left hip tear also. Other Pt. would like to discuss getting Placard. History of Present Illness: Melodie Ackerman is a 65 y.o. female who comes in with complaints of Rt hip pain that started 2 months. It has been getting worse. There is not radiation of the pain. There is not weakness. There is not tingling. She had her left hip replaced but is having more difficulty in the left and right hip. She is now walking with a cane. Trauma/Injury: none Previous similar pain: none Radiation to : none Bladder or Bowel Incontinence/Difficulty: none Tingling, sensory change, focal weakness: none Abdominal Pain: none Dysuria, urgency, frequency, hematuria, flank pain: none Therapies tried so far: Is doing physical therapy. Current Medications Current Outpatient Medications Medication Sig Dispense Refill ASPIRIN EC [address] Take 1 table twice a day for 30days. This medication is for blood clot prevention. (Patient taking differently: Take 325 mg by mouth daily. ) 60 tablet 0 atorvastatin 10 MG tablet Take 1 tablet by mouth daily. 30 tablet 3 Blood Glucose Monitoring Suppl (ACCU-CHEK COMPACT CARE KIT) Kit 1 kit by Unknown route daily. 1 kit 0 Dexcom G6 Professor Of Sport Management Device For use with DexRuffWire G6 system. Use to check blood sugar four times daily 1 Device 0 Dexcom G6 Sensor Misc 1 Device by Unknown route every 10 days. 9 Each 1 Dexcom G6 Transmitter Misc For use with Dexcom G6 system. Use to check blood sugar four times daily 1 Each 1 Empagliflozin 25 MG tablet Take 1 tablet by mouth every morning before breakfast. 90 tablet 1 fluconazole 150 MG tablet as needed. prn glucose blood test strips (Accu-Chek Guide) Strip strip Used to test blood sugars 4 times daily 100 strip 1 Insulin Degludec (Tresiba FlexTouch) 200 UNIT/ML Solution Pen-injector injection Inject 50 Units under the skin daily every morning. 12 Prefilled Pen/Syringe 2 meloxicam 15 MG tablet meloxicam 15 MG tablet Take 1 tablet by mouth daily. Take with food 30 tablet 1 metFORMIN-XR 500 MG Tab SR 24 HR Take 2 tablets by mouth 2 times daily. 360 tablet 3 Multiple Vitamins-Minerals (MULTIVITAMIN ADULT PO) take by mouth daily.. [place]-3 Fatty Acids (FISH OIL) 1000 MG Cap take 1,000 mg by mouth at bedtime.. Semaglutide, 1 MG/DOSE, (Ozempic, 1 MG/DOSE,) 2 MG/1.5ML Solution Pen-injector Inject 1 mg under the skin once a week. 6 Prefilled Pen/Syringe 1 timolol maleate 0.5 % Solution ophthalmic solution Place 1 drop in both eyes daily. 10 mL 1 hydroCODone-acetaminophen 5-325 MG tablet Take 1-2 tablets by mouth every 6 hours as needed for Severe Pain for up to 7 days. Do not take over 4000mg acetaminophen daily. 20 tablet 0 No current facility-administered medications for this visit. Allergies She is allergic to codeine, erythromycin, ibuprofen, latex, penicillins, and povidone iodine. Review of Systems Constitutional: Negative for chills, fatigue and fever. HENT: Negative for congestion, ear pain, facial swelling, hearing loss, postnasal drip, rhinorrhea, sinus pressure, sinus pain, sneezing, sore throat and trouble swallowing. Respiratory: Negative for cough, chest tightness, shortness of breath and wheezing. Cardiovascular: Negative for chest pain. Gastrointestinal: Negative for abdominal pain, diarrhea, nausea and vomiting. Genitourinary: Negative for dysuria. Musculoskeletal: Positive for arthralgias. Negative for myalgias. Skin: Negative for rash. She denies any other acute concerns Physical Exam: BP 140/68 (BP Location: Left arm, BP Position: Sitting) Pulse 100 Temp 97.4 F (36.3 C) (Temporal) Resp 24 Ht 1.626 m (5' 4 ) Wt 104.4 kg (230 lb 3.2 oz) SpO2 97% BMI 39.51 kg/m Smoking Status Never Smoker Physical Exam Constitutional: General: She is in acute distress. Appearance: She is obese. She is not ill-appearing or diaphoretic. Pulmonary: Effort: Pulmonary effort is normal. Musculoskeletal: Comments: Antalgic gait walking with a cane. There is an abnormal Rt hip swing. There is pain with flexion and extension. Skin: General: Skin is warm and dry. Neurological: General: No focal deficit present. Mental Status: She is alert. Assessment/Plan: 1. Primary osteoarthritis of left hip - DISABILITY PLACARD; Rx for handicap placard. Pt is unable to ambulate 200 yards without assistance. Disability is for 1 year Dispense: 1 Each; Refill: 0 Her history of symptoms and findings on exam are most consistent with a DJD etiology. I discussed possible second opinion for her hip. Reviewed notes from Dr. Hylton. Reviewed xrays which she had 02/07/21 Physical Therapy was also discussed. She will continue with this until she sees the second opinion. I have asked the patient to be on the alert for new or increasing symptoms such as worsening pain, new numbness/tingling/radiation of pain, etc and to call directly if such should occur. The patient indicates understanding of these issues and agrees with the plan. Nurse Note: Review of Systems Constitutional: Negative for chills, fatigue and fever. HENT: Negative for congestion, ear pain, facial swelling, hearing loss, postnasal drip, rhinorrhea, sinus pressure, sinus pain, sneezing, sore throat and trouble swallowing. Respiratory: Negative for cough, chest tightness, shortness of breath and wheezing. Cardiovascular: Negative for chest pain. Gastrointestinal: Negative for abdominal pain, diarrhea, nausea and vomiting. Genitourinary: Negative for dysuria. Musculoskeletal: Positive for arthralgias. Negative for myalgias. Skin: Negative for rash. Nursing Assessment: Physical Exam documented in this encounter [facility] 03-20-2021 Note Procedure date: 2020. Right Eye Clear. Disc findings include normal observations. Vessel findings include normal. Macula findings include normal observations. Dot/Blot Hemorrhages. Interval change is same. Recommendation for management is to observe. Left Eye Clear. Disc findings include normal observations. Vessel findings include normal. Macula findings include normal observations. Dot/Blot Hemorrhages. Interval change is same. Recommendation for management is to observe. [facility] 03-20-2021 History of Presen t illness Narrative REASON FOR VISIT Chief Complaint Diabetic Retinal Exam HISTORY OF PRESENT ILLNESS HPI IDDM, managed by Dr Melissa Most recent HbA1c = 7.8% No visual complaints from patient No eye discomfort non-proliferative retinopathy OU Choroidal nevus OS narrow angles. Non-ocludable Last edited by Gladys Dawson, OD on 03/21/2021 8:46 AM. (History) Allergies, medications & history reviewed & updated by Gladys Dawson, OD Assessment: 1) IDDM Diabetes with mild non-proliferative retinopathy OU - poorly-controlled by patient's own admission - degree of MA's has remained the same as last year. No macular involvement 2) Cataract OU- Non-surgical. No ADL impact. However, moderately narrow angles. Non-ocludable at this time 3) Ocular hypertension-- well controlled with Timolol 0.5% every day OU. No change to nerve fiber layers 4) Choroidal nevus OS-- stable by annual assessments by Dr Dawson Plan: 1) Continue Dr Timmons for choroidal nevus yearly comparison/ monitoring (He sees yearly in August) 2) Continue Timolol 0.5% QAM OU-- escrib[place] today [place] [facility] [place] [facility] 3) [address] Dawson dilation, OCT, IOP testing. Dr Timmons will check nevus and retinopathy & will stagger visits between both eye providers. Sooner if having problems or changes. documented in this encounter [facility] 02-28-2021 History of Presen t illness Narrative HPI: Else is an established patient of mine, here today for right hip pain. Primary complaint is pain, impairment and a decrease in quality of life secondary to the right hip pain. She is status post a left TKA with abductor repair for tear of 90%. She complained at previous visit of walking differently with persistent right sided limp so an MRI of the right hip was ordered to evaluate the abductor muscles. She has no complaints with the operative left hip. Her pain is a 4-5 on a 10 point scale today. PHYSICAL EXAM: This is an alert, oriented, and age-appropriate female. She is in no distress. Pleasant and cooperative. EXTREMITIES: Lower extremities have no gross deformity. Normal stability. 5/5 motor. Intact sensation. Normal coordination. Skin intact. Right hip demonstrates full and supple rotation with lateral discomfort over the TFL region. Contralateral operative hip has full and supple motion. No pain. No impingement. No instability. Normal neurovascular status in lower extremities bilaterally. IMAGING: MRI HIP RIGHT WITHOUT CONTRAST Result Date: 02/19/2021 IMPRESSION: 1. Total left hip prosthesis noted. There is a prominent fluid collection around the left hip prosthesis measuring 8 x 2.8 x 2.5 cm compatible with seroma. However, there is likely a chronic partial-thickness tear of the left gluteus medius tendon attachment to the lateral facet of the greater trochanter which is surrounded by the fluid collection. No abnormal marrow signal around the left hip prosthesis to the extent visualized. 2. No significant arthrosis or effusion in the right hip joint. 3. 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 4. Degenerative right SI joint arthrosis noted. IMPRESSION: 1.) Status post a left total hip arthroplasty with massive abductor repair of 90%, re-tearing 2.) Persistent limp/altered gait, right side secondary to the left hip muscle tearing. 3.) Compensatory gait. PLAN: I have reviewed my findings with the patient. We have gone over the diagnosis and the treatment. We reviewed her MRI findings together. Given her MRI findings, physical exam and her radiographs, I suspect her symptoms are related to the 90% massive abductor tear of the left side and walking on a severe arthritic hip with a massive torn abductor for many years. I suspect re-tearing of left abductor muscles due to poor tissue and therefore her mild right externally rotated foot is compensatory. We also discussed the complexity of her past muscle tears/tissue quality and the possibility that her gait may never be what she considers normal. At this time, the next option of treatment would be exploratory surgery with no guarantee of improvement. At this time, it is hard for me to advise surgical intervention. If she were to chose surgical intervention, I cannot promise any better results then 50/50. She desires to think over this and call my office if she chooses surgery. All questions were answered. She has no further questions. Next appointment will be left open to her. I have reviewed the findings of my clinical staff below and agree with their assessment. Vitals: 02/28/21 1437 Temp: 97.7 degrees F (36.5 degrees C) TempSrc: Temporal Weight: 108 kg (238 lb 3.2 oz) Height: 1.626 m (5' 4 ) Pain Presence of Pain: complains of pain/discomfort Pain Location: hip, right Select Pain Scale: DVPRS (Defense and Veterans Pain Rating Scale) (Adult-Cognitively Intact) Pain Location: hip, right Select Pain Scale: DVPRS (Defense and Veterans Pain Rating Scale) (Adult-Cognitively Intact) Recent Labs No results found for: CRP No results found for: SEDRATE Lab Results Component Value Date WBC 12.0 (H) 08/09/2020 HGB 10.1 (L) 08/09/2020 HCT 31.2 (L) 08/09/2020 PLATELET 185 08/09/2020 MCV 90.5 08/09/2020 Past Medical History: Diagnosis Date Allergic rhinitis Arthritis Basal cell carcinoma back and face Cervical dysphagia 2006 Diabetes mellitus Type 2 Diabetic eye exam 09/14/2018 no retinopathy noted Hamstring tendonitis at origin 03/03/2018 Hyperlipidemia Left hip pain 09/2017 SAHNI (obstructive sleep apnea) cpap Osteoarthritis Past Surgical History: Procedure Laterality Date ARTHROPLASTY HIP TOTAL Left 08/08/2020 Laterality: Left; Surgeon: Sai Hylton MD; Location: [facility] EXCISION SKIN LESION 06/15/2015 Right orthodox 1.5cm EXCISION SKIN LESION 06/15/2015 Forehead 2cm COLPOSCOPY 2007 LEEPS EXCISION SKIN LESION 2004 Basal Cell Carcinoma Left posterior shoulder LAPAROTOMY EXPLORATORY 1979 COLONOSCOPY DIAGNOSTIC Family History Problem Relation Age of Onset Diabetes Mother Arthritis - Osteo Mother Pacemaker Mother Arrhythmia Mother a-fib Dementia Mother Breast Cancer Mother Colorectal Polyps Father Diabetes Father Prostate Cancer Father Cancer Paternal Grandfather stomch Stroke Maternal Grandmother Social History Socioeconomic History Marital status: Spouse name: Not on file Number of children: 2 Years of education: college Highest education level: Not on file Occupational History Occupation: Nurse Employer: [employer] Tobacco Use Smoking status: Never Smoker Smokeless tobacco: Never Used Substance and Sexual Activity Alcohol use: No Drug use: No Sexual activity: Yes Partners: Male control/protection: Menopause Other Topics Concern Service No Blood Transfusions Not Asked Caffeine Concern No Comment: drinks 1-2 cups coffee daily Occupational Exposure Not Asked Hobby Hazards Not Asked Sleep Concern No Stress Concern No Weight Concern Not Asked Special Diet Not Asked Back Care Not Asked Exercise No Bike Helmet Not Asked Seat Belt Yes Domestic Violence No Social History Narrative Not on file Social Determinants of Health Financial Resource Strain: Difficulty of Paying Living Expenses: Not on file Food Insecurity: Worried About Running Out of Food in the Last Year: Not on file Ran Out of Food in the Last Year: Not on file Transportation Needs: Lack of Transportation (Medical): Not on file Lack of Transportation (Non-Medical): Not on file Physical Activity: Days of Exercise per Week: Not on file Minutes of Exercise per Session: Not on file Stress: Feeling of Stress : Not on file Social Connections: Frequency of Communication with Friends and Family: Not on file Frequency of Social Gatherings with Friends and Family: Not on file Attends Yarsanism Services: Not on file Active Member of Clubs or Organizations: Not on file Attends Club or Organization Meetings: Not on file Marital Status: Not on file Intimate Partner Violence: Fear of Current or Ex-Partner: Not on file Emotionally Abused: Not on file Physically Abused: Not on file Sexually Abused: Not on file Current Outpatient Medications: ASPIRIN EC [address], Take 1 table twice a day for 30days. This medication is for blood clot prevention. (Patient taking differently: Take 325 mg by mouth daily. ), Disp: 60 tablet, Rfl: 0 atorvastatin 10 MG tablet, Take 1 tablet by mouth daily., Disp: 30 tablet, Rfl: 3 Blood Glucose Monitoring Suppl (ACCU-CHEK COMPACT CARE KIT) Kit, 1 kit by Unknown route daily., Disp: 1 kit, Rfl: 0 Dexcom G6 Professor Of Sport Management Device, For use with Dexcom G6 system. Use to check blood sugar four times daily, Disp: 1 Device, Rfl: 0 Dexcom G6 Sensor Misc, 1 Device by Unknown route every 10 days., Disp: 9 Each, Rfl: 1 Dexcom G6 Transmitter Misc, For use with Dexcom G6 system. Use to check blood sugar four times daily, Disp: 1 Each, Rfl: 1 Empagliflozin 25 MG tablet, Take 1 tablet by mouth every morning before breakfast., Disp: 90 tablet, Rfl: 1 fluconazole 150 MG tablet, as needed. , Disp: , Rfl: glucose blood test strips (Accu-Chek Guide) Strip strip, Used to test blood sugars 4 times daily, Disp: 100 strip, Rfl: 1 Insulin Degludec (Tresiba FlexTouch) 200 UNIT/ML Solution Pen-injector injection, Inject 50 Units under the skin daily every morning., Disp: 12 Prefilled Pen/Syringe, Rfl: 2 meloxicam 15 MG tablet, , Disp: , Rfl: meloxicam 15 MG tablet, Take 1 tablet by mouth daily. Take with food, Disp: 30 tablet, Rfl: 1 metFORMIN-XR 500 MG Tab SR 24 HR, Take 2 tablets by mouth 2 times daily., Disp: 360 tablet, Rfl: 3 Multiple Vitamins-Minerals (MULTIVITAMIN ADULT PO), take by mouth daily.., Disp: , Rfl: [place]-3 Fatty Acids (FISH OIL) 1000 MG Cap, take 1,000 mg by mouth at bedtime.., Disp: , Rfl: Semaglutide, 1 MG/DOSE, (Ozempic, 1 MG/DOSE,) 2 MG/1.5ML Solution Pen-injector, Inject 1 mg under the skin once a week., Disp: 6 Prefilled Pen/Syringe, Rfl: 1 timolol maleate 0.5 % Solution ophthalmic solution, Place 1 drop in both eyes daily., Disp: 10 mL, Rfl: 1 hydroCODone-acetaminophen 5-325 MG tablet, Take 1-2 tablets by mouth every 6 hours as needed for Severe Pain for up to 7 days. Do not take over 4000mg acetaminophen daily., Disp: 20 tablet, Rfl: 0 Allergies Allergen Reactions Codeine Itching Erythromycin Nausea Only Ibuprofen Nausea Only Latex Rash Penicillins Hives Povidone Iodine Itching Ortho Nurse Established Patient Intake Room#: 2 Visit today for MRI results of Right hip. Her pain is 4-5 today. Date: 02/28/2021 2:41 PM Patient: Melodie Ackerman MR#: [id number] : 1955 Age: 65 y.o. Referring Physician: Self, Self Insurance: Payor: [employer] / Plan: MMO NETWORK ACCESS / Product Type: *No Product type* / Chief Complaint Patient presents with Right Hip - MRI Results Hip Pain Visit Vitals Temp 97.7 F (36.5 C) (Temporal) Ht 1.626 m (5' 4 ) Wt 108 kg (238 lb 3.2 oz) LMP 10/20/1996 (Within Years) BMI 40.89 kg/m Pain Presence of Pain: complains of pain/discomfort Pain Location: hip, right Select Pain Scale: DVPRS (Defense and Veterans Pain Rating Scale) (Adult-Cognitively Intact) Pain Location: hip, right Select Pain Scale: DVPRS (Defense and Veterans Pain Rating Scale) (Adult-Cognitively Intact) Recent Labs No results found for: CRP No results found for: SEDRATE Lab Results Component Value Date WBC 12.0 (H) 08/09/2020 HGB 10.1 (L) 08/09/2020 HCT 31.2 (L) 08/09/2020 PLATELET 185 08/09/2020 MCV 90.5 08/09/2020 History Past Medical History: Diagnosis Date Cervical dysphagia 2006 Left hip pain 09/2017 Hamstring tendonitis at origin 03/03/2018 Diabetic eye exam 09/14/2018 no retinopathy noted Allergic rhinitis Arthritis Basal cell carcinoma back and face Diabetes mellitus Type 2 Hyperlipidemia SHANI (obstructive sleep apnea) cpap Osteoarthritis Past Surgical History: Procedure Laterality Date ARTHROPLASTY HIP TOTAL Left 08/08/2020 Laterality: Left; Surgeon: Sai Hylton MD; Location: [facility] EXCISION SKIN LESION 06/15/2015 Right orthodox 1.5cm EXCISION SKIN LESION 06/15/2015 Forehead 2cm COLPOSCOPY 2007 LEEPS EXCISION SKIN LESION 2004 Basal Cell Carcinoma Left posterior shoulder LAPAROTOMY EXPLORATORY 1979 COLONOSCOPY DIAGNOSTIC Family History: Her family history includes Arrhythmia in her mother; Arthritis - Osteo in her mother; Breast Cancer in her mother; Cancer in her paternal grandfather; Colorectal Polyps in her father; Dementia in her mother; Diabetes in her father and mother; Pacemaker in her mother; Prostate Cancer in her father; Stroke in her maternal grandmother. Social History: Her reports that she has never smoked. She has never used smokeless tobacco. She reports that she does not drink alcohol and does not use drugs. Outpatient Medications Prior to Visit Medication Sig Dispense Refill ASPIRIN EC [address] Take 1 table twice a day for 30days. This medication is for blood clot prevention. (Patient taking differently: Take 325 mg by mouth daily. ) 60 tablet 0 atorvastatin 10 MG tablet Take 1 tablet by mouth daily. 30 tablet 3 Blood Glucose Monitoring Suppl (ACCU-CHEK COMPACT CARE KIT) Kit 1 kit by Unknown route daily. 1 kit 0 Dexcom G6 Professor Of Sport Management Device For use with Dexcom G6 system. Use to check blood sugar four times daily 1 Device 0 Dexcom G6 Sensor Misc 1 Device by Unknown route every 10 days. 9 Each 1 Dexcom G6 Transmitter Misc For use with Dexcom G6 system. Use to check blood sugar four times daily 1 Each 1 Empagliflozin 25 MG tablet Take 1 tablet by mouth every morning before breakfast. 90 tablet 1 fluconazole 150 MG tablet as needed. glucose blood test strips (Accu-Chek Guide) Strip strip Used to test blood sugars 4 times daily 100 strip 1 Insulin Degludec (Tresiba FlexTouch) 200 UNIT/ML Solution Pen-injector injection Inject 50 Units under the skin daily every morning. 12 Prefilled Pen/Syringe 2 meloxicam 15 MG tablet meloxicam 15 MG tablet Take 1 tablet by mouth daily. Take with food 30 tablet 1 metFORMIN-XR 500 MG Tab SR 24 HR Take 2 tablets by mouth 2 times daily. 360 tablet 3 Multiple Vitamins-Minerals (MULTIVITAMIN ADULT PO) take by mouth daily.. [place]-3 Fatty Acids (FISH OIL) 1000 MG Cap take 1,000 mg by mouth at bedtime.. Semaglutide, 1 MG/DOSE, (Ozempic, 1 MG/DOSE,) 2 MG/1.5ML Solution Pen-injector Inject 1 mg under the skin once a week. 6 Prefilled Pen/Syringe 1 timolol maleate 0.5 % Solution ophthalmic solution Place 1 drop in both eyes daily. 10 mL 1 hydroCODone-acetaminophen 5-325 MG tablet Take 1-2 tablets by mouth every 6 hours as needed for Severe Pain for up to 7 days. Do not take over 4000mg acetaminophen daily. 20 tablet 0 No facility-administered medications prior to visit. Allergies: She is allergic to codeine; erythromycin; ibuprofen; latex; penicillins; and povidone iodine. 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 [facility] Diagnosis Primary osteoarthritis of left hip- Primary Primary localized osteoarthrosis, pelvic region and thigh documented in this encounter [facility]* Diagnosis Fall as cause of accidental injury in home as place of occurrence, initial encounter- Primary Right leg injury, initial encounter [facility] Diagnosis Encounter for gynecological examination without abnormal finding- Primary Routine gynecological examination Screening for cervical cancer Screening for malignant neoplasm of the cervix Encounter for screening mammogram for malignant neoplasm of breast Other screening mammogram Screening for colon cancer Special screening for malignant neoplasms, colon Screening for osteoporosis Special screening for osteoporosis Post-menopausal Asymptomatic postmenopausal status (age-related) (natural) [facility] Screening for osteoporosis Special screening for osteoporosis Post-menopausal Asymptomatic postmenopausal status (age-related) (natural) documented in this encounter [facility]* Diagnosis Weakness of left hip- Primary Primary osteoarthritis of left hip Primary localized osteoarthrosis, pelvic region and thigh documented in this encounter [facility]* Diagnosis Type 2 diabetes mellitus with hyperglycemia, with long-term current use of insulin- Primary [facility] Diagnosis Type 2 diabetes mellitus with hyperglycemia, with long-term current use of insulin- Primary documented in this encounter [facility]* Diagnosis Type 1 diabetes mellitus with hyperglycemia- Primary Type I (juvenile type) diabetes mellitus without mention of complication, not stated as uncontrolled documented in this encounter [facility]* Diagnosis 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 neoplasm of 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 Diabetic cataract of both eyes 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 documented in this encounter [facility]* Diagnosis Type 1 diabetes mellitus with hyperglycemia- Primary Type I (juvenile type) diabetes mellitus without mention of complication, not stated as uncontrolled Mixed hyperlipidemia documented in this encounter [facility]* Diagnosis Herpes zoster without complication- Primary COVID-19 documented in this encounter [facility]* Diagnosis Post-COVID chronic cough- Primary documented in this encounter [facility]* Diagnosis Type 1 diabetes mellitus with hyperglycemia- Primary Type I (juvenile type) diabetes mellitus without mention of complication, not stated as uncontrolled documented in this encounter [facility]* Diagnosis Acute upper respiratory infection Acute upper respiratory infections of unspecified site documented in this encounter [facility]* Diagnosis 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 documented in this encounter [facility]* Diagnosis Type 1 diabetes mellitus with hyperglycemia- Primary Type I (juvenile type) diabetes mellitus without mention of complication, not stated as uncontrolled documented in this encounter [facility]* Diagnosis Acute non-recurrent maxillary sinusitis- Primary documented in this encounter [facility]* Diagnosis Subacute cough- Primary Cough Subacute cough Cough documented in this encounter [facility]* Diagnosis Subacute cough Cough documented in this encounter [facility]* Diagnosis Subacute cough- Primary Cough Reactive airway disease without complication, unspecified asthma severity, unspecified whether persistent Asthma, cough variant Cough variant asthma Interstitial lung disease Postinflammatory pulmonary fibrosis Screening for viral disease Special screening examination for unspecified viral disease Vitamin D deficiency Unspecified vitamin D deficiency Wheezing SHANI on CPAP Obstructive sleep apnea (adult) (pediatric) documented in this encounter [facility]* Diagnosis Subacute cough- Primary Cough Reactive airway disease without complication, unspecified asthma severity, unspecified whether persistent Asthma, cough variant Cough variant asthma documented in this encounter [facility]* Diagnosis Subacute cough Cough Reactive airway disease without complication, unspecified asthma severity, unspecified whether persistent Asthma, cough variant Cough variant asthma documented in this encounter [facility]* Diagnosis Interstitial lung disease Postinflammatory pulmonary fibrosis [facility] Type 1 diabetes mellitus with hyperglycemia- Primary Type I (juvenile type) diabetes mellitus without mention of complication, not stated as uncontrolled [facility] Diagnosis Reactive airway disease without complication, unspecified asthma severity, unspecified whether persistent- Primary Pulmonary scarring Postinflammatory pulmonary fibrosis Restrictive lung disease Other diseases of lung, not elsewhere classified SHANI on CPAP Obstructive sleep apnea (adult) (pediatric) Subacute cough Cough Asthma, cough variant Cough variant asthma documented in this encounter [facility] Summary Purpose Family History No Family History Records FoundNo Family History Records FoundNo Family History Records Found Advance Directives No Advanced Directives Records FoundLatest Code Status on File Code Status Date Activated Date Inactivated Comments Full Code 08/08/2020 2:12 PM Latest Code Status on File Code Status Date Activated Date Inactivated Comments Full Code 08/08/2020 2:12 PM Latest Code Status on File Code Status Date Activated Date Inactivated Comments Full Code 08/08/2020 2:12 PM Latest Code Status on File Code Status Date Activated Date Inactivated Comments Full Code 08/08/2020 2:12 PM Reason for Referral Status Reason Specialty Diagnoses / Procedures Referred By Contact Referred To Contact Auth Not Needed Diagnoses Encounter for screening mammogram for breast cancer Procedures MAMMO SCREENING BILATERAL Martita Vargas APRN-CNP [id number] [place] [address] Status Reason Specialty Diagnoses / Procedures Referred By Contact Referred To Contact New Request Diagnoses Left hip pain Procedures XR HIP WITH PELVIS LEFT Sai Hylton MD [address] [place] [id number] Status Reason Specialty Diagnoses / Procedures Referred By Contact Referred To Contact New Request Diagnoses Hx of total hip arthroplasty, left Procedures XR HIP WITH PELVIS LEFT Thierno Gutierrez APRN-CNP [address] [place] [address] Status Reason Specialty Diagnoses / Procedures Referred By Contact Referred To Contact Auth Not Needed Physical Therapy Diagnoses Hx of total hip arthroplasty, left Melisa Cano PA-C [address] [place] [id number] [place], PT [address] [place] [id number] Status Reason Specialty Diagnoses / Procedures Referred By Contact Referred To Contact Closed Physical Therapy Diagnoses Pain in prosthetic joint, initial encounter Sai Hylton MD [address] [place], [place] [phone] [facility] [address] [place] [id number] Status Reason Specialty Diagnoses / Procedures Referred By Contact Referred To Contact New Request Diagnoses Hx of total hip arthroplasty, left Procedures XR HIP WITH PELVIS LEFT Sai Hylton MD [address] [place], [place] [phone] Status Reason Specialty Diagnoses / Procedures Referred By Contact Referred To Contact Closed Magnetic Resonan ce Imaging Diagnoses Right hip pain Procedures MRI HIP RIGHT WITHOUT CONTRAST MO MRI LOWER EXTREM JT, W/O CONTRAST Sai Hylton MD [address] [place], [place] [phone] Roberta Ont Mri [address] [place] [phone] Specialty Diagnoses / Procedures Referred By Contac t Referred To Contact Diagnoses Screening for osteoporosis Post-menopausal Procedures BONE DENSITY AXIAL (HIP, PELVIS, SPINE) Fernanda Edwards APRN-BURLING AND JOINING SUPERVISOR [address] [facility] [address] [place] [phone] Referral ID Status Reason Start Date Expiration Date V isits Requested Visits Authorized [id number] Auth Not Needed 11/07/2021 12/02/2022 1 1 Specialty Diagnoses / Procedures Referred By Contac t Referred To Contact Diagnoses Encounter for screening mammogram for malignant neoplasm of breast Procedures MAMMO SCREENING WITH TAMMY BILATERAL Fernanda Edwards, INVESTMENT PROFESSIONAL-BURLING AND JOINING SUPERVISOR [address] [place] [phone] Referral ID Status Reason Start Date Expiration Date V isits Requested Visits Authorized [id number] New Request 11/07/2021 12/02/2022 1 1 Referral ID Status Reason Start Date Expiration Date Visits Re quested Visits Authorized [id number] Closed 11/07/2021 12/02/2022 1 1 Specialty Diagnoses / Procedures Referred By Hallieac t Referred To Contact Diagnoses Subacute cough Reactive airway disease without complication, unspecified asthma severity, unspecified whether persistent Asthma, cough variant Procedures PFT COMPLETE Alfred Roman MD [address] [place] [phone] Referral ID Status Reason Start Date Expiration Date V isits Requested Visits Authorized [id number] New Request 08/06/2023 08/30/2024 1 1 Specialty Diagnoses / Procedures Referred By Contac t Referred To Contact Diagnoses Subacute cough Reactive airway disease without complication, unspecified asthma severity, unspecified whether persistent Asthma, cough variant Procedures EXERCISE-6 MIN. WALK Alfred Roman MD [address] [place] [phone] Referral ID Status Reason Start Date Expiration Date V isits Requested Visits Authorized [id number] New Request 08/06/2023 08/30/2024 1 1 Specialty Diagnoses / Procedures Referred By Contac t Referred To Contact Diagnoses Interstitial lung disease Procedures CT CHEST WITHOUT CONTRAST CHG DIAGNOSTIC COMPUTED TOMOGRAPHY THORAX W/O CNTRST Alfred Roman MD [address] [place] [phone] Referral ID Status Reason Start Date Expiration Date V isits Requested Visits Authorized [id number] New Request 08/06/2023 08/30/2024 1 1 Specialty Diagnoses / Procedures Referred By Keke t Referred To Contact Pulmonary Disease Diagnoses Subacute cough Reactive airway disease without complication, unspecified asthma severity, unspecified whether persistent Asthma, cough variant Procedures EXERCISE-6 MIN. WALK Alfred Roman MD [address] [place] [phone] [facility] [address] [place] [phone] Referral ID Status Reason Start Date Expiration Date Visits Re quested Visits Authorized [id number] Closed 08/06/2023 08/30/2024 1 1 Specialty Diagnoses / Procedures Referred By Keke wilson Referred To Contact Computerized Tomography Scan Diagnoses Interstitial lung disease Procedures CT CHEST WITHOUT CONTRAST CHG DIAGNOSTIC COMPUTED TOMOGRAPHY THORAX W/O CNTRST Alfred Roman MD [address] [place] [address] Scan [address] [place] [phone] Referral ID Status Reason Start Date Expiration Date Visits Re quested Visits Authorized [id number] Closed 08/06/2023 08/30/2024 1 1 Assessments Diagnosis Encounter for screening mamm ogram for breast cancer - Primary Diagnosis Type 2 diabetes mellitus without complication, with long-term current use of insulin- Primary Diagnosis 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 neoplasm of 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 Diabetes mellitus without complication Type II or unspecified type diabetes mellitus without mention of complication, not stated as uncontrolled Nuclear senile cataract of both eyes Diagnosis Type 2 diabetes mellitus without complication, with long-term current use of insulin- Primary Familial hypercholesterolemia Pure hypercholesterolemia Acute upper respiratory infection Acute upper respiratory infections of unspecified site Diagnosis Left hip pain Pain in joint, pelvic region and thigh Diagnosis Type 2 diabetes mellitus with hyperglycemia, with long-term current use of insulin Diagnosis Left hip pain Pain in joint, pelvic region and thigh Primary osteoarthritis of left hip Primary localized osteoarthrosis, pelvic region and thigh Diagnosis Left hip pain Pain in joint, pelvic region and thigh Diagnosis Type 2 diabetes mellitus with hyperglycemia, with long-term current use of insulin Diagnosis Left hip pain- Primary Pain in joint, pelvic region and thigh Diagnosis Primary osteoarthritis of left hip Primary localized osteoarthrosis, pelvic region and thigh Diagnosis Type 2 diabetes mellitus with hyperglycemia, with long-term current use of insulin- Primary Preop testing- Primary Preoperative examination, unspecified Primary osteoarthritis of left hip Primary localized osteoarthrosis, pelvic region and thigh Diagnosis Primary osteoarthritis of left hip- Primary Primary localized osteoarthrosis, pelvic region and thigh Primary osteoarthritis of left hip Primary localized osteoarthrosis, pelvic region and thigh Diagnosis Bilateral ocular hypertension- Primary 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 Benign neoplasm of choroid Diabetic cataract of both eyes Diabetes mellitus due to underlying condition with both eyes affected by mild nonproliferative retinopathy without macular edema, unspecified whether mcfp insulin use Primary osteoarthritis of left hip Primary localized osteoarthrosis, pelvic region and thigh Diagnosis Hx of total hip arthroplasty, left- Primary Diagnosis Type 2 diabetes mellitus with hyperglycemia, with long-term current use of insulin- Primary Familial hypercholesterolemia Pure hypercholesterolemia Diagnosis Acute upper respiratory infection- Primary Acute upper respiratory infections of unspecified site Diagnosis Type 2 diabetes mellitus without complication, with long-term current use of insulin- Primary Diagnosis Type 2 diabetes mellitus without complication, with long-term current use of insulin Diagnosis Hx of total hip arthroplasty, left- Primary Pain in prosthetic joint, initial encounter Diagnosis Type 2 diabetes mellitus with hyperglycemia, with long-term current use of insulin- Primary Diagnosis Primary osteoarthritis of left hip- Primary Primary localized osteoarthrosis, pelvic region and thigh Preop testing Preoperative examination, unspecified Acute postoperative pain of left hip Diabetes mellitus Type II or unspecified type diabetes mellitus without mention of complication, not stated as uncontrolled Hyperlipidemia Other and unspecified hyperlipidemia Obesity (BMI 35-39.9) Obesity, unspecified Diagnosis Urine abnormality- Primary Other nonspecific finding on examination of urine Primary osteoarthritis of left hip Primary localized osteoarthrosis, pelvic region and thigh Diagnosis Left hip pain Pain in joint, pelvic region and thigh History of Present Illness * Gladys Dawson, OD - 09/07/2019 11:00 AM EST REASON FOR VISIT Chief Complaint Diabetic Retinal Exam; Glaucoma HISTORY OF PRESENT ILLNESS HPI Glaucoma In both eyes. Side effects of treatment include none. Treatment compliance is always. Comments Timolol 0.5% QAM OU; excellent compliance IDDM with last-known HbA1c around 12.6 (Aug 2018?) Lost to followup care with Dr Moss Per patient, she saw Dr Timmons for choroidal nevus followup and she reports no changes were found . No correspondence letter received. At today's exam, patient denies eye discomfort or visual problems Last edited by Gladys Dawson, OD on 09/07/2019 2:34 PM. (History) Allergies, medications & history reviewed & updated by Gladys Dawson, OD Assessment: 1) Diabetes with no noted retinopathy OU - poorly-controlled by patient's own admission 2) Cataract OU- Non-surgical. No ADL impact 3) Ocular hypertension-- well controlled with Timolol 0.5% every day OU. No change to nerve fiber layers 4) Choroidal nevus OS-- stable by annual assessments by Dr Dawson Plan: 1) Continue Dr Timmons for choroidal nevus yearly comparison/ monitoring. 2) Continue Timolol 0.5% QAM OU-- escribed today to [facility] in [place] 3) 1 year eye exam with dilation, OCT, IOP testing. Sooner if having problems or changes. documented in this encounter* Clari Moss MD - 10/05/2019 9:30 AM EST Chief Complaint: Chief Complaint Patient presents with Diabetes Pt here for f/u on diabetes. Pt states unable to get into Dr Melissa. Pt checks blood sugars at home, averaging mid 200's. Pt would like RF suzanne huang, clomitrazole betamethasone. History of Present Illness Melodie Ackerman is a 64 y.o. female who comes in to follow up on diabetes, was initially following up with Dr. Jang, but unable to get apt From the diabetes standpoint, she reports compliance with his medications. She checks his blood sugars . Typical AM readings are 200's. Highest reading she recalls is 200. Any low blood sugars: none.Last eye exam was last month with Dr. Dawson. There are no lesions on the feet. Blood Pressure/Retinopathy - Blood pressure has been under control. She checks her blood pressure. Compliance with medications is good. Any issues regarding kidneys: none, no hematuria, polyuria. There is nocturia x 1 Other concerns today include none Active Problem List Shehas Diabetes mellitus; Osteoarthritis; Hyperlipidemia; Allergic rhinitis; Basal cell carcinoma; and body mass index of 40.0-49.9 on their problem list. Current Medications Current Outpatient Medications Medication Sig Dispense Refill aspirin 325 MG Tab take 325 mg by mouth daily.. GLIMEPIRIDE 4 MG Tab tablet TAKE 1 TABLET TWICE A DAY 180 tablet 3 Insulin Degludec (TRESIBA FLEXTOUCH) 200 UNIT/ML Solution Pen-injector injection 10 units subcutaneous in AM and 50 units subcutaneous in PM 9 Prefilled Pen/Syringe 2 meloxicam 15 MG Tab take 0.5 tablets by mouth daily.. 30 tablet 0 METFORMIN-XR 500 MG Tab SR 24 HR TAKE 2 TABLETS TWICE A DAY 360 tablet 3 Multiple Vitamins-Minerals (MULTIVITAMIN ADULT PO) take by mouth daily.. [place]-3 Fatty Acids (FISH OIL) 1000 MG Cap take 1,000 mg by mouth at bedtime.. timolol maleate 0.5 % Solution ophthalmic solution Place 1 drop in both eyes daily. Generic. 90 daysupply. 1 Bottle 3 albuterol 108 (90 Base) MCG/ACT Aero Soln inhaler Inhale 1 puff every 4 hours as needed for Wheezing. (Patient not taking: Reported on 10/05/2019) 1 Inhaler 11 benzonatate (TESSALON PERLES) 100 MG Cap capsule Take 1 capsule by mouth 3 times daily as needed for Cough. (Patient not taking: Reported on 10/05/2019) 20 capsule 0 Blood Glucose Monitoring Suppl (ACCU-CHEK COMPACT CARE KIT) Kit 1 kit by Unknown route daily. 1 kit0 CLOTRIMAZOLE-BETAMETHASONE 1-0.05 % Cream apply A THIN LAYER to affected area twice a day NEEDEDFOR IRRITATION (Patient not taking: Reported on 10/05/2019) 45 g 0 GLUCOSE MONITOR PRESCRIPTION Accu-Chek Guide with testing once daily and prn, test strips(90 days) and lancets (90 days) and supplies. 1 Device 0 predniSONE 10 MG Tab tablet 4 tabs PO daily for 2 days, then 3 tabs PO daily for 2 days, then 2 tabs PO daily for 2 days, then 1 tab PO daily for 2 days. (Patient not taking: Reported on 10/05/2019) 24 tablet 0 No current facility-administered medications for this visit. Allergies She is allergic to codeine; erythromycin; ibuprofen; latex; penicillins; and povidone iodine. Family History family history includes Arrhythmia in her mother; Arthritis - Osteo in her mother; Breast Cancer inher mother; Cancer in her paternal grandfather; Colorectal Polyps in her father; Dementia in her mother; Diabetes in her father and mother; Pacemaker in her mother; Prostate Cancer in her father; Stroke in her maternal grandmother. Social History reports that she has never smoked. She has never used smokeless tobacco. She reports that she does not drink alcohol or use drugs. Immunizations There is no immunization history on file for this patient. Review of Systems Constitutional: Positive for fatigue. Negative for appetite change and fever. HENT: Negative for congestion, dental problem, hearing loss, nosebleeds, postnasal drip, rhinorrhea, sinus pressure, sinus pain, sore throat, tinnitus and voice change. Eyes: Negative for pain, discharge, redness and visual disturbance. Respiratory: Positive for cough. Negative for shortness of breath and wheezing. Cardiovascular: Positive for leg swelling. Negative for chest pain and palpitations. Gastrointestinal: Negative for abdominal pain, constipation, diarrhea, nausea and vomiting. Endocrine: Negative for cold intolerance, heat intolerance and polyuria. Genitourinary: Negative for dysuria and enuresis. Musculoskeletal: Negative for arthralgias, back pain, joint swelling, myalgias and neck pain. R leg pain Skin: Negative for color change and rash. Neurological: Negative for dizziness, tremors, syncope, weakness, numbness and headaches. Hematological: Does not bruise/bleed easily. Psychiatric/Behavioral: Negative for confusion, dysphoric mood, self-injury, sleep disturbance and suicidal ideas. The patient is not nervous/anxious. Physical Exam Blood pressure 128/78, pulse 84, temperature 97.7 F (36.5 C), temperature source Temporal, resp. rate 16, height 1.626 m (5' 4 ), weight 123.4 kg (272 lb), last menstrual period 10/20/1996, SpO2 97 %., Body mass index is 46.69 kg/m . Constitutional: She is well-developed, well-nourished, and in no distress. Head: Normocephalic and atraumatic. Right Ear: Normal TM, normal external ear and ear canal. Left Ear: Normal TM, normal external ear and ear canal. Nose: No nasal congestion. No maxillary sinus tenderness, no frontal sinus tenderness. Mouth/Throat: Moist mucous membranes. No pharyngeal erythema, no exudate, no post-nasal drip. Eyes: Normal conjunctivae, normal extraocular motions, reactive pupils, no discharge. Neck: Normal range of motion. Neck supple. No JVD present. No carotid bruits. No thyromegaly. Lymphatic: No anterior cervical LAD. No posterior cervical LAD. Cardiovascular: Normal rate, regular rhythm, normal heart sounds, no gallop. No murmur heard. Pulmonary/Chest: Effort normal, breath sounds normal. No wheezes. Abdominal: Soft. Normal bowel sounds. No tenderness. Neurological: Alert. Grossly normal strength, normal speech. Normal monofilament testing bilaterally on feet. Skin: Skin is warm and dry. No rash noted. Foot exam is normal. Psychiatric: Mood, affect and judgment normal. Ordered thought content. BP Readings from Last 3 Encounters: 10/05/19 128/78 09/12/19 169/88 08/25/18 128/68 No components found for: LDL, LDLCHOLCALC, DIRLDLCHOL, LDLDIRECTMEA, LDLPOINTOFCA No results found for: HGBA1C No results found for: MICROALBUMIN, MICROALBUPOC, MICROALBNo results found for: CREATININENo results found for: SODIUM, POTASSIUM, CHLORIDE, CO2, [id number] Assessment/Plan 1. Type 2 diabetes mellitus without complication, with long-term current use of insulin - LIPID PANEL W CALCULATED LDL; Future - COMPREHENSIVE METABOLIC PANEL; Future - HEMOGLOBIN A1C; Future - TSH W/FT4 REFLEX; Future - MICROALBUMIN,RANDOM URINE; Future - MICROALBUMIN,RANDOM URINE - TSH W/FT4 REFLEX - HEMOGLOBIN A1C - COMPREHENSIVE METABOLIC PANEL - LIPID PANEL W CALCULATED LDL The risk and benefits of therapy were discussed with the patient. Alarm symptoms were discussed, along with reasons for contacting the office or going to the ER. Questions were answered for the patient. 2. Familial hypercholesterolemia - LIPID PANEL W CALCULATED LDL; Future - COMPREHENSIVE METABOLIC PANEL; Future - COMPREHENSIVE METABOLIC PANEL - LIPID PANEL W CALCULATED LDL Ms. Bradford diabetes remains under fair control today. Blood pressure control and lipid control as noted below. Last HgbA1c: unknown. Changes in medication regimen today: none Last eye exam: normal exam last month. Last microalbumin: last year Last foot exam: normal today Aspirin therapy: none Pneumovax: none Flu Vaccine: done at [facility]. * Carlos Warren RN - 10/05/2019 9:30 AM EST Nurse Note: Review of Systems Constitutional: Positive for fatigue. Negative for appetite change and fever. HENT: Negative for congestion, dental problem, hearing loss, nosebleeds, postnasal drip, rhinorrhea, sinus pressure, sinus pain, sore throat, tinnitus and voice change. Eyes: Negative for pain, discharge, redness and visual disturbance. Respiratory: Positive for cough. Negative for shortness of breath and wheezing. Cardiovascular: Positive for leg swelling. Negative for chest pain and palpitations. Gastrointestinal: Negative for abdominal pain, constipation, diarrhea, nausea and vomiting. Endocrine: Negative for cold intolerance, heat intolerance and polyuria. Genitourinary: Negative for dysuria and enuresis. Musculoskeletal: Negative for arthralgias, back pain, joint swelling, myalgias and neck pain. R leg pain Skin: Negative for color change and rash. Neurological: Negative for dizziness, tremors, syncope, weakness, numbness and headaches. Hematological: Does not bruise/bleed easily. Psychiatric/Behavioral: Negative for confusion, dysphoric mood, self-injury, sleep disturbance and suicidal ideas. The patient is not nervous/anxious. Nursing Assessment: Physical Exam documented in this encounter* Sai Hylton MD - 02/02/2020 10:10 AM EDT HPI: Patient is here today for evaluation of her left hip pain. She is a new patient for me. She ishere today as a self referral. A pleasant 64 yr old female with a history of progressive decline, physical function and decreased quality of life secondary to the hip pain. 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 She is experiencing locking, popping, catching and clicking. She has attempted many methods of conservative treatment including physical therapy, injections and anti-inflammatory medications and has failed these methods of conservative treatment. She is diabetic and has a current evaluated A1C of 12. She has weakness, pain and instability. The pain is 7-9 on a 10-point scale. At this point, patient is interested in what options are available to her today. PHYSICAL EXAM: This is an alert, oriented, and age-appropriate female. She is in no distress. Pleasant and cooperative. EXTREMITIES: Lower extremities have no gross deformity. Normal stability. 4/5 motor. Intact sensation. Normal coordination. Skin intact. Left hip demonstrates pain with flexion, 5internal rotation, 5 external rotation. Contralateral hip has full and supple motion. No pain. No impingement. No instability. Normal neurovascular status in lower extremities bilaterally. IMAGING: Plain film radiographs were reviewed. There is severe arthritis to left hip, loss of jointspace, subchondral sclerosis, osteophyte formation, and [id number] contact. Possible cyst on femoral head. IMPRESSION: Severe symptomatic end-stage arthritis, left hip PLAN: I have reviewed my findings with the patient. We have gone over the diagnosis and the treatment. I do believe she is suffering from end-stage left hip arthritis. We discussed the importance of weight modification based upon her current BMI level and also her elevated A1C level. She is taking Mobic at home and she will continue taking this. Once she is able to achieve the targeted BMI and A1C level, she will call my office and we will begin the next step of scheduling a left total hip arthroplasty. All questions were answered today. She has no further questions. Next appointment will be left open to her. Vitals: 02/02/20 1018 Temp: 96 degrees F (35.6 degrees C) TempSrc: Temporal Weight: 123 kg (271 lb 3.2 oz) Height: 1.626 m (5' 4 ) Pain Presence of Pain: complains of pain/discomfort Select Pain Scale: DVPRS (Defense and Veterans Pain Rating Scale) (Adult- Cognitively Intact) Select Pain Scale: DVPRS (Defense and Veterans Pain Rating Scale) (Adult- Cognitively Intact) Recent Labs No results found for: CRP No results found for: SEDRATE No results found for: WBC, WBCCOUNT, WBCFETAL, HGB, HCT, PLATELET, MCV Past Medical History: Diagnosis Date Allergic rhinitis Arthritis Basal cell carcinoma back and face Cervical dysphagia 2006 Diabetes mellitus Type 2 Diabetic eye exam 09/14/2018 no retinopathy noted Hamstring tendonitis at origin 03/03/2018 Hyperlipidemia Left hip pain 09/2017 Osteoarthritis Past Surgical History: Procedure Laterality Date EXCISION SKIN LESION 06/15/2015 Right orthodox 1.5cm EXCISION SKIN LESION 06/15/2015 Forehead 2cm COLPOSCOPY 2007 LEEPS EXCISION SKIN LESION 2004 Basal Cell Carcinoma Left posterior shoulder LAPAROTOMY EXPLORATORY 1980 Family History Problem Relation Age of Onset Diabetes Mother Arthritis - Osteo Mother Pacemaker Mother Arrhythmia Mother a-fib Dementia Mother Breast Cancer Mother Colorectal Polyps Father Diabetes Father Prostate Cancer Father Cancer Paternal Grandfather stomch Stroke Maternal Grandmother Social History Socioeconomic History Marital status: Spouse name: Not on file Number of children: 2 Years of education: college Highest education level: Not on file Occupational History Occupation: Nurse Employer: [employer] Social Needs Financial resource strain: Not on file Food insecurity Worry: Not on file Inability: Not on file Transportation needs Medical: Not on file Non-medical: Not on file Tobacco Use Smoking status: Never Smoker Smokeless tobacco: Never Used Substance and Sexual Activity Alcohol use: No Drug use: No Sexual activity: Yes Partners: Male control/protection: Menopause Lifestyle Physical activity Days per week: Not on file Minutes per session: Not on file Stress: Not on file Relationships Social connections Talks on phone: Not on file Gets together: Not on file Attends synagogue service: Not on file Active member of club or organization: Not on file Attends meetings of clubs or organizations: Not on file Relationship status: Not on file Intimate partner violence Fear of current or ex partner: Not on file Emotionally abused: Not on file Physically abused: Not on file Forced sexual activity: Not on file Other Topics Concern Service No Blood Transfusions Not Asked Caffeine Concern No Comment: drinks 1-2 cups coffee daily Occupational Exposure Not Asked Hobby Hazards Not Asked Sleep Concern No Stress Concern No Weight Concern Not Asked Special Diet Not Asked Back Care Not Asked Exercise No Bike Helmet Not Asked Seat Belt Yes Domestic Violence No Social History Narrative Not on file Current Outpatient Medications: aspirin 325 MG Tab, take 325 mg by mouth daily.., Disp: , Rfl: Blood Glucose Monitoring Suppl (ACCU-CHEK COMPACT CARE KIT) Kit, 1 kit by Unknown route daily., Disp: 1 kit, Rfl: 0 GLIMEPIRIDE 4 MG Tab tablet, TAKE 1 TABLET TWICE A DAY, Disp: 180 tablet, Rfl: 3 GLUCOSE MONITOR PRESCRIPTION, Accu-Chek Guide with testing once daily and prn, test strips(90 days)and lancets (90 days) and supplies., Disp: 1 Device, Rfl: 0 Insulin Degludec (TRESIBA FLEXTOUCH) 200 UNIT/ML Solution Pen-injector injection, 10 units subcutaneous in AM and 50 units subcutaneous in PM, Disp: 9 Prefilled Pen/Syringe, Rfl: 2 meloxicam 15 MG Tab, take 0.5 tablets by mouth daily.., Disp: 30 tablet, Rfl: 0 metFORMIN-XR 500 MG Tab SR 24 HR, TAKE 2 TABLETS TWICE A DAY, Disp: 360 tablet, Rfl: 3 Multiple Vitamins-Minerals (MULTIVITAMIN ADULT PO), take by mouth daily.., Disp: , Rfl: [place]-3 Fatty Acids (FISH OIL) 1000 MG Cap, take 1,000 mg by mouth at bedtime.., Disp: , Rfl: timolol maleate 0.5 % Solution ophthalmic solution, Place 1 drop in both eyes daily. Generic. 90 day supply., Disp: 1 Bottle, Rfl: 3 benzonatate (TESSALON PERLES) 100 MG Cap capsule, Take 1 capsule by mouth 3 times daily as needed for Cough. (Patient not taking: Reported on 02/02/2020), Disp: 20 capsule, Rfl: 0 clotrimazole-betamethasone 1-0.05 % Cream, Apply 1 Application topically 2 times daily. (Patient not taking: Reported on 02/02/2020), Disp: 45 g, Rfl: 0 Allergies Allergen Reactions Codeine Itching Erythromycin Nausea Only Ibuprofen Nausea Only Latex Rash Penicillins Hives Povidone Iodine Itching * Augusta Nath LPN - 02/02/2020 10:10 AM EDT Ortho Nurse Patient Intake Room#: 2--c/o of left hip pain . She has had hip pain for 6 months . It seem to be getting worse. She did have a injection in 11/2019 at [facility] . This did not help with the pain. She has also tried PT. Her pain today is a 7-9. Date: 02/02/2020 10:22 AM Patient: Melodie Ackerman MR#: [id number] : 1955 Age: 64 y.o. Referring Physician: Sai Hylton MD Insurance: Payor: [employer] / Plan: [facility] [facility] / Product Type: *No Product type* / Chief Complaint Patient presents with Left Hip - Pain, New Patient Visit Vitals Temp 96 F (35.6 C) (Temporal) Ht 1.626 m (5' 4 ) Wt 123 kg (271 lb 3.2 oz) LMP 10/20/1996 (Within Years) BMI 46.55 kg/m Pain Presence of Pain: complains of pain/discomfort Select Pain Scale: DVPRS (Defense and Veterans Pain Rating Scale) (Adult- Cognitively Intact) Select Pain Scale: DVPRS (Defense and Veterans Pain Rating Scale) (Adult- Cognitively Intact) Recent Labs No results found for: CRP No results found for: SEDRATE No results found for: WBC, WBCCOUNT, WBCFETAL, HGB, HCT, PLATELET, MCV History Past Medical History: Diagnosis Date Cervical dysphagia 2006 Left hip pain 09/2017 Hamstring tendonitis at origin 03/03/2018 Diabetic eye exam 09/14/2018 no retinopathy noted Allergic rhinitis Arthritis Basal cell carcinoma back and face Diabetes mellitus Type 2 Hyperlipidemia Osteoarthritis Past Surgical History: Procedure Laterality Date EXCISION SKIN LESION 06/15/2015 Right orthodox 1.5cm EXCISION SKIN LESION 06/15/2015 Forehead 2cm COLPOSCOPY 2006 LEEPS EXCISION SKIN LESION 2004 Basal Cell Carcinoma Left posterior shoulder LAPAROTOMY EXPLORATORY 1979 Family History: Her family history includes Arrhythmia in her mother; Arthritis - Osteo in her mother; Breast Cancer in her mother; Cancer in her paternal grandfather; Colorectal Polyps in her father; Dementia in her mother; Diabetes in her father and mother; Pacemaker in her mother; Prostate Cancer in her father; Stroke in her maternal grandmother. Social History: Her reports that she has never smoked. She has never used smokeless tobacco. She reports that she does not drink alcohol or use drugs. Additional Social History Y N Notes Do you live alone? [] [x] Who lives with you: and Mother Do you have children? [x] [] How many: 2 Do you currently work? 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 [x] [] How many do you have to climb to enter your home:2 What services do you currently receive at home? [] [x] Name: Do you have transportation to go to outpatient therapy if needed? [x] [] What Equipment do you have at home? [x] [] [x]Walker, []Crutches, []Commode Chair, []Shower []Chair, [x]cane, []bracing Are you followed by a pecan picker? [] [x] Name: Are you followed by pain management? [] [x] Name: Are you followed by any other specialists? [] [x] Name: Outpatient Medications Prior to Visit Medication Sig Dispense Refill aspirin 325 MG Tab take 325 mg by mouth daily.. Blood Glucose Monitoring Suppl (ACCU-CHEK COMPACT CARE KIT) Kit 1 kit by Unknown route daily. 1 kit0 GLIMEPIRIDE 4 MG Tab tablet TAKE 1 TABLET TWICE A DAY 180 tablet 3 GLUCOSE MONITOR PRESCRIPTION Accu-Chek Guide with testing once daily and prn, test strips(90 days) and lancets (90 days) and supplies. 1 Device 0 Insulin Degludec (TRESIBA FLEXTOUCH) 200 UNIT/ML Solution Pen-injector injection 10 units subcutaneous in AM and 50 units subcutaneous in PM 9 Prefilled Pen/Syringe 2 meloxicam 15 MG Tab take 0.5 tablets by mouth daily.. 30 tablet 0 metFORMIN-XR 500 MG Tab SR 24 HR TAKE 2 TABLETS TWICE A DAY 360 tablet 3 Multiple Vitamins-Minerals (MULTIVITAMIN ADULT PO) take by mouth daily.. [place]-3 Fatty Acids (FISH OIL) 1000 MG Cap take 1,000 mg by mouth at bedtime.. timolol maleate 0.5 % Solution ophthalmic solution Place 1 drop in both eyes daily. Generic. 90 daysupply. 1 Bottle 3 benzonatate (TESSALON PERLES) 100 MG Cap capsule Take 1 capsule by mouth 3 times daily as needed for Cough. (Patient not taking: Reported on 02/02/2020) 20 capsule 0 clotrimazole-betamethasone 1-0.05 % Cream Apply 1 Application topically 2 times daily. (Patient nottaking: Reported on 02/02/2020) 45 g 0 No facility-administered medications prior to visit. Allergies: She is allergic to codeine; erythromycin; ibuprofen; latex; penicillins; and povidone iodine. Y N Are you allergic to any metals? [] [x] If yes, what metals: Review of Systems System Y N Symptoms Constitutional [] [x] Weight Loss [] [x] Weight Gain [] [x] Chronic Fever [] [x] Insomnia Eyes [] [x] Resent Vision Change [] [x] Cataracts [] [x] Glaucoma [] [x] Any Hx of Metal Fragments in the Eye ENT [] [x] Loss of hearing [] [x] Hearing Aids [] [x] Seasonal Allergies [] [x] Dental Issues Cardiovascular [] [x] Chest Pain [] [x] Angina [] [x] Stent [] [x] Hypertension [] [x] Heart Murmur [] [x] Irregular Pulse [] [x] Pacemaker [] [x] Palpitations [x] [] High cholesteral Respiratory [] [x] Wheezing [] [x] Shortness of Breath [] [x] Pneumonia [] [x] Bronchitis [x] [] Sleep Apnea [] [x] COPD [] [x] Date/ LOC of last CXR: Gastrointestinal [] [x] Heartburn [] [x] Indigestion [] [x] Constipation [] [x] Ulcer [] [x] GI Stomach Bleed [] [x] Diarrhea [] [x] Colon Cancer [] [x] Acid Reflux [] [x] Blood in Stools Musculoskeletal [x] [] Arthritis [] [x] Muscle Weakness [x] [] Joint Pain [x] [] Back Pain [] [x] Fibromyalgia [] [x] Bone Infection [] [x] Swelling Multiple Joints [] [x] Reflex Sympathetic Dystrophy Skin [] [x] Chronic Rash [] [x] Ulcers [] [x] Eczema [] [x] Psoriasis [] [x] Skin Cancer [] [x] Melanoma Neurologic [] [x] Numbness [] [x] Weakness or loss of sensation in arms or legs [] [x] Leg Pain / Sciatica [] [x] Headaches [] [x] Loss of bowel or bladder control Psychiatric [] [x] Anxiety [x] [] Claustrophobia [] [x] Other Psychiatric Problems Hematologic [] [x] Easy Bruising [] [x] Easy Bleeding [] [x] Blood Transfusion Date: Endocrine [] [x] Hypothyroid [] [x] Hyperthyroid [] [x] Hot Flashes [] [x] Hormone Replacement [] [x] Prednisone Use Does pt have dentures? no documented in this encounter* Mir Melissa MD - 04/04/2020 9:15 AM EDT History of Present Illness Type 2 diabetes: This is her first visit to the office. She has a need for upcoming hip surgery, but needs her A1c down, currently at 12%. Also states that she needs to lose 20-40 pounds before hip surgery. Currently taking metformin extended release 1000 g twice a day, glimepiride 4 mg twice a day, and Tresiba 25 units in the morning, 60 units at night. She has not met with a religious educator or dietitian in the past. She denies neuropathic discomfort of the lower extremity. Has regular follow-up with ophthalmology, no retinopathy. Review of Systems Vitals: Blood pressure 172/87, pulse 92, temperature 97.7 F (36.5 C), height 1.626 m (5' 4 ), weight 126.6 kg (279 lb 3.2 oz), last menstrual period 10/20/1996. Physical Exam Constitutional: General: She is not in acute distress. Appearance: She is not diaphoretic. HENT: Head: Normocephalic. Neck: Thyroid: No thyromegaly. Trachea: No tracheal deviation. Cardiovascular: Rate and Rhythm: Normal rate and regular rhythm. Heart sounds: Normal heart sounds. No murmur. Pulmonary: Effort: No respiratory distress. Breath sounds: No wheezing. Lymphadenopathy: Cervical: No cervical adenopathy. Skin: General: Skin is warm and dry. Neurological: Mental Status: She is alert and oriented to person, place, and time. Psychiatric: Judgment: Judgment normal. Foot exam: +1 dorsalis pedis pulses bilaterally, good foot care, no callus/ulceration Neurologic Exam Mental Status Oriented to person, place, and time. Assessment and Plan Type 2 diabetes: We will have her meet the religious educator. We will have her start GLP-1 agonist therapy (we will try Ozempic if on formulary) and attempts to wean off sulfonylurea. Continue metformin and Tresiba. We discussed low-carb/high-protein diet. We discussed the limitations of physical activity due to her hip pain. We will try Ozempic, standard titration schedule, decrease glimepiride 2 mg twice a day, D discontinue glimepiride if she has any blood sugars below 100 mg/dL. Continue metformin. She needs to check blood sugar 4 times a day, we will order Estuardo device. * Aga Benoit - 04/04/2020 9:15 AM EDT Nurse Note: Review of Systems Constitutional: Positive for fatigue. Negative for fever and unexpected weight change. Respiratory: Negative for cough and shortness of breath. Cardiovascular: Positive for leg swelling. Negative for chest pain. Gastrointestinal: Negative for constipation, diarrhea, nausea and vomiting. Endocrine: Negative for polydipsia and polyuria. Neurological: Negative for weakness and numbness. Psychiatric/Behavioral: Positive for sleep disturbance. Nursing Assessment: Physical Exam documented in this encounter* Sai Hylton MD - 03/29/2020 10:00 AM EDT HPI: Else is an established patient of [facility], here today for left hip pain. Has been seen in the past by me. She has had physical therapy, injections and anti- inflammatory medications in the past and has failed this conservative management. Primary complaint is pain, impairment and a decrease in quality of life secondary to the left hip pain. She states her pain has increased since her last visit with me in January. She reports that she is unable to lose weight due to her increased pain with ambulation. She presents with a cane today. She reports her current A1C is down to a 10. At this time, patient is interested in arthroplasty for long-term management. PHYSICAL EXAM: This is an alert, oriented, and age-appropriate female. She is in no distress. Pleasant and cooperative. EXTREMITIES: Lower extremities have no gross deformity. Normal stability. 5/5 motor. Intact sensation. Normal coordination. Skin intact. Left hip demonstrates pain with flexion with limited rotation. Painful range of motion. Contralateral hip has full and supple motion. No pain.No impingement. No instability. Normal neurovascular status in lower extremities bilaterally. IMAGING: Plain film radiographs were reviewed. There is severe arthritis to left hip, loss of jointspace, subchondral sclerosis, osteophyte formation, and [id number] contact. Possible AVN of the femoral head, difficult to determine the severity and/or collapse of femoral head due to overshadowing soft tissue. IMPRESSION: 1.) Severe symptomatic end-stage arthritis, left hip 2.) Obesity, increased BMI. PLAN: I have reviewed my findings with the patient. We have gone over the diagnosis and the treatment. I do believe she is suffering from her advanced arthritis. As at her last appointment, we discussed the importance of being within the targeted BMI level. Her weight has actually increased some and she is aware of this. She states she is unable to exercise due to her constant pain with ambulation. I'm going to give her a script for Aleve and Tramadol to help maintain her symptoms so she can successfully and effectively lose weight. I'm also willing to work with her employer including a reduction of hours if needed. She agrees with this plan moving forward and will continue to manage her eddie betes as well as strive to reach BMI goal of 40. I will see her back in 6 weeks for repeat radiograph and evaluation. All questions were answered. She has no further questions. Vitals: 03/29/20 1020 Temp: 97.7 degrees F (36.5 degrees C) TempSrc: Temporal Weight: 125.6 kg (277 lb) Height: 1.626 m (5' 4 ) Pain Presence of Pain: complains of pain/discomfort Pain Location: hip, left Select Pain Scale: DVPRS (Defense and Veterans Pain Rating Scale) (Adult- Cognitively Intact) Pain Location: hip, left Select Pain Scale: DVPRS (Defense and Veterans Pain Rating Scale) (Adult- Cognitively Intact) Recent Labs No results found for: CRP No results found for: SEDRATE No results found for: WBC, WBCCOUNT, WBCFETAL, HGB, HCT, PLATELET, MCV Past Medical History: Diagnosis Date Allergic rhinitis Arthritis Basal cell carcinoma back and face Cervical dysphagia 2006 Diabetes mellitus Type 2 Diabetic eye exam 09/14/2018 no retinopathy noted Hamstring tendonitis at origin 03/03/2018 Hyperlipidemia Left hip pain 09/2017 Osteoarthritis Past Surgical History: Procedure Laterality Date EXCISION SKIN LESION 06/15/2015 Right orthodox 1.5cm EXCISION SKIN LESION 06/15/2015 Forehead 2cm COLPOSCOPY 2007 LEEPS EXCISION SKIN LESION 2005 Basal Cell Carcinoma Left posterior shoulder LAPAROTOMY EXPLORATORY 1980 Family History Problem Relation Age of Onset Diabetes Mother Arthritis - Osteo Mother Pacemaker Mother Arrhythmia Mother a-fib Dementia Mother Breast Cancer Mother Colorectal Polyps Father Diabetes Father Prostate Cancer Father Cancer Paternal Grandfather stomch Stroke Maternal Grandmother Social History Socioeconomic History Marital status: Spouse name: Not on file Number of children: 2 Years of education: college Highest education level: Not on file Occupational History Occupation: Nurse Employer: [employer] Social Needs Financial resource strain: Not on file Food insecurity Worry: Not on file Inability: Not on file Transportation needs Medical: Not on file Non-medical: Not on file Tobacco Use Smoking status: Never Smoker Smokeless tobacco: Never Used Substance and Sexual Activity Alcohol use: No Drug use: No Sexual activity: Yes Partners: Male control/protection: Menopause Lifestyle Physical activity Days per week: Not on file Minutes per session: Not on file Stress: Not on file Relationships Social connections Talks on phone: Not on file Gets together: Not on file Attends synagogue service: Not on file Active member of club or organization: Not on file Attends meetings of clubs or organizations: Not on file Relationship status: Not on file Intimate partner violence Fear of current or ex partner: Not on file Emotionally abused: Not on file Physically abused: Not on file Forced sexual activity: Not on file Other Topics Concern Service No Blood Transfusions Not Asked Caffeine Concern No Comment: drinks 1-2 cups coffee daily Occupational Exposure Not Asked Hobby Hazards Not Asked Sleep Concern No Stress Concern No Weight Concern Not Asked Special Diet Not Asked Back Care Not Asked Exercise No Bike Helmet Not Asked Seat Belt Yes Domestic Violence No Social History Narrative Not on file Current Outpatient Medications: aspirin 325 MG Tab, take 325 mg by mouth daily.., Disp: , Rfl: Blood Glucose Monitoring Suppl (ACCU-CHEK COMPACT CARE KIT) Kit, 1 kit by Unknown route daily., Disp: 1 kit, Rfl: 0 GLIMEPIRIDE 4 MG Tab tablet, TAKE 1 TABLET TWICE A DAY, Disp: 180 tablet, Rfl: 3 glucose blood test strips (Accu-Chek Guide) Strip strip, TESTING ONCE DAILY AND NEEDED, Disp:100 strip, Rfl: 0 Insulin Degludec (Tresiba FlexTouch) 200 UNIT/ML Solution Pen-injector injection, INJECT 10 UNITS SUBCUTANEOUSLY IN THE MORNING AND 50 UNITS IN THEEVENING, Disp: 27 mL, Rfl: 2 meloxicam 15 MG Tab, take 0.5 tablets by mouth daily.., Disp: 30 tablet, Rfl: 0 meloxicam 15 MG tablet, Take 1 tablet by mouth daily as needed. Take with food, Disp: 30 tablet, Rfl: 3 metFORMIN-XR 500 MG Tab SR 24 HR, TAKE 2 TABLETS TWICE A DAY, Disp: 360 tablet, Rfl: 3 Multiple Vitamins-Minerals (MULTIVITAMIN ADULT PO), take by mouth daily.., Disp: , Rfl: [place]-3 Fatty Acids (FISH OIL) 1000 MG Cap, take 1,000 mg by mouth at bedtime.., Disp: , Rfl: timolol maleate 0.5 % Solution ophthalmic solution, Place 1 drop in both eyes daily. Generic. 90 day supply., Disp: 1 Bottle, Rfl: 3 benzonatate (TESSALON PERLES) 100 MG Cap capsule, Take 1 capsule by mouth 3 times daily as needed for Cough. (Patient not taking: Reported on 02/02/2020), Disp: 20 capsule, Rfl: 0 clotrimazole-betamethasone 1-0.05 % Cream, Apply 1 Application topically 2 times daily. (Patient not taking: Reported on 02/02/2020), Disp: 45 g, Rfl: 0 Allergies Allergen Reactions Codeine Itching Erythromycin Nausea Only Ibuprofen Nausea Only Latex Rash Penicillins Hives Povidone Iodine Itching * Augusta Nath LPN - 03/29/2020 10:00 AM EDT Ortho Nurse Patient Intake Room#: 3--c/o of left hip pain. She would like to talk about surgery. Her pain today is 6-8. Date: 03/29/2020 10:22 AM Patient: Melodie Ackerman MR#: [id number] : 1955 Age: 64 y.o. Referring Physician: Self, Self Insurance: Payor: [employer] / Plan: [facility] NETWORK ACCESS / Product Type: *No Product type* / Chief Complaint Patient presents with Left Hip - Pain Hip Pain Visit Vitals Temp 97.7 F (36.5 C) (Temporal) Ht 1.626 m (5' 4 ) Wt 125.6 kg (277 lb) LMP 10/20/1996 (Within Years) BMI 47.55 kg/m Pain Presence of Pain: complains of pain/discomfort Pain Location: hip, left Select Pain Scale: DVPRS (Defense and Veterans Pain Rating Scale) (Adult- Cognitively Intact) Pain Location: hip, left Select Pain Scale: DVPRS (Defense and Veterans Pain Rating Scale) (Adult- Cognitively Intact) Recent Labs No results found for: CRP No results found for: SEDRATE No results found for: WBC, WBCCOUNT, WBCFETAL, HGB, HCT, PLATELET, MCV History Past Medical History: Diagnosis Date Cervical dysphagia 2006 Left hip pain 09/2017 Hamstring tendonitis at origin 03/03/2018 Diabetic eye exam 09/14/2018 no retinopathy noted Allergic rhinitis Arthritis Basal cell carcinoma back and face Diabetes mellitus Type 2 Hyperlipidemia Osteoarthritis Past Surgical History: Procedure Laterality Date EXCISION SKIN LESION 06/15/2015 Right orthodox 1.5cm EXCISION SKIN LESION 06/15/2015 Forehead 2cm COLPOSCOPY 2006 LEEPS EXCISION SKIN LESION 2004 Basal Cell Carcinoma Left posterior shoulder LAPAROTOMY EXPLORATORY 1979 Family History: Her family history includes Arrhythmia in her mother; Arthritis - Osteo in her mother; Breast Cancer in her mother; Cancer in her paternal grandfather; Colorectal Polyps in her father; Dementia in her mother; Diabetes in her father and mother; Pacemaker in her mother; Prostate Cancer in her father; Stroke in her maternal grandmother. Social History: Her reports that she has never smoked. She has never used smokeless tobacco. She reports that she does not drink alcohol or use drugs. Additional Social History Y N Notes Do you live alone? [] [x] Who lives with you: Mother and Do you have children? [x] [] How many: 2 Do you currently work? 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 [] [x] How many do you have to climb to enter your home: 2 What services do you currently receive at home? [] [x] Name: Do you have transportation to go to outpatient therapy if needed? [x] [] What Equipment do you have at home? [x] [] [x]Walker, []Crutches, []Commode Chair, []Shower []Chair, [x]cane, []bracing Are you followed by a pecan picker? [] [x] Name: Are you followed by pain management? [] [x] Name: Are you followed by any other specialists? [] [x] Name: Outpatient Medications Prior to Visit Medication Sig Dispense Refill aspirin 325 MG Tab take 325 mg by mouth daily.. Blood Glucose Monitoring Suppl (ACCU-CHEK COMPACT CARE KIT) Kit 1 kit by Unknown route daily. 1 kit0 GLIMEPIRIDE 4 MG Tab tablet TAKE 1 TABLET TWICE A DAY 180 tablet 3 glucose blood test strips (Accu-Chek Guide) Strip strip TESTING ONCE DAILY AND NEEDED 100 strip 0 Insulin Degludec (Tresiba FlexTouch) 200 UNIT/ML Solution Pen-injector injection INJECT 10 UNITS SUBCUTANEOUSLY IN THE MORNING AND 50 UNITS IN THEEVENING 27 mL 2 meloxicam 15 MG Tab take 0.5 tablets by mouth daily.. 30 tablet 0 meloxicam 15 MG tablet Take 1 tablet by mouth daily as needed. Take with food 30 tablet 3 metFORMIN-XR 500 MG Tab SR 24 HR TAKE 2 TABLETS TWICE A DAY 360 tablet 3 Multiple Vitamins-Minerals (MULTIVITAMIN ADULT PO) take by mouth daily.. [place]-3 Fatty Acids (FISH OIL) 1000 MG Cap take 1,000 mg by mouth at bedtime.. timolol maleate 0.5 % Solution ophthalmic solution Place 1 drop in both eyes daily. Generic. 90 daysupply. 1 Bottle 3 benzonatate (TESSALON PERLES) 100 MG Cap capsule Take 1 capsule by mouth 3 times daily as needed for Cough. (Patient not taking: Reported on 02/02/2020) 20 capsule 0 clotrimazole-betamethasone 1-0.05 % Cream Apply 1 Application topically 2 times daily. (Patient nottaking: Reported on 02/02/2020) 45 g 0 No facility-administered medications prior to visit. Allergies: She is allergic to codeine; erythromycin; ibuprofen; latex; penicillins; and povidone iodine. Y N Are you allergic to any metals? [] [x] If yes, what metals: Review of Systems System Y N Symptoms Constitutional [] [x] Weight Loss [] [x] Weight Gain [] [x] Chronic Fever [x] [] Insomnia Eyes [] [x] Resent Vision Change [] [x] Cataracts [] [x] Glaucoma [] [x] Any Hx of Metal Fragments in the Eye ENT [] [x] Loss of hearing [] [x] Hearing Aids [] [x] Seasonal Allergies [] [x] Dental Issues Cardiovascular [] [x] Chest Pain [] [x] Angina [] [x] Stent [] [x] Hypertension [] [x] Heart Murmur [] [x] Irregular Pulse [] [x] Pacemaker [] [x] Palpitations [] [x] High cholesteral Respiratory [] [x] Wheezing [] [x] Shortness of Breath [] [x] Pneumonia [] [x] Bronchitis [] [x] Sleep Apnea [] [x] COPD [] [x] Date/ LOC of last CXR: Gastrointestinal [] [x] Heartburn [] [x] Indigestion [] [x] Constipation [] [x] Ulcer [] [x] GI Stomach Bleed [] [x] Diarrhea [] [x] Colon Cancer [] [x] Acid Reflux [] [x] Blood in Stools Musculoskeletal [x] [] Arthritis [] [x] Muscle Weakness [x] [] Joint Pain [] [x] Back Pain [] [x] Fibromyalgia [] [x] Bone Infection [] [x] Swelling Multiple Joints [] [x] Reflex Sympathetic Dystrophy Skin [] [x] Chronic Rash [] [x] Ulcers [] [x] Eczema [] [x] Psoriasis [] [x] Skin Cancer [] [x] Melanoma Neurologic [] [x] Numbness [] [x] Weakness or loss of sensation in arms or legs [] [x] Leg Pain / Sciatica [] [x] Headaches [] [x] Loss of bowel or bladder control Psychiatric [] [x] Anxiety [x] [] Claustrophobia [] [x] Other Psychiatric Problems Hematologic [] [x] Easy Bruising [] [x] Easy Bleeding [] [x] Blood Transfusion Date: Endocrine [] [x] Hypothyroid [] [x] Hyperthyroid [] [x] Hot Flashes [] [x] Hormone Replacement [] [x] Prednisone Use Does pt have dentures? no documented in this encounter* Sai Hylton MD - 05/10/2020 4:10 PM EDT HPI: Else is an established patient of [employer] [employer], here today for left hip pain. She has been seen in [facility] by me and was instructed to work on weight loss management and controlling her diabetes beforesurgical intervention was scheduled. She has lost 13 lbs since last visit and is also being treatedby Dr. Wilson for her diabetes. She is here today for repeat evaluation and also has questions regarding surgical intervention. PHYSICAL EXAM: This is an alert, oriented, and age-appropriate female. She is in no distress. Pleasant and cooperative. EXTREMITIES: Lower extremities have no gross deformity. Normal stability. 5/5 motor. Intact sensation. Normal coordination. Skin intact. Left hip demonstrates limited rotation with painful range of motion. Contralateral hip has full and supple motion. No pain. No impingement. Noinstability. Normal neurovascular status in lower extremities bilaterally. IMPRESSION: Severe symptomatic end-stage arthritis, left hip 2.) Obesity, increased BMI. 3.) Diabetes. PLAN: I have reviewed my findings with patient. We have gone over the diagnosis and treatment and have talked about her options for management. I am pleased with the progress she had made in regards to weight loss and diabetes management. I encouraged her to continue this. I gave her a new weight loss goal to work towards. She will continue decreasing her BMI and A1C level and will call my officefor appointment once targeted levels are obtained. All questions were answered today. She has no further questions. Next appointment will be left open to her. Vitals: 05/10/20 1622 Temp: 96.7 degrees F (35.9 degrees C) TempSrc: Temporal Weight: 120.7 kg (266 lb) Height: 1.626 m (5' 4 ) Pain Presence of Pain: complains of pain/discomfort Pain Location: hip, left Select Pain Scale: DVPRS (Defense and Veterans Pain Rating Scale) (Adult- Cognitively Intact) Pain Location: hip, left Select Pain Scale: DVPRS (Defense and Veterans Pain Rating Scale) (Adult- Cognitively Intact) Recent Labs No results found for: CRP No results found for: SEDRATE No results found for: WBC, WBCCOUNT, WBCFETAL, HGB, HCT, PLATELET, MCV Past Medical History: Diagnosis Date Allergic rhinitis Arthritis Basal cell carcinoma back and face Cervical dysphagia 2006 Diabetes mellitus Type 2 Diabetic eye exam 09/14/2018 no retinopathy noted Hamstring tendonitis at origin 03/03/2018 Hyperlipidemia Left hip pain 09/2017 Osteoarthritis Past Surgical History: Procedure Laterality Date EXCISION SKIN LESION 06/15/2015 Right orthodox 1.5cm EXCISION SKIN LESION 06/15/2015 Forehead 2cm COLPOSCOPY 2007 LEEPS EXCISION SKIN LESION 2004 Basal Cell Carcinoma Left posterior shoulder LAPAROTOMY EXPLORATORY 1979 Family History Problem Relation Age of Onset Diabetes Mother Arthritis - Osteo Mother Pacemaker Mother Arrhythmia Mother a-fib Dementia Mother Breast Cancer Mother Colorectal Polyps Father Diabetes Father Prostate Cancer Father Cancer Paternal Grandfather stomch Stroke Maternal Grandmother Social History Socioeconomic History Marital status: Spouse name: Not on file Number of children: 2 Years of education: college Highest education level: Not on file Occupational History Occupation: Nurse Employer: [employer] Social Needs Financial resource strain: Not on file Food insecurity Worry: Not on file Inability: Not on file Transportation needs Medical: Not on file Non-medical: Not on file Tobacco Use Smoking status: Never Smoker Smokeless tobacco: Never Used Substance and Sexual Activity Alcohol use: No Drug use: No Sexual activity: Yes Partners: Male control/protection: Menopause Lifestyle Physical activity Days per week: Not on file Minutes per session: Not on file Stress: Not on file Relationships Social connections Talks on phone: Not on file Gets together: Not on file Attends synagogue service: Not on file Active member of club or organization: Not on file Attends meetings of clubs or organizations: Not on file Relationship status: Not on file Intimate partner violence Fear of current or ex partner: Not on file Emotionally abused: Not on file Physically abused: Not on file Forced sexual activity: Not on file Other Topics Concern Service No Blood Transfusions Not Asked Caffeine Concern No Comment: drinks 1-2 cups coffee daily Occupational Exposure Not Asked Hobby Hazards Not Asked Sleep Concern No Stress Concern No Weight Concern Not Asked Special Diet Not Asked Back Care Not Asked Exercise No Bike Helmet Not Asked Seat Belt Yes Domestic Violence No Social History Narrative Not on file Current Outpatient Medications: aspirin 325 MG Tab, take 325 mg by mouth daily.., Disp: , Rfl: Insulin Degludec (Tresiba FlexTouch) 200 UNIT/ML Solution Pen-injector injection, INJECT 10 UNITS SUBCUTANEOUSLY IN THE MORNING AND 50 UNITS IN THEEVENING (Patient taking differently: 24 Units. INJECT 24 UNITS SUBCUTANEOUSLY IN THE MORNING AND 24 UNITS IN THE EVENING), Disp: 27 mL, Rfl: 2 metFORMIN-XR 500 MG Tab SR 24 HR, TAKE 2 TABLETS TWICE A DAY, Disp: 360 tablet, Rfl: 3 Multiple Vitamins-Minerals (MULTIVITAMIN ADULT PO), take by mouth daily.., Disp: , Rfl: naproxen 500 MG tablet, Take 1 tablet by mouth 2 times daily with meals., Disp: 60 tablet, Rfl: 0 [place]-3 Fatty Acids (FISH OIL) 1000 MG Cap, take 1,000 mg by mouth at bedtime.., Disp: , Rfl: Semaglutide,0.25 or 0.5MG/DOS, (Ozempic, 0.25 or 0.5 MG/DOSE,) 2 MG/1.5ML Solution Pen-injector, Inject 0.5 mg under the skin once a week., Disp: 6 Prefilled Pen/Syringe, Rfl: 3 timolol maleate 0.5 % Solution ophthalmic solution, Place 1 drop in both eyes daily. Generic. 90 day supply., Disp: 1 Bottle, Rfl: 3 Accu-Chek Guide Strip strip, TESTING ONCE DAILY AND NEEDED, Disp: 100 strip, Rfl: 1 Blood Glucose Monitoring Suppl (ACCU-CHEK COMPACT CARE KIT) Kit, 1 kit by Unknown route daily., Disp: 1 kit, Rfl: 0 Dexcom G6 Professor Of Sport Management Device, For use with Dexcom G6 system. Use to check blood sugar four times daily, Disp: 1 Device, Rfl: 0 Dexcom G6 Sensor Misc, 1 Device by Unknown route every 10 days., Disp: 9 Each, Rfl: 1 Dexcom G6 Transmitter Misc, For use with Dexcom G6 system. Use to check blood sugar four times daily, Disp: 1 Each, Rfl: 1 GLIMEPIRIDE 4 MG Tab tablet, TAKE 1 TABLET TWICE A DAY (Patient not taking: No sig reported), Disp:180 tablet, Rfl: 3 naproxen 500 MG tablet, Take 1 tablet by mouth 2 times daily with meals. (Patient not taking: Reported on 05/10/2020), Disp: 60 tablet, Rfl: 3 traMADol 50 MG tablet, Take 1 tablet by mouth every 6 hours as needed (pain)., Disp: 120 tablet, Rfl: 1 Allergies Allergen Reactions Codeine Itching Erythromycin Nausea Only Ibuprofen Nausea Only Latex Rash Penicillins Hives Povidone Iodine Itching * Valeriy Block LPN - 05/10/2020 4:10 PM EDT Ortho Nurse Established Patient Intake Room#: 1 F/U Left hip pain of 9, patient has losy 13lbs in the six weeks since last visit Date: 05/10/2020 4:26 PM Patient: Melodie Ackerman MR#: [id number] : 1955 Age: 64 y.o. Referring Physician: Self, Self Insurance: Payor: [employer] / Plan: MMO NETWORK ACCESS / Product Type: *No Product type* / Chief Complaint Patient presents with Left Hip - Pain, Follow-up Visit Vitals Temp 96.7 F (35.9 C) (Temporal) Ht 1.626 m (5' 4 ) Wt 120.7 kg (266 lb) LMP 10/20/1996 (Within Years) BMI 45.66 kg/m Pain Presence of Pain: complains of pain/discomfort Pain Location: hip, left Select Pain Scale: DVPRS (Defense and Veterans Pain Rating Scale) (Adult- Cognitively Intact) Pain Location: hip, left Select Pain Scale: DVPRS (Defense and Veterans Pain Rating Scale) (Adult- Cognitively Intact) Recent Labs No results found for: CRP No results found for: SEDRATE No results found for: WBC, WBCCOUNT, WBCFETAL, HGB, HCT, PLATELET, MCV History Past Medical History: Diagnosis Date Cervical dysphagia 2006 Left hip pain 09/2017 Hamstring tendonitis at origin 03/03/2018 Diabetic eye exam 09/14/2018 no retinopathy noted Allergic rhinitis Arthritis Basal cell carcinoma back and face Diabetes mellitus Type 2 Hyperlipidemia Osteoarthritis Past Surgical History: Procedure Laterality Date EXCISION SKIN LESION 06/15/2015 Right orthodox 1.5cm EXCISION SKIN LESION 06/15/2015 Forehead 2cm COLPOSCOPY 2006 LEEPS EXCISION SKIN LESION 2004 Basal Cell Carcinoma Left posterior shoulder LAPAROTOMY EXPLORATORY 1979 Family History: Her family history includes Arrhythmia in her mother; Arthritis - Osteo in her mother; Breast Cancer in her mother; Cancer in her paternal grandfather; Colorectal Polyps in her father; Dementia in her mother; Diabetes in her father and mother; Pacemaker in her mother; Prostate Cancer in her father; Stroke in her maternal grandmother. Social History: Her reports that she has never smoked. She has never used smokeless tobacco. She reports that she does not drink alcohol or use drugs. Outpatient Medications Prior to Visit Medication Sig Dispense Refill aspirin 325 MG Tab take 325 mg by mouth daily.. Insulin Degludec (Tresiba FlexTouch) 200 UNIT/ML Solution Pen-injector injection INJECT 10 UNITS SUBCUTANEOUSLY IN THE MORNING AND 50 UNITS IN THEEVENING (Patient taking differently: 24 Units. ELEZCP35 UNITS SUBCUTANEOUSLY IN THE MORNING AND 24 UNITS IN THE EVENING) 27 mL 2 metFORMIN-XR 500 MG Tab SR 24 HR TAKE 2 TABLETS TWICE A DAY 360 tablet 3 Multiple Vitamins-Minerals (MULTIVITAMIN ADULT PO) take by mouth daily.. naproxen 500 MG tablet Take 1 tablet by mouth 2 times daily with meals. 60 tablet 0 [place]-3 Fatty Acids (FISH OIL) 1000 MG Cap take 1,000 mg by mouth at bedtime.. Semaglutide,0.25 or 0.5MG/DOS, (Ozempic, 0.25 or 0.5 MG/DOSE,) 2 MG/1.5ML Solution Pen-injector Inject 0.5 mg under the skin once a week. 6 Prefilled Pen/Syringe 3 timolol maleate 0.5 % Solution ophthalmic solution Place 1 drop in both eyes daily. Generic. 90 daysupply. 1 Bottle 3 Accu-Chek Guide Strip strip TESTING ONCE DAILY AND NEEDED 100 strip 1 Blood Glucose Monitoring Suppl (ACCU-CHEK COMPACT CARE KIT) Kit 1 kit by Unknown route daily. 1 kit0 Dexcom G6 Professor [employer] Sport Management Device For use with Dexcom G6 system. Use to check blood sugar four times daily 1 Device 0 Dexcom G6 Sensor Misc 1 Device by Unknown route every 10 days. 9 Each 1 Dexcom G6 Transmitter Misc For use with Dexcom G6 system. Use to check blood sugar four times daily1 Each 1 GLIMEPIRIDE 4 MG Tab tablet TAKE 1 TABLET TWICE A DAY (Patient not taking: No sig reported) 180 tablet 3 naproxen 500 MG tablet Take 1 tablet by mouth 2 times daily with meals. (Patient not taking: Reported on 05/10/2020) 60 tablet 3 traMADol 50 MG tablet Take 1 tablet by mouth every 6 hours as needed (pain). 120 tablet 1 No facility-administered medications prior to visit. Current Outpatient Medications: aspirin 325 MG Tab, take 325 mg by mouth daily.., Disp: , Rfl: Insulin Degludec (Tresiba FlexTouch) 200 UNIT/ML Solution Pen-injector injection, INJECT 10 UNITS SUBCUTANEOUSLY IN THE MORNING AND 50 UNITS IN THEEVENING (Patient taking differently: 24 Units. INJECT 24 UNITS SUBCUTANEOUSLY IN THE MORNING AND 24 UNITS IN THE EVENING), Disp: 27 mL, Rfl: 2 metFORMIN-XR 500 MG Tab SR 24 HR, TAKE 2 TABLETS TWICE A DAY, Disp: 360 tablet, Rfl: 3 Multiple Vitamins-Minerals (MULTIVITAMIN ADULT PO), take by mouth daily.., Disp: , Rfl: naproxen 500 MG tablet, Take 1 tablet by mouth 2 times daily with meals., Disp: 60 tablet, Rfl: 0 [place]-3 Fatty Acids (FISH OIL) 1000 MG Cap, take 1,000 mg by mouth at bedtime.., Disp: , Rfl: Semaglutide,0.25 or 0.5MG/DOS, (Ozempic, 0.25 or 0.5 MG/DOSE,) 2 MG/1.5ML Solution Pen-injector, Inject 0.5 mg under the skin once a week., Disp: 6 Prefilled Pen/Syringe, Rfl: 3 timolol maleate 0.5 % Solution ophthalmic solution, Place 1 drop in both eyes daily. Generic. 90 day supply., Disp: 1 Bottle, Rfl: 3 Accu-Chek Guide Strip strip, TESTING ONCE DAILY AND NEEDED, Disp: 100 strip, Rfl: 1 Blood Glucose Monitoring Suppl (ACCU-CHEK COMPACT CARE KIT) Kit, 1 kit by Unknown route daily., Disp: 1 kit, Rfl: 0 Dexcom G6 Professor Of Sport Management Device, For use with Dexcom G6 system. Use to check blood sugar four times daily, Disp: 1 Device, Rfl: 0 Dexcom G6 Sensor Misc, 1 Device by Unknown route every 10 days., Disp: 9 Each, Rfl: 1 Dexcom G6 Transmitter Misc, For use with Dexcom G6 system. Use to check blood sugar four times daily, Disp: 1 Each, Rfl: 1 GLIMEPIRIDE 4 MG Tab tablet, TAKE 1 TABLET TWICE A DAY (Patient not taking: No sig reported), Disp:180 tablet, Rfl: 3 naproxen 500 MG tablet, Take 1 tablet by mouth 2 times daily with meals. (Patient not taking: Reported on 05/10/2020), Disp: 60 tablet, Rfl: 3 traMADol 50 MG tablet, Take 1 tablet by mouth every 6 hours as needed (pain)., Disp: 120 tablet, Rfl: 1 Allergies: She is allergic to codeine; erythromycin; ibuprofen; latex; penicillins; and povidone iodine. documented in this encounter* Mir Melissa MD - 05/16/2020 8:45 AM EDT History of Present Illness Type 2 diabetes: This is her second visit to the office. She has a need for upcoming hip surgery, but needs her A1c down, currently at 12%. Also states that she needs to lose 20-40 pounds before hip surgery (she has lost 10 pounds since our first visit together). Currently taking metformin extendedrelease 1000 g twice a day, Ozempic 0.25 mg weekly for the past 3 weeks, and Tresiba 60 units at night. She has not met with a religious educator or dietitian in the past. She denies neuropathic discomfort of the lower extremity. Has regular follow-up with ophthalmology, no retinopathy. Since starting Ozempic, blood sugars have improved, have discontinue glimepiride. She is having some overnight lows. Estuardo download his demonstrating occasional postprandial hyperglycemia during the day. Review of Systems Vitals: Blood pressure 125/80, pulse 82, temperature 97.8 F (36.6 C), temperature source Temporal, height 1.626 m (5' 4 ), weight 119.8 kg (264 lb 3.2 oz), last menstrual period 10/20/1996. Physical Exam Constitutional: General: She is not in acute distress. Appearance: She is not diaphoretic. HENT: Head: Normocephalic. Neck: Thyroid: No thyromegaly. Trachea: No tracheal deviation. Cardiovascular: Rate and Rhythm: Normal rate and regular rhythm. Heart sounds: Normal heart sounds. No murmur. Pulmonary: Effort: No respiratory distress. Breath sounds: No wheezing. Lymphadenopathy: Cervical: No cervical adenopathy. Skin: General: Skin is warm and dry. Neurological: Mental Status: She is alert and oriented to person, place, and time. Psychiatric: Judgment: Judgment normal. Foot exam: +1 dorsalis pedis pulses bilaterally, good foot care, no callus/ulceration Neurologic Exam Mental Status Oriented to person, place, and time. Assessment and Plan Type 2 diabetes: She will meet with a religious educator later today. We will increase Ozempic 0.50 mg weekly next week, we discussed the nausea will likely return and should again improve. Because ofconsiderable postprandial hyperglycemia during the day, we will add Jardiance 10 mg in the morning and send Diflucan in case of yeast infection; we discussed then hydrated targets. She states that she took farxiga and Invokana in the past with yeast infections. We will change Tresiba to 50 units inthe morning, decreasing by 5 units every time she has a low blood sugar. We discussed low-carb/high-protein diet. We discussed the limitations of physical activity due to her hip pain. She now has a DexCom device but has not yet received the transmitter, we will give her training as soon as she hasto complete system. Follow-up in 6 weeks with CGM download and fructosamine level. * Aga Benoit - 05/16/2020 8:45 AM EDT Nurse Note: Review of Systems Constitutional: Positive for fatigue. Negative for fever and unexpected weight change. Respiratory: Negative for cough and shortness of breath. Cardiovascular: Positive for leg swelling (left leg ). Negative for chest pain. Gastrointestinal: Negative for constipation, diarrhea, nausea and vomiting. Endocrine: Negative for polydipsia and polyuria. Neurological: Positive for weakness and numbness. Psychiatric/Behavioral: Positive for sleep disturbance. Nursing Assessment: Physical Exam documented in this encounter* Megan Roberts RN - 05/16/2020 9:00 AM EDT I met with Else for 50 minutes. She is eager to lose weight and get her blood glucose under controlfor her upcoming surgery. Causes for hyperglycemia include stress from being the main caregiver forher mother with Alzheimer's; lack of activity; poor sleep; and chronic pain. 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 She has decreased her carbs to less than 20 gms/carbs/meal and wants to continue this path. Topics reviewed were as follows: - ADA target goals individualized. Initially have a fasting goal of less than 150 mg/dl; then reachtowards the ADA target goals of 80-130 mg/dl. Two hours after meals remain less than 180 mg/dl. - Monitoring importance; using the lancet device; lancing the sides of the fingertips; rotating sites; logging results and problem solving. She checks her fasting glucose daily. Encouraged her to occasionally check throughout the day to determine how activity/stress/foods also effect her blood glucose. - Hyper/Hypoglycemia signs/symptoms, causes, prevention and treatments. Signs of hypoglycemia include shakiness with her. Signs of high include foot cramps; tiredness; irritability and possibly feeling flushed/hot. - Activity importance/benefits. Due to her impaired gate, she can only do arm exercises until her surgery. She is looking to being more active after her surgery is complete. - Water intake/importance. She drinks mainly water, meeting the 64 oz water daily. She doesn't drink sugary drinks and occasionally will drink unsweetened tea. Explained the possibility of caffeine causing a secondary response, raising blood glucose with vasoconstriction and no research is on this,just my own experience through patients. Did not stress the need to cut unsweetened tea, but the possibility of glucose rise and checking her blood glucose after the intake of this tea to check her body's response. - Healthy eating versus unhealthy eating; what foods are carbs; how carbs effect blood glucose; portion control using measuring cups/spoons/food scale - she is already applying this to her carb portions; portion control using the hand method - she is knowledgeable in applying this method; plate method for portion/balance; carb counting with nutrition label reading. Carb goals are less than 30 gms/carbs/meal and no more than 15 gms/carbs/snack. Encouraged her to portion control her carbs, balancing with at least a protein or non-starchy vegetable. She is choosing low carb of less than 20 gms/carbs/meal and less than 7 gms/carbs/snack. Her goal is glucose control and weight loss. Behavioral Objectives: To portion control carbs, balancing with at least a protein To increase activity of upper body as tolerated To problem solve her hyperglycemia [facility] Diabetes Survival Guide and Plate Method given. documented in this encounter* Sai Hylton MD - 06/21/2020 4:10 PM EDT HPI: Else is an established patient of mine, here today for left hip pain. Has been seen in the past by me with last visit being on 05/10/20.Primary complaint is pain, impairment and a decrease in quality of life secondary to the left hip pain. She has had physical therapy, injections, topical creams, anti- inflammatory medications, assistive devices and weight modification in the past and has failed this conservative management. She has lost 17 more pounds since her last visit, she is currently being managed by Dr. Wilson for her diabetes with her fructosamine level of 351. Her pain is a 8-9on a 10 point scale today. At this time, she is weary of her symptoms and is ready to schedule a left total hip arhtroplasty for optimal [facility] management. PHYSICAL EXAM: This is an alert, oriented, and age-appropriate female. She is in no distress. Pleasant and cooperative. EXTREMITIES: The upper extremities have no gross deformity. Normal stability. 5/5 motor. Intact sensation. Normal coordination. Skin intact. Lower extremities have no gross deformity. Normal stability. 5/5 motor. Intact sensation. Normal coordination. Skin intact. Left hip demonstrates limited rotation with increased pain. Painful range of motion. Contralateral hip has full and supple motion. No pain. No impingement. No instability. Normal neurovascular status in lower extremities bilaterally. IMAGING: Previous plain film radiographs were reviewed. There is severe arthritis to left hip, lossof joint space, subchondral sclerosis, osteophyte formation, and [id number] contact. Possible AVNof the left hip. . 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 2.) Diabetes. 3.) Obesity, increased BMI. PLAN: We discussed in great detail the risks, benefits, and alternatives to surgical intervention and a left anterolateral hip replacement with possible abductor repair. Else understands that this isneither a life nor limb- threatening situation, and that they can certainly continue to live with this problem. The patient understands that the potential benefits are reduced pain and improved function. The patient also understands that the risks include, but are not limited to: bleeding, infection, neurovascular injury including foot drop or paralysis, dislocation, component failure, implant loosening, leg length inequality, ligament or tendon disruption, fracture, stiffness, chronic pain, chronic limp, chronic disability, need for further surgery, blood clots in the extremities or lungs, stroke, heart attack, loss of limb, and ultimately loss of life. Despite these risks, the patient would like to proceed with surgical planning. Today, we will initiate the pre-surgical process includingnasal MRSA screening, scheduling an appointment for [facility] [place] and the potential surgical date, and reviewing and signing the consent forms. We have discussed the importance of preop diabetes and weight loss management, the reasons behind it, and the goals necessary to proceed with surgery which she agrees with. Vitals: 06/21/20 1641 Temp: 97.3 degrees F (36.3 degrees C) TempSrc: Temporal Weight: 112 kg (247 lb) Height: 1.626 m (5' 4 ) Pain Presence of Pain: complains of pain/discomfort Pain Location: hip, left Select Pain Scale: DVPRS (Defense and Veterans Pain Rating Scale) (Adult- Cognitively Intact) Pain Location: hip, left Select Pain Scale: DVPRS (Defense and Veterans Pain Rating Scale) (Adult- Cognitively Intact) Recent Labs No results found for: CRP No results found for: SEDRATE No results found for: WBC, WBCCOUNT, WBCFETAL, HGB, HCT, PLATELET, MCV Past Medical History: Diagnosis Date Allergic rhinitis Arthritis Basal cell carcinoma back and face Cervical dysphagia 2006 Diabetes mellitus Type 2 Diabetic eye exam 09/14/2018 no retinopathy noted Hamstring tendonitis at origin 03/03/2018 Hyperlipidemia Left hip pain 09/2017 Osteoarthritis Past Surgical History: Procedure Laterality Date EXCISION SKIN LESION 06/15/2015 Right orthodox 1.5cm EXCISION SKIN LESION 06/15/2015 Forehead 2cm COLPOSCOPY 2007 LEEPS EXCISION SKIN LESION 2004 Basal Cell Carcinoma Left posterior shoulder LAPAROTOMY EXPLORATORY 1979 Family History Problem Relation Age of Onset Diabetes Mother Arthritis - Osteo Mother Pacemaker Mother Arrhythmia Mother a-fib Dementia Mother Breast Cancer Mother Colorectal Polyps Father Diabetes Father Prostate Cancer Father Cancer Paternal Grandfather stomch Stroke Maternal Grandmother Social History Socioeconomic History Marital status: Spouse name: Not on file Number of children: 2 Years of education: college Highest education level: Not on file Occupational History Occupation: Nurse Employer: [employer] Social Needs Financial resource strain: Not on file Food insecurity Worry: Not on file Inability: Not on file Transportation needs Medical: Not on file Non-medical: Not on file Tobacco Use Smoking status: Never Smoker Smokeless tobacco: Never Used Substance and Sexual Activity Alcohol use: No Drug use: No Sexual activity: Yes Partners: Male control/protection: Menopause Lifestyle Physical activity Days per week: Not on file Minutes per session: Not on file Stress: Not on file Relationships Social connections Talks on phone: Not on file Gets together: Not on file Attends synagogue service: Not on file Active member of club or organization: Not on file Attends meetings of clubs or organizations: Not on file Relationship status: Not on file Intimate partner violence Fear of current or ex partner: Not on file Emotionally abused: Not on file Physically abused: Not on file Forced sexual activity: Not on file Other Topics Concern Service No Blood Transfusions Not Asked Caffeine Concern No Comment: drinks 1-2 cups coffee daily Occupational Exposure Not Asked Hobby Hazards Not Asked Sleep Concern No Stress Concern No Weight Concern Not Asked Special Diet Not Asked Back Care Not Asked Exercise No Bike Helmet Not Asked Seat Belt Yes Domestic Violence No Social History Narrative Not on file Current Outpatient Medications: Accu-Chek Guide Strip strip, TESTING ONCE DAILY AND NEEDED, Disp: 100 strip, Rfl: 1 aspirin 325 MG Tab, take 325 mg by mouth daily.., Disp: , Rfl: Blood Glucose Monitoring Suppl (ACCU-CHEK COMPACT CARE KIT) Kit, 1 kit by Unknown route daily., Disp: 1 kit, Rfl: 0 Dexcom G6 Professor Of Sport Management Device, For use with Dexcom G6 system. Use to check blood sugar four times daily, Disp: 1 Device, Rfl: 0 Dexcom G6 Sensor Misc, 1 Device by Unknown route every 10 days., Disp: 9 Each, Rfl: 1 Dexcom G6 Transmitter Misc, For use with Dexcom G6 system. Use to check blood sugar four times daily, Disp: 1 Each, Rfl: 1 Empagliflozin (Jardiance) 10 MG tablet, Take 1 tablet by mouth every morning before breakfast., Disp: 90 tablet, Rfl: 3 fluconazole 150 MG tablet, Take 1 tablet by mouth as needed (yeast infection)., Disp: 1 tablet, Rfl: 1 Insulin Degludec (Tresiba FlexTouch) 200 UNIT/ML Solution Pen-injector injection, Inject 150 Units under the skin at bedtime., Disp: 12 Prefilled Pen/Syringe, Rfl: 2 metFORMIN-XR 500 MG Tab SR 24 HR, TAKE 2 TABLETS TWICE A DAY, Disp: 360 tablet, Rfl: 3 Multiple Vitamins-Minerals (MULTIVITAMIN ADULT PO), take by mouth daily.., Disp: , Rfl: naproxen 500 MG tablet, Take 1 tablet by mouth 2 times daily with meals., Disp: 60 tablet, Rfl: 0 [place]-3 Fatty Acids (FISH OIL) 1000 MG Cap, take 1,000 mg by mouth at bedtime.., Disp: , Rfl: Semaglutide,0.25 or 0.5MG/DOS, (Ozempic, 0.25 or 0.5 MG/DOSE,) 2 MG/1.5ML Solution Pen-injector, Inject 0.5 mg under the skin once a week., Disp: 6 Prefilled Pen/Syringe, Rfl: 3 timolol maleate 0.5 % Solution ophthalmic solution, Place 1 drop in both eyes daily. Generic. 90 day supply., Disp: 1 Bottle, Rfl: 3 traMADol HCl (EnovaRX-traMADol) 5 % Cream, Apply topically., Disp: , Rfl: traMADol 50 MG tablet, Take 1 tablet by mouth every 6 hours as needed for Severe Pain (pain) for upto 7 days., Disp: 30 tablet, Rfl: 0 Allergies Allergen Reactions Codeine Itching Erythromycin Nausea Only Ibuprofen Nausea Only Latex Rash Penicillins Hives Povidone Iodine Itching * Valeriy Block LPN - 06/21/2020 4:10 PM EDT Ortho Nurse Established Patient Intake Room#: 3 F/U Left hip pain of 8-9, working on weight loss, has lost 17 pounds since last visit, [id number] level is 351 06-07-2020 Date: 06/21/2020 4:46 PM Patient: Melodie Ackerman MR#: [id number] : 1955 Age: 65 y.o. Referring Physician: Self, Self Insurance: Payor: [employer] / Plan: O NETWORK ACCESS / Product Type: *No Product type* / Chief Complaint Patient presents with Left Hip - Follow-up Visit Vitals Temp 97.3 F (36.3 C) (Temporal) Ht 1.626 m (5' 4 ) Wt 112 kg (247 lb) LMP 10/20/1996 (Within Years) BMI 42.40 kg/m Pain Presence of Pain: complains of pain/discomfort Pain Location: hip, left Select Pain Scale: DVPRS (Defense and Veterans Pain Rating Scale) (Adult- Cognitively Intact) Pain Location: hip, left Select Pain Scale: DVPRS (Defense and Veterans Pain Rating Scale) (Adult- Cognitively Intact) Recent Labs No results found for: CRP No results found for: SEDRATE No results found for: WBC, WBCCOUNT, WBCFETAL, HGB, HCT, PLATELET, MCV History Past Medical History: Diagnosis Date Cervical dysphagia 2006 Left hip pain 09/2017 Hamstring tendonitis at origin 03/03/2018 Diabetic eye exam 09/14/2018 no retinopathy noted Allergic rhinitis Arthritis Basal cell carcinoma back and face Diabetes mellitus Type 2 Hyperlipidemia Osteoarthritis Past Surgical History: Procedure Laterality Date EXCISION SKIN LESION 06/15/2015 Right orthodox 1.5cm EXCISION SKIN LESION 06/15/2015 Forehead 2cm COLPOSCOPY 2006 LEEPS EXCISION SKIN LESION 2004 Basal Cell Carcinoma Left posterior shoulder LAPAROTOMY EXPLORATORY 1979 Family History: Her family history includes Arrhythmia in her mother; Arthritis - Osteo in her mother; Breast Cancer in her mother; Cancer in her paternal grandfather; Colorectal Polyps in her father; Dementia in her mother; Diabetes in her father and mother; Pacemaker in her mother; Prostate Cancer in her father; Stroke in her maternal grandmother. Social History: Her reports that she has never smoked. She has never used smokeless tobacco. She reports that she does not drink alcohol or use drugs. Outpatient Medications Prior to Visit Medication Sig Dispense Refill Accu-Chek Guide Strip strip TESTING ONCE DAILY AND NEEDED 100 strip 1 aspirin 325 MG Tab take 325 mg by mouth daily.. Blood Glucose Monitoring Suppl (ACCU-CHEK COMPACT CARE KIT) Kit 1 kit by Unknown route daily. 1 kit0 Dexcom G6 Professor Of [employer] Device For use with Dexcom G6 system. Use to check blood sugar four times daily 1 Device 0 Dexcom G6 Sensor Misc 1 Device by Unknown route every 10 days. 9 Each 1 Dexcom G6 Transmitter Misc For use with Dexcom G6 system. Use to check blood sugar four times daily1 Each 1 Empagliflozin (Jardiance) 10 MG tablet Take 1 tablet by mouth every morning before breakfast. 90 tablet 3 fluconazole 150 MG tablet Take 1 tablet by mouth as needed (yeast infection). 1 tablet 1 Insulin Degludec (Tresiba FlexTouch) 200 UNIT/ML Solution Pen-injector injection Inject 150 Units under the skin at bedtime. 12 Prefilled Pen/Syringe 2 metFORMIN-XR 500 MG Tab SR 24 HR TAKE 2 TABLETS TWICE A DAY 360 tablet 3 Multiple Vitamins-Minerals (MULTIVITAMIN ADULT PO) take by mouth daily.. naproxen 500 MG tablet Take 1 tablet by mouth 2 times daily with meals. 60 tablet 0 [place]-3 Fatty Acids (FISH OIL) 1000 MG Cap take 1,000 mg by mouth at bedtime.. Semaglutide,0.25 or 0.5MG/DOS, (Ozempic, 0.25 or 0.5 MG/DOSE,) 2 MG/1.5ML Solution Pen-injector Inject 0.5 mg under the skin once a week. 6 Prefilled Pen/Syringe 3 timolol maleate 0.5 % Solution ophthalmic solution Place 1 drop in both eyes daily. Generic. 90 daysupply. 1 Bottle 3 traMADol HCl (EnovaRX-traMADol) 5 % Cream Apply topically. traMADol 50 MG tablet Take 1 tablet by mouth every 6 hours as needed for Severe Pain (pain) for up to 7 days. 30 tablet 0 No facility-administered medications prior to visit. Current Outpatient Medications: Accu-Chek Guide Strip strip, TESTING ONCE DAILY AND NEEDED, Disp: 100 strip, Rfl: 1 aspirin 325 MG Tab, take 325 mg by mouth daily.., Disp: , Rfl: Blood Glucose Monitoring Suppl (ACCU-CHEK COMPACT CARE KIT) Kit, 1 kit by Unknown route daily., Disp: 1 kit, Rfl: 0 Dexcom G6 Professor Of Sport [employer] Device, For use with Dexcom G6 system. Use to check blood sugar four times daily, Disp: 1 Device, Rfl: 0 Dexcom G6 Sensor Misc, 1 Device by Unknown route every 10 days., Disp: 9 Each, Rfl: 1 Dexcom G6 Transmitter Misc, For use with Dexcom G6 system. Use to check blood sugar four times daily, Disp: 1 Each, Rfl: 1 Empagliflozin (Jardiance) 10 MG tablet, Take 1 tablet by mouth every morning before breakfast., Disp: 90 tablet, Rfl: 3 fluconazole 150 MG tablet, Take 1 tablet by mouth as needed (yeast infection)., Disp: 1 tablet, Rfl: 1 Insulin Degludec (Tresiba FlexTouch) 200 UNIT/ML Solution Pen-injector injection, Inject 150 Units under the skin at bedtime., Disp: 12 Prefilled Pen/Syringe, Rfl: 2 metFORMIN-XR 500 MG Tab SR 24 HR, TAKE 2 TABLETS TWICE A DAY, Disp: 360 tablet, Rfl: 3 Multiple Vitamins-Minerals (MULTIVITAMIN ADULT PO), take by mouth daily.., Disp: , Rfl: naproxen 500 MG tablet, Take 1 tablet by mouth 2 times daily with meals., Disp: 60 tablet, Rfl: 0 [place]-3 Fatty Acids (FISH OIL) 1000 MG Cap, take 1,000 mg by mouth at bedtime.., Disp: , Rfl: Semaglutide,0.25 or 0.5MG/DOS, (Ozempic, 0.25 or 0.5 MG/DOSE,) 2 MG/1.5ML Solution Pen-injector, Inject 0.5 mg under the skin once a week., Disp: 6 Prefilled Pen/Syringe, Rfl: 3 timolol maleate 0.5 % Solution ophthalmic solution, Place 1 drop in both eyes daily. Generic. 90 day supply., Disp: 1 Bottle, Rfl: 3 traMADol HCl (EnovaRX-traMADol) 5 % Cream, Apply topically., Disp: , Rfl: traMADol 50 MG tablet, Take 1 tablet by mouth every 6 hours as needed for Severe Pain (pain) for upto 7 days., Disp: 30 tablet, Rfl: 0 Allergies: She is allergic to codeine; erythromycin; ibuprofen; latex; penicillins; and povidone iodine. documented in this encounter* Clari Moss MD - 06/27/2020 9:30 AM EDT Chief Complaint Patient presents with Hip Pain Pt here to discuss taking tramadol for left hip pain. Pt is going to have left total hip replacement with Dr Hylton on 08-08-20. Pt was told she had to get any pain med from PCP. History of Present Illness: Melodie Ackerman is a 65 y.o. female who comes in with complaints of left hip pain that started many years ago. It has been getting worse. There is not radiation of the pain. There is not weakness. Thereis not tingling. Trauma/Injury: none Previous similar pain: none Radiation to : radiation to the middle thigh Bladder or Bowel Incontinence/Difficulty: none Tingling, sensory change, focal weakness: none Abdominal Pain: none Dysuria, urgency, frequency, hematuria, flank pain: none Therapies tried so far: none Current Medications Current Outpatient Medications Medication Sig Dispense Refill aspirin 325 MG Tab take 325 mg by mouth daily.. Dexcom G6 Professor Of Sport Management Device For use with Dexcom G6 system. Use to check blood sugar four times daily 1 Device 0 Dexcom G6 Sensor Misc 1 Device by Unknown route every 10 days. 9 Each 1 Dexcom G6 Transmitter Misc For use with Dexcom G6 system. Use to check blood sugar four times daily1 Each 1 Empagliflozin (Jardiance) 10 MG tablet Take 1 tablet by mouth every morning before breakfast. 90 tablet 3 Insulin Degludec (Tresiba FlexTouch) 200 UNIT/ML Solution Pen-injector injection Inject 150 Units under the skin at bedtime. (Patient taking differently: Inject 150 Units under the skin daily every morning. ) 12 Prefilled Pen/Syringe 2 metFORMIN-XR 500 MG Tab SR 24 HR TAKE 2 TABLETS TWICE A DAY 360 tablet 3 Multiple Vitamins-Minerals (MULTIVITAMIN ADULT PO) take by mouth daily.. naproxen 500 MG tablet Take 1 tablet by mouth 2 times daily with meals. 60 tablet 0 [place]-3 Fatty Acids (FISH OIL) 1000 MG Cap take 1,000 mg by mouth at bedtime.. Semaglutide,0.25 or 0.5MG/DOS, (Ozempic, 0.25 or 0.5 MG/DOSE,) 2 MG/1.5ML Solution Pen-injector Inject 0.5 mg under the skin once a week. 6 Prefilled Pen/Syringe 3 timolol maleate 0.5 % Solution ophthalmic solution Place 1 drop in both eyes daily. Generic. 90 daysupply. 1 Bottle 3 traMADol 50 MG tablet Take 1 tablet by mouth every 6 hours as needed for Severe Pain (pain) for up to 7 days. 30 tablet 0 Accu-Chek Guide Strip strip TESTING ONCE DAILY AND NEEDED 100 strip 1 Blood Glucose Monitoring Suppl (ACCU-CHEK COMPACT CARE KIT) Kit 1 kit by Unknown route daily. 1 kit0 fluconazole 150 MG tablet Take 1 tablet by mouth as needed (yeast infection). (Patient not taking: Reported on 06/27/2020) 1 tablet 1 No current facility-administered medications for this visit. Allergies She is allergic to codeine; erythromycin; ibuprofen; latex; penicillins; and povidone iodine. Review of Systems Constitutional: Negative for appetite change, fatigue and fever. HENT: Negative for congestion, dental problem, hearing loss, nosebleeds, postnasal drip, rhinorrhea, sinus pressure, sinus pain, sore throat, tinnitus and voice change. Eyes: Negative for pain, discharge, redness and visual disturbance. Respiratory: Negative for cough, shortness of breath and wheezing. Cardiovascular: Negative for chest pain and palpitations. Gastrointestinal: Negative for abdominal pain, constipation, diarrhea, nausea and vomiting. Endocrine: Negative for cold intolerance, heat intolerance and polyuria. Genitourinary: Negative for dysuria and enuresis. Musculoskeletal: Negative for arthralgias, back pain, joint swelling, myalgias and neck pain. Left hip pain Skin: Negative for color change and rash. Neurological: Negative for dizziness, tremors, syncope, weakness, numbness and headaches. Hematological: Does not bruise/bleed easily. Psychiatric/Behavioral: Negative for confusion, dysphoric mood, self-injury, sleep disturbance and suicidal ideas. The patient is not nervous/anxious. She denies any other acute concerns Physical Exam: BP 132/72 (BP Location: Left arm, BP Position: Sitting) Pulse 92 Temp 97.8 F (36.6 C) (Temporal) Resp 16 Ht 1.626 m (5' 4 ) Wt 111.1 kg (245 lb) BMI 42.05 kg/m Smoking Status Never Smoker Physical Exam Constitutional: General: She is not in acute distress. Appearance: She is well-developed. She is not diaphoretic. Pulmonary: Effort: Pulmonary effort is normal. Musculoskeletal: General: Tenderness present. Comments: Decreased ROM of Lt hip with hip crepitation. There is antalgic gait with a simple cane assist. The left leg is NVI. Assessment/Plan: 1. Primary osteoarthritis of left hip - traMADol 50 MG tablet; Take 1 tablet by mouth every 6 hours as needed for Severe Pain (pain) for up to 7 days. Dispense: 30 tablet; Refill: 0 Her history of symptoms and findings on exam are most consistent with a end stage hip degeneration.She is going to have a hip replacement on 08/08. Her ortho doctor Dr. Hylton did not want to prescribe any chronic pain medications for her and sent her here for chronic pain. I discussed supportive care and if she needs chronic ongoing pain medications she would need to see the pain clinic. She will decline this at this time. Will give her a limited 7 day supply of Tramadol. Discussed risk and benefits and possible addictive potential, although low with the tramadol. If she requires more will RF to pain management. Heat or Ice can also be beneficial, in the form of a heating pad, hot shower or bathtub/hot tub use. She has already tried and failed the PT for pain relief. She currently is doing well with diabetes control. OARRS report was checked. I have asked the patient to be on the alert for new or increasing symptoms such as worsening pain, new numbness/tingling/radiation of pain, etc and to call directly if such should occur. The patient indicates understanding of these issues and agrees with the plan. * Carlos Warren RN - 06/27/2020 9:30 AM EDT Nurse Note: Review of Systems Constitutional: Negative for appetite change, fatigue and fever. HENT: Negative for congestion, dental problem, hearing loss, nosebleeds, postnasal drip, rhinorrhea, sinus pressure, sinus pain, sore throat, tinnitus and voice change. Eyes: Negative for pain, discharge, redness and visual disturbance. Respiratory: Negative for cough, shortness of breath and wheezing. Cardiovascular: Negative for chest pain and palpitations. Gastrointestinal: Negative for abdominal pain, constipation, diarrhea, nausea and vomiting. Endocrine: Negative for cold intolerance, heat intolerance and polyuria. Genitourinary: Negative for dysuria and enuresis. Musculoskeletal: Negative for arthralgias, back pain, joint swelling, myalgias and neck pain. Left hip pain Skin: Negative for color change and rash. Neurological: Negative for dizziness, tremors, syncope, weakness, numbness and headaches. Hematological: Does not bruise/bleed easily. Psychiatric/Behavioral: Negative for confusion, dysphoric mood, self-injury, sleep disturbance and suicidal ideas. The patient is not nervous/anxious. Nursing Assessment: Physical Exam documented in this encounter* Mir Melissa MD - 07/11/2020 8:45 AM EDT History of Present Illness Diabetes Type 2 diabetes: This is her third visit to the office. She has a need for upcoming hip surgery, but needs third her A1c down, initially at 12%. Also states that she needed to lose 20-40 pounds before hip surgery (she has lost 35 pounds since our first visit together). Currently taking metformin extended release 1000 g twice a day, Ozempic 0.5 mg weekly, Jardiance 10 mg daily, and Tresiba 50 units at night. She has met with a religious educator and had a productive visit. She denies neuropathic discomfort of the lower extremity. Has regular follow-up with ophthalmology, no retinopathy. She now has a DexCom device, showing she is 63% time in range. No hypoglycemia. 34% of blood sugarsare elevated. Next projective hemoglobin A1c of about 7.4%. She is having some postprandial hyperglycemia after dinner. Review of Systems Vitals: Blood pressure 149/85, pulse 95, temperature 98.3 F (36.8 C), temperature source Temporal, height 1.626 m (5' 4.02 ), weight 110.4 kg (243 lb 6.4 oz), last menstrual period 10/20/1996. Physical Exam Constitutional: General: She is not in acute distress. Appearance: She is not diaphoretic. HENT: Head: Normocephalic. Neck: Thyroid: No thyromegaly. Trachea: No tracheal deviation. Cardiovascular: Rate and Rhythm: Normal rate and regular rhythm. Heart sounds: Normal heart sounds. No murmur. Pulmonary: Effort: No respiratory distress. Breath sounds: No wheezing. Lymphadenopathy: Cervical: No cervical adenopathy. Skin: General: Skin is warm and dry. Neurological: Mental Status: She is alert and oriented to person, place, and time. Psychiatric: Judgment: Judgment normal. Foot exam: +1 dorsalis pedis pulses bilaterally, good foot care, no callus/ulceration Neurologic Exam Mental Status Oriented to person, place, and time. Assessment and Plan Type 2 diabetes: We will increase Ozempic to 1.0 mg weekly , increase charting to 25 mg in the morning , and we will decrease Tresiba to 40 units daily. We discussed low-carb/high-protein diet, she has been doing really well in that regard.. We discussed the limitations of physical activity due to her hip pain. She now has a DexCom device and is using it constantly, to good effect. Okay for hip surgery from an endocrine standpoint. Follow-up in 3 months with CGM download and fructosamine level. * Brenda Villela - 07/11/2020 8:45 AM EDT Nurse Note: Review of Systems Constitutional: Negative for fatigue, fever and unexpected weight change. Respiratory: Negative for shortness of breath. Cardiovascular: Negative for chest pain and leg swelling. Gastrointestinal: Negative for constipation, diarrhea, nausea and vomiting. Endocrine: Positive for polyuria. Negative for polydipsia. Neurological: Positive for weakness (Left hip). Negative for numbness. Psychiatric/Behavioral: Negative for sleep disturbance. Nursing Assessment: Physical Exam Last saw early childhood special educator in April 2020 documented in this encounter* Clari Moss MD - 07/17/2020 3:00 PM EDT Chief Complaint: Chief Complaint Patient presents with Hip Pain Pt here for Medical Optimization for total left hip replacement to be done on 08/08/[address] Hylton. Pt did all PAT testing. Procedure: Left hip THP Date of Procedure: 08/08/20 Surgeon: Dr. Hylton Type of Anesthesia: General. Melodie Ackerman is a 65 y.o. female who has been scheduled for the above procedure to address end stage left hip degenerative hip disease. She has had increased pain and difficulty with ambulation over the last years. She has failed conservative therapy including medications and physical therapy. She currently uses an ambulatory assist device. Regarding her cardiovascular fitness, she specifically denies chest pain, palpitations, shortness or breath, or exertional dyspnea. She also denies orthopnea or PND. In a typical week, her most strenuous activity is walking, but it is painful in the left hip due to the DJD. There is no chest pain. Other concerns today include none Active Problem List Shehas Diabetes mellitus; Osteoarthritis; Hyperlipidemia; Allergic rhinitis; Basal cell carcinoma; and body mass index of 40.0-49.9 on their problem list. Past Surgical History has a past surgical history that includes colposcopy (2006); excision skin lesion (06/15/2015); excision skin lesion (06/15/2015); laparotomy exploratory (1979); excision skin lesion (2004); and colonoscopy diagnostic. she has not had any difficulty tolerating these previous procedures, including no issues with bleeding or clotting, or anesthesia reactions Current Medications Current Outpatient Medications Medication Sig Dispense Refill aspirin 325 MG Tab take 325 mg by mouth daily.. Empagliflozin 25 MG tablet Take 1 tablet by mouth every morning before breakfast. 90 tablet 1 Insulin Degludec (Tresiba FlexTouch) 200 UNIT/ML Solution Pen-injector injection Inject 150 Units under the skin daily every morning. 12 Prefilled Pen/Syringe 2 metFORMIN-XR 500 MG Tab SR 24 HR Take 2 tablets by mouth 2 times daily. 360 tablet 3 Multiple Vitamins-Minerals (MULTIVITAMIN ADULT PO) take by mouth daily.. naproxen 500 MG tablet Take 1 tablet by mouth 2 times daily with meals. 60 tablet 0 [place]-3 Fatty Acids (FISH OIL) 1000 MG Cap take 1,000 mg by mouth at bedtime.. Semaglutide, 1 MG/DOSE, (Ozempic, 1 MG/DOSE,) 2 MG/1.5ML Solution Pen-injector Inject 1 mg under the skin once a week. 6 Prefilled Pen/Syringe 1 timolol maleate 0.5 % Solution ophthalmic solution Place 1 drop in both eyes daily. Generic. 90 daysupply. 1 Bottle 3 traMADol 50 MG tablet Take 1 tablet by mouth every 6 hours as needed for Severe Pain (pain) for up to 7 days. 30 tablet 0 Accu-Chek Guide Strip strip TESTING ONCE DAILY AND NEEDED 100 strip 1 Blood Glucose Monitoring Suppl (ACCU-CHEK COMPACT CARE KIT) Kit 1 kit by Unknown route daily. 1 kit0 Dexcom G6 Professor Of Sport Management Device For use with Dexcom G6 system. Use to check blood sugar four times daily 1 Device 0 Dexcom G6 Sensor Misc 1 Device by Unknown route every 10 days. (Patient not taking: Reported on 07/13/2020) 9 Each 1 Dexcom G6 Transmitter Misc For use with Dexcom G6 system. Use to check blood sugar four times daily(Patient not taking: Reported on 07/13/2020) 1 Each 1 fluconazole 150 MG tablet Take 1 tablet by mouth as needed (yeast infection). (Patient not taking: Reported on 06/27/2020) 1 tablet 1 No current facility-administered medications for this visit. Allergies She is allergic to codeine; erythromycin; ibuprofen; latex; penicillins; and povidone iodine. She has no known latex allergy Family History Notable for no unusual anesthesia reactions, bleeding or clotting disorders. Social History She is not a smoker She consumes no alcoholic beverages in a typical week She does not endorse any illicit drug use Review of Systems Constitutional: Positive for fatigue. Negative for appetite change and fever. HENT: Negative for congestion, dental problem, hearing loss, nosebleeds, postnasal drip, rhinorrhea, sinus pressure, sinus pain, sore throat, tinnitus and voice change. Eyes: Negative for pain, discharge, redness and visual disturbance. Respiratory: Negative for cough, shortness of breath and wheezing. Cardiovascular: Negative for chest pain and palpitations. Gastrointestinal: Negative for abdominal pain, constipation, diarrhea, nausea and vomiting. Endocrine: Negative for cold intolerance, heat intolerance and polyuria. Genitourinary: Negative for dysuria and enuresis. Musculoskeletal: Negative for arthralgias, back pain, joint swelling, myalgias and neck pain. Left hip pain Skin: Negative for color change and rash. Neurological: Negative for dizziness, tremors, syncope, weakness, numbness and headaches. Hematological: Does not bruise/bleed easily. Psychiatric/Behavioral: Negative for confusion, dysphoric mood, self-injury, sleep disturbance and suicidal ideas. The patient is not nervous/anxious. She denies any other acute concerns. Physical Exam Blood pressure 124/64, pulse 76, temperature 97.7 F (36.5 C), temperature source Temporal, resp. rate 16, height 1.626 m (5' 4 ), weight 111.6 kg (246 lb), last menstrual period 10/20/1996, SpO2 97 %., Body mass index is 42.23 kg/m . Physical Exam Constitutional: General: She is not in acute distress. Appearance: She is well-developed. She is not diaphoretic. Eyes: Conjunctiva/sclera: Conjunctivae normal. Pupils: Pupils are equal, round, and reactive to light. Neck: Musculoskeletal: Normal range of motion. Cardiovascular: Rate and Rhythm: Normal rate and regular rhythm. Heart sounds: No murmur. Pulmonary: Effort: Pulmonary effort is normal. No respiratory distress. Breath sounds: Normal breath sounds. No wheezing. Abdominal: General: Bowel sounds are normal. There is no distension. Palpations: Abdomen is soft. Tenderness: There is no abdominal tenderness. There is no rebound. Musculoskeletal: General: No swelling or tenderness. Left hip: She exhibits decreased range of motion and crepitus. She exhibits normal strength, no tenderness, no bony tenderness and no swelling. Right lower leg: No edema. Left lower leg: No edema. Skin: General: Skin is warm and dry. 1. Primary osteoarthritis of left hip She appears to be in optimal condition for the planned procedure Cardiovascular: History reveals no suggestion of unstable angina. . ECG today is: NSR with no acuteST or T wave abnormalities.. No further cardiac testing is needed prior to surgery. Continue to take anti-hypertensive medications through the surgery. Pt able to take Celecoxib post operatively.. Respiratory: No COPD or chronic lung disease or asthma. Normal O2 Sat on RA Allergies: No latex allergy. Medication she is allergic to codeine; erythromycin; ibuprofen; latex;penicillins; and povidone iodine. Hematologic: No family or personal history of bleeding or clotting disorders. Misc: Reviewed her A1C which is 7.0 endorsing excellent glycemic control. Remainder of liver, renaland hematological parameters are all normal. No further recommendations for medical optimization. * Carlos Warren RN - 07/17/2020 3:00 PM EDT Nurse Note: Review of Systems Constitutional: Positive for fatigue. Negative for appetite change and fever. HENT: Negative for congestion, dental problem, hearing loss, nosebleeds, postnasal drip, rhinorrhea, sinus pressure, sinus pain, sore throat, tinnitus and voice change. Eyes: Negative for pain, discharge, redness and visual disturbance. Respiratory: Negative for cough, shortness of breath and wheezing. Cardiovascular: Negative for chest pain and palpitations. Gastrointestinal: Negative for abdominal pain, constipation, diarrhea, nausea and vomiting. Endocrine: Negative for cold intolerance, heat intolerance and polyuria. Genitourinary: Negative for dysuria and enuresis. Musculoskeletal: Negative for arthralgias, back pain, joint swelling, myalgias and neck pain. Left hip pain Skin: Negative for color change and rash. Neurological: Negative for dizziness, tremors, syncope, weakness, numbness and headaches. Hematological: Does not bruise/bleed easily. Psychiatric/Behavioral: Negative for confusion, dysphoric mood, self-injury, sleep disturbance and suicidal ideas. The patient is not nervous/anxious. Nursing Assessment: Physical Exam documented in this encounter* Gladys Dawson, OD - 07/25/2020 10:30 AM EDT REASON FOR VISIT Chief Complaint Diabetic Retinal Exam HISTORY OF PRESENT ILLNESS HPI IDDM, managed by Dr Melissa Most recent HbA1c = 7.0% No visual complaints from patient No eye discomfort Last edited by Gladys Dawson, OD on 07/27/2020 11:16 AM. (History) Allergies, medications & history reviewed & updated by Gladys Dawson, OD Assessment: 1) IDDM Diabetes with mild non-proliferative retinopathy OU - poorly-controlled by patient's own admission 2) Cataract OU- Non-surgical. No ADL impact 3) Ocular hypertension-- well controlled with Timolol 0.5% every day OU. No change to nerve fiber layers 4) Choroidal nevus OS-- stable by annual assessments by Dr Dawson Plan: 1) Continue Dr Timmons for choroidal nevus yearly comparison/ monitoring (He sees yearly in August) 2) Continue Timolol 0.5% QAM OU-- escribed today to [facility] in [place] 3) [address] Dawson dilation, OCT, IOP testing. Dr Dawson will begin yearly exams every January. This weill stagger visits between both eye providers. Sooner if having problems or changes. documented in this encounter* Thierno Gutierrez, INVESTMENT PROFESSIONAL-BURLING AND JOINING SUPERVISOR - 08/30/2020 11:40 AM EST MRS Melodie Ackerman is 3 weeks s/p left Anterolateral total hip arthroplasty. She is progressing nicely in her recovery. She is TDWB with global restrictions. She reports 0 out of 10 pain. She is using mobic and tylenol for pain control and asa for DVT prophylaxis along with KELLY hose. Physical Exam: Today on exam incision is healing nicely with global hip swelling, no erythema, drainage or evidence of dehiscence. Calves are soft and nontender with negative Homans sign. ROM is fulland supple with no pain or impingement. Distal neurovascular exam is intact. Visit Vitals Temp 97.5 F (36.4 C) (Temporal) Ht 1.626 m (5' 4 ) Wt 111.6 kg (246 lb) LMP 10/20/1996 (Within Years) BMI 42.23 kg/m Diagnostic study/interpretation: Plain films were obtained today and reveal a cementless total hip arthroplasty in good position and alignment without evidence of implant loosening or migration as compared to the immediate postop film. Assessment/Plan: 3 week postop MEG via anterolateral approach. Continue with DVT prophylaxis as prescribed. Dental prophylaxis was given. Follow up 6 weeks postop unless an earlier need arises. All questions and concerrns were addressed at this visit. All pertinant portions of the clinical forestry support specialist documentation was reviewed. SOY Figueroa I have reviewed the findings of the clinical forestry support specialist and agree with their assessment. SOY Figueroa Ortho Nurse Established Patient Intake Room#: 4 Date: 08/30/2020 11:38 AM Patient: Melodie Ackerman MR#: [id number] : 1955 Age: 65 y.o. Touchdown weight bearing with global hip precautions, abductor pillow at night and when sleeping for at least 6 weeks. Patient has not been wearing kelly hose everyday for 30 .Disscussed with patient waiting 3 months for any dental work and taking ATB for any dental work from now on. Patient using a walker for assistance with walking. Patient states pain is 1/10 . . Referring Physician: Thierno Gutierrez APRN-CNP Insurance: Payor: [employer] / Plan: O NETWORK ACCESS / Product Type: *No Product type* / Chief Complaint Patient presents with Left Hip - Post Op Visit Visit Vitals LMP 10/20/1996 (Within Years) Pain Recent Labs No results found for: CRP No results found for: SEDRATE Lab Results Component Value Date WBC 12.0 (H) 08/09/2020 HGB 10.1 (L) 08/09/2020 HCT 31.2 (L) 08/09/2020 PLATELET 185 08/09/2020 MCV 90.5 08/09/2020 History Past Medical History: Diagnosis Date Cervical dysphagia 2006 Left hip pain 09/2017 Hamstring tendonitis at origin 03/03/2018 Diabetic eye exam 09/14/2018 no retinopathy noted Allergic rhinitis Arthritis Basal cell carcinoma back and face Diabetes mellitus Type 2 Hyperlipidemia SHANI (obstructive sleep apnea) cpap Osteoarthritis Past Surgical History: Procedure Laterality Date ARTHROPLASTY HIP TOTAL Left 08/08/2020 Laterality: Left; Surgeon: Sai Hylton MD; Location: [facility] EXCISION SKIN LESION 06/15/2015 Right orthodox 1.5cm EXCISION SKIN LESION 06/15/2015 Forehead 2cm COLPOSCOPY 2006 LEEPS EXCISION SKIN LESION 2004 Basal Cell Carcinoma Left posterior shoulder LAPAROTOMY EXPLORATORY 1979 COLONOSCOPY DIAGNOSTIC Family History: Her family history includes Arrhythmia in her mother; Arthritis - Osteo in her mother; Breast Cancer in her mother; Cancer in her paternal grandfather; Colorectal Polyps in her father; Dementia in her mother; Diabetes in her father and mother; Pacemaker in her mother; Prostate Cancer in her father; Stroke in her maternal grandmother. Social History: Her reports that she has never smoked. She has never used smokeless tobacco. She reports that she does not drink alcohol or use drugs. Outpatient Medications Prior to Visit Medication Sig Dispense Refill Accu-Chek Guide Strip strip TESTING ONCE DAILY AND NEEDED 100 strip 1 acetaminophen 325 MG tablet Take 2 tablets by mouth every 4 hours as needed for Mild Pain. 50 tablet 1 aspirin 325 MG Tab take 325 mg by mouth daily.. ASPIRIN EC [address] Take 1 table twice a day for 30days. This medication is for blood clot prevention. 60 tablet 0 Blood Glucose Monitoring Suppl (ACCU-CHEK COMPACT CARE KIT) Kit 1 kit by Unknown route daily. 1 kit0 Dexcom G6 Professor Of Sport Management Device For use with Dexcom G6 system. Use to check blood sugar four times daily 1 Device 0 Dexcom G6 Sensor Misc 1 Device by Unknown route every 10 days. (Patient not taking: Reported on 07/13/2020) 9 Each 1 Dexcom G6 Transmitter Misc For use with Dexcom G6 system. Use to check blood sugar four times daily(Patient not taking: Reported on 07/13/2020) 1 Each 1 docusate 100 MG capsule Take 1 capsule by mouth 2 times daily. 60 capsule 0 Empagliflozin 25 MG tablet Take 1 tablet by mouth every morning before breakfast. 90 tablet 1 hydroCODone-acetaminophen 5-325 MG tablet Take 1-2 tablets by mouth every 6 hours as needed for Severe Pain for up to 7 days. Do not take over 4000mg acetaminophen daily. 20 tablet 0 Insulin Degludec (Tresiba FlexTouch) 200 UNIT/ML Solution Pen-injector injection Inject 150 Units under the skin daily every morning. 12 Prefilled Pen/Syringe 2 meloxicam 7.5 MG tablet Take 1 tablet by mouth daily. 30 tablet 0 metFORMIN-XR 500 MG Tab SR 24 HR Take 2 tablets by mouth 2 times daily. 360 tablet 3 Multiple Vitamins-Minerals (MULTIVITAMIN ADULT PO) take by mouth daily.. [place]-3 Fatty Acids (FISH OIL) 1000 MG Cap take 1,000 mg by mouth at bedtime.. omeprazole [address] capsule Take 1 capsule by mouth daily. 30 capsule 0 Semaglutide, 1 MG/DOSE, (Ozempic, 1 MG/DOSE,) 2 MG/1.5ML Solution Pen-injector Inject 1 mg under the skin once a week. 6 Prefilled Pen/Syringe 1 timolol maleate 0.5 % Solution ophthalmic solution Place 1 drop in both eyes daily. Generic. 90 daysupply. 1 Bottle 3 traMADol 50 MG tablet 1-2 tabs po q 6 hr PRN pain 20 tablet 0 No facility-administered medications prior to visit. Current Outpatient Medications: Accu-Chek Guide Strip strip, TESTING ONCE DAILY AND NEEDED, Disp: 100 strip, Rfl: 1 acetaminophen 325 MG tablet, Take 2 tablets by mouth every 4 hours as needed for Mild Pain., Disp: 50 tablet, Rfl: 1 aspirin 325 MG Tab, take 325 mg by mouth daily.., Disp: , Rfl: ASPIRIN EC [address], Take 1 table twice a day for 30days. This medication is for blood clot prevention., Disp: 60 tablet, Rfl: 0 Blood Glucose Monitoring Suppl (ACCU-CHEK COMPACT CARE KIT) Kit, 1 kit by Unknown route daily., Disp: 1 kit, Rfl: 0 Dexcom G6 Professor Of Sport Management Device, For use with Dexcom G6 system. Use to check blood sugar four times daily, Disp: 1 Device, Rfl: 0 Dexcom G6 Sensor Misc, 1 Device by Unknown route every 10 days. (Patient not taking: Reported on 07/13/2020), Disp: 9 Each, Rfl: 1 Dexcom G6 Transmitter Misc, For use with Dexcom G6 system. Use to check blood sugar four times daily (Patient not taking: Reported on 07/13/2020), Disp: 1 Each, Rfl: 1 docusate 100 MG capsule, Take 1 capsule by mouth 2 times daily., Disp: 60 capsule, Rfl: 0 Empagliflozin 25 MG tablet, Take 1 tablet by mouth every morning before breakfast., Disp: 90 tablet, Rfl: 1 hydroCODone-acetaminophen 5-325 MG tablet, Take 1-2 tablets by mouth every 6 hours as needed for Severe Pain for up to 7 days. Do not take over 4000mg acetaminophen daily., Disp: 20 tablet, Rfl: 0 Insulin Degludec (Tresiba FlexTouch) 200 UNIT/ML Solution Pen-injector injection, Inject 150 Units under the skin daily every morning., Disp: 12 Prefilled Pen/Syringe, Rfl: 2 meloxicam 7.5 MG tablet, Take 1 tablet by mouth daily., Disp: 30 tablet, Rfl: 0 metFORMIN-XR 500 MG Tab SR 24 HR, Take 2 tablets by mouth 2 times daily., Disp: 360 tablet, Rfl: 3 Multiple Vitamins-Minerals (MULTIVITAMIN ADULT PO), take by mouth daily.., Disp: , Rfl: [place]-3 Fatty Acids (FISH OIL) 1000 MG Cap, take 1,000 mg by mouth at bedtime.., Disp: , Rfl: omeprazole [address] capsule, Take 1 capsule by mouth daily., Disp: 30 capsule, Rfl: 0 Semaglutide, 1 MG/DOSE, (Ozempic, 1 MG/DOSE,) 2 MG/1.5ML Solution Pen-injector, Inject 1 mg under the skin once a week., Disp: 6 Prefilled Pen/Syringe, Rfl: 1 timolol maleate 0.5 % Solution ophthalmic solution, Place 1 drop in both eyes daily. Generic. 90 day supply., Disp: 1 Bottle, Rfl: 3 traMADol 50 MG tablet, 1-2 tabs po q 6 hr PRN pain, Disp: 20 tablet, Rfl: 0 Allergies: She is allergic to codeine; erythromycin; ibuprofen; latex; penicillins; and povidone iodine. * Maddy Adhikari - 08/30/2020 11:40 AM EST Ortho Nurse Established Patient Intake Room#: 4 Date: 08/30/2020 11:38 AM Patient: Melodie Ackerman MR#: [id number] : 1955 Age: 65 y.o. Touchdown weight bearing with global hip precautions, abductor pillow at night and when sleeping for at least 6 weeks. Patient has not been wearing kelly hose everyday for 30 .Disscussed with patient waiting 3 months for any dental work and taking ATB for any dental work from now on. Patient using a walker for assistance with walking. Patient states pain is /10 . . Referring Physician: Thierno Gutierrez APRN-CNP Insurance: Payor: [employer] / Plan: [employer] NETWORK ACCESS / Product Type: *No Product type* / Chief Complaint Patient presents with Left Hip - Post Op Visit Visit Vitals LMP 10/20/1996 (Within Years) Pain Recent Labs No results found for: CRP No results found for: SEDRATE Lab Results Component Value Date WBC 12.0 (H) 08/09/2020 HGB 10.1 (L) 08/09/2020 HCT 31.2 (L) 08/09/2020 PLATELET 185 08/09/2020 MCV 90.5 08/09/2020 History Past Medical History: Diagnosis Date Cervical dysphagia 2006 Left hip pain 09/2017 Hamstring tendonitis at origin 03/03/2018 Diabetic eye exam 09/14/2018 no retinopathy noted Allergic rhinitis Arthritis Basal cell carcinoma back and face Diabetes mellitus Type 2 Hyperlipidemia SHANI (obstructive sleep apnea) cpap Osteoarthritis Past Surgical History: Procedure Laterality Date ARTHROPLASTY HIP TOTAL Left 08/08/2020 Laterality: Left; Surgeon: Sai Hylton MD; Location: [facility] EXCISION SKIN LESION 06/15/2015 Right orthodox 1.5cm EXCISION SKIN LESION 06/15/2015 Forehead 2cm COLPOSCOPY 2007 LEEPS EXCISION SKIN LESION 2004 Basal Cell Carcinoma Left posterior shoulder LAPAROTOMY EXPLORATORY 1979 COLONOSCOPY DIAGNOSTIC Family History: Her family history includes Arrhythmia in her mother; Arthritis - Osteo in her mother; Breast Cancer in her mother; Cancer in her paternal grandfather; Colorectal Polyps in her father; Dementia in her mother; Diabetes in her father and mother; Pacemaker in her mother; Prostate Cancer in her father; Stroke in her maternal grandmother. Social History: Her reports that she has never smoked. She has never used smokeless tobacco. She reports that she does not drink alcohol or use drugs. Outpatient Medications Prior to Visit Medication Sig Dispense Refill Accu-Chek Guide Strip strip TESTING ONCE DAILY AND NEEDED 100 strip 1 acetaminophen 325 MG tablet Take 2 tablets by mouth every 4 hours as needed for Mild Pain. 50 tablet 1 aspirin 325 MG Tab take 325 mg by mouth daily.. ASPIRIN EC [address] Take 1 table twice a day for 30days. This medication is for blood clot prevention. 60 tablet 0 Blood Glucose Monitoring Suppl (ACCU-CHEK COMPACT CARE KIT) Kit 1 kit by Unknown route daily. 1 kit0 Dexcom G6 Professor Of Sport Management Device For use with Dexcom G6 system. Use to check blood sugar four times daily 1 Device 0 Dexcom G6 Sensor Misc 1 Device by Unknown route every 10 days. (Patient not taking: Reported on 07/13/2020) 9 Each 1 Dexcom G6 Transmitter Misc For use with Dexcom G6 system. Use to check blood sugar four times daily(Patient not taking: Reported on 07/13/2020) 1 Each 1 docusate 100 MG capsule Take 1 capsule by mouth 2 times daily. 60 capsule 0 Empagliflozin 25 MG tablet Take 1 tablet by mouth every morning before breakfast. 90 tablet 1 hydroCODone-acetaminophen 5-325 MG tablet Take 1-2 tablets by mouth every 6 hours as needed for Severe Pain for up to 7 days. Do not take over 4000mg acetaminophen daily. 20 tablet 0 Insulin Degludec (Tresiba FlexTouch) 200 UNIT/ML Solution Pen-injector injection Inject 150 Units under the skin daily every morning. 12 Prefilled Pen/Syringe 2 meloxicam 7.5 MG tablet Take 1 tablet by mouth daily. 30 tablet 0 metFORMIN-XR 500 MG Tab SR 24 HR Take 2 tablets by mouth 2 times daily. 360 tablet 3 Multiple Vitamins-Minerals (MULTIVITAMIN ADULT PO) take by mouth daily.. [place]-3 Fatty Acids (FISH OIL) 1000 MG Cap take 1,000 mg by mouth at bedtime.. omeprazole [address] capsule Take 1 capsule by mouth daily. 30 capsule 0 Semaglutide, 1 MG/DOSE, (Ozempic, 1 MG/DOSE,) 2 MG/1.5ML Solution Pen-injector Inject 1 mg under the skin once a week. 6 Prefilled Pen/Syringe 1 timolol maleate 0.5 % Solution ophthalmic solution Place 1 drop in both eyes daily. Generic. 90 daysupply. 1 Bottle 3 traMADol 50 MG tablet 1-2 tabs po q 6 hr PRN pain 20 tablet 0 No facility-administered medications prior to visit. Current Outpatient Medications: Accu-Chek Guide Strip strip, TESTING ONCE DAILY AND NEEDED, Disp: 100 strip, Rfl: 1 acetaminophen 325 MG tablet, Take 2 tablets by mouth every 4 hours as needed for Mild Pain., Disp: 50 tablet, Rfl: 1 aspirin 325 MG Tab, take 325 mg by mouth daily.., Disp: , Rfl: ASPIRIN EC [address], Take 1 table twice a day for 30days. This medication is for blood clot prevention., Disp: 60 tablet, Rfl: 0 Blood Glucose Monitoring Suppl (ACCU-CHEK COMPACT CARE KIT) Kit, 1 kit by Unknown route daily., Disp: 1 kit, Rfl: 0 Dexcom G6 Professor Of Sport Management Device, For use with Dexcom G6 system. Use to check blood sugar four times daily, Disp: 1 Device, Rfl: 0 Dexcom G6 Sensor Misc, 1 Device by Unknown route every 10 days. (Patient not taking: Reported on 07/13/2020), Disp: 9 Each, Rfl: 1 Dexcom G6 Transmitter Misc, For use with Dexcom G6 system. Use to check blood sugar four times daily (Patient not taking: Reported on 07/13/2020), Disp: 1 Each, Rfl: 1 docusate 100 MG capsule, Take 1 capsule by mouth 2 times daily., Disp: 60 capsule, Rfl: 0 Empagliflozin 25 MG tablet, Take 1 tablet by mouth every morning before breakfast., Disp: 90 tablet, Rfl: 1 hydroCODone-acetaminophen 5-325 MG tablet, Take 1-2 tablets by mouth every 6 hours as needed for Severe Pain for up to 7 days. Do not take over 4000mg acetaminophen daily., Disp: 20 tablet, Rfl: 0 Insulin Degludec (Tresiba FlexTouch) 200 UNIT/ML Solution Pen-injector injection, Inject 150 Units under the skin daily every morning., Disp: 12 Prefilled Pen/Syringe, Rfl: 2 meloxicam 7.5 MG tablet, Take 1 tablet by mouth daily., Disp: 30 tablet, Rfl: 0 metFORMIN-XR 500 MG Tab SR 24 HR, Take 2 tablets by mouth 2 times daily., Disp: 360 tablet, Rfl: 3 Multiple Vitamins-Minerals (MULTIVITAMIN ADULT PO), take by mouth daily.., Disp: , Rfl: [place]-3 Fatty Acids (FISH OIL) 1000 MG Cap, take 1,000 mg by mouth at bedtime.., Disp: , Rfl: omeprazole [address] capsule, Take 1 capsule by mouth daily., Disp: 30 capsule, Rfl: 0 Semaglutide, 1 MG/DOSE, (Ozempic, 1 MG/DOSE,) 2 MG/1.5ML Solution Pen-injector, Inject 1 mg under the skin once a week., Disp: 6 Prefilled Pen/Syringe, Rfl: 1 timolol maleate 0.5 % Solution ophthalmic solution, Place 1 drop in both eyes daily. Generic. 90 day supply., Disp: 1 Bottle, Rfl: 3 traMADol 50 MG tablet, 1-2 tabs po q 6 hr PRN pain, Disp: 20 tablet, Rfl: 0 Allergies: She is allergic to codeine; erythromycin; ibuprofen; latex; penicillins; and povidone iodine. documented in this encounter* Thierno Gutierrez, LINDY-BURLING AND JOINING SUPERVISOR - 09/27/2020 10:20 AM EST HISTORY OF PRESENT ILLNESS: Else is an established patient of [facility] [employer] [facility]. She is here today for followup. She is now about 6 weeks out from left hip arthroplasty with massive adductor repair. She reports overall she has been doing well. No problems with the wound. No fevers or chills. No changes constitutionally. Not much in the way of pain in and around the hip. She has an occasional feeling of a tug on the side of the hip, which she does not qualify really as a pain just sort of a pinching feeling and is otherwise pleased with the outcomes of the operation. PHYSICAL EXAMINATION: GENERAL: She is alert, oriented, and age-appropriate female, in no acute distress. She is pleasant and cooperative. EXTREMITIES: The left lower extremity has thigh and calf soft, nontender. Normal neurovascular status. Negative Homans sign. Full and supple range of motion of the hip, though the far limits of this were not tested given her ongoing hip precautions. She has an anterolateral-based hip incision, which is without redness, drainage, dehiscence, discharge, or signs and symptoms of infection. There are 3 small scab areas that remain in the incision. These were not deroofed as they are left intact at this point, but otherwise no surrounding redness or drainage. No loculated fluid collections were palpable. Right lower extremity has thigh and calf soft, nontender. Normal neurovascular status. Negative Homans sign. DIAGNOSTIC STUDY INTERPRETATION: AP pelvis and left hip series taken today demonstrate stable position and alignment of the cementless total hip arthroplasty. It is in unchanged position and alignment when compared to previous imaging. No evidence of periprosthetic implant loosening or migration. No evidence of fracture. ASSESSMENT: 1. Six weeks status post left total hip arthroplasty. 2. History of massive adductor tear repair. PLAN: I reviewed my findings with Melodie. Overall, I am pleased with the outcomes of the operation. I expect continued improvement in strength and mobility moving forward. We talked about when to initiate physical therapy. Ideally, we would not do that until 9-12 weeks postop. She is unsure about when she is going to return to work and I would like her to follow up in 3 weeks for clinical and radiographic examination. If she is still feeling weak at that time, could consider physical therapy at that point. All of her questions and concerns were addressed today to her satisfaction. I will follow up with her in 3 more weeks for clinical and radiographic examination. Call with any questions or concerns in the meantime. (DOC:[id number]) I have reviewed the findings of the clinical forestry support specialist and agree with their assessment. Thierno Gutierrez APRN-CONSUELO Ortho Nurse Established Patient Intake Room#: 5 Date: 09/27/2020 10:32 AM Patient: Melodie Ackerman MR#: [id number] : 1955 Age: 65 y.o. Pt is 6 wks out from L MEG with Massive abductor tear, approximately 90% gluteus minimus and gluteus medius. Weight bearing check. She is continuing TDWB and using a walker for assistive device. She states that she has very minimal pain. Referring Physician: Self, Self Insurance: Payor: [employer] / Plan: MMO NETWORK ACCESS / Product Type: *No Product type* / Chief Complaint Patient presents with Left Hip - Post Op Visit Visit Vitals Temp 97.1 F (36.2 C) (Temporal) Ht 1.626 m (5' 4 ) Wt 111.6 kg (246 lb) LMP 10/20/1996 (Within Years) BMI 42.23 kg/m Pain Recent Labs No results found for: CRP No results found for: SEDRATE Lab Results Component Value Date WBC 12.0 (H) 08/09/2020 HGB 10.1 (L) 08/09/2020 HCT 31.2 (L) 08/09/2020 PLATELET 185 08/09/2020 MCV 90.5 08/09/2020 History Past Medical History: Diagnosis Date Cervical dysphagia 2006 Left hip pain 09/2017 Hamstring tendonitis at origin 03/03/2018 Diabetic eye exam 09/14/2018 no retinopathy noted Allergic rhinitis Arthritis Basal cell carcinoma back and face Diabetes mellitus Type 2 Hyperlipidemia SHANI (obstructive sleep apnea) cpap Osteoarthritis Past Surgical History: Procedure Laterality Date ARTHROPLASTY HIP TOTAL Left 08/08/2020 Laterality: Left; Surgeon: Sai Hylton MD; Location: [facility] EXCISION SKIN LESION 06/15/2015 Right orthodox 1.5cm EXCISION SKIN LESION 06/15/2015 Forehead 2cm COLPOSCOPY 2006 LEEPS EXCISION SKIN LESION 2004 Basal Cell Carcinoma Left posterior shoulder LAPAROTOMY EXPLORATORY 1979 COLONOSCOPY DIAGNOSTIC Family History: Her family history includes Arrhythmia in her mother; Arthritis - Osteo in her mother; Breast Cancer in her mother; Cancer in her paternal grandfather; Colorectal Polyps in her father; Dementia in her mother; Diabetes in her father and mother; Pacemaker in her mother; Prostate Cancer in her father; Stroke in her maternal grandmother. Social History: Her reports that she has never smoked. She has never used smokeless tobacco. She reports that she does not drink alcohol or use drugs. Outpatient Medications Prior to Visit Medication Sig Dispense Refill Accu-Chek Guide Strip strip TESTING ONCE DAILY AND NEEDED 100 strip 1 aspirin 325 MG Tab take 325 mg by mouth daily.. Blood Glucose Monitoring Suppl (ACCU-CHEK COMPACT CARE KIT) Kit 1 kit by Unknown route daily. 1 kit0 clindamycin 150 MG capsule Take 4 capsules 1 hour before the procedure 8 capsule 1 Dexcom G6 Professor Of Sport Management Device For use with Dexcom G6 system. Use to check blood sugar four times daily 1 Device 0 Dexcom G6 Sensor Misc 1 Device by Unknown route every 10 days. 9 Each 1 Dexcom G6 Transmitter Misc For use with Dexcom G6 system. Use to check blood sugar four times daily1 Each 1 Empagliflozin 25 MG tablet Take 1 tablet by mouth every morning before breakfast. 90 tablet 1 Insulin Degludec (Tresiba FlexTouch) 200 UNIT/ML Solution Pen-injector injection Inject 150 Units under the skin daily every morning. 12 Prefilled Pen/Syringe 2 metFORMIN-XR 500 MG Tab SR 24 HR Take 2 tablets by mouth 2 times daily. 360 tablet 3 Multiple Vitamins-Minerals (MULTIVITAMIN ADULT PO) take by mouth daily.. [place]-3 Fatty Acids (FISH OIL) 1000 MG Cap take 1,000 mg by mouth at bedtime.. Semaglutide, 1 MG/DOSE, (Ozempic, 1 MG/DOSE,) 2 MG/1.5ML Solution Pen-injector Inject 1 mg under the skin once a week. 6 Prefilled Pen/Syringe 1 timolol maleate 0.5 % Solution ophthalmic solution Place 1 drop in both eyes daily. Generic. 90 daysupply. 1 Bottle 3 acetaminophen 325 MG tablet Take 2 tablets by mouth every 4 hours as needed for Mild Pain. (Patientnot taking: Reported on 09/27/2020) 50 tablet 1 ASPIRIN EC [address] Take 1 table twice a day for 30days. This medication is for blood clot prevention. (Patient not taking: Reported on 09/27/2020) 60 tablet 0 docusate 100 MG capsule Take 1 capsule by mouth 2 times daily. (Patient not taking: Reported on 08/30/2020) 60 capsule 0 hydroCODone-acetaminophen 5-325 MG tablet Take 1-2 tablets by mouth every 6 hours as needed for Severe Pain for up to 7 days. Do not take over 4000mg acetaminophen daily. 20 tablet 0 meloxicam 7.5 MG tablet Take 1 tablet by mouth daily. (Patient not taking: Reported on 09/27/2020) 30 tablet 0 omeprazole [address] capsule Take 1 capsule by mouth daily. (Patient not taking: Reported on 09/27/2020) 30 capsule 0 traMADol 50 MG tablet 1-2 tabs po q 6 hr PRN pain 20 tablet 0 No facility-administered medications prior to visit. Current Outpatient Medications: Accu-Chek Guide Strip strip, TESTING ONCE DAILY AND NEEDED, Disp: 100 strip, Rfl: 1 aspirin 325 MG Tab, take 325 mg by mouth daily.., Disp: , Rfl: Blood Glucose Monitoring Suppl (ACCU-CHEK COMPACT CARE KIT) Kit, 1 kit by Unknown route daily., Disp: 1 kit, Rfl: 0 clindamycin 150 MG capsule, Take 4 capsules 1 hour before the procedure, Disp: 8 capsule, Rfl: 1 Dexcom G6 Professor Of Sport Management Device, For use with Dexcom G6 system. Use to check blood sugar four times daily, Disp: 1 Device, Rfl: 0 Dexcom G6 Sensor Misc, 1 Device by Unknown route every 10 days., Disp: 9 Each, Rfl: 1 Dexcom G6 Transmitter Misc, For use with Dexcom G6 system. Use to check blood sugar four times daily, Disp: 1 Each, Rfl: 1 Empagliflozin 25 MG tablet, Take 1 tablet by mouth every morning before breakfast., Disp: 90 tablet, Rfl: 1 Insulin Degludec (Tresiba FlexTouch) 200 UNIT/ML Solution Pen-injector injection, Inject 150 Units under the skin daily every morning., Disp: 12 Prefilled Pen/Syringe, Rfl: 2 metFORMIN-XR 500 MG Tab SR 24 HR, Take 2 tablets by mouth 2 times daily., Disp: 360 tablet, Rfl: 3 Multiple Vitamins-Minerals (MULTIVITAMIN ADULT PO), take by mouth daily.., Disp: , Rfl: [place]-3 Fatty Acids (FISH OIL) 1000 MG Cap, take 1,000 mg by mouth at bedtime.., Disp: , Rfl: Semaglutide, 1 MG/DOSE, (Ozempic, 1 MG/DOSE,) 2 MG/1.5ML Solution Pen-injector, Inject 1 mg under the skin once a week., Disp: 6 Prefilled Pen/Syringe, Rfl: 1 timolol maleate 0.5 % Solution ophthalmic solution, Place 1 drop in both eyes daily. Generic. 90 day supply., Disp: 1 Bottle, Rfl: 3 acetaminophen 325 MG tablet, Take 2 tablets by mouth every 4 hours as needed for Mild Pain. (Patient not taking: Reported on 09/27/2020), Disp: 50 tablet, Rfl: 1 ASPIRIN EC [address], Take 1 table twice a day for 30days. This medication is for blood clot prevention. (Patient not taking: Reported on 09/27/2020), Disp: 60 tablet, Rfl: 0 docusate 100 MG capsule, Take 1 capsule by mouth 2 times daily. (Patient not taking: Reported on 08/30/2020), Disp: 60 capsule, Rfl: 0 hydroCODone-acetaminophen 5-325 MG tablet, Take 1-2 tablets by mouth every 6 hours as needed for Severe Pain for up to 7 days. Do not take over 4000mg acetaminophen daily., Disp: 20 tablet, Rfl: 0 meloxicam 7.5 MG tablet, Take 1 tablet by mouth daily. (Patient not taking: Reported on 09/27/2020),Disp: 30 tablet, Rfl: 0 omeprazole [address] capsule, Take 1 capsule by mouth daily. (Patient not taking: Reported on 09/27/2020), Disp: 30 capsule, Rfl: 0 traMADol 50 MG tablet, 1-2 tabs po q 6 hr PRN pain, Disp: 20 tablet, Rfl: 0 Allergies: She is allergic to codeine; erythromycin; ibuprofen; latex; penicillins; and povidone iodine. * Christine Mcintyre LPN - 09/27/2020 10:20 AM EST Ortho Nurse Established Patient Intake Room#: 5 Date: 09/27/2020 10:32 AM Patient: Melodie Ackerman MR#: [id number] : 1955 Age: 65 y.o. Pt is 6 wks out from L MEG with Massive abductor tear, approximately 90% gluteus minimus and gluteus medius. Weight bearing check. She is continuing TDWB and using a walker for assistive device. She states that she has very minimal pain. Referring Physician: Self, Self Insurance: Payor: [employer] / Plan: MMO NETWORK ACCESS / Product Type: *No Product type* / Chief Complaint Patient presents with Left Hip - Post Op Visit Visit Vitals Temp 97.1 F (36.2 C) (Temporal) Ht 1.626 m (5' 4 ) Wt 111.6 kg (246 lb) LMP 10/20/1996 (Within Years) BMI 42.23 kg/m Pain Recent Labs No results found for: CRP No results found for: SEDRATE Lab Results Component Value Date WBC 12.0 (H) 08/09/2020 HGB 10.1 (L) 08/09/2020 HCT 31.2 (L) 08/09/2020 PLATELET 185 08/09/2020 MCV 90.5 08/09/2020 History Past Medical History: Diagnosis Date Cervical dysphagia 2006 Left hip pain 09/2017 Hamstring tendonitis at origin 03/03/2018 Diabetic eye exam 09/14/2018 no retinopathy noted Allergic rhinitis Arthritis Basal cell carcinoma back and face Diabetes mellitus Type 2 Hyperlipidemia SHANI (obstructive sleep apnea) cpap Osteoarthritis Past Surgical History: Procedure Laterality Date ARTHROPLASTY HIP TOTAL Left 08/08/2020 Laterality: Left; Surgeon: Sai Hylton MD; Location: [facility] EXCISION SKIN LESION 06/15/2015 Right orthodox 1.5cm EXCISION SKIN LESION 06/15/2015 Forehead 2cm COLPOSCOPY 2006 LEEPS EXCISION SKIN LESION 2004 Basal Cell Carcinoma Left posterior shoulder LAPAROTOMY EXPLORATORY 1979 COLONOSCOPY DIAGNOSTIC Family History: Her family history includes Arrhythmia in her mother; Arthritis - Osteo in her mother; Breast Cancer in her mother; Cancer in her paternal grandfather; Colorectal Polyps in her father; Dementia in her mother; Diabetes in her father and mother; Pacemaker in her mother; Prostate Cancer in her father; Stroke in her maternal grandmother. Social History: Her reports that she has never smoked. She has never used smokeless tobacco. She reports that she does not drink alcohol or use drugs. Outpatient Medications Prior to Visit Medication Sig Dispense Refill Accu-Chek Guide Strip strip TESTING ONCE DAILY AND NEEDED 100 strip 1 aspirin 325 MG Tab take 325 mg by mouth daily.. Blood Glucose Monitoring Suppl (ACCU-CHEK COMPACT CARE KIT) Kit 1 kit by Unknown route daily. 1 kit0 clindamycin 150 MG capsule Take 4 capsules 1 hour before the procedure 8 capsule 1 Dexcom G6 Professor Of Sport Management Device For use with Dexcom G6 system. Use to check blood sugar four times daily 1 Device 0 Dexcom G6 Sensor Misc 1 Device by Unknown route every 10 days. 9 Each 1 Dexcom G6 Transmitter Misc For use with Dexcom G6 system. Use to check blood sugar four times daily1 Each 1 Empagliflozin 25 MG tablet Take 1 tablet by mouth every morning before breakfast. 90 tablet 1 Insulin Degludec (Tresiba FlexTouch) 200 UNIT/ML Solution Pen-injector injection Inject 150 Units under the skin daily every morning. 12 Prefilled Pen/Syringe 2 metFORMIN-XR 500 MG Tab SR 24 HR Take 2 tablets by mouth 2 times daily. 360 tablet 3 Multiple Vitamins-Minerals (MULTIVITAMIN ADULT PO) take by mouth daily.. [place]-3 Fatty Acids (FISH OIL) 1000 MG Cap take 1,000 mg by mouth at bedtime.. Semaglutide, 1 MG/DOSE, (Ozempic, 1 MG/DOSE,) 2 MG/1.5ML Solution Pen-injector Inject 1 mg under the skin once a week. 6 Prefilled Pen/Syringe 1 timolol maleate 0.5 % Solution ophthalmic solution Place 1 drop in both eyes daily. Generic. 90 daysupply. 1 Bottle 3 acetaminophen 325 MG tablet Take 2 tablets by mouth every 4 hours as needed for Mild Pain. (Patientnot taking: Reported on 09/27/2020) 50 tablet 1 ASPIRIN EC [address] Take 1 table twice a day for 30days. This medication is for blood clot prevention. (Patient not taking: Reported on 09/27/2020) 60 tablet 0 docusate 100 MG capsule Take 1 capsule by mouth 2 times daily. (Patient not taking: Reported on 08/30/2020) 60 capsule 0 hydroCODone-acetaminophen 5-325 MG tablet Take 1-2 tablets by mouth every 6 hours as needed for Severe Pain for up to 7 days. Do not take over 4000mg acetaminophen daily. 20 tablet 0 meloxicam 7.5 MG tablet Take 1 tablet by mouth daily. (Patient not taking: Reported on 09/27/2020) 30 tablet 0 omeprazole [address] capsule Take 1 capsule by mouth daily. (Patient not taking: Reported on 09/27/2020) 30 capsule 0 traMADol 50 MG tablet 1-2 tabs po q 6 hr PRN pain 20 tablet 0 No facility-administered medications prior to visit. Current Outpatient Medications: Accu-Chek Guide Strip strip, TESTING ONCE DAILY AND NEEDED, Disp: 100 strip, Rfl: 1 aspirin 325 MG Tab, take 325 mg by mouth daily.., Disp: , Rfl: Blood Glucose Monitoring Suppl (ACCU-CHEK COMPACT CARE KIT) Kit, 1 kit by Unknown route daily., Disp: 1 kit, Rfl: 0 clindamycin 150 MG capsule, Take 4 capsules 1 hour before the procedure, Disp: 8 capsule, Rfl: 1 Dexcom G6 Professor Of Sport Management Device, For use with Dexcom G6 system. Use to check blood sugar four times daily, Disp: 1 Device, Rfl: 0 Dexcom G6 Sensor Misc, 1 Device by Unknown route every 10 days., Disp: 9 Each, Rfl: 1 Dexcom G6 Transmitter Misc, For use with Dexcom G6 system. Use to check blood sugar four times daily, Disp: 1 Each, Rfl: 1 Empagliflozin 25 MG tablet, Take 1 tablet by mouth every morning before breakfast., Disp: 90 tablet, Rfl: 1 Insulin Degludec (Tresiba FlexTouch) 200 UNIT/ML Solution Pen-injector injection, Inject 150 Units under the skin daily every morning., Disp: 12 Prefilled Pen/Syringe, Rfl: 2 metFORMIN-XR 500 MG Tab SR 24 HR, Take 2 tablets by mouth 2 times daily., Disp: 360 tablet, Rfl: 3 Multiple Vitamins-Minerals (MULTIVITAMIN ADULT PO), take by mouth daily.., Disp: , Rfl: [place]-3 Fatty Acids (FISH OIL) 1000 MG Cap, take 1,000 mg by mouth at bedtime.., Disp: , Rfl: Semaglutide, 1 MG/DOSE, (Ozempic, 1 MG/DOSE,) 2 MG/1.5ML Solution Pen-injector, Inject 1 mg under the skin once a week., Disp: 6 Prefilled Pen/Syringe, Rfl: 1 timolol maleate 0.5 % Solution ophthalmic solution, Place 1 drop in both eyes daily. Generic. 90 day supply., Disp: 1 Bottle, Rfl: 3 acetaminophen 325 MG tablet, Take 2 tablets by mouth every 4 hours as needed for Mild Pain. (Patient not taking: Reported on 09/27/2020), Disp: 50 tablet, Rfl: 1 ASPIRIN EC [address], Take 1 table twice a day for 30days. This medication is for blood clot prevention. (Patient not taking: Reported on 09/27/2020), Disp: 60 tablet, Rfl: 0 docusate 100 MG capsule, Take 1 capsule by mouth 2 times daily. (Patient not taking: Reported on 08/30/2020), Disp: 60 capsule, Rfl: 0 hydroCODone-acetaminophen 5-325 MG tablet, Take 1-2 tablets by mouth every 6 hours as needed for Severe Pain for up to 7 days. Do not take over 4000mg acetaminophen daily., Disp: 20 tablet, Rfl: 0 meloxicam 7.5 MG tablet, Take 1 tablet by mouth daily. (Patient not taking: Reported on 09/27/2020),Disp: 30 tablet, Rfl: 0 omeprazole [address] capsule, Take 1 capsule by mouth daily. (Patient not taking: Reported on 09/27/2020), Disp: 30 capsule, Rfl: 0 traMADol 50 MG tablet, 1-2 tabs po q 6 hr PRN pain, Disp: 20 tablet, Rfl: 0 Allergies: She is allergic to codeine; erythromycin; ibuprofen; latex; penicillins; and povidone iodine. documented in this encounter* Mir Melissa MD - 10/17/2020 9:00 AM EST History of Present Illness Diabetes Type 2 diabetes: This is her fourth visit to the office. She had hip surgery in July 2020, hemoglobin A1c has improved to 7.2%, down from an initial of 12%. Currently taking metformin extended release 1000 g twice a day, Ozempic 1.0 mg weekly, Jardiance 25 mg daily, and Tresiba 50 units at night. She has met with a religious educator and had a productive visit. She denies neuropathic discomfort of the lower extremity. Has regular follow-up with ophthalmology, no retinopathy. She is having some issues with her DexCom device. Overall she is happy with therapy. Hyperlipidemia: LDL = 120 110 mg/dL, was 107 mg/dL in November 2019. She is na ve to statins therapy Review of Systems Vitals: Blood pressure 119/78, pulse 95, temperature (!) 69.6 F (20.9 C), height 1.626 m (5' 4.02 ), weight 106.1 kg (234 lb), last menstrual period 10/20/1996. Physical Exam Constitutional: General: She is not in acute distress. Appearance: She is not diaphoretic. HENT: Head: Normocephalic. Neck: Thyroid: No thyromegaly. Trachea: No tracheal deviation. Cardiovascular: Rate and Rhythm: Normal rate and regular rhythm. Heart sounds: Normal heart sounds. No murmur. Pulmonary: Effort: No respiratory distress. Breath sounds: No wheezing. Lymphadenopathy: Cervical: No cervical adenopathy. Skin: General: Skin is warm and dry. Neurological: Mental Status: She is alert and oriented to person, place, and time. Psychiatric: Judgment: Judgment normal. Foot exam: +1 dorsalis pedis pulses bilaterally, good foot care, no callus/ulceration Neurologic Exam Mental Status Oriented to person, place, and time. Assessment and Plan Type 2 diabetes: We will continue Ozempic 1.0 mg weekly , Jardiance 25 mg in the morning , and Tresiba 50 units daily. We discussed low-carb/high-protein diet, she has been doing really well in that regard.. We discussed the limitations of physical activity due to her hip pain. Follow-up in 3 months. Hyperlipidemia: Discussed LDL above target, she agrees to try atorvastatin 10 mg daily. We discussed risk of myalgias. * Brenda Villela - 10/17/2020 9:00 AM EST Nurse Note: Review of Systems Constitutional: Positive for fatigue. Negative for fever and unexpected weight change. HENT: Negative for trouble swallowing. Respiratory: Negative for cough and shortness of breath. Cardiovascular: Negative for chest pain and leg swelling. Gastrointestinal: Negative for constipation, diarrhea, nausea and vomiting. Endocrine: Negative for polydipsia and polyuria. Genitourinary: Negative for difficulty urinating. Skin: Negative for rash. Neurological: Negative for weakness and numbness. Psychiatric/Behavioral: Negative for sleep disturbance. Nursing Assessment: Physical Exam Last Seen early childhood special educator 05/16/20 documented in this encounter* Melisa Cano PA-C - 10/18/2020 11:15 AM EST Else U Александр is 2+ months s/p left MEG with abductor repair using mesh. She has advanced to WBAT with cane in the past couple of weeks but is still having issues with gait and strength. No pain Visit Vitals Temp 98.2 F (36.8 C) (Temporal) Ht 1.626 m (5' 4 ) Wt 106.1 kg (234 lb) LMP 10/20/1996 (Within Years) BMI 40.17 kg/m Current Outpatient Medications: ASPIRIN EC [address], Take 1 table twice a day for 30days. This medication is for blood clot prevention. (Patient taking differently: Take 325 mg by mouth daily. ), Disp: 60 tablet, Rfl: 0 atorvastatin 10 MG tablet, Take 1 tablet by mouth daily., Disp: 30 tablet, Rfl: 3 Blood Glucose Monitoring Suppl (ACCU-CHEK COMPACT CARE KIT) Kit, 1 kit by Unknown route daily., Disp: 1 kit, Rfl: 0 Dexcom G6 Professor Of Sport Management Device, For use with Dexcom G6 system. Use to check blood sugar four times daily, Disp: 1 Device, Rfl: 0 Dexcom G6 Sensor Misc, 1 Device by Unknown route every 10 days., Disp: 9 Each, Rfl: 1 Dexcom G6 Transmitter Misc, For use with Dexcom G6 system. Use to check blood sugar four times daily, Disp: 1 Each, Rfl: 1 Empagliflozin 25 MG tablet, Take 1 tablet by mouth every morning before breakfast., Disp: 90 tablet, Rfl: 1 glucose blood test strips (Accu-Chek Guide) Strip strip, Used to test blood sugars 4 times daily, Disp: 100 strip, Rfl: 1 Insulin Degludec (Tresiba FlexTouch) 200 UNIT/ML Solution Pen-injector injection, Inject 50 Units under the skin daily every morning., Disp: 12 Prefilled Pen/Syringe, Rfl: 2 metFORMIN-XR 500 MG Tab SR 24 HR, Take 2 tablets by mouth 2 times daily., Disp: 360 tablet, Rfl: 3 Multiple Vitamins-Minerals (MULTIVITAMIN ADULT PO), take by mouth daily.., Disp: , Rfl: [place]-3 Fatty Acids (FISH OIL) 1000 MG Cap, take 1,000 mg by mouth at bedtime.., Disp: , Rfl: Semaglutide, 1 MG/DOSE, (Ozempic, 1 MG/DOSE,) 2 MG/1.5ML Solution Pen-injector, Inject 1 mg under the skin once a week., Disp: 6 Prefilled Pen/Syringe, Rfl: 1 timolol maleate 0.5 % Solution ophthalmic solution, Place 1 drop in both eyes daily. Generic. 90 day supply., Disp: 1 Bottle, Rfl: 3 hydroCODone-acetaminophen 5-325 MG tablet, Take 1-2 tablets by mouth every 6 hours as needed for Severe Pain for up to 7 days. Do not take over 4000mg acetaminophen daily., Disp: 20 tablet, Rfl: 0 Patient is alert and oriented. Today on examination she is healed. She has full range of motion without popping or clicking. Diagnostic studies/interpretation: No XR today Assessment/Plan: 9 weeks postop left MEG with abductor repair. physical therapy for 4 weeks twice weekly to assist with strength and ambulation. Follow up at her scheduled appt [address] Hylton unless an earlier need should arise. All questions and concerns were addressed at this appointment and the patient expressed understanding. Scripts for therapy were given today. Melisa Cano PA-C * Maddy Adhikari - 10/18/2020 11:15 AM EST Ortho Nurse Established Patient Intake Room#: 3 LT on Aug 08; pt needs ROM check to return to work appointment approved with Thierno Patient denies pain in left hip. Date: 10/18/2020 11:59 AM Patient: Melodie Ackerman MR#: [id number] : 1955 Age: 65 y.o. Referring Physician: Self, Self Insurance: Payor: [employer] / Plan: [employer] NETWORK ACCESS / Product Type: *No Product type* / Chief Complaint Patient presents with Left Hip - Post Op Visit Visit Vitals Temp 98.2 F (36.8 C) (Temporal) Ht 1.626 m (5' 4 ) Wt 106.1 kg (234 lb) LMP 10/20/1996 (Within Years) BMI 40.17 kg/m Pain Recent Labs No results found for: CRP No results found for: SEDRATE Lab Results Component Value Date WBC 12.0 (H) 08/09/2020 HGB 10.1 (L) 08/09/2020 HCT 31.2 (L) 08/09/2020 PLATELET 185 08/09/2020 MCV 90.5 08/09/2020 History Past Medical History: Diagnosis Date Cervical dysphagia 2006 Left hip pain 09/2017 Hamstring tendonitis at origin 03/03/2018 Diabetic eye exam 09/14/2018 no retinopathy noted Allergic rhinitis Arthritis Basal cell carcinoma back and face Diabetes mellitus Type 2 Hyperlipidemia SHANI (obstructive sleep apnea) cpap Osteoarthritis Past Surgical History: Procedure Laterality Date ARTHROPLASTY HIP TOTAL Left 08/08/2020 Laterality: Left; Surgeon: Sai Hylton MD; Location: [facility] EXCISION SKIN LESION 06/15/2015 Right orthodox 1.5cm EXCISION SKIN LESION 06/15/2015 Forehead 2cm COLPOSCOPY 2007 LEEPS EXCISION SKIN LESION 2004 Basal Cell Carcinoma Left posterior shoulder LAPAROTOMY EXPLORATORY 1979 COLONOSCOPY DIAGNOSTIC Family History: Her family history includes Arrhythmia in her mother; Arthritis - Osteo in her mother; Breast Cancer in her mother; Cancer in her paternal grandfather; Colorectal Polyps in her father; Dementia in her mother; Diabetes in her father and mother; Pacemaker in her mother; Prostate Cancer in her father; Stroke in her maternal grandmother. Social History: Her reports that she has never smoked. She has never used smokeless tobacco. She reports that she does not drink alcohol or use drugs. Outpatient Medications Prior to Visit Medication Sig Dispense Refill ASPIRIN EC [address] Take 1 table twice a day for 30days. This medication is for blood clot prevention. (Patient taking differently: Take 325 mg by mouth daily. ) 60 tablet 0 atorvastatin 10 MG tablet Take 1 tablet by mouth daily. 30 tablet 3 Blood Glucose Monitoring Suppl (ACCU-CHEK COMPACT CARE KIT) Kit 1 kit by Unknown route daily. 1 kit0 Dexcom G6 Professor Of [employer] Management Device For use with Dexcom G6 system. Use to check blood sugar four times daily 1 Device 0 Dexcom G6 Sensor Misc 1 Device by Unknown route every 10 days. 9 Each 1 Dexcom G6 Transmitter Misc For use with Dexcom G6 system. Use to check blood sugar four times daily1 Each 1 Empagliflozin 25 MG tablet Take 1 tablet by mouth every morning before breakfast. 90 tablet 1 glucose blood test strips (Accu-Chek Guide) Strip strip Used to test blood sugars 4 times daily 100 strip 1 Insulin Degludec (Tresiba FlexTouch) 200 UNIT/ML Solution Pen-injector injection Inject 50 Units under the skin daily every morning. 12 Prefilled Pen/Syringe 2 metFORMIN-XR 500 MG Tab SR 24 HR Take 2 tablets by mouth 2 times daily. 360 tablet 3 Multiple Vitamins-Minerals (MULTIVITAMIN ADULT PO) take by mouth daily.. [place]-3 Fatty Acids (FISH OIL) 1000 MG Cap take 1,000 mg by mouth at bedtime.. Semaglutide, 1 MG/DOSE, (Ozempic, 1 MG/DOSE,) 2 MG/1.5ML Solution Pen-injector Inject 1 mg under the skin once a week. 6 Prefilled Pen/Syringe 1 timolol maleate 0.5 % Solution ophthalmic solution Place 1 drop in both eyes daily. Generic. 90 daysupply. 1 Bottle 3 hydroCODone-acetaminophen 5-325 MG tablet Take 1-2 tablets by mouth every 6 hours as needed for Severe Pain for up to 7 days. Do not take over 4000mg acetaminophen daily. 20 tablet 0 No facility-administered medications prior to visit. Current Outpatient Medications: ASPIRIN EC [address], Take 1 table twice a day for 30days. This medication is for blood clot prevention. (Patient taking differently: Take 325 mg by mouth daily. ), Disp: 60 tablet, Rfl: 0 atorvastatin 10 MG tablet, Take 1 tablet by mouth daily., Disp: 30 tablet, Rfl: 3 Blood Glucose Monitoring Suppl (ACCU-CHEK COMPACT CARE KIT) Kit, 1 kit by Unknown route daily., Disp: 1 kit, Rfl: 0 Dexcom G6 Professor Of Sport Management Device, For use with Dexcom G6 system. Use to check blood sugar four times daily, Disp: 1 Device, Rfl: 0 Dexcom G6 Sensor Misc, 1 Device by Unknown route every 10 days., Disp: 9 Each, Rfl: 1 Dexcom G6 Transmitter Misc, For use with Dexcom G6 system. Use to check blood sugar four times daily, Disp: 1 Each, Rfl: 1 Empagliflozin 25 MG tablet, Take 1 tablet by mouth every morning before breakfast., Disp: 90 tablet, Rfl: 1 glucose blood test strips (Accu-Chek Guide) Strip strip, Used to test blood sugars 4 times daily, Disp: 100 strip, Rfl: 1 Insulin Degludec (Tresiba FlexTouch) 200 UNIT/ML Solution Pen-injector injection, Inject 50 Units under the skin daily every morning., Disp: 12 Prefilled Pen/Syringe, Rfl: 2 metFORMIN-XR 500 MG Tab SR 24 HR, Take 2 tablets by mouth 2 times daily., Disp: 360 tablet, Rfl: 3 Multiple Vitamins-Minerals (MULTIVITAMIN ADULT PO), take by mouth daily.., Disp: , Rfl: [place]-3 Fatty Acids (FISH OIL) 1000 MG Cap, take 1,000 mg by mouth at bedtime.., Disp: , Rfl: Semaglutide, 1 MG/DOSE, (Ozempic, 1 MG/DOSE,) 2 MG/1.5ML Solution Pen-injector, Inject 1 mg under the skin once a week., Disp: 6 Prefilled Pen/Syringe, Rfl: 1 timolol maleate 0.5 % Solution ophthalmic solution, Place 1 drop in both eyes daily. Generic. 90 day supply., Disp: 1 Bottle, Rfl: 3 hydroCODone-acetaminophen 5-325 MG tablet, Take 1-2 tablets by mouth every 6 hours as needed for Severe Pain for up to 7 days. Do not take over 4000mg acetaminophen daily., Disp: 20 tablet, Rfl: 0 Allergies: She is allergic to codeine; erythromycin; ibuprofen; latex; penicillins; and povidone iodine. documented in this encounter* Queta Madsen, CONSUELO - 09/12/2019 8:25 AM EST HPI Else U Александр female 1955 presents to the [facility] with Chief Complaint Patient presents with Sinus Congestion C/O sinus pain and pressure with a productive cough Presents with c/o 2 day hx of sinus congestion. Reports sinus tenderness/pressure, cough with yellow sputum & yellow rhinorrhea. No fever/chills, chest congestion, wheezing or dyspnea. She did get her flu immunization this season. Works in health care. Taking liliana seltzer sinus without relief. History Allergies Allergen Reactions Codeine Itching Erythromycin Nausea Only Ibuprofen Nausea Only Latex Rash Penicillins Hives Povidone Iodine Itching Current Outpatient Medications Medication Sig albuterol 108 (90 Base) MCG/ACT Aero Soln inhaler Inhale 1 puff every 4 hours as needed for Wheezing. aspirin 325 MG Tab take 325 mg by mouth daily.. benzonatate (TESSALON PERLES) 100 MG Cap capsule Take 1 capsule by mouth 3 times daily as needed for Cough. Blood Glucose Monitoring Suppl (ACCU-CHEK COMPACT CARE KIT) Kit 1 kit by Unknown route daily. CLOTRIMAZOLE-BETAMETHASONE 1-0.05 % Cream apply A THIN LAYER to affected area twice a day NEEDEDFOR IRRITATION doxycycline hyclate 100 MG Cap capsule Take 1 capsule by mouth 2 times daily for 10 days. GLIMEPIRIDE 4 MG Tab tablet TAKE 1 TABLET TWICE A DAY GLUCOSE MONITOR PRESCRIPTION Accu-Chek Guide with testing once daily and prn, test strips(90 days) and lancets (90 days) and supplies. Insulin Degludec (TRESIBA FLEXTOUCH) 200 UNIT/ML Solution Pen-injector injection 10 units subcutaneous in AM and 50 units subcutaneous in PM meloxicam 15 MG Tab take 0.5 tablets by mouth daily.. METFORMIN-XR 500 MG Tab SR 24 HR TAKE 2 TABLETS TWICE A DAY Multiple Vitamins-Minerals (MULTIVITAMIN ADULT PO) take by mouth daily.. [place]-3 Fatty Acids (FISH OIL) 1000 MG Cap take 1,000 mg by mouth at bedtime.. predniSONE 10 MG Tab tablet 4 tabs PO daily for 2 days, then 3 tabs PO daily for 2 days, then 2 tabs PO daily for 2 days, then 1 tab PO daily for 2 days. timolol maleate 0.5 % Solution ophthalmic solution Place 1 drop in both eyes daily. Generic. 90 daysupply. family history includes Arrhythmia in her mother; Arthritis - Osteo in her mother; Breast Cancer inher mother; Cancer in her paternal grandfather; Colorectal Polyps in her father; Dementia in her mother; Diabetes in her father and mother; Pacemaker in her mother; Prostate Cancer in her father; Stroke in her maternal grandmother. Past Medical History: Diagnosis Date Allergic rhinitis Arthritis Basal cell carcinoma back and face Cervical dysphagia 2006 Diabetes mellitus Type 2 Diabetic eye exam 09/14/2018 no retinopathy noted Hamstring tendonitis at origin 03/03/2018 Hyperlipidemia Left hip pain 09/2017 Osteoarthritis Past Surgical History: Procedure Laterality Date EXCISION SKIN LESION 06/15/2015 Right orthodox 1.5cm EXCISION SKIN LESION 06/15/2015 Forehead 2cm COLPOSCOPY 2007 LEEPS EXCISION SKIN LESION 2004 Basal Cell Carcinoma Left posterior shoulder LAPAROTOMY EXPLORATORY 1980 Social History Socioeconomic History Marital status: Spouse name: Not on file Number of children: 2 Years of education: college Highest education level: Not on file Occupational History Occupation: Nurse Employer: [employer] Social Needs Financial resource strain: Not on file Food insecurity: Worry: Not on file Inability: Not on file Transportation needs: Medical: Not on file Non-medical: Not on file Tobacco Use Smoking status: Never Smoker Smokeless tobacco: Never Used Substance and Sexual Activity Alcohol use: No Drug use: No Sexual activity: Yes Partners: Male control/protection: Menopause Lifestyle Physical activity: Days per week: Not on file Minutes per session: Not on file Stress: Not on file Relationships Social connections: Talks on phone: Not on file Gets together: Not on file Attends synagogue service: Not on file Active member of club or organization: Not on file Attends meetings of clubs or organizations: Not on file Relationship status: Not on file Intimate partner violence: Fear of current or ex partner: Not on file Emotionally abused: Not on file Physically abused: Not on file Forced sexual activity: Not on file Other Topics Concern Service No Blood Transfusions Not Asked Caffeine Concern No Comment: drinks 1-2 cups coffee daily Occupational Exposure Not Asked Hobby Hazards Not Asked Sleep Concern No Stress Concern No Weight Concern Not Asked Special Diet Not Asked Back Care Not Asked Exercise No Bike Helmet Not Asked Seat Belt Yes Domestic Violence No Social History Narrative Not on file ROS Review of Systems Constitutional: Negative. Negative for chills and fever. HENT: Positive for congestion, rhinorrhea, sinus pressure and sinus pain. Eyes: Negative. Negative for discharge. Respiratory: Positive for cough. Negative for shortness of breath and wheezing. Cardiovascular: Negative. Negative for chest pain and leg swelling. Gastrointestinal: Negative. Negative for abdominal pain and constipation. Endocrine: Negative. Genitourinary: Negative for difficulty urinating. Musculoskeletal: Negative. Negative for gait problem. Skin: Negative. Negative for color change and pallor. Neurological: Negative. Negative for weakness and headaches. Hematological: Negative. Does not bruise/bleed easily. Psychiatric/Behavioral: Negative. Negative for confusion. All other systems reviewed and are negative. PHYSICAL EXAM Visit Vitals BP 169/88 Pulse 101 Temp 98.7 F (37.1 C) Resp 18 Ht 1.626 m (5' 4 ) Wt 125.6 kg (277 lb) LMP 10/20/1996 (Within Years) SpO2 95% BMI 47.55 kg/m Physical Exam Vitals signs and nursing note reviewed. Constitutional: Appearance: She is obese. HENT: Head: Normocephalic and atraumatic. Right Ear: Tympanic membrane and ear canal normal. Left Ear: Tympanic membrane and ear canal normal. Nose: Nasal tenderness present. Right Turbinates: Swollen. Left Turbinates: Swollen. Right Sinus: Maxillary sinus tenderness present. No frontal sinus tenderness. Left Sinus: Maxillary sinus tenderness present. No frontal sinus tenderness. Mouth/Throat: Pharynx: Oropharynx is clear. Uvula midline. Eyes: Pupils: Pupils are equal, round, and reactive to light. Neck: Musculoskeletal: Normal range of motion and neck supple. Cardiovascular: Rate and Rhythm: Normal rate and regular rhythm. Heart sounds: Normal heart sounds. Pulmonary: Effort: Pulmonary effort is normal. Breath sounds: Normal breath sounds. No decreased breath sounds, wheezing, rhonchi or rales. Abdominal: General: Bowel sounds are normal. Palpations: Abdomen is soft. Musculoskeletal: Normal range of motion. Skin: General: Skin is warm and dry. Neurological: Mental Status: She is alert and oriented to person, place, and time. No results found for this or any previous visit (from the past 1 hour(s)). ASSESSMENT/PLAN 1. Acute upper respiratory infection - doxycycline hyclate 100 MG Cap capsule; Take 1 capsule by mouth 2 times daily for 10 days. Dispense: 20 capsule; Refill: 0 - benzonatate (TESSALON PERLES) 100 MG Cap capsule; Take 1 capsule by mouth 3 times daily as neededfor Cough. Dispense: 20 capsule; Refill: 0 Advised to stop decongestants. Use mucinex prn & tessalon at hs. She states PCP is out of the office all next week so rx given for ATB & advised to fill ATB if sx worsen/persist past 7 days. If symptoms worsen patient was advised to follow up in our office or the Emergency Dept. Benefits, Risks, Contraindications, and Complications of recommended treatments were explained. The patient understands and agrees to proceed with plan. Queta Madsen CNP 09/12/2019 documented in this encounter* Sai Hylton MD - 11/22/2020 4:20 PM EST HPI: Else is here today for evaluation of her operative hip. She is status post left total hip arthroplasty. She is about 4 months out and reports that she is doing well and is pleased with the outcome of the intervention. The hip feels better now than it did before, and she is not having any new symptoms with it. She denies pain upon exam today and has no additional questions or concerns at thistime. PHYSICAL EXAM: The bilateral lower extremities were evaluated. The operative lower extremity is soft, nontender with full and supple motion of the hip. No pain, no impingement. No instability. The contralateral extremity has full motion, normal stability, no tenderness. Bilateral lower extremities have normal neurovascular status. DIAGNOSTIC STUDIES/INTERPRETATION: Plain film radiographs reviewed. She has a left total hip arthroplasty in good position and alignment. No evidence of prosthetic implant loosening or migration. IMPRESSION: Stable status post left total hip arthroplasty, doing well. PLAN: I reviewed my findings with Melodie. Overall, I am pleased with the outcome of intervention. Sheis making an excellent recovery. We discussed the benefits of performing a variety of exercises at home or her therapist. She desires another script of physical therapy for additional conditioning and strengthening. I'm happy to provide her with another script today. I expect continued improvement in strength and mobility moving forward. I recommend followup at one year postop for repeat clinicaland radiographic examination or sooner if any new symptoms develop. She will call with any questions or concerns in the meantime. WILLIAM RAMIREZ I have reviewed the findings of my clinical staff below and agree with their assessment. Ortho Nurse Established Patient Intake Room#: 3---4 month post-op check of Left MEG (A/L). She is doing well and has no pain today. Date: 11/22/2020 3:51 PM Patient: Melodie Ackerman MR#: [id number] : 1955 Age: 65 y.o. Referring Physician: Self, Self Insurance: Payor: [employer] / Plan: MMO NETWORK ACCESS / Product Type: *No Product type* / Chief Complaint Patient presents with Left Hip - Post Op Visit Visit Vitals Temp 98.6 F (37 C) (Temporal) Ht 1.626 m (5' 4 ) Wt 106.3 kg (234 lb 6.4 oz) LMP 10/20/1996 (Within Years) BMI 40.23 kg/m Pain Presence of Pain: denies pain/discomfort Recent Labs No results found for: CRP No results found for: SEDRATE Lab Results Component Value Date WBC 12.0 (H) 08/09/2020 HGB 10.1 (L) 08/09/2020 HCT 31.2 (L) 08/09/2020 PLATELET 185 08/09/2020 MCV 90.5 08/09/2020 History Past Medical History: Diagnosis Date Cervical dysphagia 2006 Left hip pain 09/2017 Hamstring tendonitis at origin 03/03/2018 Diabetic eye exam 09/14/2018 no retinopathy noted Allergic rhinitis Arthritis Basal cell carcinoma back and face Diabetes mellitus Type 2 Hyperlipidemia SHANI (obstructive sleep apnea) cpap Osteoarthritis Past Surgical History: Procedure Laterality Date ARTHROPLASTY HIP TOTAL Left 08/08/2020 Laterality: Left; Surgeon: Sai Hylton MD; Location: [facility] EXCISION SKIN LESION 06/15/2015 Right orthodox 1.5cm EXCISION SKIN LESION 06/15/2015 Forehead 2cm COLPOSCOPY 2006 LEEPS EXCISION SKIN LESION 2004 Basal Cell Carcinoma Left posterior shoulder LAPAROTOMY EXPLORATORY 1979 COLONOSCOPY DIAGNOSTIC Family History: Her family history includes Arrhythmia in her mother; Arthritis - Osteo in her mother; Breast Cancer in her mother; Cancer in her paternal grandfather; Colorectal Polyps in her father; Dementia in her mother; Diabetes in her father and mother; Pacemaker in her mother; Prostate Cancer in her father; Stroke in her maternal grandmother. Social History: Her reports that she has never smoked. She has never used smokeless tobacco. She reports that she does not drink alcohol or use drugs. Outpatient Medications Prior to Visit Medication Sig Dispense Refill ASPIRIN EC [address] Take 1 table twice a day for 30days. This medication is for blood clot prevention. (Patient taking differently: Take 325 mg by mouth daily. ) 60 tablet 0 atorvastatin 10 MG tablet Take 1 tablet by mouth daily. 30 tablet 3 Blood Glucose Monitoring Suppl (ACCU-CHEK COMPACT CARE KIT) Kit 1 kit by Unknown route daily. 1 kit0 Dexcom G6 Professor Of Sport Management Device For use with Dexcom G6 system. Use to check blood sugar four times daily 1 Device 0 Dexcom G6 Sensor Misc 1 Device by Unknown route every 10 days. 9 Each 1 Dexcom G6 Transmitter Misc For use with Dexcom G6 system. Use to check blood sugar four times daily1 Each 1 Empagliflozin 25 MG tablet Take 1 tablet by mouth every morning before breakfast. 90 tablet 1 glucose blood test strips (Accu-Chek Guide) Strip strip Used to test blood sugars 4 times daily 100 strip 1 Insulin Degludec (Tresiba FlexTouch) 200 UNIT/ML Solution Pen-injector injection Inject 50 Units under the skin daily every morning. 12 Prefilled Pen/Syringe 2 metFORMIN-XR 500 MG Tab SR 24 HR Take 2 tablets by mouth 2 times daily. 360 tablet 3 Multiple Vitamins-Minerals (MULTIVITAMIN ADULT PO) take by mouth daily.. [place]-3 Fatty Acids (FISH OIL) 1000 MG Cap take 1,000 mg by mouth at bedtime.. Semaglutide, 1 MG/DOSE, (Ozempic, 1 MG/DOSE,) 2 MG/1.5ML Solution Pen-injector Inject 1 mg under the skin once a week. 6 Prefilled Pen/Syringe 1 timolol maleate 0.5 % Solution ophthalmic solution Place 1 drop in both eyes daily. Generic. 90 daysupply. 1 Bottle 3 hydroCODone-acetaminophen 5-325 MG tablet Take 1-2 tablets by mouth every 6 hours as needed for Severe Pain for up to 7 days. Do not take over 4000mg acetaminophen daily. 20 tablet 0 No facility-administered medications prior to visit. Allergies: She is allergic to codeine; erythromycin; ibuprofen; latex; penicillins; and povidone iodine. * Augusta Nath LPN - 11/22/2020 4:20 PM EST Ortho Nurse Established Patient Intake Room#: 3---4 month post-op check of Left MEG (A/L). She is doing well and has no pain today. Date: 11/22/2020 3:51 PM Patient: Melodie Ackerman MR#: [id number] : 1955 Age: 65 y.o. Referring Physician: Self, Self Insurance: Payor: [employer] M[employer] / Plan: [employer] NETWORK ACCESS / Product Type: *No Product type* / Chief Complaint Patient presents with Left Hip - Post Op Visit Visit Vitals Temp 98.6 F (37 C) (Temporal) Ht 1.626 m (5' 4 ) Wt 106.3 kg (234 lb 6.4 oz) LMP 10/20/1996 (Within Years) BMI 40.23 kg/m Pain Presence of Pain: denies pain/discomfort Recent Labs No results found for: CRP No results found for: SEDRATE Lab Results Component Value Date WBC 12.0 (H) 08/09/2020 HGB 10.1 (L) 08/09/2020 HCT 31.2 (L) 08/09/2020 PLATELET 185 08/09/2020 MCV 90.5 08/09/2020 History Past Medical History: Diagnosis Date Cervical dysphagia 2006 Left hip pain 09/2017 Hamstring tendonitis at origin 03/03/2018 Diabetic eye exam 09/14/2018 no retinopathy noted Allergic rhinitis Arthritis Basal cell carcinoma back and face Diabetes mellitus Type 2 Hyperlipidemia SHANI (obstructive sleep apnea) cpap Osteoarthritis Past Surgical History: Procedure Laterality Date ARTHROPLASTY HIP TOTAL Left 08/08/2020 Laterality: Left; Surgeon: Sai Hylton MD; Location: [facility] EXCISION SKIN LESION 06/15/2015 Right orthodox 1.5cm EXCISION SKIN LESION 06/15/2015 Forehead 2cm COLPOSCOPY 2007 LEEPS EXCISION SKIN LESION 2004 Basal Cell Carcinoma Left posterior shoulder LAPAROTOMY EXPLORATORY 1979 COLONOSCOPY DIAGNOSTIC Family History: Her family history includes Arrhythmia in her mother; Arthritis - Osteo in her mother; Breast Cancer in her mother; Cancer in her paternal grandfather; Colorectal Polyps in her father; Dementia in her mother; Diabetes in her father and mother; Pacemaker in her mother; Prostate Cancer in her father; Stroke in her maternal grandmother. Social History: Her reports that she has never smoked. She has never used smokeless tobacco. She reports that she does not drink alcohol or use drugs. Outpatient Medications Prior to Visit Medication Sig Dispense Refill ASPIRIN EC [address] Take 1 table twice a day for 30days. This medication is for blood clot prevention. (Patient taking differently: Take 325 mg by mouth daily. ) 60 tablet 0 atorvastatin 10 MG tablet Take 1 tablet by mouth daily. 30 tablet 3 Blood Glucose Monitoring Suppl (ACCU-CHEK COMPACT CARE KIT) Kit 1 kit by Unknown route daily. 1 kit0 Dexcom G6 Professor Of Sport Management Device For use with Dexcom G6 system. Use to check blood sugar four times daily 1 Device 0 Dexcom G6 Sensor Misc 1 Device by Unknown route every 10 days. 9 Each 1 Dexcom G6 Transmitter Misc For use with Dexcom G6 system. Use to check blood sugar four times daily1 Each 1 Empagliflozin 25 MG tablet Take 1 tablet by mouth every morning before breakfast. 90 tablet 1 glucose blood test strips (Accu-Chek Guide) Strip strip Used to test blood sugars 4 times daily 100 strip 1 Insulin Degludec (Tresiba FlexTouch) 200 UNIT/ML Solution Pen-injector injection Inject 50 Units under the skin daily every morning. 12 Prefilled Pen/Syringe 2 metFORMIN-XR 500 MG Tab SR 24 HR Take 2 tablets by mouth 2 times daily. 360 tablet 3 Multiple Vitamins-Minerals (MULTIVITAMIN ADULT PO) take by mouth daily.. [place]-3 Fatty Acids (FISH OIL) 1000 MG Cap take 1,000 mg by mouth at bedtime.. Semaglutide, 1 MG/DOSE, (Ozempic, 1 MG/DOSE,) 2 MG/1.5ML Solution Pen-injector Inject 1 mg under the skin once a week. 6 Prefilled Pen/Syringe 1 timolol maleate 0.5 % Solution ophthalmic solution Place 1 drop in both eyes daily. Generic. 90 daysupply. 1 Bottle 3 hydroCODone-acetaminophen 5-325 MG tablet Take 1-2 tablets by mouth every 6 hours as needed for Severe Pain for up to 7 days. Do not take over 4000mg acetaminophen daily. 20 tablet 0 No facility-administered medications prior to visit. Allergies: She is allergic to codeine; erythromycin; ibuprofen; latex; penicillins; and povidone iodine. documented in this encounter* Mir Melissa MD - 12/26/2020 8:00 AM EST History of Present Illness Diabetes Type 2 diabetes: This is her fifth visit to the office. She had hip surgery in July 2020, hemoglobin A1c has improved to 7.8%, up from 7.2%, down from an initial of 12%. Currently taking metforminextended release 1000 g twice a day, Ozempic 1.0 mg weekly, Jardiance 25 mg daily, and Tresiba 50 units at night. She has met with a religious educator and had a productive visit. She denies neuropathic discomfort of the lower extremity. Has regular follow-up with optometry (Dr. Dawson), no retinopathy. She is having some issues with her DexCom device, she is currently awaiting a replacement transmitter. Overall she is happy with therapy. Hyperlipidemia: Baseline LDL = 120 -- 110 mg/dL, was 107 mg/dL in November 2019. We started atorvastatin 10 mg daily, LDL improved 63 mg/dL, no myalgias. Review of Systems Nurse Note: Review of Systems Constitutional: Negative for fatigue and unexpected weight change. Eyes: Negative for visual disturbance. Respiratory: Negative for cough and shortness of breath. Cardiovascular: Negative for chest pain and leg swelling. Gastrointestinal: Negative for constipation, diarrhea, nausea and vomiting. Endocrine: Negative for polydipsia and polyuria. Skin: Negative for rash. Neurological: Negative for numbness. Psychiatric/Behavioral: Negative for sleep disturbance. Patient last seen Food Broker 05/16/2020 Nursing Assessment: Physical Exam Vitals: Blood pressure (!) 164/96, pulse 79, height 1.626 m (5' 4.02 ), weight 106.2 kg (234 lb 3.2oz), last menstrual period 10/20/1996. Physical Exam Constitutional: General: She is not in acute distress. Appearance: She is not diaphoretic. HENT: Head: Normocephalic. Neck: Thyroid: No thyromegaly. Trachea: No tracheal deviation. Cardiovascular: Rate and Rhythm: Normal rate and regular rhythm. Heart sounds: Normal heart sounds. No murmur. Pulmonary: Effort: No respiratory distress. Breath sounds: No wheezing. Lymphadenopathy: Cervical: No cervical adenopathy. Skin: General: Skin is warm and dry. Neurological: Mental Status: She is alert and oriented to person, place, and time. Psychiatric: Judgment: Judgment normal. Foot exam: +1 dorsalis pedis pulses bilaterally, good foot care, no callus/ulceration Neurologic Exam Mental Status Oriented to person, place, and time. Assessment and Plan Type 2 diabetes: We will continue Ozempic 1.0 mg weekly , Jardiance 25 mg in the morning , and Tresiba 50 units daily. We discussed low-carb/high-protein diet, she has been doing really well in that regard. We discussed the limitations of physical activity due to her hip pain and her ongoing physical therapy . Follow- up in 3 months. Hyperlipidemia: excellent response to atorvastatin, continue 10 mg daily. * Pura Whatley - 12/26/2020 8:00 AM EST Nurse Note: Review of Systems Constitutional: Negative for fatigue and unexpected weight change. Eyes: Negative for visual disturbance. Respiratory: Negative for cough and shortness of breath. Cardiovascular: Negative for chest pain and leg swelling. Gastrointestinal: Negative for constipation, diarrhea, nausea and vomiting. Endocrine: Negative for polydipsia and polyuria. Skin: Negative for rash. Neurological: Negative for numbness. Psychiatric/Behavioral: Negative for sleep disturbance. Patient last seen Food Broker 05/16/2020 Nursing Assessment: Physical Exam documented in this encounter* Hiram Rodriguez, PT - 08/09/2020 12:20 PM EDT 08/09/20 1154 Time In/Out Time In 1055 Time Out 1155 Total Visit Time 60 minutes Total Treatment Time 60 minutes Subjective RN Approved Intervention as tolerated Existing Precautions/Restrictions fall;weight bearing;hip (TTWB left LE, global hip precautions, no active hip abduct.) Subjective Reports Patient reports feeling fine, just fininshing up with OT session prior to entering room. Cognitive Status Examination Orientation Status (Cognition) oriented x 4 Level of Consciousness alert;cooperative Able to Follow Commands (Communication) WFL Personal Safety and Judgment impaired;at risk behaviors demonstrated Vision corrective lenses needed Hearing no gross deficit noted Speech no gross deficit noted General Pain Documentation (Adult, OB, Peds) Presence of Pain complains of pain/discomfort Pain Location hip, left Pain Management Interventions ambulated;cold application;elevation;prescribed exercises;positioning Select Pain Scale (NPRS: 2/10 rest, 7/10 activity) Objective Therapeutic Interventions Patient observed resting in recliner, agreeable for PT intervention. Patient educated on TTWB status, global hip precautions, and no active hip abduction, with patient verbalizing good understanding. Patient stands from recliner CG assist with FWW for support, patient pushes well from armrests. Patient then ambulates in hallway x 65 ft to therapy room with FWW, step-to gait pattern. Patient requires assistance to advance left LE due to pain and weakness complaints. Patient requires frequent cueing in order to maintain proper gait sequencing and WBing status on left. Patient sits on plinth in therapy room, completes LAQ x 20 reps. Patient completes sit to supine transfer using leg malt liquors sales representative + min A for left leg only. Patient completes remainder of HEP on plinth: ankle pumps, heel slides, SAQ, glute sets, and quad sets x 20 reps each. Patient transfers to sitting SBassist with leg malt liquors sales representative, ambulates x 15 ft to stairs. Patient completes 2 steps CG assist using single HR (on righ ascending) + SPC, trying to approximate home set-up. Patient educated on proper stairs sequencing, requires cueing throughout to maintain safety. Patient demonstrates difficulty maintaining TTWB on left throughout. Patient then ambulates x 85 ft back to room in similar fashion as earlier stated. Patient sits back in recliner per comfort, ice pack applied to left hip, legs elevated in recliner, call light left within reach. Bed Mobility Skill: Supine to Sit, Rehab Eval Level of [place]: Supine/Sit minimum assist (75% patients effort) Physical Assist/Nonphysical Assist: Supine/Sit 1 person assist;verbal cues Transfer Skill: Sit To Stand, Rehab Eval [place] (Sit-Stand Transfers) contact guard Physical Assist/Nonphysical Assist: Sit/Stand 1 person assist;verbal cues Weight-Bearing Restrictions: Sit/Stand toe touch weight-bearing Assistive Device For Transfer: Sit/Stand 2 wheeled walker Gait Skills, PT Eval Level of [place]: Gait minimum assist (75% patients effort) Physical Assist/Nonphysical Assist: Gait verbal cues;1 person assist Weight-Bearing Restrictions: Gait toe touch weight-bearing Assistive Device For Transfer: Gait 2 wheeled walker Gait Distance other (see comments) (x 70 ft, x 85 ft) Stair Negotiation Level of [place]: Stair Negotiation contact guard Physical Assist/Nonphysical Assist: Stair Negotiation 1 person assist;verbal cues Weight-Bearing Restrictions: Stair Negotiation toe touch weight-bearing Assistive Device for Transfer: Stair Negotiation rails;straight cane Number of stairs 2 Stair Railings present on right side (ascending) Clinical Impression Therapy Frequency 2 times a day PT Therapy Completed Yes Initial Evaluation/Screen Completed? yes Continue care plan yes Today's Treatment Included Gait, transfers, stairs, ther ex's, HEP education Therapist Recommendations At Discharge Recommendations PT Services recommended at Discharge Assessment VTE Prevention/Management N/A - Pharmacologic Intervention (No Mechanical Prophylaxis - TherapeuticAnticoagulation);N/A - Pt. Ambulating (NO orders for mechanical/pharmacological VTE prophylaxis) Factors that modified this intervention Patient continues to have difficulty advancing left LE due to weakness, pain. Patient continues to have difficulty maintaining TTWB on left LE Progress toward goals Patient ambulating longer distances, stairs, improved transfers. Plan Plan for next visit Continue to address HEP, gait training, transfers, and stairs. Maintain frequency yes * Rhea Elizabeth LSW - 08/09/2020 9:38 AM EDT BI APPLICATION DEVELOPER met with patient this date to discuss discharge plans. Patient states that she is planing on retuning home with no needs at this time. Patient does not need therapy for at least 6 weeks and then plans to go outpatient. Patient has a wheeled walker she can use at the time of discharge. She denies all needs at this time. BI APPLICATION DEVELOPER available as needed. * Thalia Dunn RPh,PharmNixon - 08/08/2020 7:24 PM EDT Prescriptions were delivered to patient at bedside and placed in the pyxis by Anabel Hidalgo PharmD [facility] [phone] * Thalia Dunn RPhPharmNixon - 08/08/2020 6:55 PM EDT AOP Patient Education on Meds to Beds Scripts AOP received prescriptions for [facility] for bedside delivery at discharge Prescriptions filled and ready Medication Copay Aspirin EC 81mg 4 Meloxicam 7.5mg 0.14 Docusate 100mg 4 APAP 325mg 4 [place] 5-325mg / Tramadol 50mg 0.44/0.12 Omeprazole 20mg 2.09 Total $ 14.79 Issues Identified None Patient Education Reviewed medications with patient regarding indications, directions and potential side effects. Pt had no questions or concerns. Courtney Dunn PharmD [facility] [phone] * Yesi Pedersen, PT - 08/08/2020 5:25 PM EDT 08/08/20 1511 Time In/Out Time In 1511 Time Out 1556 Total Visit Time 45 minutes Total Treatment Time 45 minutes General Information RN Approved Intervention as tolerated Diagnosis OA of the L hip Surgical Procedure L MEG (anterior/lateral) with abductor repair Past Medical History Past Medical History: Diagnosis Date Allergic rhinitis Arthritis Basal cell carcinoma back and face Cervical dysphagia 2006 Diabetes mellitus Type 2 Diabetic eye exam 09/14/2018 no retinopathy noted Hamstring tendonitis at origin 03/03/2018 Hyperlipidemia Left hip pain 09/2017 SHANI (obstructive sleep apnea) cpap Osteoarthritis Past Surgical History Past Surgical History: Procedure Laterality Date EXCISION SKIN LESION 06/15/2015 Right orthodox 1.5cm EXCISION SKIN LESION 06/15/2015 Forehead 2cm COLPOSCOPY 2007 LEEPS EXCISION SKIN LESION 2004 Basal Cell Carcinoma Left posterior shoulder LAPAROTOMY EXPLORATORY 1979 COLONOSCOPY DIAGNOSTIC Existing Precautions/Restrictions fall;hip;weight bearing (L global hip precautions, no active abd, TTWB of the L LE) Left Lower Extremity toe touch weight bearing Home Setting Residence Home Lives With spouse First floor bed/bathroom yes Number of Stairs to Enter Home 2 Number of Stairs Within Home 0 Stair Railings at Home with rail Equipment Available wheeled walker Previous Level of Function Ambulation Skills independent Assistive Device none used (SC over last few months due to pain) Level of Ambulation community General Pain Documentation (Adult, OB, Peds) Presence of Pain complains of pain/discomfort Pain Location hip, left Pain Management Interventions ambulated Select Pain Scale (4/10) Cognitive Status Examination Orientation Status (Cognition) oriented x 4 Level of Consciousness alert Able to Follow Commands (Communication) WFL Personal Safety and Judgment impaired Range of Motion (ROM) Range of Motion Examination bilateral lower extremity ROM was WFL (L hip within precautions) Manual Muscle Testing (MMT) Manual Muscle Testing Results deficits as listed below (L hip 4/5; R hip 4+/5; B knees 4+/5; B ankles 5/5) Bed Mobility Skill: Supine to Sit, Rehab Eval Level of [place]: Supine/Sit contact guard Physical Assist/Nonphysical Assist: Supine/Sit 1 person assist Transfer Skill: Sit To Stand, Rehab Eval [place] (Sit-Stand Transfers) minimum assist (75% patient effort) Physical Assist/Nonphysical Assist: Sit/Stand 1 person assist Weight-Bearing Restrictions: Sit/Stand toe touch weight-bearing Assistive Device For Transfer: Sit/Stand 2 wheeled walker Gait Skills, PT Eval Level of [place]: Gait contact guard Physical Assist/Nonphysical Assist: Gait 1 person assist Weight-Bearing Restrictions: Gait toe touch weight-bearing Assistive Device For Transfer: Gait 2 wheeled walker Gait Distance 15 feet Balance Additional Documentation (Seated: Good; Standing: Fair-) Sensory Examination Sensory Examination WFL General Interventions Planned Therapy Interventions balance training;bed mobility training;edema control;endurance;gait training;neuromuscular re- education;strengthening;transfer training Additional Comments PT consult received, chart reviewed and PT evaluation completed. Pt performed glut sets, quad sets, heel slides, SAQ, and ankle pumps on the L LE for 1x10. Pt educated on hip precautions and current weight bearing status with pt verbalizing her understanding but stating she did not think that she would remember. Pt educated on sequencing for transfers and gait using FWW to maintain TTWB. While performing transfers and ambulation pt required continuous verbal cues for weight bearing. At this time pt demonstrating difficulty maintaining her weight bearing status. Pt left seated in the recliner with the occupational therapist student present. Assessment Assessment Narrative Pt is 65 year old female s/p L MEG with anterior lateral approach with an abductor repair. Pt able to follow commands however demonstrates decreased safety awareness. Pt demonstrates weakness and impaired balance and has difficulty maintaining weight bearing status with mobility. Pt would benefit from PT services at this time to ensure understanding of precautions and to progress all functional mobility. Discharge Recommendations Home with HEP versus PT services Clinical Impression Co-evaluation/co-treatment performed? Yes, combination of simultaneous billable and non-billable treatment Criteria for Skilled Therapeutic Interventions Met (PT Eval) yes Impairments Found (PT Eval) gait, locomotion, and balance;muscle performance Rehab Potential (PT Eval) good, to achieve stated therapy goals Therapy Frequency 2 times a day Initial Evaluation/Screen Completed? yes Continue care plan yes Today's Treatment Included PT evaluation, ther ex, transfer training, gait training and patient education Therapist Recommendations At Discharge Recommendations Will recommend closer to Discharge Plan Plan Narrative Next visit review precautions, progress mobility, practice car transfers and steps as able, and review/perform HEP. PT Goals: 1. Pt will demonstrate understanding of all precautions during functional mobility. 2. Pt will perform all transfers with FWW and SBA to improve safety at home. 3. Pt will ambulate 50ft with FWW and SBA while maintaining weight bearing status for safe household ambulation. 4. Pt will ambulate up and down 2 steps with rails and CGA to ensure pt is able to safely enter/exit the home. 5. Pt will be independent with HEP per protocol. * Alfonso Malnoe - 08/08/2020 4:38 PM EDT 08/08/20 1531 Time In/Out Time In 1531 Time Out 1618 Total Visit Time 47 minutes Total Treatment Time 47 minutes General Information RN Approved Intervention as tolerated Admitting Diagnosis osteoarthritis of L hip Surgical Procedure Left A/L MEG with abductor repair Past Surgical History Past Surgical History: Procedure Laterality Date EXCISION SKIN LESION 06/15/2015 Right orthodox 1.5cm EXCISION SKIN LESION 06/15/2015 Forehead 2cm COLPOSCOPY 2007 LEEPS EXCISION SKIN LESION 2004 Basal Cell Carcinoma Left posterior shoulder LAPAROTOMY EXPLORATORY 1979 COLONOSCOPY DIAGNOSTIC Past Medical History Past Medical History: Diagnosis Date Allergic rhinitis Arthritis Basal cell carcinoma back and face Cervical dysphagia 2006 Diabetes mellitus Type 2 Diabetic eye exam 09/14/2018 no retinopathy noted Hamstring tendonitis at origin 03/03/2018 Hyperlipidemia Left hip pain 09/2017 SHANI (obstructive sleep apnea) cpap Osteoarthritis Existing Precautions/Restrictions fall;hip;weight bearing (global hip prec. no active abd per Dr. Hylton,TTWB L LE) Previous Level of Function Bed Mobility/Transfers independent Bathing independent Upper Body Dressing independent Lower Body Dressing independent Grooming independent Toileting independent Eating independent Home Management Skills independent General Pain Documentation (Adult, OB, Peds) Presence of Pain complains of pain/discomfort Pain Location hip, left Pain Management Interventions elevation;cold application Select Pain Scale (4/10) Home Setting Residence Home Lives With spouse First floor bed/bathroom yes;walk-in shower;grab bars Number of Stairs to Enter Home 2 Equipment Available hand held shower hose;wheeled walker;long-handled shoe horn;sock-aid;loom setter;elevated toilet seat;long handle sponge Cognitive Status Examination Orientation Status (Cognition) oriented x 4 Level of Consciousness alert Able to Follow Commands (Communication) WFL Personal Safety and Judgment impaired Transfer Skill: Sit to Stand, Rehab Eval Level of [place]: Sit/Stand contact guard Physical Assist/Nonphysical Assist: Sit/Stand 1 person assist;verbal cues Weight-Bearing Restrictions: Sit/Stand toe touch weight-bearing Assistive Device for Transfer: Sit/Stand wheeled walker BADL Evaluation Additional Documentation Yes Upper Body Dressing Level of [place] stand-by assist Physical Assist/Nonphysical Assist set-up required Lower Body Dressing Level of [place] minimum assist (75% patients effort) (clinical reasoning) Physical Assist/Nonphysical Assist 1 person assist;verbal cues Assistive Device loom setter Toileting Level of [place] contact guard Physical Assist/Nonphysical Assist 1 person assist;verbal cues Assistive Device grab bars General Therapy Interventions Planned Therapy Interventions (OT Eval) ADL retraining;transfer training PRIOR LEVEL [facility] Activity Inpatient Short Form Putting on/Taking Off Lower Body Clothing 4 - No Assistance Bathing 4 - No Assistance Toileting 4 - No Assistance Putting on/Taking Off Upper Body Clothing 4 - No Assistance Grooming 4 - No Assistance Eating 4 - No Assistance PRIOR LEVEL [facility] Activity Raw Score 24 [facility] L[facility]EL [facility] Activity Functional Limitation/Modifier 0.00% Prior Functional Impairment in Daily Activity CURRENT [facility] Daily Activity Inpatient Short Form Putting on/Taking Off Lower Body Clothing 3 - A Little Assistance Bathing 3 - A Little Assistance Toileting 3 - A Little Assistance Putting on/Taking Off Upper Body Clothing 4 - No Assistance Grooming 4 - No Assistance Eating 4 - No Assistance CURRENT [facility] Activity Raw Score 21 CURRENT [facility] Activity Functional Limitation/Modifier 32.79% Currently Impaired in Daily Activity - Assessment Assessment Narrative Pt post surgery of left A/L MEG with abductor repair. Provided edu on LLE placement during transfers to adhere to hip precautions and weight bearing status. Provided CGA for stand pivot transfer from EOB to BSC, pt having difficulties adhering to TTWB precautions. Provided verbal and visual edu on dressing techniques using AE to adhere to hip precautions. Pt able to don shorts/underwear with AE with SBA and v/c. Pt demonstrated decreased safety awareness with TTWB precautions during clothing management, provided CGA during clothing management. Provided SBA and set up for UB dressing. Edu pt on bathing with JAKE bandage. End of session pt reclined in chair and legs elevated, with ice placed on L hip. Call light placed beside pt. Clinical Impression Co-evaluation/co-treatment performed? Yes, combination of simultaneous billable and non-billable treatment Rehab Potential (OT Eval) good, to achieve stated therapy goals Therapy Frequency 7 times a week OT Therapy Completed Yes OT Therapies Still to Complete 6 Initial Evaluation/Screen Completed? yes Today's Treatment Included OT eval, ADLs Continue care plan yes Goals Goals For Discharge return home with spouse Therapist Recommendations At Discharge Recommendations OT Services not recommended at Discharge Plan Plan Narrative continue with ADLs, shower transfer 1. Pt will complete LB dressing with SBA with AE while adhering to TTWB precautions 2. Pt will complete UB dressing with MOD I 3. Pt will complete grooming with MOD I 4. Pt will complete sponge bathing with SBA with AE 5. Pt will complete tolieting with SBA 6. Pt will complete simulation of walk in shower transfer with CGA before d/c to increase safety and independence for bathing OT student under direct supervision by licensed OT for entire treatment while student provided careto patient Alannah Elizabeth OT 08/08/2020 4:55 PM * Thierno Gutierrez APRN-CNP - 08/08/2020 1:22 PM EDT THIS PATIENT HAS HAD ORTHOPEDIC SURGERY AND IS EXPECTED TO HAVE PAIN REQUIRING NARCOTICS FOR >7 DAYS AND MAY NEED UP TO 8 tabs of ultram PER DAY AND THEREFORE 20tabs ARE BEING DISPENSED IN ACCORDANCE WITH POC DISCUSSED WITH DR HYLTON. An additional 20 tabs of norco given as rescue opiate. documented in this encounter Instructions * Patient Instructions* Queta Madsen CNP - 09/12/2019 8:25 AM EST Viral Syndrome or Cold You have been seen for a viral infection called a viral syndrome or a cold. There is no cure for this infection and antibiotics do not work for viral infections. Signs may include: Fever with a temperature at or above 100.4 degrees F or 38 degrees C Stuffy nose and nasal congestion Sore throat Cough Muscle aches Rash Nausea, vomiting or diarrhea may occur in some people Your Care Antibiotics do not work for viral infections. Treatment will take time and it will only help manageyour signs. Rest as much as you can. Drink plenty of fluids, at least 8 cups of fluid each day. Some people find warm drinks help with easing sore throat and congestion. Take acetaminophen (Tylenol) or ibuprofen (Advil or Motrin) according to package instructions. Be sure to avoid aspirin or any products with aspirin with a viral infection because it may damage your liver. See your doctor or go to the nearest Emergency Department if you have: Stiff neck or very bad headache. Problems breathing or feel short of breath. Fever with oral temperature greater than 100.4 degrees F or 38 degrees C that is still present 7 days after the start of your illness. Weakness or you are not able to walk. Vomiting that will not stop. Dizziness, feel lightheaded or faint Any concerns or feel worse, or if you are not feeling better in the next 7 days. 2014May 10, 2019, [facility]. This handout is for informational purposes only. Talk with your doctor or healthcare team if you have any questions about your care. For more health information, call the [employer] for [employer] Information at [phone] or email: [email or web address]. documented in this encounter Discharge Instructions * Discharge Instr - Activity* Ervin Mustafa RN - 08/09/2020 11:13 AM EDT Toe touch weight bearing with front wheeled walker * Discharge Instr - Diet* Ervin Mustafa RN - 08/09/2020 11:14 AM EDT Resume home diet * Discharge Instr - Notify* Ervin Mustafa RN - 08/09/2020 11:15 AM EDT Contact Office ([phone]) if: > Any falls or injuries > Redness, drainage or swelling at the incision site that is out of the ordinary from post-operative findings (minor redness, swelling and warmth around the entire knee are common post-operatively) > Patient non-compliance with assistive devices during gait > Fever > 101 degrees. For low grade fevers use Incentive Spirometry @ 10 puffs per hour and tylenol as directed. * Discharge Instr - Wound Care* Ervin Mustafa RN - 08/09/2020 11:16 AM EDT You have been given an educational handout on your JAKE dressing that is covering your incision. You will remove this dressing 08/16. Gently peel back the dressing while holding theskin taught. Do not rip or quickly pull off dressing. Once the dressing is removed you will discardthe dressing, tubing and batter pack in the trash. Once your JAKE dressing is removed you will place an ABD over your incision for comfort. Your incision is closed with Dermabond. You may shower withthis. Do not saturate or submerge extremity in water (i.e. Bathtub, hot tub, etc.) until cleared bythe provider. Do not wash/scrub directly over/on your incision. Pat your incision dry do not rub your incision with a towel. Do not place any lotions, ointments, creams or powder on your incision or operative leg. When applying your new ABD pad after showering as a reminder do not place any tape over you ABD pad. Your under wear are to hold your pad in place. * Additional Instructions* Ervin Mustafa RN - 08/09/2020 You have been given printed educational handouts on all new medications. Please refer to your greendischarge folder for handouts. You have been given seven ABD pads, one ice gel compression wrap, six ice gel packs, two pairs of KELLY hose and all personal belongings. If at any time you have questions please refer to your green discharge folder with all at home care instructions. If at any time you feel you have an emergency please dial 911 or [address] you to your closest ER. Kelly Hose: > Help reduce the risk of blood clots and decrease swelling > To be worn bilaterally to the lower extremities for 30 days post-op > Patients can take their kelly hose off for 1 hour for every 8 hours that they wear them Medications: > Patients will be sent home with prescriptions, including medication for pain to be taken as directed. Stay ahead and do not allow your pain to get out of control. > If prescribed Aspirin, take twice a day for 30 days. Do not skip a dose, this is your medication for the prevention of blood clots. > If you have not had a bowel movement by your 3rd post-operative day you will need to use a gentle over the counter laxative such as Milk of magnesia, Fiberlax, Miralax, etc. Bowels need to move within 3 days or take action. Gel Ice Packs > Change every 4 hours or as needed for swelling and pain for at least the first 2 weeks Ambulation > Weight bearing status : toe touch > Above weight bearing status as tolerated with a walker then progress to a cane if stable, unless noted otherwise by the physician or therapist. For Hip Replacements: > No formal physical therapy, walking is the patients best therapy, unless otherwise noted. > General Hip Precautions Post op (unless otherwise noted from the doctor): * Do not cross legs at knee or ankles * Do not bend past 90 degrees * Do not twist * May roll to side with pillow between legs > Hip Precautions: - Do not allow you hip to flex more than 90 degrees - Do not move your leg past the middle of your body - Do not allow your leg to roll outward (external rotation) - Do not allow your leg to roll inward (internal rotation) - Do not take long strides when walking - Do not use surgical leg to lift buttocks in bed - Do not lie in a completely flat bed - Do not lie on your stomach - Do not use the strength of your leg muscles to move your surgical leg to the side Remember... - Keep your leg in a position that is in line with your body at all times - Use a leg malt liquors sales representative to get in and out of bed documented in this encounter Additional Source Comments INFORMATION SOURCE (unrecogn ized section and content) DATE CREATED AUTHOR AUTHOR'S ORGANIZ ATION 10/02/2023 [facility] DATE CREATED AUTHOR AUTHOR'S ORGANIZ ATION 10/18/2023 [facility] Reason for Visit (unrecogniz ed section and content) Reason Comments Results Reason Comments Medication Refill Reason Comments Medication Problem Reason Comments Diabetic Retinal Exam Glaucoma Reason Comments Diabetes Pt here for f/u on d iabetes. Pt states unable to get into Dr Melissa. Pt checks blood sugars at home, averaging mid 200's. Pt would like RF suzanne huang, clomitrazole betamethasone. Reason Comments Pain New Patient Status Reason Specialty Diagnoses / Procedures Referred By Contact Referred To Contact New Request Diagnoses Left hip pain Procedures XR HIP WITH PELVIS LEFT Sai Hylton MD [address] [place] [address] Reason Comments New Patient Diabetes Reason Comments Hip Pain Pain Reason Comments Pain Follow-up Reason Comments Follow-up Diabetes Reason Comments Diabetes Patient Education New Patient Reason Comments Follow-up Reason Comments Hip Pain Pt here to discuss t aking tramadol for left hip pain. Pt is going to have left total hip replacement with Dr Hylton on 08-08-20. Pt was told she had to get any pain med from PCP. Reason Comments Diabetes Reason Comments Hip Pain Pt here for Medical Optimization for total left hip replacement to be done on 08/08/[address] Hylton. Pt did all PAT testing. Reason Comments Diabetic Retinal Exam Reason Comments Post Op Visit Status Reason Specialty Diagnoses / Procedures Referred By Contact Referred To Contact New Request Diagnoses Hx of total hip arthroplasty, left Procedures XR HIP WITH PELVIS LEFT Rashida Gutierrezd, INVESTMENT PROFESSIONAL-BURLING AND JOINING SUPERVISOR [address] [place], [place] [id number] Reason Comments Follow-up Diabetes log book Reason Comments Sinus Congestion C/O sinus pain and p ressure with a productive cough Status Reason Specialty Diagnoses / Procedures Referred By Contact Referred To Contact New Request Diagnoses Hx of total hip arthroplasty, left Procedures XR HIP WITH PELVIS LEFT Sai Hylton MD [address] [place], [place] [id number] Reason Comments Post Op Visit Status Reason Specialty Diagnoses / Procedures Re ferred By Contact Referred To Contact Diagnoses Primary osteoarthritis of left hip [M16.12] Sai Hylton MD [address] [place] [id number] Reason Comments Advice Only Status Reason Specialty Diagnoses / Procedures Referred By Contact Referred To Contact New Request Diagnoses Right hip pain Pain in prosthetic joint, sequela Procedures XR HIPS WITH PELVIS BILATERAL Sai Hylton MD [address] [place] [phone] Status Reason Specialty Diagnoses / Procedures Referred By Contact Referred To Contact Closed Magnetic Resonan ce Imaging Diagnoses Right hip pain Procedures MRI HIP RIGHT WITHOUT CONTRAST MO MRI LOWER EXTREM JT, W/O CONTRAST Sai Hylton MD [address] [place] [id number] [facility] [address] [place] [phone] Reason Comments Hip Pain MRI Results Reason Comments Hip Pain Pt. is here with c/o right hip pain for approx. two months. Pt. states her right foot turns out. Pt. states she would like to discuss left hip tear also. Other Pt. would like to di scuss getting Placard. Reason Comments Fall Leg Pain Reason Comments Establish Care previous pt, has not been seen in over 3 yrs Annual Exam last PAP and TORI 201 8 Specialty Diagnoses / Procedures Referred By Contac t Referred To Contact Diagnoses Screening for osteoporosis Post-menopausal Procedures BONE DENSITY AXIAL (HIP, PELVIS, SPINE) Fernanda Edwards, INVESTMENT PROFESSIONAL-BURLING AND JOINING SUPERVISOR [address] [place] [phone] Referral ID Status Reason Start Date Expiration Date Visits Re quested Visits Authorized [id number] Closed 11/07/2021 12/02/2022 1 1 Reason Comments Other Pt. Is here for lj vega of placard re: balance and walking problems. Reason Comments Diabetes 3 month Diabetes fol low up, Dexcom, outside labs at [facility] Reason Comments Follow-up Type 1 Diabetes Reason Comments Cough Pt here for c/o coug neha, SOB, headache, nasal congestion, body aches X 3 days. Pt had negative Covid test 3 days ago. Pt states at 15 minutes Covid test showed negative, but at 30 minutes it showed positive. Rash Pt states rash start ed 3 days ago on right leg. Pt states at first she states it hurt like a pulled muscle. Pt states it itches and osorio. Reason Comments Cough Pt here for follow u p on cough. Pt states tessalon perles help, but only temporarily. Pt states still SOB. Pt have fatigue. Pt did retest on Covid test and was negative. Shingles Pt here for follow u p on shingles, states they still burn a little but are improving. Reason Comments Chest Congestion Reason Comments Type 1 Diabetes Reason Comments Sinus Congestion Patient c/o sinus pr essure and nasal drainage. Patient was informed to come to our office per PCP. Reason Comments Cough Patient states she h as had a cough for a few weeks now and it is not getting any better Reason Comments Asthma Cough Specialty Diagnoses / Procedures Referred By Contac t Referred To Contact Pulmonary Disease Diagnoses Subacute cough Reactive airway disease without complication, unspecified asthma severity, unspecified whether persistent Asthma, cough variant Procedures PFT COMPLETE Alfred Roman MD [address] [place] [address] [facility] [address] [place] [phone] Referral ID Status Reason Start Date Expiration Date Visits Re quested Visits Authorized [id number] Closed 08/06/2023 08/30/2024 1 1 Specialty Diagnoses / Procedures Referred By Contac t Referred To Contact Pulmonary Disease Diagnoses Subacute cough Reactive airway disease without complication, unspecified asthma severity, unspecified whether persistent Asthma, cough variant Procedures EXERCISE-6 MIN. WALK Alfred Roman MD [address] [place], [place] [id number] [facility] [address] [place] [phone] Referral ID Status Reason Start Date Expiration Date Visits Re quested Visits Authorized [id number] Closed 08/06/2023 08/30/2024 1 1 Specialty Diagnoses / Procedures Referred By Contac t Referred To Contact Computerized Tomography Scan Diagnoses Interstitial lung disease Procedures CT CHEST WITHOUT CONTRAST CHG DIAGNOSTIC COMPUTED TOMOGRAPHY THORAX W/O CNTRST Alfred Roman MD [address] [place], [place] [phone] [facility] [address] [place] [phone] Referral ID Status Reason Start Date Expiration Date Visits Re quested Visits Authorized [id number] Closed 08/06/2023 08/30/2024 1 1 Reason Comments Asthma Cough Mir Melissa MD - 07/11/2020 8:45 AM EDT Procedure Notes (unrecognize d section and content) Associated Order(s): MO CONTINUOUS GLUCOSE MONITORING ANALYSIS I&R CGM download his demonstrating good glycemic control. 63% of blood sugars within range, 34% high, no hypoglycemia. One of the download together, identify certain high carb meal. Based on CGM download, we will increase strength of SGLT2 inhibitor, and decrease basal insulin dose. documented in this encounter Norma Hooks CNP - 08/08/2020 3:43 PM EDT Consult Notes (unrecognized section and content) Associated Order(s): IP CONSULT TO GENERAL MEDICINE Chief Complaint: left hip pain History of Present Illness: Patient is a 65 y.o. female presents to the hospital for scheduled surgery with Dr. Hylton. Patient complains of chronic left hip pain. She has failed conservative therapy and continues to have severe pain is interfering with her activities of daily living and quality of life. Patient is scheduled for left total hip arthroplasty. She denies fever, chills, chest pain, palpitations, cough, shortness of breath, nausea, vomiting or abdominal pain. Past Medical History: Diagnosis Date Allergic rhinitis Arthritis Basal cell carcinoma back and face Cervical dysphagia 2006 Diabetes mellitus Type 2 Diabetic eye exam 09/14/2018 no retinopathy noted Hamstring tendonitis at origin 03/03/2018 Hyperlipidemia Left hip pain 09/2017 SHANI (obstructive sleep apnea) cpap Osteoarthritis Past Surgical History: Procedure Laterality Date EXCISION SKIN LESION 06/15/2015 Right orthodox 1.5cm EXCISION SKIN LESION 06/15/2015 Forehead 2cm COLPOSCOPY 2007 LEEPS EXCISION SKIN LESION 2004 Basal Cell Carcinoma Left posterior shoulder LAPAROTOMY EXPLORATORY 1979 COLONOSCOPY DIAGNOSTIC Social History Tobacco Use Smoking status: Never Smoker Smokeless tobacco: Never Used Substance Use Topics Alcohol use: No Family History Problem Relation Age of Onset Diabetes Mother Arthritis - Osteo Mother Pacemaker Mother Arrhythmia Mother a-fib Dementia Mother Breast Cancer Mother Colorectal Polyps Father Diabetes Father Prostate Cancer Father Cancer Paternal Grandfather stomch Stroke Maternal Grandmother Medications Prior to Admission Medication Sig Dispense Refill Last Dose aspirin 325 MG Tab take 325 mg by mouth daily.. Past Week at Unknown time Empagliflozin 25 MG tablet Take 1 tablet by mouth every morning before breakfast. 90 tablet 1 08/07/2020 at Unknown time metFORMIN-XR 500 MG Tab SR 24 HR Take 2 tablets by mouth 2 times daily. 360 tablet 3 08/07/2020 at Unknown time Multiple Vitamins-Minerals (MULTIVITAMIN ADULT PO) take by mouth daily.. Past Week at Unknown time naproxen 500 MG tablet Take 1 tablet by mouth 2 times daily with meals. 60 tablet 0 Past Week at Unknown time [place]-3 Fatty Acids (FISH OIL) 1000 MG Cap take 1,000 mg by mouth at bedtime.. Past Week at Unknown time Semaglutide, 1 MG/DOSE, (Ozempic, 1 MG/DOSE,) 2 MG/1.5ML Solution Pen-injector Inject 1 mg under the skin once a week. 6 Prefilled Pen/Syringe 1 08/07/2020 at Unknown time timolol maleate 0.5 % Solution ophthalmic solution Place 1 drop in both eyes daily. Generic. 90 day supply. 1 Bottle 3 08/08/2020 at Unknown time Accu-Chek Guide Strip strip TESTING ONCE DAILY AND NEEDED 100 strip 1 Blood Glucose Monitoring Suppl (ACCU-CHEK COMPACT CARE KIT) Kit 1 kit by Unknown route daily. 1 kit 0 Dexcom G6 Professor Of Sport Management Device For use with Dexcom G6 system. Use to check blood sugar four times daily 1 Device 0 Dexcom G6 Sensor Misc 1 Device by Unknown route every 10 days. (Patient not taking: Reported on 07/13/2020) 9 Each 1 Dexcom G6 Transmitter Misc For use with Dexcom G6 system. Use to check blood sugar four times daily (Patient not taking: Reported on 07/13/2020) 1 Each 1 fluconazole 150 MG tablet Take 1 tablet by mouth as needed (yeast infection). (Patient not taking: Reported on 06/27/2020) 1 tablet 1 Insulin Degludec (Tresiba FlexTouch) 200 UNIT/ML Solution Pen-injector injection Inject 150 Units under the skin daily every morning. 12 Prefilled Pen/Syringe 2 traMADol 50 MG tablet Take 1 tablet by mouth every 6 hours as needed for Severe Pain (pain) for up to 7 days. 30 tablet 0 Allergies Allergen Reactions Codeine Itching Erythromycin Nausea Only Ibuprofen Nausea Only Latex Rash Penicillins Hives Povidone Iodine Itching Review of Systems: Ten systems reviewed and found to be negative unless otherwise stated in the history and present illness. PHYSICAL EXAM: Patient Vitals for the past 8 hrs: BP Temp Temp src Pulse Resp SpO2 Height Weight 08/08/20 1443 127/60 98.3 F (36.8 C) Oral 70 18 95 % 08/08/20 1432 124/62 98 F (36.7 C) Oral 73 16 96 % 08/08/20 1417 127/62 98.1 F (36.7 C) Oral 78 18 95 % 08/08/20 1402 129/63 98.1 F (36.7 C) Oral 73 16 94 % 08/08/20 1357 137/69 98.6 F (37 C) Temporal 79 14 94 % 08/08/20 1352 126/65 75 19 93 % 08/08/20 1347 118/68 79 20 96 % 08/08/20 1342 119/63 75 14 100 % 08/08/20 1337 123/68 75 20 100 % 08/08/20 1332 118/64 74 12 99 % 08/08/20 1327 126/61 98.2 F (36.8 C) Temporal 74 10 98 % 08/08/20 0839 132/75 97.7 F (36.5 C) Oral 82 96 % 1.626 m (5' 4 ) 103.7 kg (228 lb 9.9 oz) General: Patient resting comfortably. No acute distress. HEENT: Normalcephalic, atraumatic. STACEY. EOMI. Anicteric. Nose Normal. Ears Normal. OP Clear. No thrush.l Neck: Supple, no JVD, no thyromegaly, no anterior or posterior lymphadenopathy. Cardiovascular: Regular rate and rhythm, without murmurs, rubs, or gallops. Respiratory: clear to ausculation bilaterally, anterior and posteriorly without wheezes, rales, or rhonchi GI; Soft, rounded, non-tender. Bowel sounds present x4 quadrants. No rebound. No organomegaly or masses noted upon deep palpation. Extremities: No edema, clubbing or cyanosis, pulses palpable 2+ distally. Musculoskeletal: no obvious deformity, inflammation or tenderness Psych: Patient awake, alert, oriented x 3. Skin: Warm, Dry, Intact. No obvious rashes or lesions noted. Neuro: Cranial nerves 2-12 grossly intact upon seated examination. No focal defiects noted. Speech clear with conversation Diagnostics: Admission on 08/08/2020 Component Date Value ABO/RH(D) 08/08/2020 B POSITIVE SCREEN: MRSA 08/08/2020 NEGATIVE STAPHYOCOCCUS AUREUS BY * 08/08/2020 NEGATIVE SARS COV 2 RNA, QL REAL * 08/08/2020 NOT DETECTED NARRATIVE -1 08/08/2020 This test was performed using isothermal TINO and has been approved as Emergency Use Authorization (EUA) for the qualitative detection [id number] nucleic acid. BSA 08/08/2020 2.07 BSA 08/08/2020 2.07 GLUCOSE, POINT OF CARE 08/08/2020 130* GLUCOSE, POINT OF CARE 08/08/2020 130* Boilermaking Supervisor 08/08/2020 206,001 ASSESSMENT & PLAN: Principal Problem: Primary osteoarthritis of left hip- scheduled for left total hip arthroplasty today with Dr. Hylton- Active Problems: Diabetes mellitus- accu-Cheks before meals and at bedtime for sinus scale insulin Hyperlipidemia DVT/GI prophylaxis-PPI and per orthopedics Full Code Please note Portions of this note utilized [employer] dictation software, please excuse any typographical or grammatical errors. Associated attestation - Jimmy Lopez MD - 08/08/2020 7:14 PM EDT Else Zach Ackerman was personally seen and examined. I agree with the examination, assessment, and plan as described below by the SHAFTING WORKER with the following additions/exceptions: Doing well post operatively. EXAMINATION: Blood pressure 115/61, pulse 79, temperature 97.9 F (36.6 C), temperature source Oral, resp. rate 20, height 1.626 m (5' 4 ), weight 103.7 kg (228 lb 9.9 oz), last menstrual period 10/20/1996, SpO2 96 %. LUNGS: CTAB HEART: RRR ABDOMEN: Non-distended ASSESSMENT & PLAN: Principal Problem: Primary osteoarthritis of left hip Active Problems: Diabetes mellitus Hyperlipidemia Obesity (BMI 35-39.9) Post operative pain - Will continue with current medical managment. - Continue with post operative care. documented in this encounter Sabine Keyes RN - 08/08/2020 1:57 PM Kim Griffith RN - 08/08/2020 1:32 PM Kim Griffith RN - 08/08/2020 11:45 AM EDT Nursing Notes (unrecognized section and content) Patient discharged from PACU in stable condition, transported to [facility] via bed. Bedside report to Daphnie ROBLES. JAKE dressing visualized to be clean/dry/intact, and green light flashing. Patient denies pain/N/V at this time. Coffee provided per patient's request. Bed in lowest position, call-light in reach. Patient remains on room air. Transferred to PACU via bed with this nurse and GLASS WORKER. Bedside report given to Lisa ROBLES OR room Temp 62.6F OR room humidity 58% documented in this encounter Nursing Notes - Ervin Mustafa RN - 08/09/2020 3:16 PM EDTCertification - Sai Hylton MD - 08/09/2020 2:32 PM EDTNursing Notes - Ervin Mustafa RN - 08/09/2020 11:54 AM EDT Miscellaneous Notes (unrecog nized section and content) Reviewed all discharge instructions with patient. Reviewed all new discharge medications as well as all home medications patient is to resume taking or hold until their follow up appointment. Reviewed care of incision and dressing, wearing schedule of kelly hose and all restrictions/instructions for ambulation and therapy. Patient verbalized understanding of all discharge instructions and verified follow up appointment. Denies further questions or needs at this time. Printed discharge instructions given to patient. I certify that this patient requires inpatient services at this time. Patient is having a Medicare Inpatient Only procedure. Plans for post hospitalization care will be determined in the discharge planning process with social service agency director and the multidisciplinary team. Pt up working with therapy, no changes in previous assessment. DATE OF PROCEDURE: 08/08/2020 ATTENDING PHYSICIAN: Sai Hylton M.D. HAND COUNTER: Thierno Gutierrez CNP. PREOPERATIVE DIAGNOSES: 1. Severe left hip osteoarthritis. 2. Obesity, increased BMI (body mass index). POSTOPERATIVE DIAGNOSES: 1. Severe left hip osteoarthritis. 2. Obesity, increased BMI (body mass index). 3. Massive abductor tear, approximately 90% gluteus minimus and gluteus medius. PROCEDURES PERFORMED: 1. Left anterolateral total hip arthroplasty with modifier for increased difficulty due to increased BMI. 2. Open abductor repair with Artelon tissue grafting and Arthrex SwiveLock BioComposite suture anchor. 3. Periarticular injection. 4. Interpretation of intraoperative x-ray, left hip. ANESTHESIA: General. ANESTHESIOLOGIST: Per record. ESTIMATED BLOOD LOSS: 125 mL. COMPLICATIONS: None. INTRAVENOUS FLUIDS: Adequate. SPECIMENS: Include bone. INSTRUMENTATION USED: DePuy [place] 50 mm shell with a 32 mm neutral liner, a DePuy Actis size 2 high-offset hip stem and a Biolox Delta ceramic head +1/32 diameter, 12/14 taper. INDICATIONS: Melodie is an established patient of [employer] [employer]. She is a very pleasant, 65-year-old female with a history of severe left hip pain and has been diagnosed with osteoarthritis. She has failed conservative management and was given the options of treatment and elected to proceed forward with operative intervention. For that reason then, the patient was scheduled for the procedure for which patient appears today. Upon arrival to the preoperative unit, the risks, benefits and alternatives were thoroughly re-explained, informed consent was verified, and the surgical site was marked. After evaluation by Anesthesia and administration of the preoperative antibiotics, the patient was then brought to the operating room. DESCRIPTION OF THE PROCEDURE: Upon arrival to the operating room, the patient was placed supine on the operating room table and general anesthetic was induced. The patient was repositioned in a lateral decubitus position on the pegboard and all bony prominences were well padded. An axillary roll was placed. The operative region was then prepped and draped in a sterile standard fashion. A proper timeout was then performed. I began with a direct lateral incision and came down through the skin and the subcutaneous fat to the IT band. A Chavez elevator was used to develop a small plane over this. The IT band was then split in line with the original incision and an anterolateral approach to the hip was performed, taking off and tagging the anterior one-quarter of the abductor, which was then retracted anteriorly throughout the duration of the case. I then compared the operative leg to the down leg for leg length estimation and placed a suture marker in the skin for comparison to a mago on the proximal lateral femur for additional leg length estimation. With progressive dissection across the proximal medial femur, I was able to atraumatically produce the femoral head and neck into the wound. This demonstrated severe endstage arthritis. Next, I proceeded to identify the superior aspect of the lesser trochanter. I marked my neck cut in accordance with my preoperative template, and a femoral head and neck osteotomy was performed. Following removal of the femoral head, the femur was translated posteriorly and exposure was gained about the acetabulum with two Zelpis and a cerebellar retractor. After adequate exposure was achieved a complete labrectomy was performed. I started off with a size 45 reamer and reamed up to a size 49 mm reamer. In doing so, I reamed to my templated planned position. I then impacted a 50 mm shell at approximately 40 degrees of abduction and 10-15 degrees of anteversion, which was in line with the natural acetabular anteversion and the transverse acetabular ligament. The cup was fully seated as visualized through the screw holes, had adequate bony coverage and was stable to manual stress. Rim osteophytes were safely removed. Following this, the wound was thoroughly irrigated and the final liner was impacted into the shell. It was free of soft tissue entrapment and verified to be secure. I then turned my attention to the proximal femur. With the proximal femur now re-exposed, I started off with a box osteotome and used a curved rasp to access the canal and verify correct placement. I then used a starting broach and increased up to a size 2 high-offset broach, which resulted in excellent coverage and fit. I placed this at approximately 10 degrees of anteversion in line with the posterior femoral cortical neck. I was overall satisfied with the metaphyseal stability of this construct and, at this point, I started off trialing head and neck options according to my preoperative template. The leg was reduced. Function and stability was assessed. There was excellent stability to full extension and external rotation to 90 degrees in both abduction and adduction. There was no impingement and no instability. There was full flexion and at 90 degrees of flexion. There was approximately 80 degrees of internal rotation without any evidence of impingement or instability. I was satisfied with the performance of the hip. There was appropriate pull of the abductors laterally and length and shoulder height, which matched that of my template. An intraoperative radiograph was taken, which confirmed position of the trials, as well as appropriate leg length and offset. Thus, at this point, the hip was re-dislocated. The trials were removed and the final implant was impacted down to a similar place as the trial. I retrialed the hip with a +1 neck option as I felt this best optimized length, offset, stability, and motion. The final head/neck combination was impacted onto a clean and dry Woodward taper, and this was verified to be secure. The hip was then reduced. The wound was soaked with a Betadine soak saline solution followed by gentle lavage. The periarticular injection was administered. Hemostasis was obtained and the wound was closed over 1 gram of Vancomycin powder with 0-Vicryl in a figure-of-8 interrupted fashion starting with the gluteus minimus and the hip capsule. The gluteus medius was then closed with additional 0-Vicryl, and then over sewn with a #2 Quill. The construct was stressed without evidence of gapping and was otherwise stable and well reduced. The IT band was closed with a #2 Quill followed by #0 Quill for the subcutaneous fatty layer. The skin was closed with Dermabond. The extremity was cleansed and a sterile dressing was applied. The patient was then awoken from anesthetic, extubated and taken to postoperative care unit in stable condition. Due to the patient s increased BMI, this increased the technical difficulty of the operation from the time for wound exposure, wound closure, patient positioning, materials required and, as such, a modifier for increased difficulty is attached. In addition, during the exposure, I identified an absolute massive tear of the abductor. As soon as I came through the IT band I was looking at bald sclerotic trochanteric bone. There is significant shredding of the gluteus medius and the anterior-inferior tear. There was only perhaps 5%-10% of the remaining posterior-superior fibers superiorly. I proceeded through the workflow and established a dissection plane through this to expose the hip. At the end of the operation, I came back to this. I decorticated the anterior tip of the greater trochanter and I proceeded then with an open abductor repair. In doing so, I started off by repairing the gluteus minimus and capsular layers deep with a #1 Vicryl Pop-Off. I then placed an Arthrex SwiveLock suture anchor in the tip of the trochanteric area into the cortical bone by using the punch, the tap and then the anchor. Through this anchor I then passed a number of FiberWire sutures and I was able to then pass these through the anterior-inferior and posterior-superior quadrants with each leaflet x3 then reducing this back down to the bone directly over the suture anchor. This afforded an excellent reduction of all abductor tissue directly to the bone. I then sutured it with a #2 Quill. I then placed an Artelon tissue graft 4 x 7 cm directly over the tear itself. I sutured this around the periphery with 0-Quill, and then secured it with additional 0-Vicryl centrally. Due to this patient s increased BMI, as well as this massive abductor tear, the postop plan of care is going to be modified. POSTOPERATIVE PLAN OF CARE: 1. Touchdown weight bearing with global hip precautions, abductor pillow at night and when sleeping for at least 6 weeks. 2. IV antibiotics 24 hours postop. 3. DVT prophylaxis, both mechanical and chemical. 4. Follow up in the office in 2-3 weeks. ATTENDING/ASSISTING PARTICIPATION: This operation could not have been safely performed (without compromising the technical results or length of the procedure) without the assistance of a skilled surgical scrub technician. A surgical scrub technician was medically necessary for positioning, retraction and instrumentation. Patient assessment is unchanged from previous. She has been resting quietly. Dressing remains dry and intact, JAKE flashing green. Patient up to restroom utilizing safety and precautions. Assessment is unchanged from previous. JAKE dressing is intact with no drainage, flashing green. Pain is a 4/10, scheduled medications given at this time. Patient up to restroom with one assist, walker, gait belt and TTWB precautions utilized. She has a 7/10 pain, medication given as ordered. Ambulates in the whatley at this time then back to bed. Abductor pillow placed and SCDs. POC reviewed. Call light in reach. Report received from MARGARET Gonzalez. Patient alert in bed, denies pain, dressing clean dry and intact, spouse at bedside. POST OPERATIVE/PROCEDURE NOTE Else Zach Ackerman ([id number]) SURGEON Surgeon(s) and Role: * Sai Hylton MD - Primary HAND COUNTER SOY Figueroa ANESTHESIOLOGIST GLASS WORKER: VERONIKA Arriola SURGICAL STAFF Back End Developer: Kim Mathias RN Nurse Practitioner: SOY Figueroa Scrub Person: Pura Reyes RN Yarder Boss Quad Stayer: Ángel Taveras; Queta Coffey, TITUS PROCEDURE PERFORMED Procedure(s) (LRB): ARTHROPLASTY HIP TOTAL AL LEFT - poss abd repair - LATEX ALLERGY NO IODINE OR IOBAN (Left) Left hip periaritcular injection intraop interpretation of xray PRIMARY CLOSURE Yes ANESTHESIA (type of) General ESTIMATED BLOOD LOSS 125 ml DRAINS none BLOOD PRODUCTS none FLUIDS No intake or output data in the 24 hours ending 08/08/20 1321 PRE OPERATIVE DIAGNOSIS Primary osteoarthritis of left hip [M16.12] POST OPERATIVE DIAGNOSIS Primary osteoarthritis of left hip [M16.12] FINDINGS severe oa hip CONDITION OF PATIENT stable COMPLICATIONS None GRAFTS AND/OR IMPLANTS See OR Nursing Documentation SPECIMENS Cytology specimen sent ID Type Source Tests Collected by Time Destination A : left Femoral head Permanent TISSUE SURGICAL PATHOLOGY REQUEST Sai Hylton MD 08/08/2020 1230 SOY Figueroa August 08, 2020 1:21 PM documented in this encounter Addended by: GALINDO MCALLISTER on: 07/14/2020 11:02 AM Modules accepted: Orders documented in this encounter Scheduled Active and Recently Administ ered Medications (unrecognized section and content) Care Teams (unrecognized sec tion and content) Disability Examiner Relationship Specialty Start Date End Date Clari Moss MD PCP - General Internal Medicine 01/21/17 Disability Examiner Relationship Specialty Start Date End Date Clari Moss MD PCP - General Internal Medicine 01/21/17 Disability Examiner Relationship Specialty Start Date End Date Clari Moss MD PCP - General Internal Medicine 01/21/17 Disability Examiner Relationship Specialty Start Date End Date Clari Moss MD PCP - General Internal Medicine 01/21/17 Disability Examiner Relationship Specialty Start Date End Date Clari Moss MD PCP - General Internal Medicine 01/21/17 Disability Examiner Relationship Specialty Start Date End Date Clari Moss MD PCP - General Internal Medicine 01/21/17 Disability Examiner Relationship Specialty Start Date End Date Clari Moss MD PCP - General Internal Medicine 01/21/17 Disability Examiner Relationship Specialty Start Date End Date Clari Moss MD PCP - General Internal Medicine 01/21/17 Disability Examiner Relationship Specialty Start Date End Date Clari Moss MD PCP - General Internal Medicine 01/21/17 Disability Examiner Relationship Specialty Start Date End Date Clari Moss MD PCP - General Internal Medicine 01/21/17 Disability Examiner Relationship Specialty Start Date End Date Clari Moss MD PCP - General Internal Medicine 01/21/17 Disability Examiner Relationship Specialty Start Date End Date Clari Moss MD PCP - General Internal Medicine 01/21/17 Disability Examiner Relationship Specialty Start Date End Date Clari Moss MD PCP - General Internal Medicine 01/21/17 Disability Examiner Relationship Specialty Start Date End Date Clari Moss MD PCP - General Internal Medicine 01/21/17 Disability Examiner Relationship Specialty Start Date End Date Clari Moss MD [facility] - General Internal Medicine 01/21/17 Disability Examiner Relationship Specialty Start Date End Date Clari Moss MD PCP - General Internal Medicine 01/21/17 Disability Examiner Relationship Specialty Start Date End Date Clari Moss MD [facility] General Internal Medicine 01/21/17 Disability Examiner Relationship Specialty Start Date End Date Clari Moss MD PCP General Internal Medicine 01/21/17 Disability Examiner Relationship Specialty Start Date End Date Clari Moss MD [facility] - General Internal Medicine 01/21/17 FOR RECORDS PERTAINING TO PATIENTS WHO ARE OR HAVE BEEN ENROLLED IN A CHEMICAL DEPENDENCY/SUBSTANCEABUSE PROGRAM, SOME INFORMATION MAY BE OMITTED. This clinical summary was aggregated from multiple sources. Caution should be exercised in using it in the provision of clinical care. This summary normalizes information from multiple sources, and as a consequence, information in this document may materially change the coding, format and clinical context of patient data. In addition, data may be omitted in some cases. CLINICAL DECISIONS SHOULD BE BASED ON THE PRIMARY CLINICAL RECORDS. [facility] [employer] [facility]. provides no warranty or guarantee of the accuracy or completeness of information in this document.
[2023-10-31 06:39] VITALS: BP 137/78; PULSE 92; RESP 18; TEMP 36.4; O2SAT 97; BMI 54.1
--- NOTE | 2023-10-31 07:11 | PCM.HP.BLA ---
History and Physical Date of Admission: 10/31/23 The patient is examined and there are no changes to the exam from 10/29/23. She has lesions of forehead, right eye area, left cheek, and nose. Assessment & Plan Assessment/Plan (1) Neoplasm of uncertain behavior of skin of face: PLAN: Plan For shave of the above lesions for pathologic evaluation. Pt is aware that further surgery may be needed.
[2023-10-31 07:16] VITALS: BP 108/69; BP 108/94; BP 117/69; BP 131/76; BP 148/66; O2SAT 94; O2SAT 95; O2SAT 96; O2SAT 97
[2023-10-31] MEDS: Lidocaine 1% /Epi 1:100 9 ML, Sodium Bicarbonate 1 MEQ OPERA.SITE (08:00)
[2023-10-31] MEDS: Bacitracin 500 UNITS/GM PACKET (08:12)
--- NOTE | 2023-10-31 08:19 | DCINST_ITS ---
Discharge Instructions Dressing / Incision Additional Dressing/Incision Instructions:: Keep your back elevated (recliner position) for the next 2-3 nights to decrease bruising and swelling. Take the oral antibiotic (Keflex) 2 x a day until finished. May leave the bandaids off when there is no further drainage. Otherwise change them daily. May shower over the sites, but do not scrub. Follow Up Care Please Follow Up With: Digna Hammond MD When: 1-2 weeks Test Results: Test results from this visit will be discussed in further detail at your follow- up appointment, if applicable. Discharge Plan Admission Attending Provider: Digna Hammond Primary Care Provider: Toribio Moss Discharge Orders/Prescriptions Prescriptions: New cephalexin 500 mg capsule 500 mg PO BID Qty: 10 0RF No Action atorvastatin [Lipitor] 10 mg tablet 10 mg PO DAILY Co [id number] E-Fish Oil 25-150-200 mg-mg-unit capsule 1 cap PO DAILY metformin 500 mg tablet 1,000 mg PO BID multivitamin [Daily Multi-Vitamin] Tablet 1 tab PO DAILY Ozempic 0.25 mg or 0.5 mg (2 mg/3 mL) pen injector 0.25 mg subcut QWEEK Rx Instructions: for 4 weeks timolol maleate 0.5 % drops 1 drp ophthalmic (eye) DAILY Diluting Medium for Novolog Solution subcut Rx Instructions: novolog insulin for insulin pump daily omeprazole magnesium [Prilosec OTC] 20 mg tablet,delayed release (DR/EC) 20 mg PO DAILY Referrals / Follow Up: Toribio Moss MD [Primary Care Provider] - Disposition Disposition (needs filled in before D/C Order can be placed): Home, Self Care
--- NOTE | 2023-10-31 08:24 | PCM.OPRPT ---
Problems Associated Problem List Diagnoses (1) Neoplasm of uncertain behavior of skin of face: Report of Operation Date of Procedure: 10/31/23 Pre-Operative Diagnosis: Neoplasm of uncertain behavior of forehead, right eye area, nose, and left cheek Post-Operative Diagnosis: Same Surgery/Procedure Performed:: Shave lesion of forehead (1.0 cm), right eye area (2.0 cm), nose (1.0 cm), and left cheek (1.0 cm) Surgeon: Digna Hammond Type of Anesthesia: Local Specimen's removed: Above lesions Estimated Blood Loss (mL): Minimal Description of Procedure: The patient presents with several new lesions of her face. She presents for shave excision with submission for pathologic evaluation. She is aware of the potential need for further surgery depending on the resulting pathology. Procedure: the patient is brought to the operating room and placed on the operating room table in the supine position. The face is prepped and draped in the usual sterile fashion. 1% Xylocaine with epinephrine buffered with sodium bicarb is used for local anesthetic. Following this, each site is shaved at the base and the base fulgarized. Antibiotic ointment and a Band-Aid are placed on each site. She tolerated the procedure well and was taken to the recovery area in an awake and stable condition. Needle and sponge counts were correct. Complications None Admit VTE Documentation VTE Mechan Device Prophylaxis: None Reason prophylaxis not ordered:: Treatment Not Indicated
[2023-10-31 08:43] VITALS: BP 125/65; BP 137/78; PULSE 93; RESP 16; TEMP 37.4; O2SAT 95
== END 2023-10-31 08:52 | disposition home or self-care (01) ==
LOC: SDC 06:00 → AC 06:03
PROVIDERS: Referring Provider Plastic Surgery; Visit Provider Plastic Surgery
PROC: (CPT 11102; principal; 2023-10-31 07:20)
DX: D48.5 Neoplasm of uncertain behavior of skin (principal); R23.4 Changes in skin texture; L57.8 Other skin changes due to chronic exposure to nonionizing radiation; B35.9 Dermatophytosis, unspecified
CPT/HCPCS: 11102; 11103 ×3; 88305; 88341; 88342

== ENCOUNTER 2024-05-07 09:45 | Day surgery (SDC) | payer MEDICARE, SELFPAY ==
--- NOTE | 2024-05-07 | TISS_PTH ---
PATIENT: RIKKI ACKERMAN [place] [facility] [place][id number] AGE/SX: 68/F ROOM: RE05/07/[address]: Dr. Digna Hammond MD : 1955 BED: DIS: 05/07/2024 SPEC #: [id number] RECD: 05/07/24 15:29 STATUS: HARSAH MENDOZA #: [id number] KARLENE: 05/07/24 00:[address]: Digna Hammond DEPT: SURGICAL PATHOLOGY RECD BY: Musa Saul ENTERED: 05/10/24 08:43 SP TYPE: Tissue Bx NADYA DR: Dr. Toribio Moss MD Tissues: Skin of face, NOS Procedures: Surgery Specimen Level IV HEADER OPERATION: Excision lesion right holiness (2.0cm) with intermediate closure PRE-OP DIAGNOSIS: Neoplasm of uncertain behavior of skin of face TISSUE SUBMITTED: Neoplasm of uncertain behavior of skin of face, right holiness MICROSCOPIC DIAGNOSIS Skin lesion of right holiness, biopsy: Verrucoid keratosis with actinic change, inflamed. Solar elastosis, parakeratosis and chronic inflammation. Fungal organisms consistent with Tinea. See comment. / 05/11/2024 COMMENT Focal seborrheic keratosis features are also identified. The lesion appears to have been completely excised in the planes examined. MICROSCOPIC DESCRIPTION Slides are reviewed. GROSS DESCRIPTION Received in fixative is one container labeled with the patient's name and designated Neoplasm of uncertain behavior of skin of face- right holiness. The specimen consists of a piece of sewell-white skin measuring 1.8 x 1.1cm and up to 0.2cm in thickness. The specimen is inked, serially sectioned and submitted entirely in one cassette. / 05/10/2024 TC:5 CPT:09940
[2024-05-07 10:00] VITALS: BP 130/75; PULSE 100; RESP 16; TEMP 37.3; O2SAT 97; BMI 56.0
--- NOTE | 2024-05-07 10:14 | PCM.HP.BLA ---
History and Physical Date of Admission: 05/07/24 The patient is examined and there are no changes to the H&P of 05/05/24. Pt for excision neoplasm right gnosticist. Informed consent was obtained. Assessment & Plan Assessment/Plan (1) Neoplasm of uncertain behavior of skin of face: PLAN: Plan For excision neoplasm right gnosticist. Pt is aware of the potential for further surgery. Informed consent was obtained.
[2024-05-07 10:16] VITALS: BP 115/76; BP 141/81; O2SAT 96; O2SAT 97; O2SAT 98; O2SAT 99
[2024-05-07] MEDS: Lidocaine 1% /Epi 1:100 9 ML, Sodium Bicarbonate 1 MEQ OPERA.SITE (10:42)
--- NOTE | 2024-05-07 11:17 | EX.PCM.DISCH ---
Discharge Instructions Dressing / Incision Additional Dressing/Incision Instructions:: Keep your head elevated (recliner position) for the next 2-3 nights to decrease swelling and bruising. Take the oral antibiotic (Keflex) 2 x a day until finished. Keep the steri-strips dry. Do not remove until seen in the office. Follow Up Care Please Follow Up With: Digna Hammond MD When: in 1-2 weeks Test Results: Test results from this visit will be discussed in further detail at your follow-up appointment, if applicable. Discharge Plan Admission Attending Provider: Digna Hammond Primary Care Provider: Toribio Moss Instructions Print Language: French Discharge Orders/Prescriptions Prescriptions: New cephalexin 500 mg capsule 500 mg PO BID 5 Days Qty: 10 0RF No Action atorvastatin [Lipitor] 10 mg tablet 10 mg PO DAILY Co [id number] E-Fish Oil 25-150-200 mg-mg-unit capsule 1 cap PO DAILY metformin 500 mg tablet 1,000 mg PO BID multivitamin [Daily Multi-Vitamin] Tablet 1 tab PO DAILY Ozempic 0.25 mg or 0.5 mg (2 mg/3 mL) pen injector 0.25 mg subcut QWEEK Rx Instructions: for 4 weeks timolol maleate 0.5 % drops 1 drp ophthalmic (eye) DAILY Diluting Medium for Novolog Solution subcut Rx Instructions: novolog insulin for insulin pump daily omeprazole magnesium [Prilosec OTC] 20 mg tablet,delayed release (DR/EC) 20 mg PO DAILY Referrals / Follow Up: Toribio Moss MD [Primary Care Provider] - Disposition Disposition (needs filled in before D/C Order can be placed): Home, Self Care
--- NOTE | 2024-05-07 11:21 | PCM.OPRPT ---
Problems Associated Problem List Diagnoses (1) Neoplasm of uncertain behavior of skin of face: Report of Operation Date of Procedure: 05/07/24 Pre-Operative Diagnosis: Neoplasm uncertain behavior right tenriism Post-Operative Diagnosis: same Surgery/Procedure Performed:: Excision lesion right tenriism (3.0cm) with intermediate closure Surgeon: Digna Hammond Type of Anesthesia: Local Specimen's removed: lesion tenriism Estimated Blood Loss (mL): minimal Description of Procedure: The patient presents with a new lesion of the right tenriism in a previous actinic keratosis location. She is brought to the OR and placed in a supine position. She is prepped and draped in the usual sterile fashion. 1% xylocaine with epi is used for local anesthetic. The site is excised with the ELLMAN cautery and passed off the operative field to be sent to pathology. Hemostasis is controlled with cautery. The wound is initially tacked together with sild sutures. Following this a layered closure is performed using vicryl sutures in the subcutaneous tissue and dermis. Skin edges are approximated with a running chromic sutures as well as reinforced with interrupted silk suture. Dermabond and steri-strips are used to dress the site. She tolerated the procedure well. Needle and sponge count are correct. Complications none Admit VTE Documentation VTE Mechan Device Prophylaxis: None Reason prophylaxis not ordered:: Treatment Not Indicated
[2024-05-07 11:39] VITALS: BP 130/75; BP 160/94; PULSE 103; RESP 16; TEMP 37.2; O2SAT 96
== END 2024-05-07 11:47 | disposition home or self-care (01) ==
LOC: SDC 09:52 → AC 09:55
PROVIDERS: Referring Provider Plastic Surgery; Visit Provider Plastic Surgery
PROC: (CPT 11443; principal; 2024-05-07 11:10)
DX: L57.0 Actinic keratosis (principal); L57.8 Other skin changes due to chronic exposure to nonionizing radiation; R23.4 Changes in skin texture
CPT/HCPCS: 11443; 12052; 88305